=== PATIENT | male | born 1955 | race Two or more races ===

== ENCOUNTER 2024-04-01 20:12 | Emergency (ER) | payer BC, MEDICARE ==
[~2024-04-01] VITALS: Ht 175.3 cm; Wt 91.3 kg
[2024-04-01 20:44] VITALS: BP 97/70; PULSE 73; RESP 20; O2SAT 100
== END 2024-04-01 21:49 | disposition left against medical advice (07) ==
LOC: ER 20:12
DX: S81.832A Puncture wound without foreign body, left lower leg, initial encounter (principal); Z53.21 Procedure and treatment not carried out due to patient leaving prior to being seen by health care provider; W54.0XXA Bitten by dog, initial encounter; Y93.89 Activity, other specified; Y92.89 Other specified places as the place of occurrence of the external cause; Y99.8 Other external cause status

== ENCOUNTER 2024-07-11 11:24 | Inpatient (IN) | payer BC, MEDICARE ==
[2024-07-11] VITALS (21 sets, daily range): BP systolic 101–137; BP diastolic 60–81; PULSE 89–137; RESP 11–39; TEMP 98.4–98.6; O2SAT 91–100
[~2024-07-11] VITALS: Ht 172.7 cm; Wt 82.0 kg
--- NOTE | 2024-07-11 11:34 | ED.PDOC ---
HPI Comments HPI: Poor Historian. History obtained from the patient and EMS. 68-year-old male brought in by EMS from home presents with a chief complaint of generalized weakness and dizziness x 1 week. Patient mentions that he has not been taking his insulin medication for the past 1 week due to feeling sick. Patient does have sick contacts at home with respiratory symptoms. Per EMS, patient was hypotensive at 70/40 at the scene, but when they laid him down it amparo to 122/61. Initial blood sugar was 419. Patient was also tachycardic in the 120s. PMHx: DM, HTN, CHF, VT, A-Fib, On Eliquis (compliant with medication) PSHx: Pacemaker, Coronary Stents Allergies: No Known Allergies Initial Vital Signs: BP: 122/61 HR: 124 Temp: 98.1F SpO2: 95% RR: 24 REVIEW OF SYSTEMS: CONSTITUTIONAL: Denies acute: diaphoresis, HEAD: Denies acute: headache, photophobia Eyes: Denies acute: Double vision, vision loss, eye pain, eye discharge. EARS: Denies acute: tinnitus, hearing loss, ear discharge, ear pain, THROAT: Denies acute: sore throat, swelling, difficulty swallowing , pain with swallowing, change in voice. NECK: Denies acute: neck pain, neck swelling, stiff neck. HEART: Denies acute : chest pain, palpitations, LUNGS: Denies acute: SOB, wheezing, cough, hemoptysis ABDOMEN: Denies acute: abdominal pain, Nausea, Vomiting, diarrhea, melena , hematemesis, hematochezia SKIN: Denies acute: rash, redness, lesions, itchiness. EXTREMITIES: Denies acute: calf pain, numbness, tingling, weakness, denies pain in extremity. Denies acute: Low back pain. Neuro: Denies acute: focal neurological deficit, motor or sensory focal neurological deficit, tremors, seizure like activity, confusion, dizziness, change in mental status, loss of bowel or bladder function, cauda equina like symptoms. : Denies acute: dysuria, hematuria, flank pain, increase in urinary frequency. PSYCH: Denies acute: hallucination, suicidal ideation, homicidal ideation. PHYSICAL EXAM: General: Moderate acute distress, awake and alert. Head: normocephalic, atraumatic. Neck: supple, trachea is midline, no swelling. Throat: Normal phonation. Dry oral mucosa Eyes:, no erythema, no purulent discharge, no proptosis, no icterus. Heart: regular tachycardia, no significant murmur appreciated. Lungs: no apparent respiratory distress, Able to speak in full sentences. No wheezing, no rhonchi, no crackles. No stridors Clear to auscultation bilaterally. Abdomen: non tender to palpation, non distended, soft, no guarding, no rebound, + bowel sounds. Neuro: Awake, Alert, oriented to name, self, situation, follows commands GCS=15. Speech is normal. Skin: no petechia, no purpura, no cyanosis, slightly-pale, not jaundice. Lower extremities: --no - Pitting edema no deformity, no focal swelling, no calf TTP. Makes eye contact. moves all four extremities. Face: no apparent facial droop. Ears: Normal appearing TM b/l, Time Seen by MD: 11:26 Reviewed Notes: Allergies Allergies: Coded Allergies: NO KNOWN ALLERGIES (Unverified , 07/11/24) Home Meds Reported Medications Finasteride (Finasteride) 5 Mg Tab, 1 TAB PO DAILY 07/11/24 Metoprolol Succinate (Metoprolol Succinate Er) 25 Mg Tab, 1 TAB PO DAILY 07/11/24 Metformin Hydrochloride (Metformin Hcl) 1,000 Mg Tab, 1 TAB PO BID 07/11/24 Sacubitril-Valsartan (Entresto 97-103 mg) 1 Tab Tab, 1 TAB PO BID 07/11/24 Apixaban Base (ELIQUIS) 5 Mg Tab, .5 TAB PO BID 07/11/24 Gabapentin (Gabapentin) 300 Mg Cap, 1 CAP PO HS 07/11/24 Dapagliflozin Propanediol (Dapagliflozin Propanediol) 10 Mg Tab, 1 TAB PO DAILY 07/11/24 Ezetimibe (Ezetimibe) 10 Mg Tab, 1 TAB PO DAILY 07/11/24 Dapagliflozin Propanediol (Farxiga) 10 Mg Tab, 1 TAB PO DAILY 07/11/24 Spironolactone (Spironolactone) 25 Mg Tab, 1 TAB PO DAILY 07/11/24 Levothyroxine Sodium (Levothyroxine Sodium) 200 Mcg Tab, 1 TAB PO DAILY 07/11/24 Information Source: Patient Mode of Arrival: EMS Past Medical History PAST MEDICAL HISTORY: CHF, DM, HTN, VT Surgical History: Pacemaker, PTCA Family History Family History: Reviewed,noncontributory to illness Social History Smoker: Non-Smoker Alcohol: Denies ETOH Use Drugs: Denies Drug Use Lives In: Home Was a procedure done? 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 1.5cc of 1% lidocaine used. Blue patch applied. Three ports were flushing well non pulsating, venous color blood. This was done under ultrasound guidance. Ports are flushing well without resistance. Eleven blade was used to make a 5 mm incision at the insertion site. Dilator was used. Bleeding minimal. Patient tolerated the procedure well. The catheter was secured with two stitches at the insertion site. Tegaderm was applied CP Differential Dx Differential Diagnosis: N/A Differential Diagnosis: Other (As far as dyspnea, DDx include ACS, unstable angina, anxiety, PE, pneumothroax, neoplasm, cardiac ischemia, COPD, asthma, CHF, pleural effusion, tobacco abuse, pneumonia, hypoxia, hypercapnia, anemia., infection/sepsis., pulmonary edema. Asthma, Cardiac tamponade, infection.) Differential Diagnosis: Other (As far as weakness: Includes but not limited to thyroid disease, encephalopathy, electrolyte abnormality, sepsis, infection, intracranial pathology, drug adverse effects, arrhythmia, kidney insufficiency, ACS, CVA, malignancy, anemia) X-Ray, Labs, Meds, VS Vital Signs Date Time Temp Pulse Resp B/P (MAP) Pulse Ox O2 Delivery O2 Flow Rate FiO2 07/11/24 17:46 100 16 104/49 (67) 92 07/11/24 17:34 100 19 83/40 (54) 92 07/11/24 17:30 90/42 07/11/24 17:20 75/51 07/11/24 17:15 103 48 92/52 (65) 90 07/11/24 17:12 85/46 07/11/24 17:00 99 51 54/32 (39) 89 07/11/24 16:45 93 45 85/52 (63) 97 07/11/24 16:30 96 23 85/52 (63) 97 07/11/24 16:30 85/52 07/11/24 16:30 94 80/50 07/11/24 16:25 80/50 07/11/24 16:16 77/44 07/11/24 16:15 96 20 77/44 (55) 85 07/11/24 16:07 76/41 07/11/24 16:01 87 07/11/24 16:00 88 15 60/36 (44) 88 07/11/24 16:00 60/36 07/11/24 15:56 79/29 07/11/24 15:52 75/30 07/11/24 15:48 70/29 07/11/24 15:46 61/23 07/11/24 15:46 85 17 61/23 (36) 89 07/11/24 15:30 188 85/55 07/11/24 15:00 116 28 99/77 (84) 95 07/11/24 14:12 118 07/11/24 14:00 128 35 82/39 (53) 87 07/11/24 13:50 98.4 07/11/24 13:33 120 07/11/24 13:00 98.3 121 12 166/126 (139) 93 98.3 07/11/24 12:50 100.3 07/11/24 12:01 120 25 63/40 (48) 91 07/11/24 11:53 100.3 137 33 115/93 (100) 98 100.3 07/11/24 11:49 137 24 95 Nasal Cannula* 2 28 07/11/24 11:49 98.7 124 24 122/61 (81) 95 Lab Test 07/11/24 16:12 07/11/24 15:40 07/11/24 15:12 07/11/24 14:44 Range/Units Blood Gas Specimen Type Arterial Blood Gas Sample Site Right radial Blood Gas Patient Temperature 37.0 Arterial Blood Date Drawn [id number] Arterial Blood pH 7.385 7.350-7.450 Arterial Blood Partial Pressure CO2 30.3 L 35.0-48.0 mmHg Arterial Blood Partial Pressure O2 56.1 L 83.0-108.0 mmHg Arterial Blood HCO3 17.7 L 21.0-28.0 mmol/L Arterial Blood Oxygen Saturation 88.6 L 94.0-98.0 % Arterial Blood Base Excess -6.1 L -2.0-3.0 mmol/L Arterial Blood Oxyhemoglobin 87.6 L 94.0-98.0 % Arterial Blood Carboxyhemoglobin 0.5 0.5-1.5 % Arterial Blood Methemoglobin 0.6 0.0-1.5 % Frank Test Yes Blood Gas Total Hemoglobin 13.50 13.5-17.5 g/dL Blood Gas Modality Mask - simple FiO2 % 50.0 Sodium Level 134 L 136-145 mmol/L Potassium Level 3.4 L 3.5-5.1 mmol/L Chloride Level 102 98-107 mmol/L Carbon Dioxide Level 21 20-31 mmol/L Anion Gap 11 5-15 Blood Urea Nitrogen 17 9-23 mg/dL Creatinine 1.57 H 0.700-1.30 mg/dL Glomerular Filtration Rate Calc 48 >90 mL/min BUN/Creatinine Ratio 10.8 10.0-20.0 Serum Glucose 186 #H 74-106 mg/dL Calcium Level 7.4 L 8.7-10.4 mg/dL Total Bilirubin 0.6 0.2-1.0 mg/dL Aspartate Amino Transferase (AST) 21 13-40 U/L Alanine Aminotransferase (ALT) 12 7-40 U/L Alkaline Phosphatase 35 L 46-116 U/L Total Protein 5.0 L 5.7-8.2 g/dL Albumin 2.9 L 3.2-4.8 g/dL Triglycerides Level 52 < 150 mg/dL Cholesterol Level 84 < 200 mg/dL LDL Cholesterol 31 < 100 mg/dL HDL Cholesterol 42 40-59 mg/dL Thyroid Stimulating Hormone (TSH) 1.78 0.55-4.78 uIU/mL Urine Color Yellow Yellow Urine Clarity Clear Clear Urine pH 5.5 5.0-9.0 Urine Specific [place] 1.027 1.001-1.035 Urine Protein 1+ H Negative Urine Ketones 2+ H Negative Urine Blood Negative Negative /uL Urine Nitrite Negative Negative Urine Bilirubin Negative Negative Urine Urobilinogen Normal Negative mg/dL Urine Leukocyte Esterase Negative Negative /uL Urine RBC 1 0 - 3 /hpf Urine WBC 3 0 - 3 /hpf Urine Squamous Epithelial Cells Few <5 /hpf Urine Bacteria None seen None Seen /hpf Urine Glucose 4+ H Normal mg/dL Urine Opiates Screen Neg NEGATIVE Urine Fentanyl Screen Neg NEGATIVE Urine Barbiturates Screen Neg NEGATIVE Urine Phencyclidine Screen Neg NEGATIVE Urine Amphetamines Screen Neg NEGATIVE Urine Benzodiazepines Screen Neg NEGATIVE Urine Cocaine Screen Neg NEGATIVE Urine Cannabinoids Screen Neg NEGATIVE D-Dimer, Quantitative 4.34 H 0.0-0.49 mg/L FEU Lactic Acid Level 7.1 *H 0.4-2.0 mmol/L Troponin I High Sensitivity 16 </=54 ng/L Test 07/11/24 13:05 07/11/24 12:33 07/11/24 11:58 07/11/24 11:52 Range/Units Troponin I High Sensitivity 15 15 </=54 ng/L Influenza Type A Antigen Positive Negative Influenza Type B Antigen Negative Negative SARS-CoV-2 Antigen (Rapid) Negative NEGATIVE White Blood Count 1.1 *L 4.4-10.8 10^3/uL Red Blood Count 4.32 L 4.5-5.90 10^6/uL Hemoglobin 13.8 13.5-17.5 g/dL Hematocrit 40.8 L 41.0-53.0 % Mean Corpuscular Volume 94.5 80.0-100.0 fL Mean Corpuscular Hemoglobin 31.8 28.0-32.0 pg Mean Corpuscular Hemoglobin Concent 33.7 32.0-36.0 g/dL Red Cell Distribution Width 14.2 11.8-14.3 % Platelet Count 87 L 140-450 10^3/uL Mean Platelet Volume 10.1 6.9-10.8 fL Neutrophils (%) (Auto) 37.0-80.0 % Lymphocytes (%) (Auto) 10.0-50.0 % Monocytes (%) (Auto) 0.0-12.0 % Basophils (%) (Auto) 0.0-2.0 % Neutrophils # (Auto) 1.6-8.6 10 ^3/uL Lymphocytes # (Auto) 0.4-5.4 10 ^3/uL Monocytes # (Auto) 0-1.3 10 ^3/uL Differential Total Cells Counted 100.0 100 Neutrophils % (Manual) 42 37.0-80.0 Band Neutrophils % (Manual) 26 Lymphocytes % (Manual) 23 10.0-50.0 Monocytes % (Manual) 8 0-12 Eosinophils % (Manual) 1 0-7 Basophils % (Manual) 0 0.0-2.0 Metamyelocytes % (manual) 0 Myelocytes % (Manual) 0 Promyelocytes % (Manual) 0 Blast Cells % (Manual) 0 Reactive Lymphocytes 0 Platelet Estimate Decreased Giant Platelets Few Prothrombin Time 11.4 9.3-11.8 sec Prothrombin Time INR 1.08 0.9-1.15 Activated Partial Thromboplast Time 34.3 24.5-34.5 SEC Sodium Level 130 L 136-145 mmol/L Potassium Level 3.9 3.5-5.1 mmol/L Chloride Level 96 L 98-107 mmol/L Carbon Dioxide Level 19 L 20-31 mmol/L Anion Gap 15 5-15 Blood Urea Nitrogen 21 9-23 mg/dL Creatinine 1.78 H 0.700-1.30 mg/dL Glomerular Filtration Rate Calc 42 >90 mL/min BUN/Creatinine Ratio 11.8 10.0-20.0 Serum Glucose 372 H 74-106 mg/dL Hemoglobin A1c 7.5 H <5.7 % A1C Lactic Acid Level 8.4 *H 0.4-2.0 mmol/L Calcium Level 8.1 L 8.7-10.4 mg/dL Magnesium Level 1.6 1.6-2.6 mg/dL Total Bilirubin 1.0 0.2-1.0 mg/dL Aspartate Amino Transferase (AST) 23 13-40 U/L Alanine Aminotransferase (ALT) 19 7-40 U/L Alkaline Phosphatase 47 46-116 U/L Ammonia < 10 L 11-32 umol/L B-Type Natriuretic Peptide 359.95 0-100 pg/mL Total Protein 5.7 5.7-8.2 g/dL Albumin 3.5 3.2-4.8 g/dL Lipase 17 12-53 U/L Beta-Hydroxybutyric Acid 0.874 H < 0.4 mmol/L POC Glucose 343 H 70-106 mg/dl Current Medications Medications (Trade) Dose Ordered Sig/Maurice Route Start Time Stop Time Status Last Admin Sodium Chloride 1,000 ml @ 1,000 mls/hr Q1H ONCE IV 07/11/24 11:30 07/11/24 12:29 DC 07/11/24 12:00 Ceftriaxone Sodium 50 ml @ 100 mls/hr ONCE ONCE IV 07/11/24 12:15 07/11/24 12:44 DC 07/11/24 12:20 Piperacillin Sod/ Tazobactam Sod 100 ml @ 100 mls/hr ONCE ONCE IV 07/11/24 12:45 07/11/24 13:44 DC 07/11/24 13:18 Acetaminophen (Tylenol Tablet) 650 mg ONCE ONCE PO 07/11/24 12:45 07/11/24 12:47 DC 07/11/24 12:50 Sodium Chloride 1,000 ml @ 1,000 mls/hr Q1H ONCE IV 07/11/24 13:00 07/11/24 13:59 DC 07/11/24 13:18 Sodium Chloride 1,000 ml @ 1,000 mls/hr Q1H ONCE IV 07/11/24 13:00 07/11/24 13:59 DC 07/11/24 13:19 Insulin Human Regular (InsuLIN R) 5 units ONCE ONCE IV 07/11/24 13:00 07/11/24 13:05 DC 07/11/24 13:20 Sodium Bicarbonate 50 ml ONCE ONCE IV 07/11/24 13:15 07/11/24 13:16 DC 07/11/24 13:22 Furosemide (Lasix Injection) 20 mg ONCE ONCE IV 07/11/24 14:30 07/11/24 14:59 DC 07/11/24 18:23 Metoprolol Tartrate (Lopressor) 5 mg ONCE ONCE IV 07/11/24 15:30 07/11/24 15:31 DC 07/11/24 15:30 Norepinephrine Bitartrate 250 ml @ 3.75 mls/hr Q24H IV 07/11/24 16:15 07/11/24 15:46 Potassium Chloride 100 ml @ 50 mls/hr Q2H IV 07/11/24 16:45 07/11/24 20:44 07/11/24 18:28 Phenylephrine HCl 250 ml @ 30 mls/hr Q8H20M IV 07/11/24 17:15 07/11/24 17:12 [place] [id number] Ph: [phone] DIAGNOSTIC IMAGING Diagnostic Imaging Report : [id number] Signed PATIENT: SAAD SHANNON ACCT: [id number] UNIT: [id number] : 1955 LOC: ER ROOM / BED: / AGE / SEX: 68 / M ADM STATUS: REG ER SERVICE 1130 ORDERING PHYSICIAN: TIFFANIE OLMOS DO PROCEDURE(s): CXRP - CHEST PORTABLE REASON: weak ORDER NUMBER(s): [id number], ACCESSION NUMBER(s): [id number] EXAM: XY CHEST PORTABLE Indication:weak Technique: Single frontal view of the chest was obtained Comparison: None FINDINGS: Lines and Tubes: Cardiac pacemaker projects over left chest wall. Lungs: Diffuse multifocal consolidative opacities. Pleura: No effusion. No pneumothorax. Cardiomediastinal contours: Unremarkable. Atherosclerotic vascular calcifications of the thoracic aorta are noted. Bones: No acute osseous abnormality. IMPRESSION: Diffuse multifocal consolidative opacities suggestive multifocal pneumonia. ATED BY: BETSY DAVIS MD DICTATED DATE/TIME: 07/11/241210 SIGNED BY: BETSY DAVIS MD SIGNED DATE/TIME: 07/11/24 1211 Time of 1ST Reevaluation: 11:56 Reevaluation 1ST: Unchanged Time of 2ND Reevaluation: 15:55 Reevaluation 2ND: Unchanged Patient Education/Counseling: Diagnosis, Treatment Family Education/Counseling: No Family Present Comments Patient presented with the above HPI.---generalized weakness---workup was initiated. patient was found with the above mentioned diagnosis. Patient was given: Patient was found with a fever, Tylenol was given and fluids. Sepsis protocol was initiated. Patient was found multifocal pneumonia, Rocephin and then later Zosyn was given. Patient bicarb was low. Patient was ordered a amp of bicarb. Patient lactic acid is eight. Patient was given additional 2 L of normal saline bolus. Patient was hyperglycemic. Insulin was given. Patient ED course and VS have been stabilized. Patient has been reassessed in the ED and remained in a stable condition. Pertinent incidental findings were discussed with the patient and/or family. Patient/family voices understanding and is agreeable with plan. Patient has been observed in the ED adequate length of time to insure improvement/stability. patient was admitted to the medicine team for further evaluation and treatment of their presentation. All the reports of any imaging studies that were ordered by myself were reviewed by myself. Patient fever has been treated however he remained tachycardic in the 120s despite fluid resuscitation. EKG repeated shows atrial fibrillation. Patient states having history of atrial fibrillation on Eliquis and states compliance with the medications including metoprolol. Patient had episodes of tachycardia in the 200s with subsequently resolved spontaneously. Patient was given some Lasix given his history of CHF and the volume resuscitation that we had given him. Patient was given a dose of his home medication Lopressor 5 mg IV given his tachycardia in the 200s. Cardiology was consulted who came to see the patient at bedside. Patient blood pressure has been soft and is not improving and responding to fluid resuscitation. Levophed was initiated. Cardiology advised against adding any additional fluids at this time. I ordered a PICC line however the PICC line team refused to come and do the PICC line because they said it is not indicated. I will place a central line here shortly. Hospitalist team came and evaluated the patient and started additional pressors. Departure 1 Departure Time of Disposition: 12:36 Impression: Primary Impression: Multifocal pneumonia Additional Impressions: Sepsis Hyperglycemia due to diabetes mellitus Influenza A H1N1 infection Thrombocytopenia Hypotension Septic shock Dehydration Disposition: ADMITTED INPATIENT Admit to: ICU Condition: Critical Discharged With: Self Critical Care Note Critical Care Time?: Yes (1 hr-critical care time only) I personally scribed for TIFFANIE OLMOS DO ([email or web address]) on 07/11/24 at 11:34. Electronically submitted by Lorenzo Nieves ([email or web address]). I personally scribed for TIFFANIE OLMOS DO ([email or web address]) on 07/11/24 at 12:08. Electronically submitted by Lorenzo Nieves ([email or web address]). I personally scribed for TIFFANIE OLMOS DO ([email or web address]) on 07/11/24 at 12:36. Electronically submitted by Lorenzo Nieves ([email or web address]). I personally scribed for TIFFANIE OLMOS DO ([email or web address]) on 07/11/24 at 12:37. Electronically submitted by Lorenzo Nieves ([email or web address]). I personally scribed for TIFFANIE OLMOS DO ([email or web address]) on 07/11/24 at 15:23. Electronically submitted by Lorenzo Nieves ([email or web address]). I personally scribed for TIFFANIE OLMOS DO ([email or web address]) on 07/11/24 at 17:31. Electronically submitted by Edgardo Valdes ([email or web address]). TIFFANIE OLMOS DO Jul 11, 2024 11:34
[2024-07-11] MEDS: SODIUM CHLORIDE 0.9% 1,000 ML IV ONE ×3 (12:00→13:19)
--- NOTE | 2024-07-11 12:13 | DVH ---
EXAM: XY CHEST PORTABLE Indication:weak Technique: Single frontal view of the chest was obtained Comparison: None FINDINGS: Lines and Tubes: Cardiac pacemaker projects over left chest wall. Lungs: Diffuse multifocal consolidative opacities. Pleura: No effusion. No pneumothorax. Cardiomediastinal contours: Unremarkable. Atherosclerotic vascular calcifications of the thoracic ao rta are noted. Bones: No acute osseous abnormality. IMPRESSION: Diffuse multifocal consolidative opacities suggestive multifocal pneumonia.
[2024-07-11] MEDS: cefTRIAXone 1GM/50ML D5W 50 ML IV ONE (12:20)
[2024-07-11 12:32] LABS: Platelet Count (auto) 87 10^3/uL (140-450); Red Blood Cells 4.32 10^6/uL (4.5-5.90)
[2024-07-11 12:35] LABS: Hematocrit 40.8 % (41.0-53.0); Hemoglobin 13.8 g/dL (13.5-17.5); Mean Corpuscular Hemoglobin 31.8 pg (28.0-32.0); Mean Corpuscular Hgb Conc. 33.7 g/dL (32.0-36.0); Mean Corpuscular Volume 94.5 fL (80.0-100.0); Red Cell Distribution Width 14.2 % (11.8-14.3)
[2024-07-11 12:38] LABS: White Blood Cell 1.1 10^3/uL (4.4-10.8)
[2024-07-11 12:39] LABS: Basophils % (manual) 0 (0.0-2.0); Blast Cells 0; Metamyelocytes % 0; Myelocytes % 0; Promyelocytes % 0; Reactive Lymphocytes 0
[2024-07-11] MEDS: ACETAMINOPHEN 325 MG TAB PO ONE (12:50)
[2024-07-11 12:53] LABS: Alanine Aminotransferase 19 U/L (7-40); Albumin 3.5 g/dL (3.2-4.8); Alkaline Phosphatase 47 U/L (46-116); Anion Gap 15 (5-15); Aspartate Aminotransferase 23 U/L (13-40); BUN/Creatinine Ratio 11.8 (10.0-20.0); Blood Urea Nitrogen 21 mg/dL (9-23); Calcium 8.1 mg/dL (8.7-10.4); Carbon Dioxide 19 mmol/L (20-31); Chloride 96 mmol/L (98-107); Glucose 372 mg/dL (74-106); Magnesium 1.6 mg/dL (1.6-2.6); Potassium 3.9 mmol/L (3.5-5.1); Sodium 130 mmol/L (136-145)
[2024-07-11 12:54] LABS: Total Protein 5.7 g/dL (5.7-8.2)
[2024-07-11 12:59] LABS: Lactic Acid w/Reflex 8.4 mmol/L (0.4-2.0)
[2024-07-11 13:04] LABS: Lipase 17 U/L (12-53)
[2024-07-11] MEDS: PIPERACILLIN-TAZOB 3.375GM 100 ML IV ONE (13:18)
[2024-07-11] MEDS: InsuLIN REG 1unit/0.01ml Soln (100units/ml) IV ONE (13:20)
[2024-07-11] MEDS: SODIUM BICARB 8.4% 50Meq/50ml SYR Vial IV ONE (13:22)
[2024-07-11 14:03] LABS: Rapid Influenza B Negative (Negative)
[2024-07-11 14:06] LABS: COVID19 ANTIGEN SOFIA FIA NEGATIVE (NEGATIVE); Rapid Influenza A Positive (Negative)
--- NOTE | 2024-07-11 14:11 | DVH ---
EXAM: XY CHEST PORTABLE Indication:cp Technique: Single frontal view of the chest was obtained Comparison: XY CHEST PORTABLE on DOS: 07/11/24 FINDINGS: Lines and Tubes: Cardiac pacemaker projects over the left chest wall. Lungs: Multifocal right lung opacities, slightly worsened compared to prior exam. Pleura: No effusion. No pneumothorax. Cardiomediastinal contours: Unremarkable Bones: No acute osseous abnormality. IMPRESSION: Multifocal pneumonia, slightly worsened in the right lung compared to prior exam.
[2024-07-11 14:12] LABS: Band Neutrophils % (manual) 26; Eosinophils % (manual) 1 (0-7); Giant Platelets Few; Lymphocytes % (manual) 23 (10.0-50.0); Monocytes % (manual) 8 (0-12); Platelet Estimate Decreased
[2024-07-11 15:13] LABS: Urine Bacteria None Seen /hpf (None Seen)
[2024-07-11] MEDS: METOPROLOL TARTRATE 1MG/1ML-5ML VIAL IV ONE (15:30)
[2024-07-11 15:31] LABS: Urine Blood Negative /uL (Negative); Urine Clarity Clear (Clear); Urine Color Yellow (Yellow); Urine Protein, UAD 1+ (Negative); Urine Specific Gravity 1.027 (1.001-1.035); Urine Urobilinogen Normal (Negative); Urine WBC 3 /hpf (0 - 3); Urine pH 5.5 (5.0-9.0)
[2024-07-11] MEDS: NOREPINEPHRINE 8 MG/250ML KIT 250 ML IV SCH (15:46)
[2024-07-11 15:49] LABS: Amphetamine Screen, Urine Neg (NEGATIVE)
[2024-07-11 15:51] LABS: Barbiturate Scree,Urine Neg (NEGATIVE); Benzodiazephine Screen, Urine Neg (NEGATIVE); Cannabinoid Screen, Urine Neg (NEGATIVE); Cocaine Screen, Urine Neg (NEGATIVE); Opiate Scree,Urine Neg (NEGATIVE); Phencyclidine Screen, Urine Neg (NEGATIVE)
[2024-07-11 15:54] LABS: INR 1.08 (0.9-1.15); Partial Thromboplastin Time 34.3 SEC (24.5-34.5); Prothrombin Time 11.4 sec (9.3-11.8)
--- NOTE | 2024-07-11 16:11 | DVHINCON2 ---
Date Seen: Jul 11, 2024 Referring Physician MD Urmila Reason for Consultation A-fib with RVR History of Present Illness This is a 68-year-old male who presented to the emergency room via EMS with a chief complaint generalized weakness for one week. The patient complains of progressive generalized weakness associated with shortness of breath, pleuritic chest pain, and flu-like symptoms including a productive cough with green sputum, fever, and chest congestion. Upon EMS arrival he was found to be hypotensive with a systolic blood pressure in the 70s mmHg, tachycardic, and hyperglycemic. Per patient, he has been compliant with most of his medical therapy at home except his insulin shots. He underwent an initial 12 lead electrocardiogram revealing an atrial fibrillation rhythm with rapid ventricular rate for which the patient was medicated with metoprolol 5 mg IV. STAT consultation for tachyarrhythmia was placed by ED physician. At time of assessment the patient was found in an atrial fibrillation rhythm at a controlled rate, hypoxic on a simple mask at 8 LPM, and with a systolic blood pressure in the 60s mmHg. Significant medical history includes congestive heart failure with improved EF, permanent atrial fibrillation on Eliquis therapy, coronary artery disease status post PCI including one ESTHER in 2019, status post single lead [place] [employer] AICD in 2013 with generator exchange expected within 1 year, insulin-dependent diabetes mellitus, hypertension, dyslipidemia, thyroid disease, and peripheral neuropathy. Past Medical History Past medical history reviewed. No other significant than mentioned above. Past Surgical History Single-lead [place] [employer] AICD, 2014 PTCA including one ESTHER, 2019 Family History Family history reviewed. Social History Denies the use of illicit drugs, alcohol, or tobacco use. Allergies: Coded Allergies: NO KNOWN ALLERGIES (Unverified , 07/11/24) Home Meds Home medications reviewed. Review of Systems Constitutional: Generalized weakness, flu-like symptoms Ears, Nose, & Throat: No symptom reported Eyes: No symptom reported Neurological: No symptoms reported Pulmonary/Respiratory: SOB, productive cough, pleuritic chest pain Cardiovascular: No symptom reported Gastrointestinal: No symptom reported Genitourinary: No symptom reported Musculoskeletal: No symptom reported Skin: No symptom reported Psychiatric: No symptom reported Endocrine: No symptom reported Hemotologic/Lymphatic: No symptom reported Vital Signs Vital Signs Date Time Temp Pulse Resp B/P (MAP) Pulse Ox O2 Delivery O2 Flow Rate FiO2 07/11/24 15:30 188 85/55 11/6/24 13:50 98.4 07/11/24 11:49 24 95 Physical Exam General Appearance: Lethargic. Obese. Moderate acute distress Head Exam: Normal inspection Neck Exam: Normal inspection. Non-tender. Normal alignment Pulmonary/Respiratory: Chest non-tender. Coarse bilateral breath sounds Cardiovascular/Chest: Irregularly irregular rate and rhythm. Atrial fi brillation, controlled rate. No murmurs. No JVD. Peripheral Pulses: 2+ Radial (R). 2+ Radial (L). 2+ Pedal (R). 2+ Pedal (L) Abdominal Exam: Normal bowel sounds. Soft. Nontender. Ankle Exam: Negative ankle edema Lower extremities: Negative lower extremity edema Neuro/Mental Status: A&O x3. Coherent Thoughts/Psych: Normal thought pattern. Appropriate mood and affect. Appearance: In no acute distress Skin Exam: Normal inspection. Normal color. Hot. Dry Labs/Diagnostic Data Labs Test 07/11/24 15:40 07/11/24 15:12 07/11/24 14:44 07/11/24 12:33 Range/Units Urine Color Yellow Yellow Urine Clarity Clear Clear Urine pH 5.5 5.0-9.0 Urine Specific [place] 1.027 1.001-1.035 Urine Protein 1+ H Negative Urine Ketones 2+ H Negative Urine Blood Negative Negative /uL Urine Nitrite Negative Negative Urine Bilirubin Negative Negative Urine Urobilinogen Normal Negative mg/dL Urine Leukocyte Esterase Negative Negative /uL Urine RBC 1 0 - 3 /hpf Urine WBC 3 0 - 3 /hpf Urine Squamous Epithelial Cells Few <5 /hpf Urine Bacteria None seen None Seen /hpf Urine Glucose 4+ H Normal mg/dL Urine Opiates Screen Neg NEGATIVE Urine Fentanyl Screen Neg NEGATIVE Urine Barbiturates Screen Neg NEGATIVE Urine Phencyclidine Screen Neg NEGATIVE Urine Amphetamines Screen Neg NEGATIVE Urine Benzodiazepines Screen Neg NEGATIVE Urine Cocaine Screen Neg NEGATIVE Urine Cannabinoids Screen Neg NEGATIVE Lactic Acid Level 7.1 *H 0.4-2.0 mmol/L Troponin I High Sensitivity 16 </=54 ng/L Influenza Type A Antigen Positive Negative Influenza Type B Antigen Negative Negative SARS-CoV-2 Antigen (Rapid) Negative NEGATIVE Test 07/11/24 11:58 07/11/24 11:52 Range/Units White Blood Count 1.1 *L 4.4-10.8 10^3/uL Red Blood Count 4.32 L 4.5-5.90 10^6/uL Hemoglobin 13.8 13.5-17.5 g/dL Hematocrit 40.8 L 41.0-53.0 % Mean Corpuscular Volume 94.5 80.0-100.0 fL Mean Corpuscular Hemoglobin 31.8 28.0-32.0 pg Mean Corpuscular Hemoglobin Concent 33.7 32.0-36.0 g/dL Red Cell Distribution Width 14.2 11.8-14.3 % Platelet Count 87 L 140-450 10^3/uL Mean Platelet Volume 10.1 6.9-10.8 fL Neutrophils (%) (Auto) 37.0-80.0 % Lymphocytes (%) (Auto) 10.0-50.0 % Monocytes (%) (Auto) 0.0-12.0 % Basophils (%) (Auto) 0.0-2.0 % Neutrophils # (Auto) 1.6-8.6 10 ^3/uL Lymphocytes # (Auto) 0.4-5.4 10 ^3/uL Monocytes # (Auto) 0-1.3 10 ^3/uL Differential Total Cells Counted 100.0 100 Neutrophils % (Manual) 42 37.0-80.0 Band Neutrophils % (Manual) 26 Lymphocytes % (Manual) 23 10.0-50.0 Monocytes % (Manual) 8 0-12 Eosinophils % (Manual) 1 0-7 Basophils % (Manual) 0 0.0-2.0 Metamyelocytes % (manual) 0 Myelocytes % (Manual) 0 Promyelocytes % (Manual) 0 Blast Cells % (Manual) 0 Reactive Lymphocytes 0 Platelet Estimate Decreased Giant Platelets Few Prothrombin Time 11.4 9.3-11.8 sec Prothrombin Time INR 1.08 0.9-1.15 Activated Partial Thromboplast Time 34.3 24.5-34.5 SEC Magnesium Level 1.6 1.6-2.6 mg/dL Ammonia < 10 L 11-32 umol/L B-Type Natriuretic Peptide 359.95 0-100 pg/mL Lipase 17 12-53 U/L Beta-Hydroxybutyric Acid 0.874 H < 0.4 mmol/L POC Glucose 343 H 70-106 mg/dl Assessment Septic shock with multifocal PNA/Influenza Type A Permanent atrial fibrillation with rapid ventricular rate secondary to above, Stage 4, on Eliquis Noncardiac/pleuritic chest pain Chronic compensated HFimpEF Presence of AICD (2Duche 2013) Coronary artery disease status post PTCA x1 ESTHER Hypokalemia/hypomagnesemia Insulin-dependent diabetes mellitus Acute kidney injury Suboptimal medical therapy Obesity Plan/Recommendation (Dr. Dumont) Atrial fibrillation at a controlled rate at this time. We recommend hemodynamic support with vasopressors to attain a MAP > 65mmHg. Replete electrolytes as necessary, potassium over four and magnesium over 2. Gentle IV hydration if necessary, not recommended, as the patient has a history of HFrEF. We will co ntinue further cardiac evaluation with a transthoracic echocardiogram to rule out structural heart disease. Monitor ECG changes and notify. Continue blood pressure support and sepsis management as this is the culprit of tachyarrhythmia. Obtain ABG. Initiate therapeutic Lovenox, hold NOAC therapy at this time. Thank you for allowing us to participate in this patient's care. Please call if you have any questions or concerns. Critical care time: 40 min. This medical document was created using an electronic medical record system with voice recognition software and computerized dictation system. Although this document has been carefully reviewed, there might still be some phonetic and typographical errors. Occasional wrong-word or ``sound-alike substitutions may have occurred due to the inherent limitations of voice recognition software. These areas are purely typographical due to imperfections of the software programs and do not reflect any compromise in the patient's medical care. Please read the chart carefully and recognize, using context, where these substitutions have occurred. Plan discussed with: Patient, Other Date of Service: Jul 11, 2024 Billing Provider: NEAL DUMONT MD Cardiology Common Codes: 82455-[id number] CARE 30-74 MIN KIKE ARMENTA Jul 11, 2024 16:11
[2024-07-11 16:21] LABS: Alanine Aminotransferase 12 U/L (7-40); Albumin 2.9 g/dL (3.2-4.8); Alkaline Phosphatase 35 U/L (46-116); Anion Gap 11 (5-15); Aspartate Aminotransferase 21 U/L (13-40); BUN/Creatinine Ratio 10.8 (10.0-20.0); Bilirubin, Total 0.6 mg/dL (0.2-1.0); Blood Urea Nitrogen 17 mg/dL (9-23); Calcium 7.4 mg/dL (8.7-10.4); Carbon Dioxide 21 mmol/L (20-31); Chloride 102 mmol/L (98-107); Potassium 3.4 mmol/L (3.5-5.1); Sodium 134 mmol/L (136-145)
[2024-07-11 16:22] LABS: Base Excess -6.1 mmol/L (-2.0-3.0)
[2024-07-11 16:29] LABS: Glucose 186 mg/dL (74-106)
[2024-07-11] MEDS: NOREPINEPHRINE 8 MG/250ML KIT 250 ML IV ONE (16:31)
[2024-07-11] MEDS ORDERED: ENOXAPARIN SOD 100 MG/1 ML SYRINGE SC ONE (16:45)
[2024-07-11 17:06] LABS: Triglycerides 52 mg/dL (< 150)
[2024-07-11 17:07] LABS: LDL Cholesterol 31 mg/dL (< 100)
[2024-07-11 17:08] LABS: Cholesterol 84 mg/dL (< 200); HDL Cholesterol 42 mg/dL (40-59)
[2024-07-11] MEDS: PHENYLEPHRINE IV 250 ML IV SCH (17:12)
[2024-07-11] MEDS ORDERED: VASOPRESSIN 20 UNITS in SODIUM CHL 0.9% 99 ML IV SCH (17:15)
[2024-07-11] MEDS ORDERED: MORPHINE SULFATE INJ 2 MG/ml SYRG IV PRN (18:00)
[2024-07-11] MEDS ORDERED: NITROGLYCERIN 0.4 MG SL TAB SL PRN (18:00)
[2024-07-11] MEDS ORDERED: POTASSIUM CHL 20MEQ/100ML 100 ML IV ONE (18:00)
[2024-07-11] MEDS ORDERED: ONDANSETRON HCL 4 MG/2 ML VIAL IV PRN (18:00)
--- NOTE | 2024-07-11 18:01 | DVHINCON2 ---
Date of service: Jul 11, 2024 Referring Physician JOSH Hatfield. Reason for Consultation Acute hypoxic respiratory failure, multifocal pneumonia History of Present Illness 68-year-old man history of congestive heart failure, atrial fibrillation on anticoagulation with Eliquis, CAD status post PCI, status post [place] [employer] AICD, insulin-dependent diabetes mellitus, hypertension, dyslipidemia, thyroid disease, peripheral neuropathy who presented with a chief complaint of generalized weakness. He has generalized weakness associated with shortness of breath. Pleuritic chest pain. Flu-like symptoms. He notes a productive cough. It is productive of green phlegm. Notes fever and chest congestion. He was found to be hypotensive with a systolic blood pressure of 70 mmHg. He was tachycardic and hyperglycemic. Patient was placed on supplemental oxygen at 8 liters/minute via simple mask. Pulmonary consultation is called due to acute hypoxic respiratory failure and multifocal pneumonia Review of systems: 14 point review of systems is negative unless otherwise noted above. Past medical history: congestive heart failure, atrial fibrillation on anticoagulation with Eliquis, CAD status post PCI, status post [place] [employer] AICD, insulin-dependent diabetes mellitus, hypertension, dyslipidemia, thyroid disease, peripheral neuropathy Past medical history: Status post AICD placement, CAD status post PTCA Medications: Reviewed Allergies: No known drug allergies. Family history: No family history of premature CAD. No family history of lung disease Social history: Nonsmoker. No alcohol or illicit drug use. Allergies: Coded Allergies: NO KNOWN ALLERGIES (Unverified , 07/11/24) Current Medications Current Medications Medications (Trade) Dose Ordered Sig/Maurice Route PRN Reason Start Time Stop Time Status Last Admin Norepinephrine Bitartrate 250 ml @ 3.75 mls/hr Q24H IV 07/11/24 16:15 07/11/24 15:46 Vasopressin 20 units/Sodium Chloride 100 ml @ 9 mls/hr Q11H7M IV 07/11/24 16:45 UNV Potassium Chloride 100 ml @ 50 mls/hr Q2H IV 07/11/24 16:45 07/11/24 20:44 UNV Enoxaparin Sodium (Lovenox) 80 mg Q12HR SC 07/12/24 10:00 UNV Phenylephrine HCl 250 ml @ 30 mls/hr Q8H20M IV 07/11/24 17:15 UNV Vasopressin 20 units/Sodium Chloride 100 ml @ 9 mls/hr Q11H7M IV 07/11/24 17:15 UNV Vital Signs Vital Signs Date Time Temp Pulse Resp B/P (MAP) Pulse Ox O2 Delivery O2 Flow Rate FiO2 07/11/24 16:30 94 80/50 07/11/24 16:00 15 88 07/11/24 13:50 98.4 07/11/24 11:49 Nasal Cannula* 2 28 Physical Exam Gen.: Patient lying in bed in no apparent distress. On supplemental oxygen. Head: Normocephalic, atraumatic Eyes: EOMI/PERRLA. Ears: Normal hearing. Normal anatomy. Neck/trachea: Trachea midline, supple. Nose: Normal external anatomy. Mouth: Moist mucous membranes. Chest: Decreased air entry bilaterally. No wheezing. Scattered rhonchi. Cardio vascular: Positive S1, positive S2. Regular rate and rhythm. Abdomen: Positive bowel sounds in all 4 quadrants. Soft, non-tender, non- distended. : Deferred. Rectal: Deferred Skin: Warm, dry. Extremities: 2+ radial pulses bilaterally. No lower extremity edema. Neuro: Awake, alert, oriented x3. No gross motor or sensory deficits. Cranial nerves II through XII intact. Gait not assessed. Labs/Diagnostic Data Labs Test 07/11/24 16:12 07/11/24 15:40 07/11/24 15:12 07/11/24 14:44 Range/Units Blood Gas Specimen Type Arterial Blood Gas Sample Site Right radial Blood Gas Patient Temperature 37.0 Arterial Blood Date Drawn [id number] Arterial Blood pH 7.385 7.350-7.450 Arterial Blood Partial Pressure CO2 30.3 L 35.0-48.0 mmHg Arterial Blood Partial Pressure O2 56.1 L 83.0-108.0 mmHg Arterial Blood HCO3 17.7 L 21.0-28.0 mmol/L Arterial Blood Oxygen Saturation 88.6 L 94.0-98.0 % Arterial Blood Base Excess -6.1 L -2.0-3.0 mmol/L Arterial Blood Oxyhemoglobin 87.6 L 94.0-98.0 % Arterial Blood Carboxyhemoglobin 0.5 0.5-1.5 % Arterial Blood Methemoglobin 0.6 0.0-1.5 % Frank Test Yes Blood Gas Total Hemoglobin 13.50 13.5-17.5 g/dL Blood Gas Modality Mask - simple FiO2 % 50.0 Sodium Level 134 L 136-145 mmol/L Potassium Level 3.4 L 3.5-5.1 mmol/L Chloride Level 102 98-107 mmol/L Carbon Dioxide Level 21 20-31 mmol/L Anion Gap 11 5-15 Blood Urea Nitrogen 17 9-23 mg/dL Creatinine 1.57 H 0.700-1.30 mg/dL Glomerular Filtration Rate Calc 48 >90 mL/min BUN/Creatinine Ratio 10.8 10.0-20.0 Serum Glucose 186 #H 74-106 mg/dL Calcium Level 7.4 L 8.7-10.4 mg/dL Total Bilirubin 0.6 0.2-1.0 mg/dL Aspartate Amino Transferase (AST) 21 13-40 U/L Alanine Aminotransferase (ALT) 12 7-40 U/L Alkaline Phosphatase 35 L 46-116 U/L Total Protein 5.0 L 5.7-8.2 g/dL Albumin 2.9 L 3.2-4.8 g/dL Triglycerides Level 52 < 150 mg/dL Cholesterol Level 84 < 200 mg/dL LDL Cholesterol 31 < 100 mg/dL HDL Cholesterol 42 40-59 mg/dL Thyroid Stimulating Hormone (TSH) 1.78 0.55-4.78 uIU/mL Urine Color Yellow Yellow Urine Clarity Clear Clear Urine pH 5.5 5.0-9.0 Urine Specific [place] 1.027 1.001-1.035 Urine Protein 1+ H Negative Urine Ketones 2+ H Negative Urine Blood Negative Negative /uL Urine Nitrite Negative Negative Urine Bilirubin Negative Negative Urine Urobilinogen Normal Negative mg/dL Urine Leukocyte Esterase Negative Negative /uL Urine RBC 1 0 - 3 /hpf Urine WBC 3 0 - 3 /hpf Urine Squamous Epithelial Cells Few <5 /hpf Urine Bacteria None seen None Seen /hpf Urine Glucose 4+ H Normal mg/dL Urine Opiates Screen Neg NEGATIVE Urine Fentanyl Screen Neg NEGATIVE Urine Barbiturates Screen Neg NEGATIVE Urine Phencyclidine Screen Neg NEGATIVE Urine Amphetamines Screen Neg NEGATIVE Urine Benzodiazepines Screen Neg NEGATIVE Urine Cocaine Screen Neg NEGATIVE Urine Cannabinoids Screen Neg NEGATIVE D-Dimer, Quantitative 4.34 H 0.0-0.49 mg/L FEU Lactic Acid Level 7.1 *H 0.4-2.0 mmol/L Troponin I High Sensitivity 16 </=54 ng/L Test 07/11/24 12:33 07/11/24 11:58 07/11/24 11:52 Range/Units Influenza Type A Antigen Positive Negative Influenza Type B Antigen Negative Negative SARS-CoV-2 Antigen (Rapid) Negative NEGATIVE White Blood Count 1.1 *L 4.4-10.8 10^3/uL Red Blood Count 4.32 L 4.5-5.90 10^6/uL Hemoglobin 13.8 13.5-17.5 g/dL Hematocrit 40.8 L 41.0-53.0 % Mean Corpuscular Volume 94.5 80.0-100.0 fL Mean Corpuscular Hemoglobin 31.8 28.0-32.0 pg Mean Corpuscular Hemoglobin Concent 33.7 32.0-36.0 g/dL Red Cell Distribution Width 14.2 11.8-14.3 % Platelet Count 87 L 140-450 10^3/uL Mean Platelet Volume 10.1 6.9-10.8 fL Neutrophils (%) (Auto) 37.0-80.0 % Lymphocytes (%) (Auto) 10.0-50.0 % Monocytes (%) (Auto) 0.0-12.0 % Basophils (%) (Auto) 0.0-2.0 % Neutrophils # (Auto) 1.6-8.6 10 ^3/uL Lymphocytes # (Auto) 0.4-5.4 10 ^3/uL Monocytes # (Auto) 0-1.3 10 ^3/uL Differential Total Cells Counted 100.0 100 Neutrophils % (Manual) 42 37.0-80.0 Band Neutrophils % (Manual) 26 Lymphocytes % (Manual) 23 10.0-50.0 Monocytes % (Manual) 8 0-12 Eosinophils % (Manual) 1 0-7 Basophils % (Manual) 0 0.0-2.0 Metamyelocytes % (manual) 0 Myelocytes % (Manual) 0 Promyelocytes % (Manual) 0 Blast Cells % (Manual) 0 Reactive Lymphocytes 0 Platelet Estimate Decreased Giant Platelets Few Prothrombin Time 11.4 9.3-11.8 sec Prothrombin Time INR 1.08 0.9-1.15 Activated Partial Thromboplast Time 34.3 24.5-34.5 SEC Hemoglobin A1c 7.5 H <5.7 % A1C Magnesium Level 1.6 1.6-2.6 mg/dL Ammonia < 10 L 11-32 umol/L B-Type Natriuretic Peptide 359.95 0-100 pg/mL Lipase 17 12-53 U/L Beta-Hydroxybutyric Acid 0.874 H < 0.4 mmol/L POC Glucose 343 H 70-106 mg/dl Assessment Impression: Acute hypoxic respiratory failure secondary to multifocal pneumonia and pulmonary edema Acute respiratory distress syndrome Multifocal pneumonia likely Gram-negative Pulmonary edema Leukopenia Septic shock Influenza type a Atrial fibrillation with RVR Chronic congestive heart failure Status post AICD CAD status post PTCA Insulin-dependent diabetes mellitus Acute kidney injury Plan: Monitor respiratory status closely Initiate BiPAP if increasing O2 requirements Orders placed Monitor respiratory status closely. High risk for decompensation and requiring intubation with mechanical ventilation. CXR image and report reviewed. Multifocal opacities, pulmonary edema. ABG reviewed. Compensated. Hypoxemia with a PaO2 of 56.1 mmHg Supplemental oxygen On 10 liters/minute via simple mask Titrate to keep O2 saturation above 90%. On multiple pressors for hemodynamic support. Titrate to keep MAP above 65 mmHg/SBP above 90 mmHg. Start stress dose steroids We will give dose of albumin Continue antibiotics. F/u cultures. Send sputum, blood cultures and urine cultures Monitor renal function due to Acute kidney injury. Creatinine trending down Monitor electrolytes. Supplement as necessary. Supplemented potassium and magnesium stat. On IV fluids, lactic acid trending down. Accucheks, ISS. GI/DVT prophylaxis. Condition: Critical Prognosis: Poor given multiple comorbidities. Rest of plan per hospitalist and other consultants. A total of 36 minutes of critical care time was spent reviewing the patient record, examining the patient, making a diagnostic and therapeutic plan, discussing this plan with the medical personnel, following up on diagnostic studies and following the patient for clinical stability excluding any and all procedures. At least 50% of this time was spent in direct, [id number] contact. Thank you BUT[employer] SEWING MACHINE OPERATOR Tal Hatfield for allowing me to participate in this patient's care. Further recommendations will depend on patient's clinical course. Please do not hesitate to contact me if you have any questions or concerns. This medical document was created using an electronic medical record system with [employer] system. Although this document has been carefully reviewed, there may still be some phonetic and typographical errors. These areas are purely typographical due to imperfections of the software programs, and do not reflect any compromise in the patient's medical care. Plan discussed with: Other (BUTTON SEWING MACHINE OPERATOR) LINDSEY ROSALES MD Jul 11, 2024 18:01
[2024-07-11] MEDS ORDERED: SACU1TAB4 PO (18:08)
[2024-07-11] MEDS ORDERED: DAPA10TA3 PO (18:08)
[2024-07-11] MEDS ORDERED: SPIR25TA8 PO (18:08)
[2024-07-11] MEDS ORDERED: GABA-1250 PO (18:08)
[2024-07-11] MEDS ORDERED: DAPA1TAB4 PO (18:08)
[2024-07-11] MEDS ORDERED: LEVO200T7 PO (18:08)
[2024-07-11] MEDS ORDERED: METF-372 PO (18:08)
[2024-07-11] MEDS ORDERED: EZET-10 PO (18:08)
[2024-07-11] MEDS ORDERED: APIX5TAB PO (18:08)
[2024-07-11] MEDS ORDERED: METO25TA93 PO (18:09)
[2024-07-11] MEDS ORDERED: FIN5T PO (18:09)
[2024-07-11] MEDS: PHENYLEPHRINE IV 250 ML IV ONE (18:14)
[2024-07-11] MEDS: MAGNESIUM SULFATE 1GM/100ML 100 ML IV ONE (18:15)
[2024-07-11] MEDS: FUROSEMIDE 20 MG/2 ML VIAL IV ONE (18:23)
[2024-07-11] MEDS: MAGNESIUM SULFATE 1GM/100ML 100 ML IV SCH (18:24)
--- NOTE | 2024-07-11 18:27 | DVHHP2 ---
History of Present Illness Reason for Visit: Hyperglycemia History of Present Illness Marquis Jane is a 68-year-old male with past medical history of hypothyroidism, diabetes, CHF, hypertension, hyperlipidemia, and atrial fibrillation, who came in with complaints of generalized weakness. The patient has been not feeling well for the past week, has been around other people in his house that are sick. He has had cough, shortness of breath, malaise, fever, and chest congestion. He states he has not been taking his diabetic medications due to being sick. He was hypotensive when EMS arrived, but did improve when laid flat. In the ER patient went into atrial fibrillation with RVR, IV metoprolol was given and cardiology was consulted. Respiratory status has declined, is on 10L/mask, and became hypotensive, vasopressors have been initiated. Cardiovascular: AFIB, CHF, HTN, NC Endocrine: Diabetes Past Surgical History: Other (PTCA, pacemaker) Review of Systems Constitutional: Yes: Chills, Weakness, Malaise; No: Fever, Sweats, Other Eyes: No: Pain, Vision change, Conjunctivae inflammation, Eyelid inflammation, Other, Redness ENT: No: Ear pain, Ear discharge, Nose pain, Nose discharge, Nose congestion, Mouth pain, Mouth swelling, Throat pain, Throat swelling, Other Respiratory: No: Cough, Dry, Shortness of breath, SOB with excertion, Wheezing, Hemoptysis, Pleuritic Pain, Sputum, Wheezing, Other Cardiovascular: No: Chest Pain, Palpitations, Orthopnea, Paroxysmal Noc. D yspnea, Edema, Lt Headedness, Other Gastrointestinal: No: Nausea, Vomiting, Abdominal Pain, Diarrhea, Constipation, Melena, Hematochezia, Other Genitourinary: No Dysuria, No Frequency, No Incontinence, No Hematuria, No Retention, No Other Musculoskeletal: No: other, neck pain, shoulder pain, arm pain, back pain, hand pain, leg pain, foot pain Skin: No: Rash, Lesions, Jaundice, Bruising, Other Neurological: No: Weakness, Numbness, Incoordination, Change in speech, Confusion, Seizures, Other Allergies: Coded Allergies: NO KNOWN ALLERGIES (Unverified , 07/11/24) Medications Current Medications Medications Dose Ordered Sig/Maurice Route Start Time Stop Time Status Last Admin Dose Admin Norepinephrine Bitartrate 250 ml @ 3.75 mls/hr Q24H IV 07/11/24 16:15 07/11/24 15:46 3.75 MLS/HR Vasopressin 20 units/Sodium Chloride 100 ml @ 9 mls/hr Q11H7M IV 07/11/24 16:45 Potassium Chloride 100 ml @ 50 mls/hr Q2H IV 07/11/24 16:45 07/11/24 20:44 Enoxaparin Sodium 80 mg Q12HR SC 07/12/24 10:00 UNV Phenylephrine HCl 250 ml @ 30 mls/hr Q8H20M IV 07/11/24 17:15 Hydrocortisone Sodium Succinate 100 mg Q8HR IV 07/11/24 22:00 UNV Magnesium Sulfate/ Dextrose 100 ml @ 100 mls/hr Q1H IV 07/11/24 18:00 07/11/24 19:59 UNV Exam Vital Signs Vital Signs Date Time Temp Pulse Resp B/P (MAP) Pulse Ox O2 Delivery O2 Flow Rate FiO2 07/11/24 16:30 94 80/50 07/11/24 16:00 15 88 07/11/24 13:50 98.4 07/11/24 11:49 Nasal Cannula* 2 28 General Appearance: Alert, severe distress, Other (periods of confusion) HEENT: Atraumatic Respiratory: Other (Diminshed breath sounds) Cardiovascular: Other (Tachycardia) Abdominal: Normal bowel sounds, Soft, No tenderness Extremities: No clubbing, No cyanosis, No edema, Normal pulses Skin: No rashes, No breakdown, No significant lesion Labs/Xrays Labs Test 07/11/24 16:12 07/11/24 15:40 07/11/24 15:12 07/11/24 14:44 Range/Units Blood Gas Specimen Type Arterial Blood Gas Sample Site Right radial Blood Gas Patient Temperature 37.0 Arterial Blood Date Drawn [id number] Arterial Blood pH 7.385 7.350-7.450 Arterial Blood Partial Pressure CO2 30.3 L 35.0-48.0 mmHg Arterial Blood Partial Pressure O2 56.1 L 83.0-108.0 mmHg Arterial Blood HCO3 17.7 L 21.0-28.0 mmol/L Arterial Blood Oxygen Saturation 88.6 L 94.0-98.0 % Arterial Blood Base Excess -6.1 L -2.0-3.0 mmol/L Arterial Blood Oxyhemoglobin 87.6 L 94.0-98.0 % Arterial Blood Carboxyhemoglobin 0.5 0.5-1.5 % Arterial Blood Methemoglobin 0.6 0.0-1.5 % Frank Test Yes Blood Gas Total Hemoglobin 13.50 13.5-17.5 g/dL Blood Gas Modality Mask - simple FiO2 % 50.0 Sodium Level 134 L 136-145 mmol/L Potassium Level 3.4 L 3.5-5.1 mmol/L Chloride Level 102 98-107 mmol/L Carbon Dioxide Level 21 20-31 mmol/L Anion Gap 11 5-15 Blood Urea Nitrogen 17 9-23 mg/dL Creatinine 1.57 H 0.700-1.30 mg/dL Glomerular Filtration Rate Calc 48 >90 mL/min BUN/Creatinine Ratio 10.8 10.0-20.0 Serum Glucose 186 #H 74-106 mg/dL Calcium Level 7.4 L 8.7-10.4 mg/dL Total Bilirubin 0.6 0.2-1.0 mg/dL Aspartate Amino Transferase (AST) 21 13-40 U/L Alanine Aminotransferase (ALT) 12 7-40 U/L Alkaline Phosphatase 35 L 46-116 U/L Total Protein 5.0 L 5.7-8.2 g/dL Albumin 2.9 L 3.2-4.8 g/dL Triglycerides Level 52 < 150 mg/dL Cholesterol Level 84 < 200 mg/dL LDL Cholesterol 31 < 100 mg/dL HDL Cholesterol 42 40-59 mg/dL Thyroid Stimulating Hormone (TSH) 1.78 0.55-4.78 uIU/mL Urine Color Yellow Yellow Urine Clarity Clear Clear Urine pH 5.5 5.0-9.0 Urine Specific [place] 1.027 1.001-1.035 Urine Protein 1+ H Negative Urine Ketones 2+ H Negative Urine Blood Negative Negative /uL Urine Nitrite Negative Negative Urine Bilirubin Negative Negative Urine Urobilinogen Normal Negative mg/dL Urine Leukocyte Esterase Negative Negative /uL Urine RBC 1 0 - 3 /hpf Urine WBC 3 0 - 3 /hpf Urine Squamous Epithelial Cells Few <5 /hpf Urine Bacteria None seen None Seen /hpf Urine Glucose 4+ H Normal mg/dL Urine Opiates Screen Neg NEGATIVE Urine Fentanyl Screen Neg NEGATIVE Urine Barbiturates Screen Neg NEGATIVE Urine Phencyclidine Screen Neg NEGATIVE Urine Amphetamines Screen Neg NEGATIVE Urine Benzodiazepines Screen Neg NEGATIVE Urine Cocaine Screen Neg NEGATIVE Urine Cannabinoids Screen Neg NEGATIVE D-Dimer, Quantitative 4.34 H 0.0-0.49 mg/L FEU Lactic Acid Level 7.1 *H 0.4-2.0 mmol/L Troponin I High Sensitivity 16 </=54 ng/L Test 07/11/24 12:33 07/11/24 11:58 07/11/24 11:52 Range/Units Influenza Type A Antigen Positive Negative Influenza Type B Antigen Negative Negative SARS-CoV-2 Antigen (Rapid) Negative NEGATIVE White Blood Count 1.1 *L 4.4-10.8 10^3/uL Red Blood Count 4.32 L 4.5-5.90 10^6/uL Hemoglobin 13.8 13.5-17.5 g/dL Hematocrit 40.8 L 41.0-53.0 % Mean Corpuscular Volume 94.5 80.0-100.0 fL Mean Corpuscular Hemoglobin 31.8 28.0-32.0 pg Mean Corpuscular Hemoglobin Concent 33.7 32.0-36.0 g/dL Red Cell Distribution Width 14.2 11.8-14.3 % Platelet Count 87 L 140-450 10^3/uL Mean Platelet Volume 10.1 6.9-10.8 fL Neutrophils (%) (Auto) 37.0-80.0 % Lymphocytes (%) (Auto) 10.0-50.0 % Monocytes (%) (Auto) 0.0-12.0 % Basophils (%) (Auto) 0.0-2.0 % Neutrophils # (Auto) 1.6-8.6 10 ^3/uL Lymphocytes # (Auto) 0.4-5.4 10 ^3/uL Monocytes # (Auto) 0-1.3 10 ^3/uL Differential Total Cells Counted 100.0 100 Neutrophils % (Manual) 42 37.0-80.0 Band Neutrophils % (Manual) 26 Lymphocytes % (Manual) 23 10.0-50.0 Monocytes % (Manual) 8 0-12 Eosinophils % (Manual) 1 0-7 Basophils % (Manual) 0 0.0-2.0 Metamyelocytes % (manual) 0 Myelocytes % (Manual) 0 Promyelocytes % (Manual) 0 Blast Cells % (Manual) 0 Reactive Lymphocytes 0 Platelet Estimate Decreased Giant Platelets Few Prothrombin Time 11.4 9.3-11.8 sec Prothrombin Time INR 1.08 0.9-1.15 Activated Partial Thromboplast Time 34.3 24.5-34.5 SEC Hemoglobin A1c 7.5 H <5.7 % A1C Magnesium Level 1.6 1.6-2.6 mg/dL Ammonia < 10 L 11-32 umol/L B-Type Natriuretic Peptide 359.95 0-100 pg/mL Lipase 17 12-53 U/L Beta-Hydroxybutyric Acid 0.874 H < 0.4 mmol/L POC Glucose 343 H 70-106 mg/dl EXAM: XY CHEST PORTABLE FINDINGS: Lines and Tubes: Cardiac pacemaker projects over the left chest wall. Lungs: Multifocal right lung opacities, slightly worsened compared to prior exam. Pleura: No effusion. No pneumothorax. Cardiomediastinal contours: Unremarkable Bones: No acute osseous abnormality. IMPRESSION: Multifocal pneumonia, slightly worsened in the right lung compared to prior exam. Assessment/Plan Assessment/Plan Assessment: Septic shock, Multifocal pneumonia, Atrial fibrillation, Hyperglycemia, Influenza A, Thrombocytopenia, Leukopenia, Acute Kidney injury, Hypotension, Hypothyroidism, Hypokalemia, hypomagnesium, Plan: Admit to ICU, Pulmonology consult, Cardiology consult, Vasopressors as needed, IV antibiotics, IV hydration, IV steroids, ECHO, Manage/Monitor electrolytes closely, Home medications held, readdress once patient stabilizes, Plan discussed with: Patient My Orders Orders - BERT WAY [employer] Procedure Category Date Status Time Phenylephrine Iv PHA 07/11/24 In Process (Phenylephrine/Ns) 17:15 Admit ADMIT 07/11/24 Transmitted 17:58 Code Status CODE 07/11/24 Transmitted 17:58 Sodium Chloride Lock PHA 07/11/24 In Process (Saline Lock Ns) 22:00 Ondansetron Hcl PHA 07/11/24 In Process (Zofran) 18:00 Fall Risk Precautions ALTAGRACIA 07/11/[address] 17:58 Npo (Nothing By DIET 07/11/24 Transmitted Mouth) Diet Dinner Condition: Unstable ALTAGRACIA 07/11/24 In Process 17:58 Nitroglycerin PHA 07/11/24 In Process Sublingual (Ntrostat 18:00 Morphine Sulfate PHA 07/11/24 In Process Injection 18:00 Stat Ekg For Chest ALTAGRACIA 07/11/24 In Process Pain 17:58 Notify Of Changes ALTAGRACIA 11/6/24 In Process From Base 17:58 Carton Catcher For [facility] 07/11/24 In Process 24 Hours 17:58 Emergency Dysrhythmia [facility] 07/11/24 In Process Protocol 17:58 Rhythm Strips Once [facility] 07/11/24 In Process Every Shift 17:58 Oxygen By Nasal RT 07/11/24 Transmitted Cannula 17:58 (Nf) Levothyroxine PHA 07/12/24 Logged Sodium 10:00 Date of Service: Jul 11, 2024 Billing Provider: BERT WAY Common Visit Codes: [id number] INP/OBS CARE (HIGH) BERT WAY Jul 11, 2024 18:27
[2024-07-11] MEDS: ALBUMIN 25% 50 ML IV ONE (18:28)
[2024-07-11] MEDS: POTASSIUM CHL 20MEQ/100ML 100 ML IV SCH (18:28)
--- NOTE | 2024-07-11 18:35 | ECG ---
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
[2024-07-11] MEDS ORDERED: VANCOMYCIN PER PHARMACY 0 MG IV SCH (19:30)
[2024-07-11 20:36] LABS: Base Excess -7.8 mmol/L (-2.0-3.0)
[2024-07-11] MEDS ORDERED: DEXTROSE (50%) 50ML SYRG IV PRN (21:15)
[2024-07-11] MEDS: HYDROCORTISONE SOD SUCC 100 MG/2ML INJ VIAL IV SCH (22:23)
[2024-07-11] MEDS: VANCOMYCIN 1GM/250ML KIT 200 ML IV SCH (22:23)
[2024-07-11] MEDS: SODIUM CHLOR 0.9% PF (SALINE LOCK) 10ML VIAL/SYR IV SCH (22:43)
[2024-07-12] VITALS (105 sets, daily range): BP systolic 58–161; BP diastolic 35–93; PULSE 85–137; RESP 9–48; TEMP 98.1–101; O2SAT 89–100
[2024-07-12] MEDS: ACCU-CHEK COMFORT CURVE STRIP VI SCH
[2024-07-12] MEDS: InsuLIN REG 1unit/0.01ml Soln (100units/ml) SC SCH (00:13)
[2024-07-12] MEDS: PIPERACILLIN-TAZOB 3.375GM 100 ML IV SCH ×2 (01:09→08:04)
[2024-07-12] MEDS: LORazepam 2MG/ML-1ML VIAL IV ONE (03:43)
[2024-07-12] MEDS: ACETAMINOPHEN 650 MG RECT SUPP PR ONE (03:44)
[2024-07-12 03:53] LABS: Base Excess -9.5 mmol/L (-2.0-3.0)
[2024-07-12 04:01] LABS: Red Blood Cells 4.25 10^6/uL (4.5-5.90)
[2024-07-12 04:03] LABS: Hematocrit 39.5 % (41.0-53.0); Hemoglobin 13.5 g/dL (13.5-17.5); Mean Corpuscular Hemoglobin 31.9 pg (28.0-32.0); Mean Corpuscular Hgb Conc. 34.3 g/dL (32.0-36.0); Mean Corpuscular Volume 92.8 fL (80.0-100.0); Platelet Count (auto) 89 10^3/uL (140-450); Red Cell Distribution Width 14.2 % (11.8-14.3)
[2024-07-12 04:05] LABS: Alanine Aminotransferase 15 U/L (7-40); Albumin 3.2 g/dL (3.2-4.8); Alkaline Phosphatase 35 U/L (46-116); Anion Gap 10 (5-15); Aspartate Aminotransferase 34 U/L (13-40); BUN/Creatinine Ratio 15.4 (10.0-20.0); Bilirubin, Total 0.6 mg/dL (0.2-1.0); Blood Urea Nitrogen 21 mg/dL (9-23); Calcium 7.2 mg/dL (8.7-10.4); Carbon Dioxide 18 mmol/L (20-31); Chloride 104 mmol/L (98-107); Glucose 144 mg/dL (74-106); Potassium 4.3 mmol/L (3.5-5.1); Sodium 132 mmol/L (136-145); Total Protein 5.4 g/dL (5.7-8.2)
[2024-07-12 04:19] LABS: White Blood Cell 1.4 10^3/uL (4.4-10.8)
[2024-07-12 04:21] LABS: Basophils % (manual) 0 (0.0-2.0); Blast Cells 0; Eosinophils % (manual) 0 (0-7); Promyelocytes % 0
[2024-07-12 05:28] LABS: Monocytes % (manual) 8 (0-12)
[2024-07-12 05:34] LABS: Band Neutrophils % (manual) 22; Lymphocytes % (manual) 25 (10.0-50.0); Metamyelocytes % 9; Myelocytes % 7; Reactive Lymphocytes 1
[2024-07-12 05:35] LABS: Large Platelets FEW; Platelet Estimate Decreased
--- NOTE | 2024-07-12 05:38 | DVH ---
CHEST RADIOGRAPH Indication:sob Technique: Single frontal view of the chest was obtained Comparison: XY CHEST PORTABLE on DOS: 07/11/24 FINDINGS: Lines and Tubes: AICD/ pacemaker noted. Lungs: Increased right lung opacities. Pleura: No effusion. No pneumothorax. Cardiomediastinal contours: Unremarkable Bones: No acute osseous abnormality. IMPRESSION: 1. Worsening right lung opacities compatible with worsening pneumonia.
[2024-07-12] MEDS: LEVOTHYROXINE SODIUM 100 MCG TAB PO SCH (05:57)
[2024-07-12] MEDS: VASOPRESSIN 20 UNITS in SODIUM CHL 0.9% 99 ML IV SCH (07:41)
[2024-07-12] MEDS: ETOMIDATE (2MG/ML) 20ML VIAL IV ONE (08:15)
[2024-07-12] MEDS: ROCURONIUM 10MG/ML 10ML VIAL IV ONE (09:32)
[2024-07-12] MEDS: fentaNYL Drip 2500mCg/250mlNS 250 ML IV SCH (09:33)
[2024-07-12] MEDS: MIDAZOLAM DRIP 50 mg/50mL 50 ML IV SCH (09:34)
--- NOTE | 2024-07-12 09:51 | DVH ---
Bilateral Chest Sonogram Date: 07/12/2024 09:24 AM Clinical history: right pleural effusion Findings: Limited sonographic evaluation of the right and left chest was performed to localize and dillon fluid for thoracentesis. Trace right pleural effusion. No left pleural effusion. IMPRESSION: Trace right pleural effusion. No left pleural effusion. END IMPRESSION:
[2024-07-12] MEDS ORDERED: ENOXAPARIN SOD 100 MG/1 ML SYRINGE SC SCH (10:00)
--- NOTE | 2024-07-12 11:16 | DVH ---
EXAM: XY CHEST XRAY 1 VIEW CLINICAL HISTORY: New ETT NGT placements. TECHNIQUE: Single AP view of the chest WID: COMPARISON: XY CHEST XRAY 1 VIEW on DOS: 07/12/24 Lines and tubes: Endotracheal tube projects 4.3 cm above the david. A gastric tube is in place proj ecting over the body of the stomach. There is a left-sided single lead AICD with the lead tip project ing over the right ventricle. Chest: The heart size and pulmonary vasculature is within normal limits. Patchy and confluent airspace opacities throughout the right lung. No pneumothorax. The osseous structures are grossly intact. IMPRESSION: 1. Diffuse right lung pneumonia. 2. Endotracheal tube and gastric tubes in place as described.
[2024-07-12 11:28] LABS: Base Excess -12.5 mmol/L (-2.0-3.0)
--- NOTE | 2024-07-12 11:29 | ECG ---
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
[2024-07-12] MEDS ORDERED: VANCOMYCIN PER PHARMACY 0 MG IV SCH (12:45)
[2024-07-12] MEDS ORDERED: ENOXAPARIN SOD 40 MG/0.4 ML SYRINGE SC ONE (12:45)
[2024-07-12] MEDS: MEROPENEM 1GM IVPB 50 ML IV ONE (12:55)
[2024-07-12] MEDS ORDERED: VANCOMYCIN 1GM/250ML KIT 200 ML IV SCH (13:00)
--- NOTE | 2024-07-12 13:32 | DVHSR ---
APPROVED REPORT EXAM: Two-dimensional and M-mode echocardiogram with Doppler and color Doppler. Blood Pressure: 95/60 mmHg INDICATION Atrial Fibrillation RISK FACTORS Height: 5'8", Weight: 202 DIMENSIONS LVDd5.3 (3.8-5.7cm)LA (2D) (1.9-4.0cm)Aortic Root (2.0-3.7cm) LVDs4.6 (2.5-4.0cm)LA (MM) (1.9-4.0cm)Aortic Cusp Exc (1.5-2.0cm) EF (%) 27.0 (55-70%)Rt. Atrium (1.9-4.0cm)Asc. Aorta4.3 cm Mitral Valve MitralMitral Stenosis E/A ratio0.02D MVAcm2 Other Information Quality : Technically LimitedRhythm : Technically limited study due to body habitus and on vent Conclusion Very challenging study with limited view. The subcostal view shows severely reduced left ventricular systolic function with estimated ejection fraction 25%. There is global wall hypokinesia. The there is hyperdynamic left ventricular systolic function. No significant pericardial effusion was noted. No significant valve pathology was noted.
--- NOTE | 2024-07-12 13:49 | DVHPN2 ---
Consult Progress Note Date Seen: Jul 12, 2024 Subjective Other Systems: Notified of a-fib with RVR prior to intubation, now with paroxysmal a-fib Objective vital signs Vital Sign Date Time Temp Pulse Resp B/P (MAP) Pulse Ox O2 Delivery O2 Flow Rate FiO2 07/12/24 12:15 103 21 80/54 (63) 92 07/12/24 12:00 Mechanical Ventilator+ 100 100 07/12/24 12:00 98.2 98.2 07/11/24 11:49 2 Total Intake and Output 07/11/24 07/11/24 07/12/24 15:00 23:00 07:00 Intake Total 3150 ml 708.75 ml 576.03 ml Output Total 200 ml Balance 3150 ml 708.75 ml 376.03 ml medications Current Medications Medications Dose Ordered Sig/Maurice Route Start Time Stop Time Status Last Admin Dose Admin Norepinephrine Bitartrate 250 ml @ 3.75 mls/hr Q24H IV 07/11/24 16:15 07/12/24 09:24 56.25 MLS/HR Vasopressin 20 units/Sodium Chloride 100 ml @ 9 mls/hr Q11H7M IV 07/11/24 16:45 Phenylephrine HCl 250 ml @ 30 mls/hr Q8H20M IV 07/11/24 17:15 07/11/24 17:12 30 MLS/HR Sodium Chloride 10 ml Q8HR IV 07/11/24 22:00 07/12/24 05:52 10 ML Ondansetron HCl 4 mg Q4HP PRN IV 07/11/24 18:00 Levothyroxine Sodium 200 mcg QAM PO 07/12/24 07:00 Vancomycin HCl 0 ml @ 0 mls/hr UD IV 07/11/24 19:30 Diagnostic Test (Pha) 1 strip Q6HR 07/12/24 00:00 07/12/24 12:54 1 STRIP Insulin Human Regular Q6HR SC 07/12/24 00:00 07/12/24 13:00 2 UNITS Dextrose 50 ml UD PRN IV 07/11/24 21:15 Midazolam HCl 50 ml @ 1 mls/hr Q24H IV 07/12/24 08:30 07/12/24 09:34 1 MLS/HR Fentanyl Citrate 250 ml @ 2.5 mls/hr Q24H IV 07/12/24 08:30 07/12/24 09:33 2.5 MLS/HR Vancomycin HCl 250 ml @ 200 mls/hr Q24H IV 07/12/24 22:00 Vancomycin HCl 0 ml @ 0 mls/hr UD IV 07/12/24 12:45 Oseltamivir Phosphate 75 mg DAILY PO 07/13/24 10:00 07/18/24 09:59 Enoxaparin Sodium 40 mg DAILY SC 07/12/24 12:51 Hold Pantoprazole Sodium 40 mg DAILY IV 07/13/24 10:00 Furosemide 40 mg DAILY IV 07/13/24 10:00 Meropenem 50 ml @ 17 mls/hr Q8HR IV 07/12/24 22:00 Azithromycin 250 ml @ 125 mls/hr DAILY IV 07/13/24 10:00 Vancomycin HCl 200 ml @ 200 mls/hr Q1H IV 07/12/24 13:00 07/12/24 14:59 Cancel Examination: GENERAL:Abnormal, LUNGS:Abnormal (Endotracheally intubated with FiO2 at 95% PEEP 8. Coarse bilaterally), CVS:Abnormal (Paroxysmal a-fib on monitor, controlled rate), NEURO:Abnormal (Chemically sedated) laboratory and microbiology Laboratory Tests 07/12/24 03:10 Test 07/12/24 03:10 Range/Units Serum Glucose 144 H 74-106 mg/dL Problem List/Assessment/Plan Problem List/Assessment/Plan Septic shock with multifocal PNA/Influenza Type A Paroxysmal atrial fibrillation with rapid ventricular rate, Stage 3, on Eliquis/off antiarrhythmic at home Acute on chronic compensated HFimpEF Noncardiac/pleuritic chest pain Presence of AICD ([employer] 2013) Coronary artery disease status post PTCA x1 ESTHER Hypokalemia/hypomagnesemia Insulin-dependent diabetes mellitus Acute kidney injury Suboptimal medical therapy Thrombocytopenia Obesity Plan/Recommendation (Dr. Dumont) * Echocardiogram revealed EF 25% with global hypokinesis * Vasopressors for hemodynamic support * Initiate antiarrhythmic therapy, amiodarone * Preload reduction. Strict I&Os, fluid restriction * Resume AC therapy/NOACs when appropriate * Monitor platelet count closely * Replete electrolytes as necessary, K>4 and Mg>2 * Pulmonology recommendations, vent settings * Scheduled for ICD generator exchange at [facility] * Monitor ECG changes and notify * VTE/DVT prophylaxis: SCDs Thank you for allowing us to participate in this patient's care. Please call if you have any questions or concerns. Critical care time: 40 min. This medical document was created using an electronic medical record system with voice recognition software and computerized dictation system. Although this document has been carefully reviewed, there might still be some phonetic and typographical errors. Occasional wrong-word or ``sound-alike substitutions may have occurred due to the inherent limitations of voice recognition software. These areas are purely typographical due to imperfections of the software programs and do not reflect any compromise in the patient's medical care. Please read the chart carefully and recognize, using context, where these substitutions have occurred. Plan discussed with: Other Dietary Evaluation Review Comments: Advance to 2 gNa CCHO-60 diet when medically feasible. Pt's lipid pannel shows Cholesterol and LDL at lower mragin range, thus no restrictions on fat or cholesterol needed. Expected Outcomes/Goals: gradual weight loss, controlled DM, Date of Service: Jul 12, 2024 Billing Provider: NEAL DUMONT MD Cardiology Common Codes: [id number] CARE 30-74 MIN KIKE ARMENTA [facility] Jul 12, 2024 13:49
[2024-07-12] MEDS: AZITHROMYCIN 500MG/ 250ML 250 ML IV ONE (13:59)
[2024-07-12] MEDS: FUROSEMIDE 40 MG/4 ML VIAL IV ONE (13:59)
[2024-07-12] MEDS: PANTOPRAZOLE 40 MG/10 ML VIAL INJ IV ONE (14:00)
[2024-07-12] MEDS: OSELTAMIVIR 75 MG CAP PO ONE (14:00)
[2024-07-12] MEDS: ENOXAPARIN SOD 40 MG/0.4 ML SYRINGE SC SCH (14:31)
[2024-07-12] MEDS: MAGNESIUM SULFATE 1GM/100ML 100 ML IV ONE (15:50)
[2024-07-12] MEDS: AMIODARONE HCL 200 MG TAB GT ONE (15:51)
[2024-07-12] MEDS ORDERED: PIPERACILLIN-TAZOB 3.375GM 100 ML IV SCH (16:00)
[2024-07-12] MEDS: PHENYLEPHRINE INJ 80 MG in SODIUM CHL 0.9% 242 ML IV SCH (19:30)
--- NOTE | 2024-07-12 20:59 | DVHPNRES ---
Progress Note Date Seen: Jul 12, 2024 Resident Creating Document: MARLEE VILLALOBOS RESIDENT Medical Necessity Reason Pt with a Central, PICC or Fol: Yes The following are medically ne: Central Line Subjective Review of Systems Patient is 68-year-old male with past medical history of Hypertension, dyslipidemia, diabetes insulin dependent, HFrEF with improved EF (LVEF) status post single lead [employer] [employer] ICD placement with generator exchange, coronary artery disease status post stent placement, hypothyroidism, polyneuropathy who came to the hospital via EMS with a chief complaint of progressive generalized weakness and shortness of breath associated with flu- like symptoms. Patient also complaining of productive cough and fever that prompted visit to hospitalization. Past surgical history:2039 single lead [place] [employer] ICD placement with generator exchange in 2022. Coronary angiography with stent placement in 2019. Home medication: Apixaban 2.5 mg p.o. b.i.d., dapagliflozin 10 mg p.o. daily, acetaminophen 10 mg p.o. daily, finasteride 5 mg p.o. daily, gabapentin 300 mg p.o. daily, levothyroxine 200 mcg p.o. daily, metformin a 1000 mg p.o. b.i.d., metoprolol 25 mg p.o. daily, Entresto one tablet p.o. b.i.d., spironolactone 25 mg p.o. daily At the time of evaluation patient was admitted in ICU, patient was on BiPAP. Reviewed medical records from EMR and RN. Patient found to be in respiratory distress, x-ray revealed almost right lung white out, patient underwent emergent intubation and all information informed to daughter. Patient is started on sedation and put him on mechanical ventilation and continued on antibiotics, breathing treatment. Given severe right-sided pneumonia/white out lung patient underwent emergent bronchogram at bedside after intubation as well. 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 Objective vital signs Vital Sign Date Time Temp Pulse Resp B/P (MAP) Pulse Ox O2 Delivery O2 Flow Rate FiO2 07/12/24 20:28 95/65 07/12/24 20:10 99 34 97 90 07/12/24 18:00 Mechanical Ventilator+ 07/12/24 16:00 98.1 98.1 07/11/24 11:49 2 Total Intake and Output 07/11/24 07/11/24 07/12/24 15:00 23:00 07:00 Intake Total 3150 ml 708.75 ml 576.03 ml Output Total 200 ml Balance 3150 ml 708.75 ml 376.03 ml medications Current Medications Medications Dose Ordered Sig/Maurice Route Start Time Stop Time Status Last Admin Dose Admin Vasopressin 20 units/Sodium Chloride 100 ml @ 9 mls/hr Q11H7M IV 07/11/24 16:45 Sodium Chloride 10 ml Q8HR IV 07/11/24 22:00 07/12/24 13:59 10 ML Ondansetron HCl 4 mg Q4HP PRN IV 07/11/24 18:00 Levothyroxine Sodium 200 mcg QAM PO 07/12/24 07:00 Vancomycin HCl 0 ml @ 0 mls/hr UD IV 07/11/24 19:30 Diagnostic Test (Pha) 1 strip Q6HR 07/12/24 00:00 07/12/24 17:19 1 STRIP Insulin Human Regular Q6HR SC 07/12/24 00:00 07/12/24 17:21 3 UNITS Dextrose 50 ml UD PRN IV 07/11/24 21:15 Midazolam HCl 50 ml @ 1 mls/hr Q24H IV 07/12/24 08:30 07/12/24 20:28 4 MLS/HR Fentanyl Citrate 250 ml @ 2.5 mls/hr Q24H IV 07/12/24 08:30 07/12/24 09:33 2.5 MLS/HR Vancomycin HCl 250 ml @ 200 mls/hr Q24H IV 07/12/24 22:00 Vancomycin HCl 0 ml @ 0 mls/hr UD IV 07/12/24 12:45 Oseltamivir Phosphate 75 mg DAILY PO 07/13/24 10:00 07/18/24 09:59 Enoxaparin Sodium 40 mg DAILY SC 07/12/24 12:51 Hold Pantoprazole Sodium 40 mg DAILY IV 07/13/24 10:00 Furosemide 40 mg DAILY IV 07/13/24 10:00 Meropenem 50 ml @ 17 mls/hr Q8HR IV 07/12/24 22:00 Azithromycin 250 ml @ 125 mls/hr DAILY IV 07/13/24 10:00 Vancomycin HCl 200 ml @ 200 mls/hr Q1H IV 07/12/24 13:00 07/12/24 14:59 Cancel Amiodarone HCl 200 mg Q12HR GT 07/12/24 22:00 Phenylephrine HCl 80 mg/Sodium Chloride 250 ml @ 7.5 mls/hr Q24H IV 07/12/24 19:30 Norepinephrine Bitartrate 32 mg/ Sodium Chloride 250 ml @ 0.938 mls/ hr Q24H IV 07/12/24 19:30 Examination At the time of evaluation patient was in respiratory distress on BiPAP, muffled right-sided lung sounds, mild crackles over, the left lung base. Tachycardia, no murmur, no gallops. After intubation General Appearance: RA SS-3 , sedated on mechanical ventilation. Head Exam: Normal inspection Neck Exam: Normal inspection. Non-tender. Normal alignment Pulmonary/Respiratory: Chest non-tender. Muffled right-sided lung sounds, mild crackles over left lung base. Cardiovascular/Chest: Regular rate and rhythm. No murmurs. No JVD. Peripheral Pulses: 2+ Radial (R). 2+ Radial (L). 2+ Pedal (R). 2+ Pedal (L) Abdominal Exam: Normal bowel sounds. Soft. Nontender. No hepatospenomegaly. No masses Ankle Exam: Negative ankle edema Lower extremities: Negative lower extremity edema, right femoral central line. Neuro/Mental Status: Sedated. Cranial nerves intact. laboratory and microbiology Laboratory Tests 07/12/24 03:10 Test 07/12/24 03:10 Range/Units Serum Glucose 144 H 74-106 mg/dL Microbiology Date/Time Source Procedure Growth Status 07/12/24 11:17 Trachea Pending Resulted 07/12/24 11:17 Trachea Pending Resulted 07/12/24 11:17 Trachea Pending Resulted 07/12/24 11:17 Trachea Pending Resulted 07/12/24 11:17 Trachea - Final See Separate Report... Resulted Problem List/Assessment/Plan Problem List/Assessment/Plan Acute hypercapnic hypoxic respiratory failure likely secondary to influenza pneumonia. Septic shock due to pneumonia AFib with RVR with secondary hypercoagulable state: Paroxysmal Acute on chronic heart failure reduced ejection fraction Presence of AICD History of coronary artery disease status post PTCA * 1 ESTHER TYPE 2 DIABETES MELLITUS: Insulin dependent SUMMER due to VMN Thrombocytopenia Neutropenia Elevated D-dimer rule out PE Lactic acidosis Pleural effusion Hypothyroidism MRSA Plan: Given respiratory distress/hypoxia and hypercapnia: Underwent emergent intubation with GlideScope assistance. Vent setting respiratory rate 20, tidal volume 500, FiO2 100%, peep of 8 -ABG respiratory acidosis: PH 7.137, pCO2 50.8, HC03 16.8 -underwent emergent bronchoscopy: Bronchial lavage sample sent to laboratory for further evaluation. -Antibiotic with meropenem, vancomycin, azithromycin. -vasopressor Levophed, target map greater than 65. Can add vasopressin and L phenylephrine if needed. -amiodarone 200 mg via G-tube as per cardiology recommendation -oseltamivir 30 mg p.o. daily for influenza -mild insulin sliding scale NPO with Accu-Chek q.6 -levothyroxine 200 mcg p.o. via G-tube -PUD prophylaxis Protonix 40 mg IV daily -DVT prophylaxis: SCD given thrombocytopenia -sedation with fentanyl and Versed. Lines: Right femoral central line(07/11/2024) Agrawal G-tube Events: At the time of evaluation in ICU at early in the morning, patient found to be in respiratory distress on BiPAP, to protect airway and respiratory distress patient was intubated with consent. Daughter was also called. L patient underwent emergent bronchoscopy given right-sided white out lung. Patient started on IV antibiotic meropenem, vancomycin, azithromycin. Ventilator changes done based on ABG. Patient also requiring vasopressors including Levophed and vasopressin. Titrate to achieve goal map greater than 65. Patient also started on levothyroxine, oseltamivir, insulin sliding scale, Protonix. All clinical information informed to daughter. Critical care time excluding procedure > 85 minutes Goal of care full code, discussed greater than 22 minute. Plan discussed with Dr Wyatt Plan discussed with: Patient (RN), Daughter, Other My Orders My Orders Orders - MARLEE VILLALOBOS RESIDENT Procedure Category Date Status Time Midazolam Drip 50 PHA 07/12/24 In Process Mg/50ml (Versed Drip 5 08:30 Fentanyl Drip PHA 07/12/24 In Process 2500mcg/250mlns 08:30 Chest Ultrasound US 07/12/24 Resulted 08:49 Specimen Biopsy PATHOLOGY 07/12/24 Transmitted Histopathology 10:21 Fungus Culture With KATYA 07/12/24 In Process Stain 10:21 Body Fluids, Diff. LAB 07/12/24 Logged Cell Count 10:21 Respiratory Culture KATYA 11/7/24 Logged W/ Gs 10:21 Vancomycin Per PHA 07/12/24 In Process Pharmacy 12:45 Oseltamivir 75mg PHA 07/13/24 In Process Capsule (Tamiflu 75mg 10:00 Mrsa Screen KATYA 07/12/24 Logged 12:37 Pantoprazole PHA 07/13/24 In Process (Protonix) 10:00 Furosemide Injection PHA 07/13/24 In Process (Lasix Injection) 10:00 Meropenem 1gm Ivpb PHA 07/12/24 In Process (Merrem 1gm/ Ns) 22:00 Azithromycin 500mg/ PHA 07/13/24 In Process 250ml (Zithromax 50 10:00 Enoxaparin Sodium PHA 07/12/24 In Process (Lovenox) 12:51 Sodium Chl 0.9% PHA 07/12/24 In Process (Ns... 19:30 Sodium Chl 0.9% PHA 07/12/24 In Process (Ns... 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 Pt's lipid pannel shows Cholesterol and LDL at lower mragin range, thus no restrictions on fat or cholesterol needed. Expected Outcomes/Goals: gradual weight loss, controlled DM, Date of Service: Jul 12, 2024 Billing Provider: SIERRA WYATT MD Common Visit Codes: [id number] CARE 30-74 MIN MARLEE VILLALOBOS RESIDENT Jul 12, 2024 20:59 SIERRA WYATT MD Jul 16, 2024 14:19
--- NOTE | 2024-07-12 21:01 | DVHNC2 ---
Intubation Indication: Respiratory Insufficiency Prep: Preoxygenation Pretreated with: Analgesia Intubation Approach: Orotracheal Informed consent obtained: Yes Risks/benefits/alt described: Yes Notes A time out was performed. My hands were washed immediately prior to the procedure. I wore a surgical cap, mask with protective eyewear, gown and gloves throughout the procedure. The patient was placed on a mash tub cooker including continuous pulse oximetry. Rapid Sequence Intubation was conducted. The patient received rocuranium and etomodate adequate paralysis. Cricoid pressure was maintained from time induction agent was given to time of cuff balloon inflation. Using a glidoscope and a size 8 endotracheal tube with stylet, the patient was intubated on the 1 attempt. The stylet was removed and cuff balloon was inflated. Appropriate endotracheal tube position was confirmed by direct visualization of vocal cord passage, fogging of the tube, CO2 colormetric indicator and symmetric breath sounds. The tube was secured at _ cm at the lips. Post intubation chest x-ray reviewed. Date of Service: Jul 12, 2024 Billing Provider: MARLEE VILLALOBOS Common Visit Codes: PROCEDURE ONLY Procedure Codes: [id number] MARLEE VILLALOBOS Jul 12, 2024 21:01 SIERRA WYATT MD Jul 17, 2024 13:36
[2024-07-12] MEDS: VANCOMYCIN 1.25GM/250ML 250 ML IV SCH (22:51)
[2024-07-12] MEDS: AMIODARONE HCL 200 MG TAB GT SCH (22:52)
[2024-07-12] MEDS: NOREPINEPHRINE BITARTRATE 32 MG in SODIUM CHL 0.9% 218 ML IV SCH (22:58)
[2024-07-13] VITALS (109 sets, daily range): BP systolic 80–138; BP diastolic 42–82; PULSE 71–198; RESP 11–30; TEMP 96.4–102; O2SAT 92–100
[2024-07-13] MEDS: MEROPENEM 1GM IVPB 50 ML IV SCH ×2 (00:23→19:01)
[2024-07-13] MEDS: ACETAMINOPHEN 650 mg PER 20.3 mL UD GT PRN (03:29)
[2024-07-13 03:56] LABS: Alanine Aminotransferase 17 U/L (7-40); Alkaline Phosphatase 40 U/L (46-116); Anion Gap 9 (5-15); BUN/Creatinine Ratio 12.9 (10.0-20.0); Blood Urea Nitrogen 26 mg/dL (9-23); Calcium 7.3 mg/dL (8.7-10.4); Carbon Dioxide 19 mmol/L (20-31); Chloride 106 mmol/L (98-107); Glucose 135 mg/dL (74-106); Magnesium 2.3 mg/dL (1.6-2.6); Sodium 134 mmol/L (136-145)
[2024-07-13 03:57] LABS: Albumin 3.2 g/dL (3.2-4.8); Aspartate Aminotransferase 43 U/L (13-40)
[2024-07-13 03:58] LABS: Bilirubin, Total 0.9 mg/dL (0.2-1.0); Total Protein 5.4 g/dL (5.7-8.2)
[2024-07-13 04:13] LABS: Basophils # (auto) 0 10 ^3/uL (0-0.2); Eosinophils # (auto) 0 10 ^3/uL (0-0.8); Eosinophils % (auto) 0.1 % (0.0-7.0); Hematocrit 44.9 % (41.0-53.0); Hemoglobin 14.9 g/dL (13.5-17.5); Lymphocytes # (auto) 0.3 10 ^3/uL (0.4-5.4); Mean Corpuscular Hemoglobin 31.5 pg (28.0-32.0); Mean Corpuscular Hgb Conc. 33.2 g/dL (32.0-36.0); Mean Corpuscular Volume 94.8 fL (80.0-100.0); Monocytes # (auto) 0.1 10 ^3/uL (0-1.3); Monocytes % (auto) 3.4 % (0.0-12.0); Neutrophils # (auto) 3.9 10 ^3/uL (1.6-8.6); Neutrophils % (auto) 89.5 % (37.0-80.0); Nucleated Red Blood Cells % 0.5 %; Platelet Count (auto) 84 10^3/uL (140-450); Red Blood Cells 4.73 10^6/uL (4.5-5.90); Red Cell Distribution Width 15.1 % (11.8-14.3); White Blood Cell 4.4 10^3/uL (4.4-10.8)
[2024-07-13 04:16] LABS: Potassium 5.7 mmol/L (3.5-5.1)
--- NOTE | 2024-07-13 05:38 | DVH ---
CHEST RADIOGRAPH Indication:ACUTE RESP FAILURE Technique: Single frontal view of the chest was obtained COMPARISON: XY CHEST XRAY 1 VIEW on DOS: 07/12/24, XY CHEST XRAY 1 VIEW on DOS: 07/12/24, XY CHEST PORT ABLE on DOS: 07/11/24 FINDINGS: Lines and Tubes: Endotracheal tube, enteric catheter and left chest wall pacemaker in satisfactory po sition. Lungs: Multifocal right lung airspace disease. Pleura: No effusion. No pneumothorax. Cardiomediastinal contours: Unremarkable Bones: Unremarkable IMPRESSION: Lines and tubes in satisfactory position. No significant interval change.
[2024-07-13] MEDS: ALBUTEROL SULF 2.5 MG/0.5ML(0.5%) NEB SOLN NEB ONE (06:29)
[2024-07-13] MEDS: CALCIUM GLUC 1,000mg/50ml-NS 50 ML IV ONE ×2 (06:32→10:35)
[2024-07-13] MEDS: DEXTROSE (50%) 50ML SYRG IV ONE (06:38)
[2024-07-13] MEDS: SODIUM BICARB 8.4% 50Meq/50ml SYR INJ IV ONE (06:39)
[2024-07-13] MEDS: InsuLIN REG 1unit/0.01ml Soln (100units/ml) IV ONE (06:47)
[2024-07-13] MEDS: AMIODARONE BOLUS KIT 100 ML IV ONE ×3 (07:00→09:26)
[2024-07-13] MEDS: AMIODARONE 450mg/250ml AE 250 ML IV ONE (07:00)
[2024-07-13] MEDS: ADENOSINE 6 MG/2 ML INJ IV ONE ×2 (07:03→07:10)
[2024-07-13] MEDS: ADENOSINE 6 MG/2 ML INJ IV STA (07:07)
[2024-07-13] MEDS: AMIODARONE 450mg/250ml AE 250 ML IV SCH ×2 (07:25→14:48)
[2024-07-13] MEDS: DIGOXIN (250MCG/ML) 2 ML AMPULE ONE (07:28)
[2024-07-13 07:55] LABS: Basophils # (auto) 0 10 ^3/uL (0-0.2); Basophils % (auto) 0.1 % (0.0-2.0); Eosinophils # (auto) 0 10 ^3/uL (0-0.8); Eosinophils % (auto) 0.1 % (0.0-7.0); Hematocrit 42.7 % (41.0-53.0); Lymphocytes # (auto) 0.8 10 ^3/uL (0.4-5.4); Lymphocytes % (auto) 16.1 % (10.0-50.0); Mean Corpuscular Hgb Conc. 32.8 g/dL (32.0-36.0); Mean Corpuscular Volume 94.5 fL (80.0-100.0); Monocytes # (auto) 0.1 10 ^3/uL (0-1.3); Neutrophils # (auto) 4.2 10 ^3/uL (1.6-8.6); Neutrophils % (auto) 81.7 % (37.0-80.0); Nucleated Red Blood Cells % 0.1 %; Platelet Count (auto) 94 10^3/uL (140-450); Red Blood Cells 4.52 10^6/uL (4.5-5.90); Red Cell Distribution Width 14.9 % (11.8-14.3); White Blood Cell 5.2 10^3/uL (4.4-10.8)
[2024-07-13] MEDS: DIGOXIN (250MCG/ML) 2 ML AMPULE IV ONE (07:58)
[2024-07-13 08:14] LABS: Alanine Aminotransferase 18 U/L (7-40); Alkaline Phosphatase 43 U/L (46-116); Anion Gap 10 (5-15); Aspartate Aminotransferase 40 U/L (13-40); BUN/Creatinine Ratio 17.1 (10.0-20.0); Bilirubin, Total 0.9 mg/dL (0.2-1.0); Blood Urea Nitrogen 34 mg/dL (9-23); Calcium 7.2 mg/dL (8.7-10.4); Carbon Dioxide 21 mmol/L (20-31); Chloride 105 mmol/L (98-107); Glucose 193 mg/dL (74-106); Potassium 4.1 mmol/L (3.5-5.1); Sodium 136 mmol/L (136-145); Total Protein 5.4 g/dL (5.7-8.2)
[2024-07-13 08:33] LABS: Lactic Acid w/Reflex 4.8 mmol/L (0.4-2.0)
--- NOTE | 2024-07-13 09:11 | DVHPNRES ---
Progress Note Date Seen: Jul 13, 2024 Resident Creating Document: AIDA ARCE RESIDENT Medical Necessity Reason Pt with a Central, PICC or Fol: Yes Subjective Review of Systems Marquis Jane is a 68 year old male patient who presents to the ED via EMS with chief complaint of progressive generalized weakness and dyspnea in functional class IV, associated with flu-like symptoms, productive cough with green phlegm and fever. Upon arrival to ED patient was hypotensive, tachycardiac, toxic, hyperglycemic, EKG evidence atrial fibrillation with rapid ventricular response, indicating oxygen therapy, vasopressors and IV antibiotics. Denies palpitation, syncope, chest pain, nausea, vomiting, diarrhea, defibrillator shock, dysuria, bleeding and motor or sensory deficits. Past medical history: Hypertension, dyslipidemia, diabetes insulin dependent, HFrEF with improved EF (LVEF) status post single lead [employer] [employer] ICD placement with generator exchange, coronary artery disease status post stent placement, hypothyroidism, polyneuropathy Surgical history: 2039 single lead [employer] ICD placement with generator exchange in 2022. Coronary angiography with stent placement in 2019. Family history: Noncontributory Social history: Denies current tobacco, alcohol and other drug abuse Allergies: Denies Home medication: Apixaban 2.5 mg p.o. b.i.d., dapagliflozin 10 mg p.o. daily, acetaminophen 10 mg p.o. daily, finasteride 5 mg p.o. daily, gabapentin 300 mg p.o. daily, levothyroxine 200 mcg p.o. daily, metformin a 1000 mg p.o. b.i.d., metoprolol 25 mg p.o. daily, Entresto one tablet p.o. b.i.d., spironolactone 25 mg p.o. daily Patient seen and examined at bedside. Patient is under sedation due to mechanical ventilation, could not obtain review of systems. Cardiology was consulted due to SVT with hemodynamic decompensation, responding to three electrical cardioversions (total of 4 shocks maximum voltage 200 joules, one from ICD) and antiarrhythmic medication (amiodarone bolus and maintenance). Objective vital signs Vital Sign Date Time Temp Pulse Resp B/P (MAP) Pulse Ox O2 Delivery O2 Flow Rate FiO2 07/13/24 08:00 97.2 169 18 100 207.0 07/13/24 07:55 100 07/13/24 06:00 Mechanical Ventilator+ 07/11/24 11:49 2 Total Intake and Output 07/12/24 07/12/24 07/13/24 15:00 23:00 07:00 Intake Total 724 ml 626.563 ml 349.754 ml Output Total 50 ml 220 ml Balance 724 ml 576.563 ml 129.754 ml medications Current Medications Medications Dose Ordered Sig/Maurice Route Start Time Stop Time Status Last Admin Dose Admin Vasopressin 20 units/Sodium Chloride 100 ml @ 9 mls/hr Q11H7M IV 07/11/24 16:45 07/13/24 04:27 9 MLS/HR Sodium Chloride 10 ml Q8HR IV 07/11/24 22:00 07/13/24 06:37 10 ML Ondansetron HCl 4 mg Q4HP PRN IV 07/11/24 18:00 Levothyroxine Sodium 200 mcg QAM PO 07/12/24 07:00 07/13/24 06:39 200 MCG Vancomycin HCl 0 ml @ 0 mls/hr UD IV 07/11/24 19:30 Diagnostic Test (Pha) 1 strip Q6HR 07/12/24 00:00 07/13/24 06:37 1 STRIP Insulin Human Regular Q6HR SC 07/12/24 00:00 07/13/24 01:53 2 UNITS Dextrose 50 ml UD PRN IV 07/11/24 21:15 Midazolam HCl 50 ml @ 1 mls/hr Q24H IV 07/12/24 08:30 07/13/24 07:33 8 MLS/HR Fentanyl Citrate 250 ml @ 2.5 mls/hr Q24H IV 07/12/24 08:30 07/13/24 06:36 17.5 MLS/HR Vancomycin HCl 250 ml @ 200 mls/hr Q24H IV 07/12/24 22:00 07/12/24 22:51 200 MLS/HR Vancomycin HCl 0 ml @ 0 mls/hr UD IV 07/12/24 12:45 Oseltamivir Phosphate 75 mg DAILY PO 07/13/24 10:00 07/18/24 09:59 Enoxaparin Sodium 40 mg DAILY SC 07/12/24 12:51 Hold Pantoprazole Sodium 40 mg DAILY IV 07/13/24 10:00 Furosemide 40 mg DAILY IV 07/13/24 10:00 Meropenem 50 ml @ 17 mls/hr Q8HR IV 07/12/24 22:00 07/13/24 06:39 17 MLS/HR Azithromycin 250 ml @ 125 mls/hr DAILY IV 07/13/24 10:00 Vancomycin HCl 200 ml @ 200 mls/hr Q1H IV 07/12/24 13:00 07/12/24 14:59 Cancel Amiodarone HCl 200 mg Q12HR GT 07/12/24 22:00 07/12/24 22:52 200 MG Phenylephrine HCl 80 mg/Sodium Chloride 250 ml @ 7.5 mls/hr Q24H IV 07/12/24 19:30 07/13/24 03:31 7.5 MLS/HR Norepinephrine Bitartrate 32 mg/ Sodium Chloride 250 ml @ 0.938 mls/ hr Q24H IV 07/12/24 19:30 07/12/24 23:17 14.063 MLS/HR Acetaminophen 650 mg Q6HP PRN GT 07/13/24 03:15 07/13/24 03:29 650 MG Amiodarone HCl 250 ml @ 33.333 mls/ hr Q7H30M IV 07/13/24 07:15 07/13/24 13:14 07/13/24 07:25 33.333 MLS/HR Amiodarone HCl 250 ml @ 16.667 mls/ hr Q15H IV 07/13/24 13:15 Examination Patient lying in bed, under sedoanalgesia due to mechanical ventilation General: RASS -3, afebrile, mucosae are moist Cardiovascular: Tachycardic, Normal S1 and S2. No murmurs, gallops or rubs Respiratory: Mechanically assisted ventilation, equal bilateral airway entree. Coarse generalized rhonchus both hemithorax Abdomen: Soft, nontender, no organomegaly, normal bowel sounds MSK/skin: Mobilization of limbs cannot be evaluated. Skin is dry and cold. Capillary refill above 5 seconds Neurological: Orientation cannot be assessed. No apparent motor no sensitive deficits. Pupils are isocoric and reactive laboratory and microbiology Laboratory Tests 07/13/24 07:31 Test 07/13/24 07:31 Range/Units Serum Glucose 193 H 74-106 mg/dL Microbiology Date/Time Source Procedure Growth Status 07/12/24 11:17 Trachea Pending Resulted 07/12/24 11:17 Trachea Pending Resulted 07/12/24 11:17 Trachea Pending Resulted 07/12/24 11:17 Trachea Pending Resulted 07/12/24 11:17 Trachea - Final See Separate Report... Resulted 07/11/24 21:08 Blood Blood Culture - Preliminary NO GROWTH AFTER 24 HOURS OF INCUBATION. Resulted Problem List/Assessment/Plan Problem List/Assessment/Plan Problem List/Assessment/Plan Septic shock with multifocal PNA/Influenza Type A Paroxysmal atrial fibrillation with rapid ventricular rate (chads Vasc 5/ has bled 3) secondary hypercoagulability state SVT with hemodynamic decompensation - status post electrical cardioversion Acute on chronic compensated HFimpEF - status post ICD placement Coronary artery disease status post PTCA x1 ESTHER Hypokalemia/hypomagnesemia Insulin-dependent diabetes mellitus Acute kidney injury Thrombocytopenia Obesity Plan/Recommendation Echocardiogram revealed EF 25% with global hypokinesis Vasopressors for hemodynamic support Initiate antiarrhythmic therapy, amiodarone Preload reduction. Strict I&Os, fluid restriction Resume AC therapy/NOACs when appropriate. Monitor platelet count closely Replete electrolytes as necessary, K>4 and Mg>2 Continues with mechanical assisted ventilation (VCV VT RR 26, PEEP 8, FiO2 100%) Scheduled for ICD generator exchange at [facility] Monitor ECG changes and notify IV antibiotics per hospitalist Discussed plan with Dr. Zapata, and nurses: Patient required multiple electrical cardioversions due to SVT with hemodynamic decompensation and currently on antiarrhythmic medication (amiodarone bolus and maintenance). Patient has poor prognosis. Drmedhat Versed 8 Fentanyl 150 Norepinephrine 30 Phenylephrine 65 Vasopressin0.03 Plan discussed with: Patient, Other Dietary Evaluation Review Comments: Advance to 2 gNa CCHO-60 diet when medically feasible. Pt's lipid pannel shows Cholesterol and LDL at lower mragin range, thus no restrictions on fat or cholesterol needed. Expected Outcomes/Goals: gradual weight loss, controlled DM, Visit Coding Cardiology RES Date of Service: Jul 13, 2024 Billing Provider: NEAL ZAPATA MD Cardiology Common Codes: 46186-[id number] SAME DATE (High), [id number] CARE- EACH +30MIN AIDA ARCE RESIDENT Jul 13, 2024 09:11
[2024-07-13] MEDS ORDERED: FUROSEMIDE 40 MG/4 ML VIAL IV SCH (10:00)
[2024-07-13] MEDS ORDERED: OSELTAMIVIR 75 MG CAP PO SCH (10:00)
[2024-07-13] MEDS: PANTOPRAZOLE 40 MG/10 ML VIAL INJ IV SCH (10:35)
[2024-07-13] MEDS: OSELTAMIVIR 30 MG CAP PO SCH (10:36)
[2024-07-13] MEDS: AZITHROMYCIN 500MG/ 250ML 250 ML IV SCH (10:36)
[2024-07-13 11:24] LABS: Base Excess -14.3 mmol/L (-2.0-3.0)
[2024-07-13] MEDS: SODIUM BICARB 50mEq/50ml Vial 150 ML in D5W 5% 1,000 ML IV SCH (16:32)
--- NOTE | 2024-07-13 17:40 | DVHPNRES ---
Progress Note Date Seen: Jul 13, 2024 Resident Creating Document: MARLEE VILLALOBOS RESIDENT Medical Necessity Reason Pt with a Central, PICC or Fol: Yes The following are medically ne: Central Line Subjective Review of Systems Patient is 68-year-old male with past medical history of Hypertension, dyslipidemia, diabetes insulin dependent, HFrEF with improved EF (LVEF) status post single lead [employer] ICD placement with generator exchange, coronary artery disease status post stent placement, hypothyroidism, polyneuropathy who came to the hospital via EMS with a chief complaint of progressive generalized weakness and shortness of breath associated with flu- like symptoms. Patient also complaining of productive cough and fever that prompted visit to hospitalization. Past surgical history:2039 single lead [employer] ICD placement with generator exchange in 2022. Coronary angiography with stent placement in 2019. Home medication: Apixaban 2.5 mg p.o. b.i.d., dapagliflozin 10 mg p.o. daily, acetaminophen 10 mg p.o. daily, finasteride 5 mg p.o. daily, gabapentin 300 mg p.o. daily, levothyroxine 200 mcg p.o. daily, metformin a 1000 mg p.o. b.i.d., metoprolol 25 mg p.o. daily, Entresto one tablet p.o. b.i.d., spironolactone 25 mg p.o. daily patient seen and examined in ICU. The patient found to be in AFib with RVR, compromising blood pressure, underwent 6 time defibrillator. Patient reported pressure right hiatal mass greater than 65. Patient continued to be on ventilator. No other complaints. Objective vital signs Vital Sign Date Time Temp Pulse Resp B/P (MAP) Pulse Ox O2 Delivery O2 Flow Rate FiO2 07/13/24 16:15 99.0 95 26 80/52 (61) 97 210.2 07/13/24 16:04 70 07/13/24 08:00 Mechanical Ventilator+ 07/11/24 11:49 2 Total Intake and Output 07/12/24 07/12/24 07/13/24 15:00 23:00 07:00 Intake Total 724 ml 626.563 ml 403.317 ml Output Total 50 ml 220 ml Balance 724 ml 576.563 ml 183.317 ml medications Current Medications Medications Dose Ordered Sig/Maurice Route Start Time Stop Time Status Last Admin Dose Admin Vasopressin 20 units/Sodium Chloride 100 ml @ 9 mls/hr Q11H7M IV 07/11/24 16:45 07/13/24 15:53 9 MLS/HR Sodium Chloride 10 ml Q8HR IV 07/11/24 22:00 07/13/24 14:00 10 ML Levothyroxine Sodium 200 mcg QAM PO 07/12/24 07:00 07/13/24 06:39 200 MCG Diagnostic Test (Pha) 1 strip Q6HR 07/12/24 00:00 07/13/24 12:00 1 STRIP Insulin Human Regular Q6HR SC 07/12/24 00:00 07/13/24 12:02 6 UNITS Dextrose 50 ml UD PRN IV 07/11/24 21:15 Midazolam HCl 50 ml @ 1 mls/hr Q24H IV 07/12/24 08:30 07/13/24 14:46 8 MLS/HR Fentanyl Citrate 250 ml @ 2.5 mls/hr Q24H IV 07/12/24 08:30 07/13/24 06:36 17.5 MLS/HR Vancomycin HCl 250 ml @ 200 mls/hr Q24H IV 07/12/24 22:00 07/12/24 22:51 200 MLS/HR Vancomycin HCl 0 ml @ 0 mls/hr UD IV 07/12/24 12:45 Pantoprazole Sodium 40 mg DAILY IV 07/13/24 10:00 07/13/24 10:35 40 MG Azithromycin 250 ml @ 125 mls/hr DAILY IV 07/13/24 10:00 07/13/24 10:36 125 MLS/HR Vancomycin HCl 200 ml @ 200 mls/hr Q1H IV 07/12/24 13:00 07/12/24 14:59 Cancel Phenylephrine HCl 80 mg/Sodium Chloride 250 ml @ 7.5 mls/hr Q24H IV 07/12/24 19:30 07/13/24 03:31 7.5 MLS/HR Norepinephrine Bitartrate 32 mg/ Sodium Chloride 250 ml @ 0.938 mls/ hr Q24H IV 07/12/24 19:30 07/13/24 15:26 14.063 MLS/HR Amiodarone HCl 250 ml @ 16.667 mls/ hr Q15H IV 07/13/24 13:15 11/8/24 14:48 16.667 MLS/HR Oseltamivir Phosphate 30 mg DAILY PO 07/13/24 10:00 07/18/24 09:59 07/13/24 10:36 30 MG Meropenem 50 ml @ 17 mls/hr Q12H IV 07/13/24 18:00 Sodium Bicarbonate 150 ml/Dextrose 1,150 ml @ 100 mls/hr [id number] IV 07/13/24 14:45 07/13/24 16:32 100 MLS/HR Enoxaparin Sodium 45 mg BID SC 07/13/24 22:00 Examination General Appearance: RA SS-3 , sedated on mechanical ventilation. Head Exam: Normal inspection Neck Exam: Normal inspection. Non-tender. Normal alignment Pulmonary/Respiratory: Chest non-tender. Muffled right-sided lung sounds, mild crackles over left lung base. Cardiovascular/Chest: Regular rate and rhythm. No murmurs. No JVD. Peripheral Pulses: 2+ Radial (R). 2+ Radial (L). 2+ Pedal (R). 2+ Pedal (L) Abdominal Exam: Normal bowel sounds. Soft. Nontender. No hepatospenomegaly. No masses Ankle Exam: Negative ankle edema Lower extremities: Negative lower extremity edema, right femoral central line. Neuro/Mental Status: Sedated. Cranial nerves intact. laboratory and microbiology Laboratory Tests 07/13/24 07:31 Test 07/13/24 07:31 Range/Units Serum Glucose 193 H 74-106 mg/dL Microbiology Date/Time Source Procedure Growth Status 07/12/24 11:17 Trachea Pending Resulted 07/12/24 11:17 Trachea Pending Resulted 07/12/24 11:17 Trachea Pending Resulted 07/12/24 11:17 Trachea Pending Resulted 07/12/24 11:17 Trachea - Final See Separate Report... Resulted 07/12/24 10:47 Voided Urine Urine Culture - Preliminary Resulted 07/11/24 21:08 Blood Blood Culture - Preliminary NO GROWTH AFTER 24 HOURS OF INCUBATION. Resulted Problem List/Assessment/Plan Problem List/Assessment/Plan Acute hypercapnic hypoxic respiratory failure likely secondary to influenza pneumonia. Septic shock due to pneumonia AFib with RVR with secondary hypercoagulable state: Paroxysmal Acute on chronic heart failure reduced ejection fraction Presence of AICD History of coronary artery disease status post PTCA * 1 ESTHER TYPE 2 DIABETES MELLITUS: Insulin dependent SUMMER due to VMN Thrombocytopenia Neutropenia Elevated D-dimer rule out PE Lactic acidosis Pleural effusion Hypothyroidism MRSA Plan: Given respiratory distress/hypoxia and hypercapnia: Underwent emergent intubation with GlideScope assistance. Vent setting respiratory rate 20, tidal volume 500, FiO2 100%, peep of 8 -ABG respiratory acidosis: PH 7.137, pCO2 50.8, HC03 16.8 -underwent emergent bronchoscopy: Bronchial lavage sample sent to laboratory for further evaluation. -Antibiotic with meropenem, vancomycin, azithromycin. -vasopressor Levophed, target map greater than 65. Can add vasopressin and L phenylephrine if needed. -amiodarone drip -oseltamivir 30 mg p.o. daily for influenza -mild insulin sliding scale NPO with Accu-Chek q.6 -levothyroxine 200 mcg p.o. via G-tube -PUD prophylaxis Protonix 40 mg IV daily -DVT prophylaxis: SCD given thrombocytopenia -sedation with fentanyl and Versed. Lines: Right femoral central line(07/11/2024) Agrawal G-tube Events: Early in the morning patient found to be in yesterday with hemodynamic decompensation. Patient underwent 6 electrical cardioversion, blood pressure improved to map greater than 65. Patient is started on amiodarone bolus and maintenance. The patient continued to be in a mechanical ventilation with antibiotic, Levophed, acetaminophen, insulin, levothyroxine. Critical care time excluding procedure > 90 minutes Goal of care full code, discussed greater than 22 minute. Plan discussed with Dr Wyatt Plan discussed with: Daughter (RN), Other My Orders My Orders Orders - MARLEE VILLALOBOS RESIDENT Procedure Category Date Status Time Sodium Chl 0.9% PHA 07/12/24 In Process (Ns... 19:30 Sodium Chl 0.9% PHA 07/12/24 In Process (Ns... 19:30 Chest Portable XY 07/13/24 Resulted 04:00 * Sales Service Manager CONS 07/12/24 Transmitted Consult Communication Order ORDERS 07/12/24 Transmitted 20:32 Communication Order ORDERS 07/12/24 Transmitted 20:32 Amiodarone PHA 07/13/24 In Process 450mg/250ml Ae 13:15 Venous Blood Gas RT 07/13/24 Logged 07:30 Oseltamivir 30mg PHA 07/13/24 In Process Capsule (Tamiflu 30mg 10:00 Meropenem 1gm Ivpb PHA 07/13/24 In Process (Merrem 1gm/ Ns) 18:00 Abg W/ Co-Ox RT 07/13/24 Logged 11:15 D5w 5% (Dextrose 5%) PHA 07/13/24 In Process W/Sodium Bicarb 50m 14:[address] 07/14/24 Logged Contrast 08:00 Abg W/ Co-Ox RT 07/14/24 Logged 00:00 Abg W/ Co-Ox RT 07/14/24 Logged 06:00 Abg W/ Co-Ox RT 07/14/24 Logged 12:00 Abg W/ Co-Ox RT 07/14/24 Logged 18:00 Abg W/ Co-Ox RT 07/15/24 Logged 00:00 Abg W/ Co-Ox RT 07/15/24 Logged 06:00 Abg W/ Co-Ox RT 07/15/24 Logged 12:00 Abg W/ Co-Ox RT 07/15/24 Logged 18:00 Abg W/ Co-Ox RT 07/16/24 Logged 00:00 Abg W/ Co-Ox RT 07/16/24 Logged 06:00 Abg W/ Co-Ox RT 07/16/24 Logged 12:00 Abg W/ Co-Ox RT 07/16/24 Logged 18:00 Enoxaparin Sodium PHA 07/13/24 In Process (Lovenox) 22:00 Abg W/ Co-Ox RT 07/13/24 Logged 20:30 Dietary Evaluation Review Comments: Advance to 2 gNa CCHO-60 diet when medically feasible. Pt's lipid pannel shows Cholesterol and LDL at lower mragin range, thus no restrictions on fat or cholesterol needed. Expected Outcomes/Goals: gradual weight loss, controlled DM, Date of Service: Jul 13, 2024 Billing Provider: SIERRA WYATT MD Common Visit Codes: [id number] CARE 30-74 MIN MARLEE VILLALOBOS RESIDENT Jul 13, 2024 17:40 SIERRA WYATT MD Jul 16, 2024 17:07
[2024-07-13 21:15] LABS: Base Excess -7.4 mmol/L (-2.0-3.0)
[2024-07-13] MEDS: ENOXAPARIN SOD 60 MG/0.6 ML SYRINGE SC SCH (21:37)
[2024-07-13] MEDS: INSULIN LANTUS (GLARGINE) 1 /0.01ml (100units/ml) SC ONE (22:32)
[2024-07-14] VITALS (106 sets, daily range): BP systolic 75–153; BP diastolic 45–102; PULSE 82–142; RESP 17–28; TEMP 96.6–100.4; O2SAT 92–99
[2024-07-14 04:04] LABS: Anion Gap 10 (5-15); Carbon Dioxide 19 mmol/L (20-31); Chloride 105 mmol/L (98-107); Potassium 4.3 mmol/L (3.5-5.1); Sodium 134 mmol/L (136-145)
[2024-07-14 04:05] LABS: Calcium 7.7 mg/dL (8.7-10.4)
[2024-07-14 04:10] LABS: BUN/Creatinine Ratio 17.6 (10.0-20.0); Blood Urea Nitrogen 30 mg/dL (9-23); Glucose 266 mg/dL (74-106)
[2024-07-14 04:11] LABS: Magnesium 2.5 mg/dL (1.6-2.6)
[2024-07-14 04:28] LABS: Basophils # (auto) 0 10 ^3/uL (0-0.2); Eosinophils # (auto) 0 10 ^3/uL (0-0.8); Eosinophils % (auto) 0.2 % (0.0-7.0); Hematocrit 41.1 % (41.0-53.0); Hemoglobin 13.9 g/dL (13.5-17.5); Lymphocytes # (auto) 0.3 10 ^3/uL (0.4-5.4); Lymphocytes % (auto) 5.1 % (10.0-50.0); Mean Corpuscular Hemoglobin 31.4 pg (28.0-32.0); Mean Corpuscular Hgb Conc. 33.7 g/dL (32.0-36.0); Mean Corpuscular Volume 93.1 fL (80.0-100.0); Monocytes # (auto) 0.2 10 ^3/uL (0-1.3); Monocytes % (auto) 2.9 % (0.0-12.0); Neutrophils # (auto) 5.2 10 ^3/uL (1.6-8.6); Neutrophils % (auto) 91.8 % (37.0-80.0); Nucleated Red Blood Cells % 0.2 %; Platelet Count (auto) 76 10^3/uL (140-450); Red Blood Cells 4.42 10^6/uL (4.5-5.90); Red Cell Distribution Width 15.1 % (11.8-14.3); White Blood Cell 5.6 10^3/uL (4.4-10.8)
--- NOTE | 2024-07-14 05:29 | DVH ---
CHEST RADIOGRAPH Indication:On vent Technique: Single frontal view of the chest was obtained COMPARISON: XY CHEST PORTABLE on DOS: 07/13/24, XY CHEST XRAY 1 VIEW on DOS: 07/12/24, XY CHEST XRAY 1 VIEW on DOS: 07/12/24 FINDINGS: Lines and Tubes: Endotracheal tube, enteric catheter and left chest wall AICD in satisfactory positio n. Lungs: Multifocal right lung airspace disease. Pleura: No effusion. No pneumothorax. Cardiomediastinal contours: Unremarkable Bones: Unremarkable IMPRESSION: Lines and tubes in satisfactory position. No significant interval change.
--- NOTE | 2024-07-14 05:29 | DVH ---
Exam: US US GUIDED VASCULAR ACCESS Clinical History: art line Comparison: None Findings: Targeted sonographic evaluation utilizing grayscale and color Doppler imaging. IMPRESSION: Sonographic assistance for arterial line placement. Please refer to procedural report for detailed fi ndings.
[2024-07-14] MEDS: AMIODARONE 450mg/250ml AE 250 ML IV SCH (06:44)
[2024-07-14 07:39] LABS: Base Excess -7.1 mmol/L (-2.0-3.0)
[2024-07-14] MEDS: INSULIN LANTUS (GLARGINE) 1 /0.01ml (100units/ml) SC SCH (09:05)
--- NOTE | 2024-07-14 11:19 | DVHPN2 ---
Consult Progress Note Date Seen: Jul 14, 2024 Subjective Other Systems: Notified of A-fib with RVR Objective vital signs Vital Sign Date Time Temp Pulse Resp B/P (MAP) Pulse Ox O2 Delivery O2 Flow Rate FiO2 07/14/24 11:00 97.5 124 26 98/63 (75) 95 207.5 07/14/24 10:49 40 07/14/24 06:00 Mechanical Ventilator+ Total Intake and Output 07/13/24 07/13/24 07/14/24 15:00 23:00 07:00 Intake Total 1061.821 ml 1475.070 ml 1394.736 ml Output Total 350 ml 950 ml Balance 1061.821 ml 1125.070 ml 444.736 ml medications Current Medications Medications Dose Ordered Sig/Maurice Route Start Time Stop Time Status Last Admin Dose Admin Vasopressin 20 units/Sodium Chloride 100 ml @ 9 mls/hr Q11H7M IV 07/11/24 16:45 07/14/24 02:25 9 MLS/HR Sodium Chloride 10 ml Q8HR IV 07/11/24 22:00 07/14/24 06:13 10 ML Levothyroxine Sodium 200 mcg QAM PO 07/12/24 07:00 07/14/24 06:07 200 MCG Diagnostic Test (Pha) 1 strip Q6HR 07/12/24 00:00 07/14/24 06:05 1 STRIP Insulin Human Regular Q6HR SC 07/12/24 00:00 07/14/24 06:00 4 UNITS Dextrose 50 ml UD PRN IV 07/11/24 21:15 Midazolam HCl 50 ml @ 1 mls/hr Q24H IV 07/12/24 08:30 07/14/24 06:11 8 MLS/HR Fentanyl Citrate 250 ml @ 2.5 mls/hr Q24H IV 07/12/24 08:30 07/14/24 09:05 15 MLS/HR Vancomycin HCl 250 ml @ 200 mls/hr Q24H IV 07/12/24 22:00 07/13/24 22:42 200 MLS/HR Vancomycin HCl 0 ml @ 0 mls/hr UD IV 07/12/24 12:45 Pantoprazole Sodium 40 mg DAILY IV 07/13/24 10:00 07/14/24 08:56 40 MG Azithromycin 250 ml @ 125 mls/hr DAILY IV 07/13/24 10:00 07/14/24 08:56 125 MLS/HR Vancomycin HCl 200 ml @ 200 mls/hr Q1H IV 07/12/24 13:00 07/12/24 14:59 Cancel Phenylephrine HCl 80 mg/Sodium Chloride 250 ml @ 7.5 mls/hr Q24H IV 07/12/24 19:30 07/13/24 03:31 7.5 MLS/HR Norepinephrine Bitartrate 32 mg/ Sodium Chloride 250 ml @ 0.938 mls/ hr Q24H IV 07/12/24 19:30 07/14/24 06:08 14.063 MLS/HR Oseltamivir Phosphate 30 mg DAILY PO 07/13/24 10:00 07/18/24 09:59 07/14/24 08:57 30 MG Meropenem 50 ml @ 17 mls/hr Q12H IV 07/13/24 18:00 07/14/24 06:13 17 MLS/HR Sodium Bicarbonate 150 ml/Dextrose 1,150 ml @ 100 mls/hr [id number] IV 07/13/24 14:45 07/14/24 04:22 100 MLS/HR Enoxaparin Sodium 45 mg BID SC 07/13/24 22:00 07/14/24 08:59 45 MG Insulin Glargine 10 units DAILY@1000 SC 07/14/24 10:00 07/14/24 09:05 10 UNITS Amiodarone HCl 250 ml @ 33.333 mls/ hr Q7H30M IV 07/14/24 06:45 Examination: LUNGS:Abnormal (Mechanically ventilated with FiO2 at 40% PEEP 8.0), CVS:Abnormal (A-fib 110s-130s bpm), MSK:Abnormal (BUE edema, non-pitting), NEURO:Normal (Chemically sedated) laboratory and microbiology Laboratory Tests 07/14/24 03:15 Test 07/14/24 03:15 Range/Units Serum Glucose 266 H 74-106 mg/dL Problem List/Assessment/Plan Problem List/Assessment/Plan Septic shock with multifocal PNA/Influenza Type A Paroxysmal atrial fibrillation with rapid ventricular rate, Stage 3, on Eliquis/off antiarrhythmic at home Supraventricular tachycardia with hemodynamic decompensation-status post electrical cardioversion Acute on chronic decompensated HFrEF Noncardiac/pleuritic chest pain Presence of AICD ([employer] 2013) Coronary artery disease status post PTCA x1 ESTHER Hypokalemia/hypomagnesemia Insulin-dependent diabetes mellitus Acute kidney injury Suboptimal medical therapy Thrombocytopenia Obesity Plan/Recommendation (Dr. Dumont) * Echocardiogram revealed EF 25% with global hypokinesis * Vasopressors for hemodynamic support * Continue antiarrhythmic therapy, amiodarone drip * Rate control, initiate loading dose digoxin and maintenance on M-W-F * Preload reduction. Strict I&Os, fluid restriction * Resume therapeutic AC therapy/NOACs when appropriate * [id number] Score 5. HAS-BLED Score 3 * Monitor platelet count closely * Replete electrolytes as necessary, K>4 and Mg>2 * Pulmonology recommendations, vent settings * Scheduled for ICD generator exchange at [facility] * Monitor ECG changes and notify * VTE/DVT prophylaxis: SCDs * On low-dose Lovenox per primary care team * Repeat BNP level Poor prognosis. Thank you for allowing us to participate in this patient's care. Please call if you have any questions or concerns. Critical care time: 40 min. This medical document was created using an electronic medical record system with voice recognition software and computerized dictation system. Although this document has been carefully reviewed, there might still be some phonetic and typographical errors. Occasional wrong-word or ``sound-alike substitutions may have occurred due to the inherent limitations of voice recognition software. These areas are purely typographical due to imperfections of the software programs and do not reflect any compromise in the patient's medical care. Please read the chart carefully and recognize, using context, where these substitutions have occurred. Plan discussed with: Other Dietary Evaluation Review Comments: Advance to 2 gNa CCHO-60 diet when medically feasible. Pt's lipid pannel shows Cholesterol and LDL at lower mragin range, thus no restrictions on fat or cholesterol needed. Expected Outcomes/Goals: gradual weight loss, controlled DM, Date of Service: Jul 14, 2024 Billing Provider: NEAL DUMONT MD Cardiology Common Codes: [id number] CARE 30-74 MIN KIKE ARMENTA [facility] Jul 14, 2024 11:19
[2024-07-14] MEDS: DIGOXIN (250MCG/ML) 2 ML AMPULE ONE (12:25)
[2024-07-14] MEDS: DIGOXIN (250MCG/ML) 2 ML AMPULE IV ONE (12:25)
--- NOTE | 2024-07-14 16:50 | DVH ---
HISTORY: R/O DVT COMPARISON: None TECHNIQUE: Duplex Doppler evaluation of the deep venous system of the lower neck and proximal upper e xtremity(ies), including color Doppler and spectral/pulsed waveform analysis was performed. FINDINGS: Right: - Internal jugular vein: Compressible - Subclavian vein: Visible portion is patent - Axillary vein: Visible portion is patent - Brachial vein: Compressible - Cephalic vein: Compressible - Basilic vein: Compressible - Ulnar vein: Compressible - Radial vein: Compressible - Other: Nothing Left: - Internal jugular vein: Compressible - Subclavian vein: Visible portion is patent - Axillary vein: Visible portion is patent - Brachial vein: Compressible - Cephalic vein: Noncompressible distally - Basilic vein: Compressible - Ulnar vein: Compressible - Radial vein: Compressible - Other: Nothing IMPRESSION: 1. No right or left upper extremity deep venous thrombosis. 2. Superficial venous thrombosis of the distal left cephalic vein.
--- NOTE | 2024-07-14 17:33 | DVHPN2 ---
Subjective in the ICU intubated and sedated Reviewed: Care Plan Changes from previous H/P or p: No Changes Eyes: No Pain, No Vision change, No Conjunctivae inflammation, No Eyelid inflammation, No Other, No Redness ENT: No Ear pain, No Ear discharge, No Nose pain, No Nose discharge, No Nose congestion, No Mouth pain, No Mouth swelling, No Throat pain, No Throat swelling, No Other Cardiovascular: No Chest Pain, No Palpitations, No Orthopnea, No Paroxysmal Noc. Dyspnea, No Edema, No Lt Headedness, No Other Respiratory: No Cough, No Dry, No Shortness of breath, No SOB with excertion, No Wheezing, No Hemoptysis, No Pleuritic Pain, No Sputum, No Other Gastrointestinal: No Nausea, No Vomiting, No Abdominal Pain, No Diarrhea, No Constipation, No Melena, No Hematochezia, No Other Genitourinary: No Dysuria, No Frequency, No Incontinence, No Hematuria, No Retention, No Other Musculoskeletal: No other, No neck pain, No shoulder pain, No arm pain, No back pain, No hand pain, No leg pain, No foot pain Skin: No Rash, No Lesions, No Jaundice, No Bruising, No Other Objective Vitals Vital Signs Date Time Temp Pulse Resp B/P (MAP) Pulse Ox O2 Delivery O2 Flow Rate FiO2 07/14/24 15:32 115 26 125/74 (91) 92 40 07/14/24 15:31 100.0 212.0 07/14/24 06:00 Mechanical Ventilator+ Intake/Output Intake and Output 07/14/24 05:00 Intake Total 3872.023 ml Output Total 570 ml Balance 3302.023 ml IV Total 3872.023 ml Output Urine Total 570 ml Medications Current Medications Medications Dose Ordered Sig/Maurice Route Start Time Stop Time Status Last Admin Dose Admin Vasopressin 20 units/Sodium Chloride 100 ml @ 9 mls/hr Q11H7M IV 07/11/24 16:45 07/14/24 13:53 9 MLS/HR Sodium Chloride 10 ml Q8HR IV 07/11/24 22:00 07/14/24 14:00 10 ML Levothyroxine Sodium 200 mcg QAM PO 07/12/24 07:00 07/14/24 06:07 200 MCG Diagnostic Test (Pha) 1 strip Q6HR 07/12/24 00:00 07/14/24 12:00 1 STRIP Insulin Human Regular Q6HR SC 07/12/24 00:00 07/14/24 12:42 3 UNITS Dextrose 50 ml UD PRN IV 07/11/24 21:15 Midazolam HCl 50 ml @ 1 mls/hr Q24H IV 07/12/24 08:30 07/14/24 06:11 8 MLS/HR Fentanyl Citrate 250 ml @ 2.5 mls/hr Q24H IV 07/12/24 08:30 07/14/24 09:05 15 MLS/HR Vancomycin HCl 250 ml @ 200 mls/hr Q24H IV 07/12/24 22:00 07/13/24 22:42 200 MLS/HR Vancomycin HCl 0 ml @ 0 mls/hr UD IV 07/12/24 12:45 Pantoprazole Sodium 40 mg DAILY IV 07/13/24 10:00 07/14/24 08:56 40 MG Azithromycin 250 ml @ 125 mls/hr DAILY IV 07/13/24 10:00 07/14/24 08:56 125 MLS/HR Vancomycin HCl 200 ml @ 200 mls/hr Q1H IV 07/12/24 13:00 07/12/24 14:59 Cancel Phenylephrine HCl 80 mg/Sodium Chloride 250 ml @ 7.5 mls/hr Q24H IV 07/12/24 19:30 07/13/24 03:31 7.5 MLS/HR Norepinephrine Bitartrate 32 mg/ Sodium Chloride 250 ml @ 0.938 mls/ hr Q24H IV 07/12/24 19:30 07/14/24 06:08 14.063 MLS/HR Oseltamivir Phosphate 30 mg DAILY PO 07/13/24 10:00 07/18/24 09:59 07/14/24 08:57 30 MG Meropenem 50 ml @ 17 mls/hr Q12H IV 07/13/24 18:00 07/14/24 06:13 17 MLS/HR Sodium Bicarbonate 150 ml/Dextrose 1,150 ml @ 100 mls/hr [id number] IV 07/13/24 14:45 07/14/24 04:22 100 MLS/HR Enoxaparin Sodium 45 mg BID SC 07/13/24 22:00 07/14/24 08:59 45 MG Insulin Glargine 10 units DAILY@1000 SC 07/14/24 10:00 07/14/24 09:05 10 UNITS Amiodarone HCl 250 ml @ 33.333 mls/ hr Q7H30M IV 07/14/24 06:45 07/14/24 14:15 33.333 MLS/HR Digoxin 125 mcg MWF IV 07/16/24 10:00 Acetaminophen 650 mg Q6HP PRN MN 07/14/24 17:00 Laboratory Results Laboratory Tests 07/14/24 03:15 Chemistry Test 07/14/24 03:15 Calcium Level 7.7 mg/dL (8.7-10.4) L Magnesium Level 2.5 mg/dL (1.6-2.6) Cardiac Markers Test 07/14/24 03:15 B-Type Natriuretic Peptide 1152.22 pg/mL (0-100) Urinalysis Test 07/11/24 15:12 Urine Color Yellow (Yellow) Urine Clarity Clear (Clear) Urine pH 5.5 (5.0-9.0) Urine Specific [place] 1.027 (1.001-1.035) Urine Protein 1+ (Negative) H Urine Ketones 2+ (Negative) H Urine Blood Negative /uL (Negative) Urine Nitrite Negative (Negative) Urine Bilirubin Negative (Negative) Urine Urobilinogen Normal mg/dL (Negative) Urine Leukocyte Esterase Negative /uL (Negative) Urine RBC 1 /hpf (0 - 3) Urine WBC 3 /hpf (0 - 3) Urine Squamous Epithelial Cells Few /hpf (<5) Urine Bacteria None seen /hpf (None Seen) Urine Glucose 4+ mg/dL (Normal) H Blood Gas Results Test 07/13/24 20:50 07/14/24 06:52 Arterial Blood pH 7.301 (7.350-7.450) 7.328 (7.350-7.450) FiO2 % 70.0 40.0 Microbiology Microbiology Date/Time Source Procedure Growth Status 07/12/24 11:17 Trachea Pending Resulted 07/12/24 11:17 Trachea Pending Resulted 07/12/24 11:17 Trachea Pending Resulted 07/12/24 11:17 Trachea Pending Resulted 07/12/24 11:17 Trachea - Final See Separate Report... Resulted 07/12/24 10:47 Voided Urine Urine Culture - Final Complete 07/11/24 21:08 Blood Blood Culture - Preliminary NO GROWTH AFTER 48 HOURS OF INCUBATION. Resulted Assessment/Plan Assessment/Plan Acute hypercapnic hypoxic respiratory failure likely secondary to influenza pneumonia. Septic shock due to pneumonia AFib with RVR with secondary hypercoagulable state: Paroxysmal Acute on chronic heart failure reduced ejection fraction Presence of AICD History of coronary artery disease status post PTCA * 1 ESTHER TYPE 2 DIABETES MELLITUS: Insulin dependent SUMMER due to VMN Thrombocytopenia Neutropenia Elevated D-dimer rule out PE Lactic acidosis Pleural effusion Hypothyroidism MRSA Plan: - Continue ventilation -underwent emergent bronchoscopy: Bronchial lavage sample sent to laboratory for further evaluation. -Antibiotic with meropenem, vancomycin, azithromycin. -vasopressor Levophed, target map greater than 65. Can add vasopressin and L phenylephrine if needed. -amiodarone 200 mg via G-tube as per cardiology recommendation -oseltamivir 30 mg p.o. daily for influenza -mild insulin sliding scale NPO with Accu-Chek q.6 -levothyroxine 200 mcg p.o. via G-tube -PUD prophylaxis Protonix 40 mg IV daily -DVT prophylaxis: SCD given thrombocytopenia -sedation with fentanyl and Versed. Critical care time spent was 58 minutes Lines: Right femoral central line(07/11/2024) Agrawal G-tube Plan discussed with: Other (nurse) Date of Service: Jul 14, 2024 Billing Provider: SANTI PENG MD Common Visit Codes: [id number] CARE 30-74 MIN SANTI PENG MD Jul 14, 2024 17:33
--- NOTE | 2024-07-14 18:25 | DVHPN2 ---
Progress Note - Dictate Date Seen: Jul 14, 2024 Medical Necessity Reason Pt with a Central, PICC or Fol: Yes The following are medically ne: Central Line, Michel Catheter Reason for michel catheter: Strict I&O Subjective Patient seen and examined at bedside. Sedated, intubated on mechanical ventilator. Overnight events reviewed. vital signs Vital Sign Date Time Temp Pulse Resp B/P (MAP) Pulse Ox O2 Delivery O2 Flow Rate FiO2 07/14/24 15:32 115 26 125/74 (91) 92 40 07/14/24 15:31 100.0 212.0 07/14/24 06:00 Mechanical Ventilator+ Total Intake and Output 07/13/24 07/13/24 07/14/24 15:00 23:00 07:00 Intake Total 1061.821 ml 1475.070 ml 1394.736 ml Output Total 350 ml 950 ml Balance 1061.821 ml 1125.070 ml 444.736 ml medications Current Medications Medications Dose Ordered Sig/Maurice Route Start Time Stop Time Status Last Admin Dose Admin Vasopressin 20 units/Sodium Chloride 100 ml @ 9 mls/hr Q11H7M IV 07/11/24 16:45 07/14/24 13:53 9 MLS/HR Levothyroxine Sodium 200 mcg QAM PO 07/12/24 07:00 07/14/24 06:07 200 MCG Diagnostic Test (Pha) 1 strip Q6HR 07/12/24 00:00 07/14/24 12:00 1 STRIP Insulin Human Regular Q6HR SC 07/12/24 00:00 07/14/24 12:42 3 UNITS Dextrose 50 ml UD PRN IV 07/11/24 21:15 Midazolam HCl 50 ml @ 1 mls/hr Q24H IV 07/12/24 08:30 07/14/24 06:11 8 MLS/HR Fentanyl Citrate 250 ml @ 2.5 mls/hr Q24H IV 07/12/24 08:30 07/14/24 09:05 15 MLS/HR Vancomycin HCl 250 ml @ 200 mls/hr Q24H IV 07/12/24 22:00 07/13/24 22:42 200 MLS/HR Vancomycin HCl 0 ml @ 0 mls/hr UD IV 07/12/24 12:45 Pantoprazole Sodium 40 mg DAILY IV 07/13/24 10:00 07/14/24 08:56 40 MG Azithromycin 250 ml @ 125 mls/hr DAILY IV 07/13/24 10:00 07/14/24 08:56 125 MLS/HR Vancomycin HCl 200 ml @ 200 mls/hr Q1H IV 07/12/24 13:00 07/12/24 14:59 Cancel Phenylephrine HCl 80 mg/Sodium Chloride 250 ml @ 7.5 mls/hr Q24H IV 07/12/24 19:30 07/13/24 03:31 7.5 MLS/HR Norepinephrine Bitartrate 32 mg/ Sodium Chloride 250 ml @ 0.938 mls/ hr Q24H IV 07/12/24 19:30 07/14/24 06:08 14.063 MLS/HR Oseltamivir Phosphate 30 mg DAILY PO 07/13/24 10:00 07/18/24 09:59 07/14/24 08:57 30 MG Meropenem 50 ml @ 17 mls/hr Q12H IV 07/13/24 18:00 07/14/24 06:13 17 MLS/HR Sodium Bicarbonate 150 ml/Dextrose 1,150 ml @ 100 mls/hr [id number] IV 07/13/24 14:45 07/14/24 04:22 100 MLS/HR Enoxaparin Sodium 45 mg BID SC 07/13/24 22:00 07/14/24 08:59 45 MG Insulin Glargine 10 units DAILY@1000 SC 07/14/24 10:00 07/14/24 09:05 10 UNITS Amiodarone HCl 250 ml @ 33.333 mls/ hr Q7H30M IV 07/14/24 06:45 07/14/24 14:15 33.333 MLS/HR Digoxin 125 mcg MWF IV 07/16/24 10:00 Acetaminophen 650 mg Q6HP PRN SD 07/14/24 17:00 Sodium Chloride 10 ml QSHIFT@10,22 IV 07/14/24 22:00 objective Gen.: Patient lying in bed in medical ICU. Sedated, intubated on mechanical ventilator. Head: Normocephalic, atraumatic. Eyes: PERRLA. Ears: Normal external anatomy. Throat: Endotracheal tube and orogastric tube in place. Neck: Supple, trachea midline. Chest: Transmitted breath sounds bilaterally. Decreased air entry bilaterally. No wheezing. Bibasilar crackles. Cardiovascular: Positive S1, positive S2. Regular rate and rhythm. Abdomen: Positive bowel sounds in all 4 quadrants. Soft, nontender, nondistended. : Michel in place. Normal external genitalia. Rectal: Deferred. Skin: Warm, dry. Intact. Extremities: 2+ radial pulses bilaterally. No lower extremity edema. Neuro: Sedated. laboratory and microbiology Laboratory Tests 07/14/24 03:15 Test 07/14/24 03:15 Range/Units Serum Glucose 266 H 74-106 mg/dL Assessment/Plan Impression: Acute hypoxic respiratory failure secondary to multifocal pneumonia and pulmonary edema Acute respiratory distress syndrome Multifocal pneumonia likely Gram-negative Pulmonary edema Leukopenia Septic shock Influenza type a Atrial fibrillation with RVR Chronic congestive heart failure Status post AICD CAD status post PTCA Insulin-dependent diabetes mellitus Acute kidney injury Events: Currently on vent support AC mode with respiratory rate 26, tidal volume 500, PEEP of 8, FiO2 40% CXR image and report reviewed. Devices in place. Multifocal right lung airspace disease. No pleural effusion or pneumothorax. ABG reviewed, notable for acidemia Patient spiked fever F/u cultures Sedated on Fentanyl On multiple pressors for hemodynamic support. Levophed 28 mcg/min and vasopressin 0.03 units/min Titrate to keep MAP above 65 mmHg/SBP above 90 mmHg. Off Forrest-Synephrine. Amiodarone drip for AFib with tachycardia Increase rate to 1. Continue antibiotics Labs and imaging reviewed. Rest of plan as noted below. Plan: s/p intubation on mechanical ventilator. Vent settings; AC mode with respiratory rate 26, tidal volume 500, PEEP of 8, FiO2 40% Titrate FIO2 to keep O2 saturation above 90%. VAP bundle. Daily ABG and CXR while intubated Sedated for ventilatory synchrony CXR, ABG reviewed. On multiple pressors for hemodynamic support. Titrate to keep MAP above 65 mmHg/SBP above 90 mmHg. Start stress dose steroids We will give dose of albumin Continue antibiotics. F/u cultures. Send sputum, blood cultures and urine cultures Monitor renal function due to Acute kidney injury. Creatinine trending down Monitor electrolytes. Supplement as necessary. Supplemented potassium and magnesium stat. On IV fluids, lactic acid trending down. Accucheks, ISS. GI/DVT prophylaxis. Condition: Critical Prognosis: Poor given multiple comorbidities. Rest of plan per hospitalist and other consultants. A total of 35 minutes of critical care time was spent reviewing the patient record, examining the patient, making a diagnostic and therapeutic plan, discussing this plan with the medical personnel, following up on diagnostic studies and following the patient for clinical stability excluding any and all procedures. At least 50% of this time was spent in direct, [id number] contact. Thank you JOSH Hatfield for allowing me to participate in this patient's care. Further recommendations will depend on patient's clinical course. Please do not hesitate to contact me if you have any questions or concerns. This medical document was created using an electronic medical record system with [employer] dictation system. Although this document has been carefully reviewed, there may still be some phonetic and typographical errors. These areas are purely typographical due to imperfections of the software programs, and do not reflect any compromise in the patient's medical care. Dietary Evaluation Review Comments: Advance to 2 gNa CCHO-60 diet when medically feasible. Pt's lipid pannel shows Cholesterol and LDL at lower mragin range, thus no restrictions on fat or cholesterol needed. Expected Outcomes/Goals: gradual weight loss, controlled DM, Plan discussed with: Other (ANGELO Gomez) Critical Care Time(min): 35 LINDSEY ROSALES MD Jul 14, 2024 18:25
[2024-07-14] MEDS: LIDOCAINE 1% (LOCAL ANESTH.) PF 5ml SDV ID ONE (18:30)
[2024-07-14 19:19] LABS: Base Excess -1.5 mmol/L (-2.0-3.0)
--- NOTE | 2024-07-14 19:39 | DVH ---
CHEST RADIOGRAPH Indication:PICC LINE PLACEMENT. Technique: Single frontal view of the chest was obtained Comparison: XY CHEST XRAY 1 VIEW on DOS: 07/14/24, XY CHEST PORTABLE on DOS: 07/13/24, XY CHEST XRAY 1 VIEW on DOS: 07/12/24 FINDINGS: Lines and Tubes: Endotracheal tube in good position 4.5 cm above the david. Enteric tube in the stom ach. AICD pacemaker in place with pulse generator over the left chest. PICC line in from the right ar m in place in the superior vena cava above the right atrium. Lungs: Patchy infiltrate right upper right middle and right lower lobe. Pleura: No effusion. No pneumothorax. Cardiomediastinal contours: Unremarkable Bones: No acute osseous abnormality. IMPRESSION: 1. PICC line from right arm in place in superior vena cava above the right atrium. 2. Endotracheal tube and enteric tube in place. 3. No change in the infiltrate right lung llanos compared 07/12/2024. HS:Y
[2024-07-14] MEDS: ACETAMINOPHEN 650 MG RECT SUPP PR ONE (20:33)
[2024-07-14] MEDS: SODIUM CHLOR 0.9% PF (SALINE LOCK) 10ML VIAL/SYR IV SCH (22:02)
[2024-07-15] VITALS (102 sets, daily range): BP systolic 82–154; BP diastolic 31–106; PULSE 75–124; RESP 24–31; TEMP 96.1–99.7; O2SAT 92–100
[2024-07-15 03:43] LABS: Chloride 100 mmol/L (98-107); Potassium 3.4 mmol/L (3.5-5.1); Sodium 133 mmol/L (136-145)
[2024-07-15 03:44] LABS: Anion Gap 7 (5-15); Carbon Dioxide 26 mmol/L (20-31)
[2024-07-15 03:45] LABS: Calcium 7.6 mg/dL (8.7-10.4)
[2024-07-15 03:49] LABS: BUN/Creatinine Ratio 36.2 (10.0-20.0); Blood Urea Nitrogen 34 mg/dL (9-23); Glucose 194 mg/dL (74-106)
[2024-07-15 04:42] LABS: Mean Corpuscular Hemoglobin 31.9 pg (28.0-32.0)
[2024-07-15 04:44] LABS: Hematocrit 40.5 % (41.0-53.0); Hemoglobin 14.1 g/dL (13.5-17.5); Mean Corpuscular Hgb Conc. 34.7 g/dL (32.0-36.0); Mean Corpuscular Volume 91.8 fL (80.0-100.0); Platelet Count (auto) 65 10^3/uL (140-450); Red Blood Cells 4.42 10^6/uL (4.5-5.90); Red Cell Distribution Width 14.7 % (11.8-14.3); White Blood Cell 8.3 10^3/uL (4.4-10.8)
[2024-07-15 04:56] LABS: Basophils % (manual) 0 (0.0-2.0); Blast Cells 0; Eosinophils % (manual) 0 (0-7); Metamyelocytes % 0; Myelocytes % 0; Promyelocytes % 0; Reactive Lymphocytes 0
--- NOTE | 2024-07-15 05:28 | DVH ---
CHEST RADIOGRAPH Indication:INTUBATED Technique: Single frontal view of the chest was obtained Comparison: XY CHEST PORTABLE on DOS: 07/14/24, XY CHEST XRAY 1 VIEW on DOS: 07/14/24, XY CHEST PORTABL E on DOS: 07/13/24, XY CHEST XRAY 1 VIEW on DOS: 07/12/24, XY CHEST XRAY 1 VIEW on DOS: 07/12/24, XY IRASEMA ST PORTABLE on DOS: 07/14/24 FINDINGS: Lines and Tubes: Endotracheal tube in good position 4.5 cm above the david. Enteric tube in the stom ach. AICD pacemaker in place with pulse generator over the left chest. PICC line in from the right ar m in place in the superior vena cava above the right atrium. Lungs: Patchy infiltrate right upper right middle and right lower lobe. Pleura: No effusion. No pneumothorax. Cardiomediastinal contours: Unremarkable Bones: No acute osseous abnormality. IMPRESSION: 1. PICC line from right arm in place in superior vena cava above the right atrium. 2. Endotracheal tube and enteric tube in place. 3. No change in the infiltrate right lung llanos compared 07/12/2024.
[2024-07-15 06:06] LABS: Band Neutrophils % (manual) 7; Lymphocytes % (manual) 6 (10.0-50.0); Monocytes % (manual) 11 (0-12); Platelet Estimate Decreased
[2024-07-15 06:08] LABS: Large Platelets FEW
[2024-07-15 06:17] LABS: Base Excess -0.6 mmol/L (-2.0-3.0)
[2024-07-15] MEDS: ACETAMINOPHEN 650 MG RECT SUPP PR PRN (10:32)
--- NOTE | 2024-07-15 11:48 | MEDREC ---
[facility] Intervention Section I [facility] Intervention: Review courses of therapy (MRSA SCREEN POSITIVE CONSIDER ADDING MUPIROCIN 2% OINTMENT 1 APPLICATION IN EACH NOSTRIL BID FOR 5 DAYS ) VIOLET CHILDRESS PHARMACIST Jul 15, 2024 11:48
[2024-07-15] MEDS: ALBUMIN 25% 100 ML IV SCH (12:15)
--- NOTE | 2024-07-15 12:30 | DVHNC2 ---
Procedure - Bronchoscopy procedure note: Indications: RIGHT lung opacities, Possible mucous plugging. Medicines: See [employer] OPERATIONS MANAGER notes. Complications: None Procedure: Patient medications and allergies reviewed. The risks and benefits of the procedure and the sedation options and risk were discussed with the patient's healthcare proxy. All questions were answered and informed consent was obtained. Patient identification and proposed procedure were verified prior to the procedure by the physician, and a nurse, and the respiratory therapist in ICU room. The heart rate, respiratory rate, oxygen saturations, blood pressure, adequacy of pulmonary ventilation, and response to care were monitored t hroughout the procedure. The physical status of the patient was reassessed after the procedure. After obtaining informed consent, the bronchoscope was introduced through the endotracheal tube and advanced into the trachea bronchial tree of both lungs. T he procedure was accomplished without difficulty. The patient tolerated the procedure well. Findings: The trachea is in normal caliber. The david is sharp. The tracheobronchial tree of the right lung was examined to at least the first subsegmental level. The bronchial mucosa was inflamed and erythematous. The anatomy in the right lung are normal. There are no endobronchial lesions. There was copious whitish secretions from right main stem bronchus onward throughout R1-R10. They were film like and congealed. Difficult removing. Utilized 20 mL to attempt to clear secretions. I was able to open up airways leading to RUL, RML and RLL. Right middle lobe (RML) Bronchoalveolar lavage (BAL) obtained. RML BAL sent for gram stain and culture, viral culture, fungal culture, and AFB smear and culture. The left upper lobe, lingula, and left lower lobe were examined to at least the first subsegmental level. Bronchial mucosa was inflamed and erythematous. The anatomy in the left upper lobe and lingula are normal. There were no endobronchial lesions. There was copious whitish secretions from left main stem bronchus onward throughout L1-L10. Mucous plugging removed from L6-L10. They were film like and congealed. Difficult to remove despite 20 mL of saline applied to sites. There was no active bleeding at the completion of the procedure. Estimated blood loss: Less than 5 mL. Impression: Left lower lobe atelectasis due to mucous plugging Mucous plugging from L6-L10 Copious mucous plugging from R1-R10. RML BAL performed Recommendation: Follow-up RML BAL results. Procedure codes: 28787, bronchoscopy, rigid and flexible, including fluoroscopic guidance, one performed; with bronchial endobronchial broncho-alveolar lavage, single or multiple sites LINDSEY ROSALES MD Jul 15, 2024 12:30
--- NOTE | 2024-07-15 12:34 | DVHPN2 ---
Consult Progress Note Date Seen: Jul 15, 2024 Subjective Other Systems: No cardiac events reported. A-fib 80s-100s bpm Objective vital signs Vital Sign Date Time Temp Pulse Resp B/P (MAP) Pulse Ox O2 Delivery O2 Flow Rate FiO2 07/15/24 11:50 99.1 07/15/24 10:30 124 26 117/49 (71) 92 40 07/15/24 08:00 Mechanical Ventilator+ Total Intake and Output 07/14/24 07/14/24 07/15/24 15:00 23:00 07:00 Intake Total 1622.668 ml 1431.355 ml 1514.513 ml Output Total 650 ml 400 ml Balance 1622.668 ml 781.355 ml 1114.513 ml medications Current Medications Medications Dose Ordered Sig/Maurice Route Start Time Stop Time Status Last Admin Dose Admin Vasopressin 20 units/Sodium Chloride 100 ml @ 9 mls/hr Q11H7M IV 07/11/24 16:45 07/15/24 00:08 9 MLS/HR Levothyroxine Sodium 200 mcg QAM PO 07/12/24 07:00 07/15/24 07:00 200 MCG Diagnostic Test (Pha) 1 strip Q6HR 07/12/24 00:00 07/15/24 12:04 1 STRIP Insulin Human Regular Q6HR SC 07/12/24 00:00 07/15/24 05:34 3 UNITS Dextrose 50 ml UD PRN IV 07/11/24 21:15 Midazolam HCl 50 ml @ 1 mls/hr Q24H IV 07/12/24 08:30 07/15/24 05:53 8 MLS/HR Fentanyl Citrate 250 ml @ 2.5 mls/hr Q24H IV 07/12/24 08:30 07/15/24 01:01 15 MLS/HR Vancomycin HCl 250 ml @ 200 mls/hr Q24H IV 07/12/24 22:00 07/14/24 22:47 200 MLS/HR Vancomycin HCl 0 ml @ 0 mls/hr UD IV 07/12/24 12:45 Pantoprazole Sodium 40 mg DAILY IV 07/13/24 10:00 07/15/24 10:32 40 MG Azithromycin 250 ml @ 125 mls/hr DAILY IV 07/13/24 10:00 07/15/24 10:33 125 MLS/HR Vancomycin HCl 200 ml @ 200 mls/hr Q1H IV 07/12/24 13:00 07/12/24 14:59 Cancel Phenylephrine HCl 80 mg/Sodium Chloride 250 ml @ 7.5 mls/hr Q24H IV 07/12/24 19:30 07/13/24 03:31 7.5 MLS/HR Norepinephrine Bitartrate 32 mg/ Sodium Chloride 250 ml @ 0.938 mls/ hr Q24H IV 07/12/24 19:30 07/14/24 22:41 13.125 MLS/HR Oseltamivir Phosphate 30 mg DAILY PO 07/13/24 10:00 07/18/24 09:59 07/15/24 10:33 30 MG Enoxaparin Sodium 45 mg BID SC 07/13/24 22:00 07/14/24 22:02 45 MG Insulin Glargine 10 units DAILY@1000 SC 07/14/24 10:00 07/15/24 10:00 10 UNITS Amiodarone HCl 250 ml @ 33.333 mls/ hr Q7H30M IV 07/14/24 06:45 07/15/24 11:40 16.667 MLS/HR Digoxin 125 mcg MWF IV 07/16/24 10:00 Acetaminophen 650 mg Q6HP PRN GA 07/14/24 17:00 07/15/24 10:32 650 MG Sodium Chloride 10 ml QSHIFT@10,22 IV 07/14/24 22:00 07/15/24 10:33 10 ML Meropenem 50 ml @ 17 mls/hr Q8H IV 07/15/24 13:00 Albumin Human 100 ml @ 100 mls/hr Q8H IV 07/15/24 12:00 07/16/24 04:59 07/15/24 12:15 100 MLS/HR Examination: GENERAL:Abnormal, LUNGS:Abnormal (S/p bronchoscopy), CVS:Abnormal (A-fib controlled rate, on vasopressors), NEURO:Abnormal (Chemically sedated) laboratory and microbiology Laboratory Tests 07/15/24 03:10 Test 07/15/24 03:10 Range/Units Serum Glucose 194 H 74-106 mg/dL Problem List/Assessment/Plan Problem List/Assessment/Plan Septic shock with multifocal PNA/Influenza Type A Paroxysmal atrial fibrillation with rapid ventricular rate, Stage 3, on Eliquis/off antiarrhythmic at home Supraventricular tachycardia with hemodynamic decompensation-status post electrical cardioversion Acute on chronic decompensated HFrEF Presence of AICD ([employer] 2013) Coronary artery disease status post PTCA x1 ESTHER Hypokalemia/hypomagnesemia Insulin-dependent diabetes mellitus Acute kidney injury Suboptimal medical therapy Thrombocytopenia Obesity Plan/Recommendation (Dr. Dumont) * Echocardiogram revealed EF 25% with global hypokinesis * Vasopressors for hemodynamic support * Continue antiarrhythmic therapy, amiodarone drip * Rate control, digoxin maintenance dose on -- * Preload reduction. Strict I&Os, fluid restriction * Resume therapeutic AC therapy/NOACs when appropriate * [id number] Score 5. HAS-BLED Score 3 * Monitor platelet count closely * Replete electrolytes as necessary, K>4 and Mg>2 * Pulmonology recommendations, vent settings * Scheduled for ICD generator exchange at [facility] * Monitor ECG changes and notify * VTE/DVT prophylaxis: SCDs * On low-dose Lovenox per primary care team, Plt count 65 * Repeat BNP and Mg levels in a.m. Poor prognosis. Thank you for allowing us to participate in this patient's care. Please call if you have any questions or concerns. Critical care time: 40 min. This medical document was created using an electronic medical record system with voice recognition software and computerized dictation system. Although this document has been carefully reviewed, there might still be some phonetic and typographical errors. Occasional wrong-word or ``sound-alike substitutions may have occurred due to the inherent limitations of voice recognition software. These areas are purely typographical due to imperfections of the software programs and do not reflect any compromise in the patient's medical care. Please read the chart carefully and recognize, using context, where these substitutions have occurred. Plan discussed with: Other Dietary Evaluation Review Comments: Advance to 2 gNa CCHO-60 diet when medically feasible. Pt's lipid pannel shows Cholesterol and LDL at lower mragin range, thus no restrictions on fat or cholesterol needed. Expected Outcomes/Goals: gradual weight loss, controlled DM, Date of Service: Jul 15, 2024 Billing Provider: NEAL DUMONT MD Cardiology Common Codes: 45213-[id number] CARE 30-74 MIN KIKE ARMENTA FAITH HEALER Jul 15, 2024 12:34
--- NOTE | 2024-07-15 12:56 | DVH ---
Exam: US US GUIDED VASCULAR ACCESS Date: 07/14/2024 05:32 PM Clinical History: picc line placement Comparison: US US GUIDED VASCULAR ACCESS on DOS: 07/13/24 Findings: Targeted sonographic evaluation of the right arm was obtained utilizing grayscale and color Doppler i shania. IMPRESSION: Sonographic assistance for central line placement. Please refer to procedural report for detailed fin dings.
--- NOTE | 2024-07-15 12:56 | DVH ---
CHEST RADIOGRAPH Indication:s/p bronchoscopy with BAL, clearance of copious mucous plugs Technique: Single frontal view of the chest was obtained COMPARISON: XY CHEST PORTABLE on DOS: 07/15/24, XY CHEST PORTABLE on DOS: 07/14/24, XY CHEST XRAY 1 EW on DOS: 07/14/24 FINDINGS: Lines and Tubes: Endotracheal tube, enteric catheter, left chest wall pacemaker / AICD in satisfactor y position. Right PICC in satisfactory position. Lungs: Multifocal right lung airspace disease. Pleura: No effusion. No pneumothorax. Cardiomediastinal contours: Unremarkable Bones: Unremarkable IMPRESSION: Lines and tubes in satisfactory position. No significant interval change.
[2024-07-15 13:06] LABS: Base Excess -1.7 mmol/L (-2.0-3.0)
[2024-07-15] MEDS: POTASSIUM CHL 20MEQ/100ML 100 ML IV SCH (13:22)
[2024-07-15] MEDS: FUROSEMIDE 20 MG/2 ML VIAL IV ONE (13:22)
[2024-07-15] MEDS: MEROPENEM 1GM IVPB 50 ML IV SCH (13:23)
[2024-07-15] MEDS ORDERED: TPN PER PHARMACY 0 ML IV SCH (14:15)
[2024-07-15] MEDS ORDERED: DEXTROSE (50%) 50ML SYRG IV SCH (15:00)
--- NOTE | 2024-07-15 16:09 | DVHPN2 ---
Subjective in the ICU intubated and sedated Reviewed: Care Plan Changes from previous H/P or p: No Changes Eyes: No Pain, No Vision change, No Conjunctivae inflammation, No Eyelid inflammation, No Other, No Redness ENT: No Ear pain, No Ear discharge, No Nose pain, No Nose discharge, No Nose congestion, No Mouth pain, No Mouth swelling, No Throat pain, No Throat swelling, No Other Cardiovascular: No Chest Pain, No Palpitations, No Orthopnea, No Paroxysmal Noc. Dyspnea, No Edema, No Lt Headedness, No Other Respiratory: No Cough, No Dry, No Shortness of breath, No SOB with excertion, No Wheezing, No Hemoptysis, No Pleuritic Pain, No Sputum, No Other Gastrointestinal: No Nausea, No Vomiting, No Abdominal Pain, No Diarrhea, No Constipation, No Melena, No Hematochezia, No Other Genitourinary: No Dysuria, No Frequency, No Incontinence, No Hematuria, No Retention, No Other Musculoskeletal: No other, No neck pain, No shoulder pain, No arm pain, No back pain, No hand pain, No leg pain, No foot pain Skin: No Rash, No Lesions, No Jaundice, No Bruising, No Other Objective Vitals Vital Signs Date Time Temp Pulse Resp B/P (MAP) Pulse Ox O2 Delivery O2 Flow Rate FiO2 07/15/24 14:34 89 24 82/55 (64) 98 35 07/15/24 14:00 Mechanical Ventilator+ 07/15/24 13:15 98.8 209.8 Intake/Output Intake and Output 07/15/24 05:00 Intake Total 4735.016 ml Output Total 1600 ml Balance 3135.016 ml IV Total 4735.016 ml Output Urine Total 1600 ml Other Physical Findings General Appearance: RA SS-3 , sedated on mechanical ventilation. Head Exam: Normal inspection Neck Exam: Normal inspection. Non-tender. Normal alignment Pulmonary/Respiratory: Chest non-tender. Muffled right-sided lung sounds, mild crackles over left lung base. Cardiovascular/Chest: Regular rate and rhythm. No murmurs. No JVD. Peripheral Pulses: 2+ Radial (R). 2+ Radial (L). 2+ Pedal (R). 2+ Pedal (L) Abdominal Exam: Normal bowel sounds. Soft. Nontender. No hepatospenomegaly. No masses Ankle Exam: Negative ankle edema Lower extremities: Negative lower extremity edema, right femoral central line. Neuro/Mental Status: Sedated. Cranial nerves intact. Medications Current Medications Medications Dose Ordered Sig/Maurice Route Start Time Stop Time Status Last Admin Dose Admin Vasopressin 20 units/Sodium Chloride 100 ml @ 9 mls/hr Q11H7M IV 07/11/24 16:45 07/15/24 00:08 9 MLS/HR Levothyroxine Sodium 200 mcg QAM PO 07/12/24 07:00 07/15/24 07:00 200 MCG Midazolam HCl 50 ml @ 1 mls/hr Q24H IV 07/12/24 08:30 07/15/24 14:07 5 MLS/HR Fentanyl Citrate 250 ml @ 2.5 mls/hr Q24H IV 07/12/24 08:30 07/15/24 01:01 15 MLS/HR Vancomycin HCl 250 ml @ 200 mls/hr Q24H IV 07/12/24 22:00 07/14/24 22:47 200 MLS/HR Vancomycin HCl 0 ml @ 0 mls/hr UD IV 07/12/24 12:45 Pantoprazole Sodium 40 mg DAILY IV 07/13/24 10:00 07/15/24 10:32 40 MG Azithromycin 250 ml @ 125 mls/hr DAILY IV 07/13/24 10:00 07/15/24 10:33 125 MLS/HR Vancomycin HCl 200 ml @ 200 mls/hr Q1H IV 07/12/24 13:00 07/12/24 14:59 Cancel Phenylephrine HCl 80 mg/Sodium Chloride 250 ml @ 7.5 mls/hr Q24H IV 07/12/24 19:30 07/13/24 03:31 7.5 MLS/HR Norepinephrine Bitartrate 32 mg/ Sodium Chloride 250 ml @ 0.938 mls/ hr Q24H IV 07/12/24 19:30 07/14/24 22:41 13.125 MLS/HR Oseltamivir Phosphate 30 mg DAILY PO 07/13/24 10:00 07/18/24 09:59 07/15/24 10:33 30 MG Enoxaparin Sodium 45 mg BID SC 07/13/24 22:00 07/14/24 22:02 45 MG Insulin Glargine 10 units DAILY@1000 SC 07/14/24 10:00 07/15/24 10:00 10 UNITS Amiodarone HCl 250 ml @ 33.333 mls/ hr Q7H30M IV 07/14/24 06:45 07/15/24 11:40 16.667 MLS/HR Digoxin 125 mcg MWF IV 07/16/24 10:00 Acetaminophen 650 mg Q6HP PRN [place] 07/14/24 17:00 07/15/24 10:32 650 MG Sodium Chloride 10 ml QSHIFT@10,22 IV 07/14/24 22:00 07/15/24 10:33 10 ML Meropenem 50 ml @ 17 mls/hr Q8H IV 07/15/24 13:00 07/15/24 13:23 17 MLS/HR Albumin Human 100 ml @ 100 mls/hr Q8H IV 07/15/24 12:00 07/16/24 04:59 07/15/24 12:15 100 MLS/HR Potassium Chloride 100 ml @ 50 mls/hr Q2H IV 07/15/24 12:30 07/15/24 16:29 07/15/24 15:23 50 MLS/HR Furosemide 20 mg DAILY IV 07/16/24 10:00 Amino Acids 0 ml @ 0 mls/hr PER PHARMACY IV 07/15/24 14:15 Diagnostic Test (Pha) 1 strip Q6HR 07/15/24 18:00 Insulin Human Regular FOLLOW SLIDING SCALE Q6HR NE 07/15/24 18:00 Dextrose 50 ml UD IV 07/15/24 15:00 Amino Acids/ Electrolytes/ Dextrose 1,000 ml @ 41 mls/hr DAILY@2200 IV 07/15/24 22:00 Laboratory Results Laboratory Tests 07/15/24 03:10 Chemistry Test 07/15/24 03:10 Calcium Level 7.6 mg/dL (8.7-10.4) L Urinalysis Test 07/11/24 15:12 Urine Color Yellow (Yellow) Urine Clarity Clear (Clear) Urine pH 5.5 (5.0-9.0) Urine Specific [place] 1.027 (1.001-1.035) Urine Protein 1+ (Negative) H Urine Ketones 2+ (Negative) H Urine Blood Negative /uL (Negative) Urine Nitrite Negative (Negative) Urine Bilirubin Negative (Negative) Urine Urobilinogen Normal mg/dL (Negative) Urine Leukocyte Esterase Negative /uL (Negative) Urine RBC 1 /hpf (0 - 3) Urine WBC 3 /hpf (0 - 3) Urine Squamous Epithelial Cells Few /hpf (<5) Urine Bacteria None seen /hpf (None Seen) Urine Glucose 4+ mg/dL (Normal) H Blood Gas Results Test 07/14/24 19:00 07/15/24 06:12 07/15/24 13:00 Arterial Blood pH 7.373 (7.350-7.450) 7.439 (7.350-7.450) 7.381 (7.350-7.450) FiO2 % 40.0 40.0 40.0 Microbiology Microbiology Date/Time Source Procedure Growth Status 07/15/24 12:00 Lung Pending Resulted 07/15/24 12:00 Lung Pending Resulted 07/15/24 12:00 Lung Pending Resulted 07/15/24 12:00 Lung Pending Resulted 07/15/24 12:00 Lung - Final See Separate Report... Resulted 07/12/24 10:47 Voided Urine Urine Culture - Final Complete 07/11/24 21:08 Blood Blood Culture - Preliminary NO GROWTH AFTER 72 HOURS OF INCUBATION. Resulted Assessment/Plan Assessment/Plan Acute hypercapnic hypoxic respiratory failure likely secondary to influenza pneumonia. Septic shock due to pneumonia AFib with RVR with secondary hypercoagulable state: Paroxysmal Acute on chronic heart failure reduced ejection fraction Presence of AICD History of coronary artery disease status post PTCA * 1 ESTHER TYPE 2 DIABETES MELLITUS: Insulin dependent SUMMER due to VMN Thrombocytopenia Neutropenia Elevated D-dimer rule out PE Lactic acidosis Pleural effusion Hypothyroidism MRSA Plan: - Continue ventilation -underwent emergent bronchoscopy: Bronchial lavage sample sent to laboratory for further evaluation. -Antibiotic with meropenem, vancomycin, azithromycin. -vasopressor Levophed, target map greater than 65. Can add vasopressin and L phenylephrine if needed. -amiodarone 200 mg via G-tube as per cardiology recommendation -oseltamivir 30 mg p.o. daily for influenza -mild insulin sliding scale NPO with Accu-Chek q.6 -levothyroxine 200 mcg p.o. via G-tube -PUD prophylaxis Protonix 40 mg IV daily -DVT prophylaxis: SCD given thrombocytopenia -sedation with fentanyl and Versed. - Going for bronchoscopy today 07/15 Critical care time spent was 58 minutes Lines: Right femoral central line(07/11/2024) Agrawal G-tube Plan discussed with: Other (nurse) My Orders Orders - SANTI PENG MD Procedure Category Date Status Time Albumin 25% (Albutein) PHA 07/15/24 In Process 12:00 Date of Service: Jul 15, 2024 Billing Provider: SANTI PENG MD Common Visit Codes: [id number] CARE 30-74 MIN SANTI PENG MD Jul 15, 2024 16:09
[2024-07-15] MEDS: ACCU-CHEK COMFORT CURVE STRIP VI SCH (17:50)
[2024-07-15] MEDS: InsuLIN REG 1unit/0.01ml Soln (100units/ml) SC SCH (17:55)
--- NOTE | 2024-07-15 18:14 | DVHPN2 ---
Progress Note - Dictate Date Seen: Jul 15, 2024 Medical Necessity Reason Pt with a Central, PICC or Fol: Yes The following are medically ne: Central Line, Michel Catheter Reason for michel catheter: Strict I&O Subjective Patient seen and examined at bedside. Sedated, intubated on mechanical ventilator. Overnight events reviewed. vital signs Vital Sign Date Time Temp Pulse Resp B/P (MAP) Pulse Ox O2 Delivery O2 Flow Rate FiO2 07/15/24 16:45 99.0 89 24 90/53 (65) 99 210.2 07/15/24 16:42 35 07/15/24 16:00 Mechanical Ventilator+ Total Intake and Output 07/14/24 07/14/24 07/15/24 15:00 23:00 07:00 Intake Total 1622.668 ml 1431.355 ml 1681.221 ml Output Total 650 ml 400 ml Balance 1622.668 ml 781.355 ml 1281.221 ml medications Current Medications Medications Dose Ordered Sig/Maurice Route Start Time Stop Time Status Last Admin Dose Admin Vasopressin 20 units/Sodium Chloride 100 ml @ 9 mls/hr Q11H7M IV 07/11/24 16:45 07/15/24 00:08 9 MLS/HR Levothyroxine Sodium 200 mcg QAM PO 07/12/24 07:00 07/15/24 07:00 200 MCG Midazolam HCl 50 ml @ 1 mls/hr Q24H IV 07/12/24 08:30 07/15/24 14:07 5 MLS/HR Fentanyl Citrate 250 ml @ 2.5 mls/hr Q24H IV 07/12/24 08:30 07/15/24 01:01 15 MLS/HR Vancomycin HCl 250 ml @ 200 mls/hr Q24H IV 07/12/24 22:00 07/14/24 22:47 200 MLS/HR Vancomycin HCl 0 ml @ 0 mls/hr UD IV 07/12/24 12:45 Pantoprazole Sodium 40 mg DAILY IV 07/13/24 10:00 07/15/24 10:32 40 MG Azithromycin 250 ml @ 125 mls/hr DAILY IV 07/13/24 10:00 07/15/24 10:33 125 MLS/HR Vancomycin HCl 200 ml @ 200 mls/hr Q1H IV 07/12/24 13:00 07/12/24 14:59 Cancel Phenylephrine HCl 80 mg/Sodium Chloride 250 ml @ 7.5 mls/hr Q24H IV 07/12/24 19:30 07/13/24 03:31 7.5 MLS/HR Norepinephrine Bitartrate 32 mg/ Sodium Chloride 250 ml @ 0.938 mls/ hr Q24H IV 07/12/24 19:30 07/14/24 22:41 13.125 MLS/HR Oseltamivir Phosphate 30 mg DAILY PO 07/13/24 10:00 07/18/24 09:59 07/15/24 10:33 30 MG Enoxaparin Sodium 45 mg BID SC 07/13/24 22:00 07/14/24 22:02 45 MG Insulin Glargine 10 units DAILY@1000 SC 07/14/24 10:00 07/15/24 10:00 10 UNITS Amiodarone HCl 250 ml @ 33.333 mls/ hr Q7H30M IV 07/14/24 06:45 07/15/24 11:40 16.667 MLS/HR Digoxin 125 mcg MWF IV 07/16/24 10:00 Acetaminophen 650 mg Q6HP PRN [place] 07/14/24 17:00 07/15/24 10:32 650 MG Sodium Chloride 10 ml QSHIFT@10,22 IV 07/14/24 22:00 07/15/24 10:33 10 ML Meropenem 50 ml @ 17 mls/hr Q8H IV 07/15/24 13:00 07/15/24 13:23 17 MLS/HR Albumin Human 100 ml @ 100 mls/hr Q8H IV 07/15/24 12:00 07/16/24 04:59 07/15/24 12:15 100 MLS/HR Furosemide 20 mg DAILY IV 07/16/24 10:00 Amino Acids 0 ml @ 0 mls/hr PER PHARMACY IV 07/15/24 14:15 Diagnostic Test (Pha) 1 strip Q6HR 07/15/24 18:00 07/15/24 17:50 1 STRIP Insulin Human Regular FOLLOW SLIDING SCALE Q6HR SC 07/15/24 18:00 Dextrose 50 ml UD IV 07/15/24 15:00 Amino Acids/ Electrolytes/ Dextrose 1,000 ml @ 41 mls/hr DAILY@2200 IV 07/15/24 22:00 objective Gen.: Patient lying in bed in medical ICU. Sedated, intubated on mechanical ventilator. Head: Normocephalic, atraumatic. Eyes: PERRLA. Ears: Normal external anatomy. Throat: Endotracheal tube and orogastric tube in place. Neck: Supple, trachea midline. Chest: Transmitted breath sounds bilaterally. Decreased air entry bilaterally. No wheezing. Bibasilar crackles. Cardiovascular: Positive S1, positive S2. Regular rate and rhythm. Abdomen: Positive bowel sounds in all 4 quadrants. Soft, nontender, nondistended. : Michel in place. Normal external genitalia. Rectal: Deferred. Skin: Warm, dry. Intact. Extremities: 2+ radial pulses bilaterally. No lower extremity edema. Neuro: Sedated. laboratory and microbiology Laboratory Tests 07/15/24 03:10 Test 07/15/24 03:10 Range/Units Serum Glucose 194 H 74-106 mg/dL Assessment/Plan Impression: Acute hypoxic respiratory failure secondary to multifocal pneumonia and pulmonary edema Acute respiratory distress syndrome Multifocal pneumonia likely Gram-negative Pulmonary edema Leukopenia Septic shock Influenza type a Atrial fibrillation with RVR Chronic congestive heart failure Status post AICD CAD status post PTCA Insulin-dependent diabetes mellitus Acute kidney injury Events: Currently on vent support AC mode with respiratory rate 26, tidal volume 500, PEEP of 8, FiO2 40% CXR image and report reviewed. Devices in place. Patchy opacities in the RUL/RML/RLL, worsening. ABG reviewed, compensated. Decrease RR to 24 Plan for bronchoscopy to r/o active hemorrhage and remove mucous plugs Sedated on Fentanyl On pressors for hemodynamic support. Levophed 26 mcg/min Titrate to keep MAP above 65 mmHg/SBP above 90 mmHg. Off vasopressin Improved pressor requirements. IV fluid hydration at 125 ml/hr. Amiodarone drip for AFib Continue antibiotics Diurese w/ Lasix as tolerated Monitor renal function Monitor electrolytes, supplement as necessary Potassium supplementation Patient underwent bronchoscopy with RML BAL. See procedure note for details. Labs and imaging reviewed. Rest of plan as noted below. Plan: s/p intubation on mechanical ventilator. Vent settings; AC mode with respiratory rate 24, tidal volume 500, PEEP of 8, FiO2 40% Titrate FIO2 to keep O2 saturation above 90%. VAP bundle. Daily ABG and CXR while intubated Sedated for ventilatory synchrony CXR, ABG reviewed. On pressors for hemodynamic support. Titrate to keep MAP above 65 mmHg/SBP above 90 mmHg. Improved pressor requirements. Start stress dose steroids We will give dose of albumin Continue antibiotics. F/u cultures. Send sputum, blood cultures and urine cultures Monitor renal function due to Acute kidney injury. Creatinine trending down Monitor electrolytes. Supplement as necessary. Supplemented potassium and magnesium stat. On IV fluids, lactic acid trending down. Accucheks, ISS. GI/DVT prophylaxis. Condition: Critical Prognosis: Poor given multiple comorbidities. Rest of plan per hospitalist and other consultants. A total of 35 minutes of critical care time was spent reviewing the patient record, examining the patient, making a diagnostic and therapeutic plan, discussing this plan with the medical personnel, following up on diagnostic studies and following the patient for clinical stability excluding any and all procedures. At least 50% of this time was spent in direct, [id number] contact. Thank you JOSH Hatfield for allowing me to participate in this patient's care. Further recommendations will depend on patient's clinical course. Please do not hesitate to contact me if you have any questions or concerns. This medical document was created using an electronic medical record system with [employer] computerized dictation system. Although this document has been carefully reviewed, there may still be some phonetic and typographical errors. These areas are purely typographical due to imperfections of the software programs, and do not reflect any compromise in the patient's medical care. Dietary Evaluation Review Comments: Advance to 2 gNa CCHO-60 diet when medically feasible. Pt's lipid pannel shows Cholesterol and LDL at lower mragin range, thus no restrictions on fat or cholesterol needed. Expected Outcomes/Goals: gradual weight loss, controlled DM, Plan discussed with: Other (ANGELO Marte) Critical Care Time(min): 35 LINDSEY ROSALES MD Jul 15, 2024 18:14
[2024-07-15 19:16] LABS: Base Excess 0.9 mmol/L (-2.0-3.0)
[2024-07-15] MEDS: AMINO ACID INFUSION IN D10W 1,000 ML IV SCH (22:23)
[2024-07-16] VITALS (106 sets, daily range): BP systolic 75–152; BP diastolic 32–87; PULSE 71–105; RESP 20–24; TEMP 98.1–99; O2SAT 94–100
[2024-07-16 01:32] LABS: Basophils # (auto) 0 10 ^3/uL (0-0.2); Basophils % (auto) 0.1 % (0.0-2.0); Eosinophils # (auto) 0 10 ^3/uL (0-0.8); Eosinophils % (auto) 0.2 % (0.0-7.0); Hematocrit 40.4 % (41.0-53.0); Hemoglobin 13.8 g/dL (13.5-17.5); Lymphocytes # (auto) 0.6 10 ^3/uL (0.4-5.4); Lymphocytes % (auto) 4.2 % (10.0-50.0); Mean Corpuscular Hemoglobin 31.6 pg (28.0-32.0); Mean Corpuscular Hgb Conc. 34.1 g/dL (32.0-36.0); Mean Corpuscular Volume 92.6 fL (80.0-100.0); Monocytes # (auto) 0.4 10 ^3/uL (0-1.3); Monocytes % (auto) 2.6 % (0.0-12.0); Neutrophils % (auto) 92.9 % (37.0-80.0); Platelet Count (auto) 66 10^3/uL (140-450); Red Blood Cells 4.37 10^6/uL (4.5-5.90); Red Cell Distribution Width 15.2 % (11.8-14.3)
[2024-07-16 01:52] LABS: Alanine Aminotransferase 10 U/L (7-40); Alkaline Phosphatase 64 U/L (46-116); Anion Gap 7 (5-15); Aspartate Aminotransferase 15 U/L (13-40); BUN/Creatinine Ratio 38.8 (10.0-20.0); Calcium 7.8 mg/dL (8.7-10.4); Carbon Dioxide 26 mmol/L (20-31); Chloride 100 mmol/L (98-107); Glucose 188 mg/dL (74-106); Magnesium 2.1 mg/dL (1.6-2.6); Sodium 133 mmol/L (136-145)
[2024-07-16 01:53] LABS: Bilirubin, Total 2.4 mg/dL (0.2-1.0); Phosphorus 1.2 mg/dL (2.4-5.1); Total Protein 5.2 g/dL (5.7-8.2)
[2024-07-16 01:54] LABS: Blood Urea Nitrogen 47 mg/dL (9-23)
--- NOTE | 2024-07-16 05:02 | DVH ---
CHEST RADIOGRAPH Indication:routine Technique: Single frontal view of the chest was obtained COMPARISON: XY CHEST XRAY 1 VIEW on DOS: 07/15/24, XY CHEST PORTABLE on DOS: 07/15/24, XY CHEST MALICK BLE on DOS: 07/14/24, XY CHEST XRAY 1 VIEW on DOS: 07/15/24 FINDINGS: Lines and Tubes: Endotracheal tube, enteric catheter, left chest wall pacemaker / AICD in satisfactor y position. Right PICC in satisfactory position. Lungs: Multifocal right lung airspace disease. Pleura: No effusion. No pneumothorax. Cardiomediastinal contours: Unremarkable Bones: Unremarkable IMPRESSION: Lines and tubes in satisfactory position. No significant interval change.
[2024-07-16 07:56] LABS: Base Excess -1.7 mmol/L (-2.0-3.0)
[2024-07-16] MEDS: AMIODARONE 450mg/250ml AE 250 ML IV SCH (08:00)
[2024-07-16] MEDS: FUROSEMIDE 20 MG/2 ML VIAL IV SCH (09:58)
[2024-07-16] MEDS: DIGOXIN (250MCG/ML) 2 ML AMPULE IV SCH (09:59)
--- NOTE | 2024-07-16 10:02 | DVHPN2 ---
Consult Progress Note Date Seen: Jul 16, 2024 Subjective Other Systems: Notified of NSVT x 3 sec last night Objective vital signs Vital Sign Date Time Temp Pulse Resp B/P (MAP) Pulse Ox O2 Delivery O2 Flow Rate FiO2 07/16/24 08:30 98.4 95 24 89/41 (57) 99 209.1 07/16/24 08:19 35 07/16/24 08:00 Mechanical Ventilator+ Total Intake and Output 07/15/24 07/15/24 07/16/24 15:00 23:00 07:00 Intake Total 1124.834 ml 644.337 ml 1025.400 ml Output Total 300 ml 425 ml Balance 1124.834 ml 344.337 ml 600.400 ml medications Current Medications Medications Dose Ordered Sig/Maurice Route Start Time Stop Time Status Last Admin Dose Admin Vasopressin 20 units/Sodium Chloride 100 ml @ 9 mls/hr Q11H7M IV 07/11/24 16:45 07/15/24 00:08 9 MLS/HR Levothyroxine Sodium 200 mcg QAM PO 07/12/24 07:00 07/16/24 06:39 200 MCG Midazolam HCl 50 ml @ 1 mls/hr Q24H IV 07/12/24 08:30 07/15/24 23:48 5 MLS/HR Fentanyl Citrate 250 ml @ 2.5 mls/hr Q24H IV 07/12/24 08:30 07/15/24 20:07 10 MLS/HR Vancomycin HCl 250 ml @ 200 mls/hr Q24H IV 07/12/24 22:00 07/15/24 22:33 200 MLS/HR Vancomycin HCl 0 ml @ 0 mls/hr UD IV 07/12/24 12:45 Pantoprazole Sodium 40 mg DAILY IV 07/13/24 10:00 07/15/24 10:32 40 MG Azithromycin 250 ml @ 125 mls/hr DAILY IV 07/13/24 10:00 07/15/24 10:33 125 MLS/HR Vancomycin HCl 200 ml @ 200 mls/hr Q1H IV 07/12/24 13:00 07/12/24 14:59 Cancel Phenylephrine HCl 80 mg/Sodium Chloride 250 ml @ 7.5 mls/hr Q24H IV 07/12/24 19:30 07/13/24 03:31 7.5 MLS/HR Norepinephrine Bitartrate 32 mg/ Sodium Chloride 250 ml @ 0.938 mls/ hr Q24H IV 07/12/24 19:30 07/16/24 00:34 5.625 MLS/HR Oseltamivir Phosphate 30 mg DAILY PO 07/13/24 10:00 07/18/24 09:59 07/15/24 10:33 30 MG Enoxaparin Sodium 45 mg BID SC 07/13/24 22:00 07/14/24 22:02 45 MG Insulin Glargine 10 units DAILY@1000 SC 07/14/24 10:00 07/15/24 10:00 10 UNITS Digoxin 125 mcg MWF IV 07/16/24 10:00 Acetaminophen 650 mg Q6HP PRN [place] 07/14/24 17:00 07/15/24 10:32 650 MG Sodium Chloride 10 ml QSHIFT@10,22 IV 07/14/24 22:00 07/15/24 22:23 10 ML Meropenem 50 ml @ 17 mls/hr Q8H IV 07/15/24 13:00 07/16/24 05:13 17 MLS/HR Furosemide 20 mg DAILY IV 07/16/24 10:00 Amino Acids 0 ml @ 0 mls/hr PER PHARMACY IV 07/15/24 14:15 Diagnostic Test (Pha) 1 strip Q6HR 07/15/24 18:00 07/16/24 05:32 1 STRIP Insulin Human Regular FOLLOW SLIDING SCALE Q6HR SC 07/15/24 18:00 07/16/24 05:32 8 UNITS Dextrose 50 ml UD IV 07/15/24 15:00 Amino Acids/ Electrolytes/ Dextrose 1,000 ml @ 41 mls/hr DAILY@2200 IV 07/15/24 22:00 07/15/24 22:23 41 MLS/HR Amiodarone HCl 250 ml @ 16.667 mls/ hr Q15H IV 07/16/24 14:15 07/16/24 08:00 16.667 MLS/HR Examination: LUNGS:Abnormal (Mechanically ventilated FiO2 35% PEEP 8.0), CVS:Abnormal (NSVT x 3 sec last night, on single vasopressor), NEURO:Normal (Chemically sedated) laboratory and microbiology Laboratory Tests 07/16/24 01:21 Test 07/16/24 01:21 Range/Units Serum Glucose 188 H 74-106 mg/dL Problem List/Assessment/Plan Problem List/Assessment/Plan Septic shock with multifocal PNA/Influenza Type A Paroxysmal atrial fibrillation with rapid ventricular rate, Stage 3, on Eliquis/off antiarrhythmic at home Supraventricular tachycardia with hemodynamic decompensation-status post electrical cardioversion Acute on chronic decompensated HFrEF Presence of AICD ([employer] 2013) Coronary artery disease status post PTCA x1 ESTHER Hypokalemia/hypomagnesemia Insulin-dependent diabetes mellitus Acute kidney injury Suboptimal medical therapy Thrombocytopenia Obesity Plan/Recommendation (Dr. Dumont) * Echocardiogram revealed EF 25% with global hypokinesis * Vasopressor for hemodynamic support * Continue antiarrhythmic therapy, amiodarone drip * Rate control, digoxin maintenance dose on * Preload reduction. Strict I&Os, fluid restriction * Resume therapeutic AC therapy/NOACs when appropriate * [id number] Score 5. HAS-BLED Score 3 * Monitor platelet count closely * Replete electrolytes as necessary, K>4 and Mg>2 * Pulmonology recommendations, vent settings * Scheduled for ICD generator exchange at [facility] * Monitor ECG changes and notify * VTE/DVT prophylaxis: SCDs * On low-dose Lovenox per primary care team, Plt count 66 Poor prognosis. Thank you for allowing us to participate in this patient's care. Please call if you have any questions or concerns. Critical care time: 30 min. This medical document was created using an electronic medical record system with voice recognition software and computerized dictation system. Although this document has been carefully reviewed, there might still be some phonetic and typographical errors. Occasional wrong-word or ``sound-alike substitutions may have occurred due to the inherent limitations of voice recognition software. These areas are purely typographical due to imperfections of the software programs and do not reflect any compromise in the patient's medical care. Please read the chart carefully and recognize, using context, where these substitutions have occurred. Plan discussed with: Other Dietary Evaluation Review Comments: Advance to 2 gNa CCHO-60 diet when medically feasible. Pt's lipid pannel shows Cholesterol and LDL at lower mragin range, thus no restrictions on fat or cholesterol needed. Expected Outcomes/Goals: gradual weight loss, controlled DM, Date of Service: Jul 16, 2024 Billing Provider: NEAL DUMONT MD Cardiology Common Codes: [id number] CARE 30-74 MIN [facility] Jul 16, 2024 10:02
[2024-07-16] MEDS: SODIUM PHOSPHATES 40 MEQ in D5W 5% 250 ML IV ONE (11:20)
--- NOTE | 2024-07-16 14:55 | CONS ---
Pharmacy Clinical Information: From [facility] Heart Failure Fallout Report, Marquis Jane is a 68 year old male with PMH of HFmiEF (LVEF 25 %), permanent Afib, CAD s/p PCI, s/p AICD, IDDM, HTN, HLD, thyroid disorder, peripheral neuropathy. His home medications for heart failure include spironolactone, entresto, metoprolol succinate, and dapagliflozin. BB, MRA, SGLT2i, and ACEi/ARB/ARNi is currently not recommended due to hypotension. Consider initiating his home medications once patient is hemodynamically stable and no longer NPO. JEFFY GOMEZ PHARMACIST Jul 16, 2024 14:55
[2024-07-16] MEDS: ENOXAPARIN SOD 60 MG/0.6 ML SYRINGE SC ONE (15:31)
--- NOTE | 2024-07-16 17:25 | DVHPNRES ---
Progress Note Date Seen: Jul 16, 2024 Resident Creating Document: MARLEE VILLALOBOS RESIDENT Medical Necessity Reason Pt with a Central, PICC or Fol: Yes The following are medically ne: Central Line, Michel Catheter Reason for michel catheter: Strict I&O Subjective Review of Systems Patient is 68-year-old male with past medical history of Hypertension, dyslipidemia, diabetes insulin dependent, HFrEF with improved EF (LVEF) status post single lead [employer] ICD placement with generator exchange, coronary artery disease status post stent placement, hypothyroidism, polyneuropathy who came to the hospital via EMS with a chief complaint of progressive generalized weakness and shortness of breath associated with flu- like symptoms. Patient also complaining of productive cough and fever that prompted visit to hospitalization. Past surgical history:2039 single lead [employer] ICD placement with generator exchange in 2022. Coronary angiography with stent placement in 2019. Home medication: Apixaban 2.5 mg p.o. b.i.d., dapagliflozin 10 mg p.o. daily, acetaminophen 10 mg p.o. daily, finasteride 5 mg p.o. daily, gabapentin 300 mg p.o. daily, levothyroxine 200 mcg p.o. daily, metformin a 1000 mg p.o. b.i.d., metoprolol 25 mg p.o. daily, Entresto one tablet p.o. b.i.d., spironolactone 25 mg p.o. daily patient seen and examined in ICU. Patient continued to be on ventilator. No other new complaints. Review of system can not be obtained given patient is intubated. Objective vital signs Vital Sign Date Time Temp Pulse Resp B/P (MAP) Pulse Ox O2 Delivery O2 Flow Rate FiO2 07/16/24 16:21 89 20 113/62 (79) 100 35 07/16/24 16:00 Mechanical Ventilator+ 07/16/24 12:00 98.4 209.1 Total Intake and Output 07/15/24 07/15/24 07/16/24 15:00 23:00 07:00 Intake Total 1124.834 ml 644.337 ml 1025.400 ml Output Total 300 ml 425 ml Balance 1124.834 ml 344.337 ml 600.400 ml medications Current Medications Medications Dose Ordered Sig/Maurice Route Start Time Stop Time Status Last Admin Dose Admin Vasopressin 20 units/Sodium Chloride 100 ml @ 9 mls/hr Q11H7M IV 07/11/24 16:45 07/15/24 00:08 9 MLS/HR Levothyroxine Sodium 200 mcg QAM PO 07/12/24 07:00 07/16/24 06:39 200 MCG Midazolam HCl 50 ml @ 1 mls/hr Q24H IV 07/12/24 08:30 07/16/24 09:57 5 MLS/HR Fentanyl Citrate 250 ml @ 2.5 mls/hr Q24H IV 07/12/24 08:30 07/15/24 20:07 10 MLS/HR Vancomycin HCl 250 ml @ 200 mls/hr Q24H IV 07/12/24 22:00 07/15/24 22:33 200 MLS/HR Vancomycin HCl 0 ml @ 0 mls/hr UD IV 07/12/24 12:45 Pantoprazole Sodium 40 mg DAILY IV 07/13/24 10:00 07/16/24 09:59 40 MG Azithromycin 250 ml @ 125 mls/hr DAILY IV 07/13/24 10:00 07/16/24 09:57 125 MLS/HR Vancomycin HCl 200 ml @ 200 mls/hr Q1H IV 07/12/24 13:00 07/12/24 14:59 Cancel Phenylephrine HCl 80 mg/Sodium Chloride 250 ml @ 7.5 mls/hr Q24H IV 07/12/24 19:30 07/13/24 03:31 7.5 MLS/HR Norepinephrine Bitartrate 32 mg/ Sodium Chloride 250 ml @ 0.938 mls/ hr Q24H IV 07/12/24 19:30 07/16/24 00:34 5.625 MLS/HR Insulin Glargine 10 units DAILY@1000 SC 07/14/24 10:00 07/16/24 10:17 10 UNITS Digoxin 125 mcg MWF IV 07/16/24 10:00 07/16/24 09:59 125 MCG Acetaminophen 650 mg Q6HP PRN CA 07/14/24 17:00 07/15/24 10:32 650 MG Sodium Chloride 10 ml QSHIFT@10,22 IV 07/14/24 22:00 07/16/24 09:59 10 ML Meropenem 50 ml @ 17 mls/hr Q8H IV 07/15/24 13:00 07/16/24 13:05 17 MLS/HR Furosemide 20 mg DAILY IV 07/16/24 10:00 07/16/24 09:58 20 MG Amino Acids 0 ml @ 0 mls/hr PER PHARMACY IV 07/15/24 14:15 Diagnostic Test (Pha) 1 strip Q6HR 07/15/24 18:00 07/16/24 12:06 1 STRIP Insulin Human Regular FOLLOW SLIDING SCALE Q6HR SC 07/15/24 18:00 07/16/24 12:10 8 UNITS Dextrose 50 ml UD IV 07/15/24 15:00 Amino Acids/ Electrolytes/ Dextrose 1,000 ml @ 41 mls/hr DAILY@2200 IV 07/15/24 22:00 07/15/24 22:23 41 MLS/HR Amiodarone HCl 250 ml @ 16.667 mls/ hr Q15H IV 07/16/24 14:15 07/16/24 08:00 16.667 MLS/HR Fat Emulsion Intravenous 50 ml/ Sodium Phosphate 20 meq/Potassium Chloride 20 meq/ Calcium Gluconate 4.65 meq/ Magnesium Sulfate 8 meq/ Multivitamins 10 ml/Amino Acids/ Dextrose 787 ml @ 32 mls/hr [id number] IV 07/16/24 22:00 07/17/24 21:59 Oseltamivir Phosphate 75 mg DAILY PO 07/17/24 10:00 07/18/24 09:59 Examination General Appearance: RA SS-3 , sedated on mechanical ventilation. Head Exam: Normal inspection Neck Exam: Normal inspection. Non-tender. Normal alignment Pulmonary/Respiratory: Chest non-tender. Muffled right-sided lung sounds, mild crackles over left lung base. Cardiovascular/Chest: Regular rate and rhythm. No murmurs. No JVD. Peripheral Pulses: 2+ Radial (R). 2+ Radial (L). 2+ Pedal (R). 2+ Pedal (L) Abdominal Exam: Normal bowel sounds. Soft. Nontender. No hepatospenomegaly. No masses Ankle Exam: Negative ankle edema Lower extremities: Negative lower extremity edema, right femoral central line. Neuro/Mental Status: Sedated. Cranial nerves intact. laboratory and microbiology Laboratory Tests 07/16/24 01:21 Test 07/16/24 01:21 Range/Units Serum Glucose 188 H 74-106 mg/dL Microbiology Date/Time Source Procedure Growth Status 07/15/24 12:00 Lung Pending Resulted 07/15/24 12:00 Lung Pending Resulted 07/15/24 12:00 Lung Pending Resulted 07/15/24 12:00 Lung Pending Resulted 07/15/24 12:00 Lung - Final See Separate Report... Resulted 07/15/24 12:00 Bronchial Washings Gram Stain - Final Resulted 07/15/24 12:00 Bronchial Washings Respiratory Culture - Preliminary Resulted 07/12/24 10:47 Voided Urine Urine Culture - Final Complete 07/11/24 21:08 Blood Blood Culture - Preliminary NO GROWTH AFTER 72 HOURS OF INCUBATION. Resulted Problem List/Assessment/Plan Problem List/Assessment/Plan Acute hypercapnic hypoxic respiratory failure likely secondary to influenza pneumonia. Septic shock due to pneumonia AFib with RVR with secondary hypercoagulable state: Paroxysmal Acute on chronic heart failure reduced ejection fraction Presence of AICD History of coronary artery disease status post PTCA * 1 ESTHER TYPE 2 DIABETES MELLITUS: Insulin dependent SUMMER due to VMN Thrombocytopenia Neutropenia Elevated D-dimer rule out PE Lactic acidosis Pleural effusion Hypothyroidism MRSA Plan: -on ventilator: Respiratory rate 20, tidal volume 500, FiO2 35%, peep 5. -ABG respiratory acidosis: PH 7.42, CO2 35, HC03 23.3, -underwent emergent bronchoscopy: Bronchial lavage sample sent to laboratory for further evaluation. -Antibiotic with meropenem, vancomycin. -vasopressor Levophed, target map greater than 65. Can add vasopressin and L phenylephrine if needed. -amiodarone 200 mg q.12 via G-tube. -oseltamivir 30 mg p.o. daily for influenza till 07/18/2024. -mild insulin sliding scale NPO with Accu-Chek q.6 -feeding via G-tube -levothyroxine 200 mcg p.o. via G-tube -PUD prophylaxis Protonix 40 mg IV daily -DVT prophylaxis: SCD given thrombocytopenia -sedation with fentanyl and Versed. Lines: Right femoral central line(07/11/2024) Michel G-tube Critical care time excluding procedure > 90 minutes Goal of care full code, discussed greater than 22 minute. Plan discussed with Dr Stacy Plan discussed with: Other (RN) My Orders My Orders Orders - MARLEE VILLALOBOS Procedure Category Date Status Time Oseltamivir 75mg PHA 07/17/24 In Process Capsule (Tamiflu 75mg 10:00 Dietary Evaluation Review Comments: Advance to 2 gNa CCHO-60 diet when medically feasible. Pt's lipid pannel shows Cholesterol and LDL at lower mragin range, thus no restrictions on fat or cholesterol needed. Expected Outcomes/Goals: gradual weight loss, controlled DM, Date of Service: Jul 16, 2024 Billing Provider: SIERRA STACY MD Common Visit Codes: [id number] CARE 30-74 MIN MARLEE VILLALOBOS RESIDENT Jul 16, 2024 17:25 SIERRA STACY MD Jul 18, 2024 13:19
[2024-07-16] MEDS: TPN PER PHARMACY IV NR (22:27)
[2024-07-17] VITALS (108 sets, daily range): BP systolic 90–135; BP diastolic 38–91; PULSE 14–111; RESP 17–28; TEMP 98.6–99.5; O2SAT 90–100
--- NOTE | 2024-07-17 03:56 | DVH ---
CHEST RADIOGRAPH Indication:on vent Technique: Single frontal view of the chest was obtained Comparison: XY CHEST XRAY 1 VIEW on DOS: 07/16/24, XY CHEST XRAY 1 VIEW on DOS: 07/15/24, XY CHEST PO RTABLE on DOS: 07/15/24, XY CHEST PORTABLE on DOS: 07/14/24, XY CHEST XRAY 1 VIEW on DOS: 07/14/24, XY CHEST XRAY 1 VIEW on DOS: 07/16/24 FINDINGS: Lines and Tubes: Endotracheal tube, enteric catheter, left chest wall pacemaker / AICD in satisfactor y position. Right PICC in satisfactory position. Lungs: Multifocal right lung airspace disease. Pleura: No effusion. No pneumothorax. Cardiomediastinal contours: Unremarkable Bones: Unremarkable IMPRESSION: Lines and tubes in satisfactory position. No significant interval change.
[2024-07-17 03:57] LABS: Basophils # (auto) 0 10 ^3/uL (0-0.2); Basophils % (auto) 0.1 % (0.0-2.0); Eosinophils # (auto) 0 10 ^3/uL (0-0.8); Eosinophils % (auto) 0.1 % (0.0-7.0); Hemoglobin 13.5 g/dL (13.5-17.5); Lymphocytes # (auto) 0.7 10 ^3/uL (0.4-5.4); Lymphocytes % (auto) 5.4 % (10.0-50.0); Mean Corpuscular Hemoglobin 31.2 pg (28.0-32.0); Mean Corpuscular Hgb Conc. 33.9 g/dL (32.0-36.0); Mean Corpuscular Volume 92.1 fL (80.0-100.0); Monocytes # (auto) 0.6 10 ^3/uL (0-1.3); Monocytes % (auto) 4.3 % (0.0-12.0); Neutrophils # (auto) 12.1 10 ^3/uL (1.6-8.6); Neutrophils % (auto) 90.1 % (37.0-80.0); Nucleated Red Blood Cells % 0.1 %; Platelet Count (auto) 61 10^3/uL (140-450); Red Blood Cells 4.34 10^6/uL (4.5-5.90); Red Cell Distribution Width 15.2 % (11.8-14.3); White Blood Cell 13.4 10^3/uL (4.4-10.8)
[2024-07-17 04:23] LABS: Albumin 2.8 g/dL (3.2-4.8); Alkaline Phosphatase 65 U/L (46-116); Anion Gap 4 (5-15); Aspartate Aminotransferase 16 U/L (13-40); BUN/Creatinine Ratio 52.5 (10.0-20.0); Bilirubin, Total 1.5 mg/dL (0.2-1.0); Blood Urea Nitrogen 52 mg/dL (9-23); Calcium 7.8 mg/dL (8.7-10.4); Carbon Dioxide 27 mmol/L (20-31); Chloride 100 mmol/L (98-107); Glucose 236 mg/dL (74-106); Magnesium 2.1 mg/dL (1.6-2.6); Phosphorus 2.2 mg/dL (2.4-5.1); Potassium 3.9 mmol/L (3.5-5.1); Sodium 131 mmol/L (136-145)
[2024-07-17 04:29] LABS: Alanine Aminotransferase < 9 U/L (7-40)
[2024-07-17 06:49] LABS: Base Excess -0.2 mmol/L (-2.0-3.0)
[2024-07-17] MEDS ORDERED: POTASSIUM CHL 20MEQ/100ML 100 ML IV SCH (08:15)
[2024-07-17] MEDS: OSELTAMIVIR 75 MG CAP PO SCH (08:53)
--- NOTE | 2024-07-17 09:22 | DVHPN2 ---
Consult Progress Note Date Seen: Jul 17, 2024 Subjective Other Systems: No overnight cardiac events reported Objective vital signs Vital Sign Date Time Temp Pulse Resp B/P (MAP) Pulse Ox O2 Delivery O2 Flow Rate FiO2 07/17/24 08:52 121/62 07/17/24 08:09 74 24 94 45 07/17/24 08:00 Mechanical Ventilator+ 07/17/24 07:00 99.1 210.4 Total Intake and Output 07/16/24 07/16/24 07/17/24 15:00 23:00 07:00 Intake Total 945.901 ml 695.150 ml 786.525 ml Output Total 725 ml 425 ml Balance 945.901 ml -29.850 ml 361.525 ml medications Current Medications Medications Dose Ordered Sig/Maurice Route Start Time Stop Time Status Last Admin Dose Admin Vasopressin 20 units/Sodium Chloride 100 ml @ 9 mls/hr Q11H7M IV 07/11/24 16:45 07/15/24 00:08 9 MLS/HR Levothyroxine Sodium 200 mcg QAM PO 07/12/24 07:00 07/17/24 06:32 200 MCG Midazolam HCl 50 ml @ 1 mls/hr Q24H IV 07/12/24 08:30 07/17/24 05:20 5 MLS/HR Fentanyl Citrate 250 ml @ 2.5 mls/hr Q24H IV 07/12/24 08:30 07/16/24 21:11 10 MLS/HR Vancomycin HCl 250 ml @ 200 mls/hr Q24H IV 07/12/24 22:00 07/16/24 22:20 200 MLS/HR Vancomycin HCl 0 ml @ 0 mls/hr UD IV 07/12/24 12:45 Pantoprazole Sodium 40 mg DAILY IV 07/13/24 10:00 07/17/24 08:52 40 MG Vancomycin HCl 200 ml @ 200 mls/hr Q1H IV 07/12/24 13:00 07/12/24 14:59 Cancel Phenylephrine HCl 80 mg/Sodium Chloride 250 ml @ 7.5 mls/hr Q24H IV 07/12/24 19:30 07/13/24 03:31 7.5 MLS/HR Norepinephrine Bitartrate 32 mg/ Sodium Chloride 250 ml @ 0.938 mls/ hr Q24H IV 07/12/24 19:30 07/16/24 00:34 5.625 MLS/HR Insulin Glargine 10 units DAILY@1000 SC 07/14/24 10:00 07/17/24 08:57 10 UNITS Digoxin 125 mcg MWF IV 07/16/24 10:00 07/16/24 09:59 125 MCG Acetaminophen 650 mg Q6HP PRN FL 07/14/24 17:00 07/15/24 10:32 650 MG Sodium Chloride 10 ml QSHIFT@10,22 IV 07/14/24 22:00 07/17/24 08:53 10 ML Meropenem 50 ml @ 17 mls/hr Q8H IV 07/15/24 13:00 07/17/24 04:30 17 MLS/HR Furosemide 20 mg DAILY IV 07/16/24 10:00 07/17/24 08:52 20 MG Amino Acids 0 ml @ 0 mls/hr PER PHARMACY IV 07/15/24 14:15 Diagnostic Test (Pha) 1 strip Q6HR 07/15/24 18:00 07/17/24 05:31 1 STRIP Insulin Human Regular FOLLOW SLIDING SCALE Q6HR SC 07/15/24 18:00 07/17/24 05:33 8 UNITS Dextrose 50 ml UD IV 07/15/24 15:00 Amino Acids/ Electrolytes/ Dextrose 1,000 ml @ 41 mls/hr DAILY@2200 IV 07/15/24 22:00 07/15/24 22:23 41 MLS/HR Amiodarone HCl 250 ml @ 16.667 mls/ hr Q15H IV 07/16/24 14:15 07/16/24 19:25 16.667 MLS/HR Fat Emulsion Intravenous 50 ml/ Sodium Phosphate 20 meq/Potassium Chloride 20 meq/ Calcium Gluconate 4.65 meq/ Magnesium Sulfate 8 meq/ Multivitamins 10 ml/Amino Acids/ Dextrose 787 ml @ 32 mls/hr [id number] IV 07/16/24 22:00 07/17/24 21:59 07/16/24 22:27 32 MLS/HR Oseltamivir Phosphate 75 mg DAILY PO 07/17/24 10:00 07/18/24 09:59 07/17/24 08:53 75 MG Examination: LUNGS:Abnormal (Mechanically ventilated with FiO2 at 45% PEEP 5.0), CVS:Normal (Transitioned into a NSR. On low-dose single vasopressor), NEURO:Abnormal (Chemically sedated) laboratory and microbiology Laboratory Tests 07/17/24 03:44 Test 07/17/24 03:44 Range/Units Serum Glucose 236 H 74-106 mg/dL Problem List/Assessment/Plan Problem List/Assessment/Plan Septic shock with multifocal PNA/Influenza Type A Paroxysmal atrial fibrillation with rapid ventricular rate, Stage 3, on Eliquis/off antiarrhythmic at home Supraventricular tachycardia with hemodynamic decompensation-status post electrical cardioversion Acute on chronic decompensated HFrEF Presence of AICD ([employer] 2013) Coronary artery disease status post PTCA x1 ESTHER Hypokalemia/hypomagnesemia Insulin-dependent diabetes mellitus Acute kidney injury Suboptimal medical therapy Thrombocytopenia Obesity Plan/Recommendation (Dr. Dumont) * Echocardiogram revealed EF 25% with global hypokinesis * Vasopressor for hemodynamic support * Antiarrhythmic therapy, transition to amiodarone GT * Rate control, digoxin maintenance dose on -- * Preload reduction. Strict I&Os, fluid restriction * Resume therapeutic AC vs NOAC therapy when appropriate * [id number] Score 5. HAS-BLED Score 3 * Monitor platelet count closely * Replete electrolytes as necessary, K>4 and Mg>2 * Pulmonology recommendations, vent settings * Scheduled for ICD generator exchange at [facility] * Monitor ECG changes and notify * VTE/DVT prophylaxis: SCDs Poor prognosis. Thank you for allowing us to participate in this patient's care. Please call if you have any questions or concerns. Critical care time: 30 min. This medical document was created using an electronic medical record system with voice recognition software and computerized dictation system. Although this document has been carefully reviewed, there might still be some phonetic and typographical errors. Occasional wrong-word or ``sound-alike substitutions may have occurred due to the inherent limitations of voice recognition software. These areas are purely typographical due to imperfections of the software programs and do not reflect any compromise in the patient's medical care. Please read the chart carefully and recognize, using context, where these substitutions have occurred. Plan discussed with: Other Dietary Evaluation Review Comments: Advance to 2 gNa CCHO-60 diet when medically feasible. Pt's lipid pannel shows Cholesterol and LDL at lower mragin range, thus no restrictions on fat or cholesterol needed. Expected Outcomes/Goals: gradual weight loss, controlled DM, Date of Service: Jul 17, 2024 Billing Provider: NEAL DUMONT MD Cardiology Common Codes: [id number] CARE 30-74 MIN KIKE ARMENTA [facility] Jul 17, 2024 09:22
[2024-07-17] MEDS: NOREPINEPHRINE BITARTRATE 32 MG in SODIUM CHL 0.9% 218 ML IV SCH (09:30)
[2024-07-17] MEDS ORDERED: AMIODARONE HCL 200 MG TAB GT SCH (10:00)
[2024-07-17] MEDS: POTASSIUM PHOSPHATE 44 MEQ in D5W 5% 250 ML IV ONE (10:43)
[2024-07-17] MEDS ORDERED: DEXTROSE (50%) 50ML SYRG IV PRN (13:15)
[2024-07-17 14:25] LABS: COVID19 ANTIGEN SOFIA FIA NEGATIVE (NEGATIVE)
[2024-07-17] MEDS: FUROSEMIDE 40 MG/4 ML VIAL IV SCH (17:08)
[2024-07-17] MEDS: ACCU-CHEK COMFORT CURVE STRIP VI SCH (17:13)
[2024-07-17] MEDS: InsuLIN REG 1unit/0.01ml Soln (100units/ml) SC SCH (17:48)
[2024-07-17] MEDS ORDERED: ACCU-CHEK COMFORT CURVE STRIP VI SCH (18:00)
--- NOTE | 2024-07-17 18:53 | DVHPNRES ---
Progress Note Date Seen: Jul 17, 2024 Resident Creating Document: MARLEE VILLALOBOS RESIDENT Medical Necessity Reason Pt with a Central, PICC or Fol: Yes The following are medically ne: Central Line, Michel Catheter Reason for michel catheter: Strict I&O Subjective Review of Systems Patient is 68-year-old male with past medical history of Hypertension, dyslipidemia, diabetes insulin dependent, HFrEF with improved EF (LVEF) status post single lead [place] [employer] ICD placement with generator exchange, coronary artery disease status post stent placement, hypothyroidism, polyneuropathy who came to the hospital via EMS with a chief complaint of progressive generalized weakness and shortness of breath associated with flu- like symptoms. Patient also complaining of productive cough and fever that prompted visit to hospitalization. Past surgical history:2039 single lead [place] [employer] ICD placement with generator exchange in 2022. Coronary angiography with stent placement in 2019. Home medication: Apixaban 2.5 mg p.o. b.i.d., dapagliflozin 10 mg p.o. daily, acetaminophen 10 mg p.o. daily, finasteride 5 mg p.o. daily, gabapentin 300 mg p.o. daily, levothyroxine 200 mcg p.o. daily, metformin a 1000 mg p.o. b.i.d., metoprolol 25 mg p.o. daily, Entresto one tablet p.o. b.i.d., spironolactone 25 mg p.o. daily patient seen and examined in ICU. . Patient continued to be on ventilator. No other complaints. Objective vital signs Vital Sign Date Time Temp Pulse Resp B/P (MAP) Pulse Ox O2 Delivery O2 Flow Rate FiO2 07/17/24 18:34 83 24 128/54 (78) 96 45 07/17/24 18:00 Mechanical Ventilator+ 07/17/24 17:15 99.3 210.7 Total Intake and Output 07/16/24 07/16/24 07/17/24 15:00 23:00 07:00 Intake Total 945.901 ml 695.150 ml 786.525 ml Output Total 725 ml 425 ml Balance 945.901 ml -29.850 ml 361.525 ml medications Current Medications Medications Dose Ordered Sig/Maurice Route Start Time Stop Time Status Last Admin Dose Admin Levothyroxine Sodium 200 mcg QAM PO 07/12/24 07:00 07/17/24 06:32 200 MCG Midazolam HCl 50 ml @ 1 mls/hr Q24H IV 07/12/24 08:30 07/17/24 16:34 5 MLS/HR Fentanyl Citrate 250 ml @ 2.5 mls/hr Q24H IV 07/12/24 08:30 07/16/24 21:11 10 MLS/HR Vancomycin HCl 250 ml @ 200 mls/hr Q24H IV 07/12/24 22:00 07/16/24 22:20 200 MLS/HR Vancomycin HCl 0 ml @ 0 mls/hr UD IV 07/12/24 12:45 Pantoprazole Sodium 40 mg DAILY IV 07/13/24 10:00 07/17/24 08:52 40 MG Vancomycin HCl 200 ml @ 200 mls/hr Q1H IV 07/12/24 13:00 07/12/24 14:59 Cancel Phenylephrine HCl 80 mg/Sodium Chloride 250 ml @ 7.5 mls/hr Q24H IV 07/12/24 19:30 07/13/24 03:31 7.5 MLS/HR Insulin Glargine 10 units DAILY@1000 SC 07/14/24 10:00 07/17/24 08:57 10 UNITS Digoxin 125 mcg MWF IV 07/16/24 10:00 07/16/24 09:59 125 MCG Acetaminophen 650 mg Q6HP PRN FL 07/14/24 17:00 07/15/24 10:32 650 MG Sodium Chloride 10 ml QSHIFT@10,22 IV 07/14/24 22:00 07/17/24 08:53 10 ML Meropenem 50 ml @ 17 mls/hr Q8H IV 07/15/24 13:00 07/17/24 12:54 17 MLS/HR Dextrose 50 ml UD IV 07/15/24 15:00 Cancel Oseltamivir Phosphate 75 mg DAILY PO 07/17/24 10:00 07/18/24 09:59 07/17/24 08:53 75 MG Norepinephrine Bitartrate 32 mg/ Sodium Chloride 250 ml @ 0.938 mls/ hr Q24H IV 07/17/24 09:30 Amiodarone HCl 200 mg Q12HR GT 07/17/24 22:00 Furosemide 40 mg BIDD IV 07/17/24 18:00 07/17/24 17:08 40 MG Enteral Nutritional Formula 1,000 ml 40ML/HR GT 07/17/24 12:30 Diagnostic Test (Pha) 1 strip Q6HR 07/17/24 18:00 07/17/24 17:13 1 STRIP Insulin Human Regular Q6HR SC 07/17/24 18:00 07/17/24 17:48 2 UNITS Dextrose 50 ml UD PRN IV 07/17/24 13:15 Examination General Appearance: RA SS-3 , sedated on mechanical ventilation. Head Exam: Normal inspection Neck Exam: Normal inspection. Non-tender. Normal alignment Pulmonary/Respiratory: Chest non-tender. Muffled right-sided lung sounds, mild crackles over left lung base. Cardiovascular/Chest: Regular rate and rhythm. No murmurs. No JVD. Peripheral Pulses: 2+ Radial (R). 2+ Radial (L). 2+ Pedal (R). 2+ Pedal (L) Abdominal Exam: Normal bowel sounds. Soft. Nontender. No hepatospenomegaly. No masses Ankle Exam: Negative ankle edema Lower extremities: Negative lower extremity edema, right femoral central line. Neuro/Mental Status: Sedated. Cranial nerves intact. laboratory and microbiology Laboratory Tests 07/17/24 03:44 Test 07/17/24 03:44 Range/Units Serum Glucose 236 H 74-106 mg/dL Microbiology Date/Time Source Procedure Growth Status 07/15/24 12:00 Lung Pending Resulted 07/15/24 12:00 Lung Pending Resulted 07/15/24 12:00 Lung Pending Resulted 07/15/24 12:00 Lung Pending Resulted 07/15/24 12:00 Lung - Final See Separate Report... Resulted 07/15/24 12:00 Bronchial Washings Gram Stain - Final Complete 07/15/24 12:00 Respiratory Culture - Final Methicillin Resistant S.aureus Complete 07/12/24 10:47 Voided Urine Urine Culture - Final Complete 07/11/24 21:08 Blood Blood Culture - Final NO GROWTH AFTER 5 DAYS OF INCUBATION. Complete Problem List/Assessment/Plan Problem List/Assessment/Plan Acute hypercapnic hypoxic respiratory failure likely secondary to influenza pneumonia. Septic shock due to pneumonia AFib with RVR with secondary hypercoagulable state: Paroxysmal Acute on chronic heart failure reduced ejection fraction Presence of AICD History of coronary artery disease status post PTCA * 1 ESTHER TYPE 2 DIABETES MELLITUS: Insulin dependent SUMMER due to VMN Thrombocytopenia Neutropenia Elevated D-dimer rule out PE Lactic acidosis Pleural effusion Hypothyroidism MRSA Plan: -on ventilator: Respiratory rate 20, tidal volume 500, FiO2 35%, peep 5. -ABG respiratory acidosis: PH 7.42, CO2 35, HC03 23.3, -underwent emergent bronchoscopy: Bronchial lavage sample sent to laboratory for further evaluation. Plan for bronchoscopy again tomorrow a.m.. -Antibiotic with meropenem, vancomycin. -vasopressor Levophed, target map greater than 65. Can add vasopressin and L phenylephrine if needed. -amiodarone 200 mg q.12 via G-tube. -oseltamivir 30 mg p.o. daily for influenza till 07/18/2024. -mild insulin sliding scale NPO with Accu-Chek q.6 -feeding via G-tube -levothyroxine 200 mcg p.o. via G-tube -PUD prophylaxis Protonix 40 mg IV daily -DVT prophylaxis: SCD given thrombocytopenia -sedation with fentanyl and Versed. Lines: Right femoral central line(07/11/2024) Michel G-tube Critical care time excluding procedure > 90 minutes Goal of care full code, discussed greater than 22 minute. Plan discussed with Dr Stacy Plan discussed with: Other (RN) My Orders My Orders Orders - MARLEE VILLALOBOS Procedure Category Date Status Time Glucose Blood PHA 07/17/24 In Process (Accu-Chek Comfort 18:00 Insulin R (Human) PHA 07/17/24 In Process (Insulin R) 18:00 Dextrose 50% Syringe PHA 07/17/24 In Process 13:15 Dietary Evaluation Review Comments: Advance to 2 gNa CCHO-60 diet when medically feasible. Pt's lipid pannel shows Cholesterol and LDL at lower mragin range, thus no restrictions on fat or cholesterol needed. Expected Outcomes/Goals: gradual weight loss, controlled DM, Date of Service: Jul 17, 2024 Billing Provider: SIERRA STACY MD Common Visit Codes: [id number] CARE 30-74 MIN MARLEE VILLALOBOS Jul 17, 2024 18:53 SIERRA STACY MD Jul 18, 2024 13:20
[2024-07-17] MEDS ORDERED: TPN PER PHARMACY IV NR (22:00)
[2024-07-17] MEDS: AMIODARONE HCL 200 MG TAB GT SCH (22:24)
[2024-07-17] MEDS: Glucerna 1.2 Cal 1Liter BOTTLE GT SCH (22:28)
[2024-07-18] VITALS (109 sets, daily range): BP systolic 82–141; BP diastolic 36–65; PULSE 69–86; RESP 15–30; TEMP 97.9–99.7; O2SAT 88–98
[2024-07-18] MEDS: VANCOMYCIN 1GM/250ML KIT 200 ML IV SCH (03:31)
[2024-07-18 03:46] LABS: Basophils # (auto) 0 10 ^3/uL (0-0.2); Basophils % (auto) 0.1 % (0.0-2.0); Eosinophils # (auto) 0 10 ^3/uL (0-0.8); Eosinophils % (auto) 0.1 % (0.0-7.0); Hemoglobin 11.8 g/dL (13.5-17.5); Mean Corpuscular Hemoglobin 31.5 pg (28.0-32.0); Monocytes # (auto) 0.3 10 ^3/uL (0-1.3); Platelet Count (auto) 45 10^3/uL (140-450)
[2024-07-18 03:49] LABS: Hematocrit 34.6 % (41.0-53.0); Lymphocytes # (auto) 0.4 10 ^3/uL (0.4-5.4); Lymphocytes % (auto) 3.4 % (10.0-50.0); Mean Corpuscular Hgb Conc. 34.1 g/dL (32.0-36.0); Mean Corpuscular Volume 92.4 fL (80.0-100.0); Monocytes % (auto) 2.5 % (0.0-12.0); Neutrophils # (auto) 11.8 10 ^3/uL (1.6-8.6); Neutrophils % (auto) 93.9 % (37.0-80.0); Red Blood Cells 3.74 10^6/uL (4.5-5.90); Red Cell Distribution Width 15.5 % (11.8-14.3); White Blood Cell 12.6 10^3/uL (4.4-10.8)
[2024-07-18 04:03] LABS: Albumin 2.5 g/dL (3.2-4.8); Alkaline Phosphatase 62 U/L (46-116); Anion Gap 6 (5-15); Aspartate Aminotransferase 16 U/L (13-40); BUN/Creatinine Ratio 68.9 (10.0-20.0); Bilirubin, Total 1.5 mg/dL (0.2-1.0); Calcium 7.7 mg/dL (8.7-10.4); Carbon Dioxide 26 mmol/L (20-31); Chloride 101 mmol/L (98-107); Glucose 104 mg/dL (74-106); Magnesium 2.2 mg/dL (1.6-2.6); Phosphorus 2.9 mg/dL (2.4-5.1); Potassium 3.7 mmol/L (3.5-5.1); Sodium 133 mmol/L (136-145); Total Protein 4.6 g/dL (5.7-8.2)
[2024-07-18 04:04] LABS: Alanine Aminotransferase < 9 U/L (7-40); Blood Urea Nitrogen 62 mg/dL (9-23)
--- NOTE | 2024-07-18 04:44 | DVH ---
EXAM: XY CHEST XRAY 1 VIEW Indication:On vent Technique: Single frontal view of the chest was obtained Comparison: XY CHEST XRAY 1 VIEW on DOS: 07/17/24, XY CHEST XRAY 1 VIEW on DOS: 07/16/24, XY CHEST XR AY 1 VIEW on DOS: 07/15/24, XY CHEST PORTABLE on DOS: 07/15/24, XY CHEST PORTABLE on DOS: 07/14/24, XY CHEST XRAY 1 VIEW on DOS: 07/17/24 FINDINGS: Lines and Tubes: Endotracheal tube, enteric catheter, left chest wall pacemaker / AICD in satisfactor y position. Right PICC in satisfactory position. Lungs: Multifocal right lung airspace disease. Pleura: No effusion. No pneumothorax. Cardiomediastinal contours: Unremarkable Bones: Unremarkable IMPRESSION: Lines and tubes in satisfactory position. No significant interval change.
[2024-07-18 04:55] LABS: Triglycerides 91 mg/dL (< 150)
[2024-07-18 04:59] LABS: Platelet Estimate Decreased
[2024-07-18 06:16] LABS: Base Excess -1.3 mmol/L (-2.0-3.0)
[2024-07-18] MEDS: POTASSIUM CHL 20MEQ/100ML 100 ML IV SCH (08:57)
[2024-07-18] MEDS: SENNA 8.6 MG TAB PO ONE (13:03)
[2024-07-18] MEDS: DOCUSATE SOD 100 MG CAP PO ONE (13:03)
--- NOTE | 2024-07-18 13:42 | DVHNC2 ---
Other Procedure Procedure Bronchoscopy Operative Note Procedure Performed: 1. Flexible Bronchoscopy 2. Right lower lobe bronchial washings 3. Left lower lobe bronchial washing Anesthesia/Medication: Patient intubated and sedated Preoperative Diagnosis: Pneumonia Postoperative Diagnosis: Same Estimated Blood Loss: Less than 10 ml Consent: The risk, benefits, and alternatives of bronchoscopy were discussed with the patients who expressed understanding and agreed to proceed. Indications: Findings: No significant endobronchial lesions or abnormalities were seen. Description of the Procedure: Bronchoscope was introduced through the ET tube the bronchoscope was then inserted into the subglottic area, followed by the trachea, bilateral mainstem bronchi, and to the level of the subsegmental bronchi. There was no evidence of intrinsic or extrinsic compression. I could see a lot of mucus on the right side of the lung and especially in the right lower lobe. I suctioned out all the mucus and then did right lower lobe bronchial washings. There was friable mucosa all over the lungs. At this point, there was no evidence of any ongoing bleeding. The bronchoscope was then withdrawn and the patient was allowed to recover. Date of Service: Jul 12, 2024 Billing Provider: SIERRA WYATT MD Common Visit Codes: PROCEDURE ONLY Procedure Codes: [id number] SIERRA WYATT MD Jul 18, 2024 13:42
--- NOTE | 2024-07-18 14:02 | DVHPNRES ---
Progress Note Date Seen: Jul 18, 2024 Resident Creating Document: MARLEE VILLALOBOS RESIDENT Medical Necessity Reason Pt with a Central, PICC or Fol: Yes The following are medically ne: Central Line, Michel Catheter Reason for michel catheter: Strict I&O Subjective Review of Systems Patient is 68-year-old male with past medical history of Hypertension, dyslipidemia, diabetes insulin dependent, HFrEF with improved EF (LVEF) status post single lead [place] [employer] ICD placement with generator exchange, coronary artery disease status post stent placement, hypothyroidism, polyneuropathy who came to the hospital via EMS with a chief complaint of progressive generalized weakness and shortness of breath associated with flu- like symptoms. Patient also complaining of productive cough and fever that prompted visit to hospitalization. Past surgical history:2039 single lead [place] [employer] ICD placement with generator exchange in 2022. Coronary angiography with stent placement in 2019. Home medication: Apixaban 2.5 mg p.o. b.i.d., dapagliflozin 10 mg p.o. daily, acetaminophen 10 mg p.o. daily, finasteride 5 mg p.o. daily, gabapentin 300 mg p.o. daily, levothyroxine 200 mcg p.o. daily, metformin a 1000 mg p.o. b.i.d., metoprolol 25 mg p.o. daily, Entresto one tablet p.o. b.i.d., spironolactone 25 mg p.o. daily patient seen and examined in ICU. . Patient continued to be on ventilator. No other complaints. Objective vital signs Vital Sign Date Time Temp Pulse Resp B/P (MAP) Pulse Ox O2 Delivery O2 Flow Rate FiO2 07/18/24 13:47 82 24 93/46 (62) 95 45 07/18/24 12:00 Mechanical Ventilator+ 07/18/24 12:00 98.4 209.1 Total Intake and Output 07/17/24 07/17/24 07/18/24 15:00 23:00 07:00 Intake Total 397.815 ml 264.376 ml 488.273 ml Output Total 375 ml 525 ml Balance 397.815 ml -110.624 ml -36.727 ml medications Current Medications Medications Dose Ordered Sig/Maurice Route Start Time Stop Time Status Last Admin Dose Admin Levothyroxine Sodium 200 mcg QAM PO 07/12/24 07:00 07/18/24 06:49 200 MCG Midazolam HCl 50 ml @ 1 mls/hr Q24H IV 07/12/24 08:30 07/18/24 07:43 5 MLS/HR Fentanyl Citrate 250 ml @ 2.5 mls/hr Q24H IV 07/12/24 08:30 07/18/24 12:36 17.5 MLS/HR Vancomycin HCl 0 ml @ 0 mls/hr UD IV 07/12/24 12:45 Pantoprazole Sodium 40 mg DAILY IV 07/13/24 10:00 07/18/24 10:40 40 MG Vancomycin HCl 200 ml @ 200 mls/hr Q1H IV 07/12/24 13:00 07/12/24 14:59 Cancel Phenylephrine HCl 80 mg/Sodium Chloride 250 ml @ 7.5 mls/hr Q24H IV 07/12/24 19:30 07/13/24 03:31 7.5 MLS/HR Insulin Glargine 10 units DAILY@1000 SC 07/14/24 10:00 07/17/24 08:57 10 UNITS Digoxin 125 mcg MWF IV 07/16/24 10:00 07/18/24 10:40 125 MCG Acetaminophen 650 mg Q6HP PRN HI 07/14/24 17:00 07/15/24 10:32 650 MG Sodium Chloride 10 ml QSHIFT@10,22 IV 07/14/24 22:00 07/18/24 10:40 10 ML Dextrose 50 ml UD IV 07/15/24 15:00 Cancel Norepinephrine Bitartrate 32 mg/ Sodium Chloride 250 ml @ 0.938 mls/ hr Q24H IV 07/17/24 09:30 07/18/24 03:31 0.469 MLS/HR Amiodarone HCl 200 mg Q12HR GT 07/17/24 22:00 07/18/24 10:41 200 MG Furosemide 40 mg BIDD IV 07/17/24 18:00 07/18/24 05:30 40 MG Enteral Nutritional Formula 1,000 ml 40ML/HR GT 07/17/24 12:30 07/17/24 22:28 1,000 ML Diagnostic Test (Pha) 1 strip Q6HR 07/17/24 18:00 07/18/24 12:48 1 STRIP Insulin Human Regular Q6HR SC 07/17/24 18:00 07/17/24 17:48 2 UNITS Dextrose 50 ml UD PRN IV 07/17/24 13:15 Vancomycin HCl 200 ml @ 200 mls/hr DAILY@0400 IV 07/18/24 04:00 07/18/24 03:31 200 MLS/HR Sennosides 8.6 mg HS PO 07/18/24 22:00 Docusate Sodium 100 mg BID PO 07/18/24 22:00 Examination General Appearance: RA SS-3 , sedated on mechanical ventilation. Head Exam: Normal inspection Neck Exam: Normal inspection. Non-tender. Normal alignment Pulmonary/Respiratory: Chest non-tender. Muffled right-sided lung sounds, mild crackles over left lung base. Cardiovascular/Chest: Regular rate and rhythm. No murmurs. No JVD. Peripheral Pulses: 2+ Radial (R). 2+ Radial (L). 2+ Pedal (R). 2+ Pedal (L) Abdominal Exam: Normal bowel sounds. Soft. Nontender. No hepatospenomegaly. No masses Ankle Exam: Negative ankle edema Lower extremities: Negative lower extremity edema, right femoral central line. Neuro/Mental Status: Sedated. Cranial nerves intact. laboratory and microbiology Laboratory Tests 07/18/24 03:25 Test 07/18/24 03:25 Range/Units Serum Glucose 104 # 74-106 mg/dL Microbiology Date/Time Source Procedure Growth Status 07/15/24 12:00 Lung Pending Resulted 07/15/24 12:00 Lung Pending Resulted 07/15/24 12:00 Lung Pending Resulted 07/15/24 12:00 Lung Pending Resulted 07/15/24 12:00 Lung - Final See Separate Report... Resulted 07/15/24 12:00 Bronchial Washings Gram Stain - Final Complete 07/15/24 12:00 Respiratory Culture - Final Methicillin Resistant S.aureus Complete 07/12/24 10:47 Voided Urine Urine Culture - Final Complete 07/11/24 21:08 Blood Blood Culture - Final NO GROWTH AFTER 5 DAYS OF INCUBATION. Complete Problem List/Assessment/Plan Problem List/Assessment/Plan Acute hypercapnic hypoxic respiratory failure likely secondary to influenza pneumonia. Septic shock due to pneumonia AFib with RVR with secondary hypercoagulable state: Paroxysmal Acute on chronic heart failure reduced ejection fraction Presence of AICD History of coronary artery disease status post PTCA * 1 ESTHER TYPE 2 DIABETES MELLITUS: Insulin dependent SUMMER due to VMN Thrombocytopenia Neutropenia Elevated D-dimer rule out PE Lactic acidosis Pleural effusion Hypothyroidism MRSA Plan: -on ventilator: Respiratory rate 20, tidal volume 500, FiO2 35%, peep 5. -ABG respiratory acidosis: PH 7.452, CO2 32.1, HC03 21.9, -underwent emergent bronchoscopy: Bronchial lavage sample sent to laboratory for further evaluation. Plan for bronchoscopy again tomorrow a.m at 930 AM. -Antibiotic with vancomycin. dc Meropenam -vasopressor Levophed, target map greater than 65. Can add vasopressin and L phenylephrine if needed. -amiodarone 200 mg q.12 via G-tube. -oseltamivir 30 mg p.o. daily for influenza till 07/18/2024. -mild insulin sliding scale NPO with Accu-Chek q.6 -feeding via G-tube -levothyroxine 200 mcg p.o. via G-tube -PUD prophylaxis Protonix 40 mg IV daily -DVT prophylaxis: SCD given thrombocytopenia -sedation with fentanyl and Versed. Lines: Right femoral central line(07/11/2024) Michel G-tube Critical care time excluding procedure > 79 minutes Goal of care full code, discussed greater than 22 minute. Plan discussed with Dr Stacy Plan discussed with: Other (RN) My Orders My Orders Orders - MARLEE VILLALOBOS RESIDENT Procedure Category Date Status Time Chest Xray 1 View XY 07/18/24 Resulted 04:00 Vancomycin 1gm/200ml PHA 07/18/24 In Process Premix 04:00 Vancomycin Per ALTAGRACIA 07/17/24 In Process Pharmacy Protoc 21:47 Vancomycin,Trough LAB 07/20/24 Verified 03:00 Abg W/ Co-Ox RT 07/18/24 Logged 05:22 Ventilator Orders RT 07/18/24 Transmitted 06:56 Senna Pod Tablet PHA 07/18/24 In Process (Senokot Tablet) 22:00 Docusate Sodium PHA 07/18/24 In Process Capsule (Colace 22:00 Dietary Evaluation Review Comments: Advance to 2 gNa CCHO-60 diet when medically feasible. Pt's lipid pannel shows Cholesterol and LDL at lower mragin range, thus no restrictions on fat or cholesterol needed. Expected Outcomes/Goals: gradual weight loss, controlled DM, Date of Service: Jul 18, 2024 Billing Provider: SIERRA STACY MD Common Visit Codes: [id number] CARE 30-74 MIN MARLEE VILLALOBOS RESIDENT Jul 18, 2024 14:02 SIERRA STACY MD Jul 19, 2024 15:27
[2024-07-18] MEDS: SENNA 8.6 MG TAB PO SCH (21:58)
[2024-07-18] MEDS: DOCUSATE SOD 100 MG CAP PO SCH (21:59)
[2024-07-19] VITALS (107 sets, daily range): BP systolic 91–154; BP diastolic 42–76; PULSE 75–84; RESP 14–34; TEMP 97.3–99.3; O2SAT 91–100
[2024-07-19] MEDS ORDERED: GLYCOPYRROLATE 0.2 MG/ML 1ML VIAL ONE (08:33)
[2024-07-19] MEDS ORDERED: fentaNYL CITRATE 100 MCG/2 ML VL ONE (08:34)
[2024-07-19] MEDS ORDERED: MIDAZOLAM HCL 5 MG/ML-1ML VIAL ONE (08:34)
[2024-07-19 08:38] LABS: Base Excess -0.3 mmol/L (-2.0-3.0)
--- NOTE | 2024-07-19 08:43 | DVH ---
CHEST RADIOGRAPH Indication:intubated Technique: Single frontal view of the chest was obtained COMPARISON: XY CHEST XRAY 1 VIEW on DOS: 07/18/24, XY CHEST XRAY 1 VIEW on DOS: 07/17/24, XY CHEST XR AY 1 VIEW on DOS: 07/16/24 FINDINGS: Lines and Tubes: Endotracheal tube and enteric catheter in satisfactory position. Right PICC and lef t chest AICD in satisfactory position. Lungs: Multifocal airspace disease. Pleura: No effusion. No pneumothorax. Cardiomediastinal contours: Cardiomegaly. Bones: Unremarkable IMPRESSION: Lines and tubes in satisfactory position. No significant interval change.
--- NOTE | 2024-07-19 09:26 | DVHPNRES ---
Progress Note Date Seen: Jul 19, 2024 Resident Creating Document: MARLEE VILLALOBOS RESIDENT Medical Necessity Reason Pt with a Central, PICC or Fol: Yes The following are medically ne: Central Line, Michel Catheter Reason for michel catheter: Strict I&O Subjective Review of Systems Patient is 68-year-old male with past medical history of Hypertension, dyslipidemia, diabetes insulin dependent, HFrEF with improved EF (LVEF) status post single lead [place] [employer] ICD placement with generator exchange, coronary artery disease status post stent placement, hypothyroidism, polyneuropathy who came to the hospital via EMS with a chief complaint of progressive generalized weakness and shortness of breath associated with flu- like symptoms. Patient also complaining of productive cough and fever that prompted visit to hospitalization. Past surgical history:2039 single lead [place] [employer] ICD placement with generator exchange in 2022. Coronary angiography with stent placement in 2019. Home medication: Apixaban 2.5 mg p.o. b.i.d., dapagliflozin 10 mg p.o. daily, acetaminophen 10 mg p.o. daily, finasteride 5 mg p.o. daily, gabapentin 300 mg p.o. daily, levothyroxine 200 mcg p.o. daily, metformin a 1000 mg p.o. b.i.d., metoprolol 25 mg p.o. daily, Entresto one tablet p.o. b.i.d., spironolactone 25 mg p.o. daily Patient seen and examined in ICU. . Patient continued to be on ventilator. No other complaints. Objective vital signs Vital Sign Date Time Temp Pulse Resp B/P (MAP) Pulse Ox O2 Delivery O2 Flow Rate FiO2 07/19/24 09:00 142/66 07/19/24 08:12 80 24 92 40 07/19/24 06:45 98.2 208.8 07/19/24 06:00 Mechanical Ventilator+ Total Intake and Output 07/18/24 07/18/24 07/19/24 15:00 23:00 07:00 Intake Total 390.0 ml 541.204 ml 756.316 ml Output Total 550 ml 700 ml Balance 390.0 ml -8.796 ml 56.316 ml medications Current Medications Medications Dose Ordered Sig/Maurice Route Start Time Stop Time Status Last Admin Dose Admin Levothyroxine Sodium 200 mcg QAM PO 07/12/24 07:00 07/19/24 06:15 200 MCG Midazolam HCl 50 ml @ 1 mls/hr Q24H IV 07/12/24 08:30 07/19/24 00:28 5 MLS/HR Fentanyl Citrate 250 ml @ 2.5 mls/hr Q24H IV 07/12/24 08:30 07/19/24 01:49 22.5 MLS/HR Vancomycin HCl 0 ml @ 0 mls/hr UD IV 07/12/24 12:45 Pantoprazole Sodium 40 mg DAILY IV 07/13/24 10:00 07/18/24 10:40 40 MG Vancomycin HCl 200 ml @ 200 mls/hr Q1H IV 07/12/24 13:00 07/12/24 14:59 Cancel Phenylephrine HCl 80 mg/Sodium Chloride 250 ml @ 7.5 mls/hr Q24H IV 07/12/24 19:30 07/13/24 03:31 7.5 MLS/HR Insulin Glargine 10 units DAILY@1000 SC 07/14/24 10:00 07/17/24 08:57 10 UNITS Digoxin 125 mcg MWF IV 07/16/24 10:00 07/18/24 10:40 125 MCG Acetaminophen 650 mg Q6HP PRN MT 07/14/24 17:00 07/15/24 10:32 650 MG Sodium Chloride 10 ml QSHIFT@10,22 IV 07/14/24 22:00 07/18/24 21:58 10 ML Dextrose 50 ml UD IV 07/15/24 15:00 Cancel Norepinephrine Bitartrate 32 mg/ Sodium Chloride 250 ml @ 0.938 mls/ hr Q24H IV 07/17/24 09:30 07/18/24 03:31 0.469 MLS/HR Amiodarone HCl 200 mg Q12HR GT 07/17/24 22:00 07/18/24 21:58 200 MG Furosemide 40 mg BIDD IV 07/17/24 18:00 07/19/24 06:16 40 MG Enteral Nutritional Formula 1,000 ml 40ML/HR GT 07/17/24 12:30 07/17/24 22:28 1,000 ML Diagnostic Test (Pha) 1 strip Q6HR 07/17/24 18:00 07/19/24 06:31 1 STRIP Insulin Human Regular Q6HR SC 07/17/24 18:00 07/19/24 06:26 3 UNITS Dextrose 50 ml UD PRN IV 07/17/24 13:15 Vancomycin HCl 200 ml @ 200 mls/hr DAILY@0400 IV 07/18/24 04:00 07/19/24 03:39 200 MLS/HR Sennosides 8.6 mg HS PO 07/18/24 22:00 07/18/24 21:58 8.6 MG Docusate Sodium 100 mg BID PO 07/18/24 22:00 Examination General Appearance: RA SS-3 , sedated on mechanical ventilation. Head Exam: Normal inspection Neck Exam: Normal inspection. Non-tender. Normal alignment Pulmonary/Respiratory: Chest non-tender. Muffled right-sided lung sounds, mild crackles over left lung base. Cardiovascular/Chest: Regular rate and rhythm. No murmurs. No JVD. Peripheral Pulses: 2+ Radial (R). 2+ Radial (L). 2+ Pedal (R). 2+ Pedal (L) Abdominal Exam: Normal bowel sounds. Soft. Nontender. No hepatospenomegaly. No masses Ankle Exam: Negative ankle edema Lower extremities: Negative lower extremity edema, right femoral central line. Neuro/Mental Status: Sedated. Cranial nerves intact. laboratory and microbiology Laboratory Tests 07/18/24 03:25 Test 07/18/24 03:25 Range/Units Serum Glucose 104 # 74-106 mg/dL Microbiology Date/Time Source Procedure Growth Status 07/15/24 12:00 Lung Pending Resulted 07/15/24 12:00 Lung Pending Resulted 07/15/24 12:00 Lung Pending Resulted 07/15/24 12:00 Lung Pending Resulted 07/15/24 12:00 Lung - Final See Separate Report... Resulted 07/15/24 12:00 Bronchial Washings Gram Stain - Final Complete 07/15/24 12:00 Respiratory Culture - Final Methicillin Resistant S.aureus Complete 07/15/24 12:00 Drainage Viral Culture - Preliminary Resulted 07/12/24 10:47 Voided Urine Urine Culture - Final Complete 07/11/24 21:08 Blood Blood Culture - Final NO GROWTH AFTER 5 DAYS OF INCUBATION. Complete Problem List/Assessment/Plan Problem List/Assessment/Plan Acute hypercapnic hypoxic respiratory failure likely secondary to influenza pneumonia. Septic shock due to pneumonia AFib with RVR with secondary hypercoagulable state: Paroxysmal Acute on chronic heart failure reduced ejection fraction Presence of AICD History of coronary artery disease status post PTCA * 1 ESTHER TYPE 2 DIABETES MELLITUS: Insulin dependent SUMMER due to VMN Thrombocytopenia Neutropenia Elevated D-dimer rule out PE Lactic acidosis Pleural effusion Hypothyroidism MRSA Plan: -On ventilator: Respiratory rate 20, tidal volume 450, FiO2 40%, peep 5. -ABG respiratory acidosis: PH 7.432, CO2 36.3, HC03 23.7, -underwent emergent bronchoscopy: Bronchial lavage sample sent to laboratory for further evaluation. Plan for bronchoscopy today.Sent specimen to lab for respiratory culture/gram stain/ cytology. -Antibiotic with vancomycin. dc Meropenam -vasopressor Levophed, target map greater than 65. Can add vasopressin and L phenylephrine if needed. -amiodarone 200 mg q.12 via G-tube. -oseltamivir 30 mg p.o. daily Stopped. -mild insulin sliding scale NPO with Accu-Chek q.6 -feeding via G-tube -levothyroxine 200 mcg p.o. via G-tube -PUD prophylaxis Protonix 40 mg IV daily -DVT prophylaxis: SCD given thrombocytopenia -sedation with fentanyl and Versed. Lines: Right femoral central line(07/11/2024) Michel G-tube Critical care time excluding procedure > 76 minutes Goal of care full code, discussed greater than 22 minute. Plan discussed with Dr Stacy Plan discussed with: Other (RN) My Orders My Orders Orders - MARLEE VILLALOBOS Procedure Category Date Status Time Senna Pod Tablet PHA 07/18/24 In Process (Senokot Tablet) 22:00 Docusate Sodium PHA 07/18/24 In Process Capsule (Colace 22:00 Abg W/ Co-Ox RT 07/19/24 Logged 06:00 Dietary Evaluation Review Comments: Advance to 2 gNa CCHO-60 diet when medically feasible. Pt's lipid pannel shows Cholesterol and LDL at lower mragin range, thus no restrictions on fat or cholesterol needed. Expected Outcomes/Goals: gradual weight loss, controlled DM, Date of Service: Jul 19, 2024 Billing Provider: SIERRA STACY MD Common Visit Codes: [id number] CARE 30-74 MIN MARLEE VILLALOBOS RESIDENT Jul 19, 2024 09:26 SIERRA STACY MD Jul 19, 2024 23:00
[2024-07-19] MEDS ORDERED: LIDOCAINE 2% JELLY 11ml (GLYDO) ONE (11:08)
--- NOTE | 2024-07-19 15:23 | DVHNC2 ---
Other Procedure Procedure Bronchoscopy Operative Note Procedure Performed: 1. Flexible Bronchoscopy 2. Right lower lobe bronchial washings 3. Left lower lobe bronchial washing Anesthesia/Medication: Patient intubated and sedated Preoperative Diagnosis: Pneumonia Postoperative Diagnosis: Same Estimated Blood Loss: Less than 10 ml Consent: The risk, benefits, and alternatives of bronchoscopy were discussed with the patients daughter who expressed understanding and agreed to proceed. Indications: Findings: No significant endobronchial lesions or abnormalities were seen. Description of the Procedure: Bronchoscope was introduced through the ET tube the bronchoscope was then inserted into the subglottic area, followed by the trachea, bilateral mainstem bronchi, and to the level of the subsegmental bronchi. There was no evidence of intrinsic or extrinsic compression. I suctioned out all the mucus and then did right lower lobe bronchial washings. There was friable mucosa all over the lungs. I first did right lower lobe bronchial washings. I then did left lower lobe bronchial washings. At this point, there was no evidence of any ongoing bleeding. The bronchoscope was then withdrawn and the patient was allowed to recover. Date of Service: Jul 19, 2024 Billing Provider: SIERRA WYATT MD Common Visit Codes: PROCEDURE ONLY Procedure Codes: [id number] SIERRA WYATT MD Jul 19, 2024 15:23
[2024-07-19] MEDS: NOREPINEPHRINE BITARTRATE 32 MG in SODIUM CHL 0.9% 218 ML IV SCH (18:15)
[2024-07-19] MEDS: PROPOFOL 100 ML IV SCH (19:45)
[2024-07-19] MEDS: DOCUSATE ORAL LIQUID 100 MG/10 ML UD GT SCH (22:20)
[2024-07-20] VITALS (110 sets, daily range): BP systolic 111–162; BP diastolic 50–79; PULSE 75–90; RESP 18–36; TEMP 97.9–99.1; O2SAT 92–100
[2024-07-20 03:43] LABS: Anion Gap 4 (5-15); Carbon Dioxide 29 mmol/L (20-31); Chloride 104 mmol/L (98-107); Potassium 4.4 mmol/L (3.5-5.1); Sodium 137 mmol/L (136-145)
[2024-07-20 03:44] LABS: Calcium 8.2 mg/dL (8.7-10.4)
[2024-07-20 03:46] LABS: Basophils # (auto) 0 10 ^3/uL (0-0.2); Basophils % (auto) 0.1 % (0.0-2.0); Eosinophils # (auto) 0 10 ^3/uL (0-0.8); Eosinophils % (auto) 0.2 % (0.0-7.0); Lymphocytes # (auto) 0.6 10 ^3/uL (0.4-5.4); Monocytes # (auto) 0.5 10 ^3/uL (0-1.3); Monocytes % (auto) 4.6 % (0.0-12.0); White Blood Cell 10.1 10^3/uL (4.4-10.8)
[2024-07-20 03:48] LABS: Hemoglobin 10.7 g/dL (13.5-17.5); Lymphocytes % (auto) 6.1 % (10.0-50.0); Mean Corpuscular Hemoglobin 32.1 pg (28.0-32.0); Mean Corpuscular Hgb Conc. 34.6 g/dL (32.0-36.0); Mean Corpuscular Volume 92.9 fL (80.0-100.0); Platelet Count (auto) 60 10^3/uL (140-450); Red Blood Cells 3.34 10^6/uL (4.5-5.90); Red Cell Distribution Width 15.4 % (11.8-14.3)
[2024-07-20 03:49] LABS: BUN/Creatinine Ratio 70.4 (10.0-20.0); Glucose 161 mg/dL (74-106)
[2024-07-20 03:58] LABS: Blood Urea Nitrogen 50 mg/dL (9-23)
--- NOTE | 2024-07-20 05:47 | DVH ---
EXAM: XY CHEST XRAY 1 VIEW Indication:ON VENT Technique: Single frontal view of the chest was obtained Comparison: XY CHEST XRAY 1 VIEW on DOS: 07/19/24, XY CHEST XRAY 1 VIEW on DOS: 07/18/24, XY CHEST XR AY 1 VIEW on DOS: 07/17/24, XY CHEST XRAY 1 VIEW on DOS: 07/16/24, XY CHEST XRAY 1 VIEW on DOS: 07/15, XY CHEST XRAY 1 VIEW on DOS: 07/19/24 FINDINGS: Lines and Tubes: Endotracheal tube and enteric catheter in satisfactory position. Right PICC and lef t chest AICD in satisfactory position. Lungs: Multifocal airspace disease. Pleura: No effusion. No pneumothorax. Cardiomediastinal contours: Cardiomegaly. Bones: Unremarkable IMPRESSION: Lines and tubes in satisfactory position. No significant interval change.
[2024-07-20 06:59] LABS: Base Excess 3.4 mmol/L (-2.0-3.0)
[2024-07-20] MEDS: FUROSEMIDE 40 MG/4 ML VIAL IV SCH (10:39)
--- NOTE | 2024-07-20 13:47 | DVHPNRES ---
Progress Note Date Seen: Jul 20, 2024 Resident Creating Document: MARLEE VILLALOBOS RESIDENT Medical Necessity Reason Pt with a Central, PICC or Fol: Yes The following are medically ne: Central Line, Michel Catheter Reason for michel catheter: Strict I&O Subjective Review of Systems Patient is 68-year-old male with past medical history of Hypertension, dyslipidemia, diabetes insulin dependent, HFrEF with improved EF (LVEF) status post single lead [place] [employer] ICD placement with generator exchange, coronary artery disease status post stent placement, hypothyroidism, polyneuropathy who came to the hospital via EMS with a chief complaint of progressive generalized weakness and shortness of breath associated with flu- like symptoms. Patient also complaining of productive cough and fever that prompted visit to hospitalization. Past surgical history:2039 single lead [place] scientific ICD placement with generator exchange in 2022. Coronary angiography with stent placement in 2019. Home medication: Apixaban 2.5 mg p.o. b.i.d., dapagliflozin 10 mg p.o. daily, acetaminophen 10 mg p.o. daily, finasteride 5 mg p.o. daily, gabapentin 300 mg p.o. daily, levothyroxine 200 mcg p.o. daily, metformin a 1000 mg p.o. b.i.d., metoprolol 25 mg p.o. daily, Entresto one tablet p.o. b.i.d., spironolactone 25 mg p.o. daily Patient seen and examined in ICU. . Patient continued to be on ventilator. No other complaints. Underwent CPAP trial, become tachypneic and abdominal belly breathing, patient put back on ACVC ventilator mode. Objective vital signs Vital Sign Date Time Temp Pulse Resp B/P (MAP) Pulse Ox O2 Delivery O2 Flow Rate FiO2 07/20/24 12:45 98.1 82 23 140/68 (92) 96 208.6 07/20/24 12:15 40 07/20/24 12:15 Mechanical Ventilator+ Total Intake and Output 07/19/24 07/19/24 07/20/24 15:00 23:00 07:00 Intake Total 256.471 ml 125.938 ml 618.5 ml Output Total 1075 ml 450 ml 750 ml Balance -818.529 ml -324.062 ml -131.5 ml medications Current Medications Medications Dose Ordered Sig/Maurice Route Start Time Stop Time Status Last Admin Dose Admin Levothyroxine Sodium 200 mcg QAM PO 07/12/24 07:00 07/20/24 06:16 200 MCG Midazolam HCl 50 ml @ 1 mls/hr Q24H IV 07/12/24 08:30 07/19/24 10:13 6 MLS/HR Fentanyl Citrate 250 ml @ 2.5 mls/hr Q24H IV 07/12/24 08:30 07/19/24 17:00 2.5 MLS/HR Vancomycin HCl 0 ml @ 0 mls/hr UD IV 07/12/24 12:45 Pantoprazole Sodium 40 mg DAILY IV 07/13/24 10:00 07/20/24 10:39 40 MG Vancomycin HCl 200 ml @ 200 mls/hr Q1H IV 07/12/24 13:00 07/12/24 14:59 Cancel Phenylephrine HCl 80 mg/Sodium Chloride 250 ml @ 7.5 mls/hr Q24H IV 07/12/24 19:30 07/13/24 03:31 7.5 MLS/HR Insulin Glargine 10 units DAILY@1000 SC 07/14/24 10:00 07/20/24 12:29 10 UNITS Digoxin 125 mcg MWF IV 07/16/24 10:00 07/20/24 10:39 125 MCG Acetaminophen 650 mg Q6HP PRN PA 07/14/24 17:00 07/15/24 10:32 650 MG Sodium Chloride 10 ml QSHIFT@10,22 IV 07/14/24 22:00 07/20/24 10:39 10 ML Dextrose 50 ml UD IV 07/15/24 15:00 Cancel Amiodarone HCl 200 mg Q12HR GT 07/17/24 22:00 07/20/24 10:38 200 MG Enteral Nutritional Formula 1,000 ml 40ML/HR GT 07/17/24 12:30 07/17/24 22:28 1,000 ML Diagnostic Test (Pha) 1 strip Q6HR 07/17/24 18:00 07/20/24 12:27 1 STRIP Insulin Human Regular Q6HR SC 07/17/24 18:00 07/20/24 12:30 2 UNITS Dextrose 50 ml UD PRN IV 07/17/24 13:15 Vancomycin HCl 200 ml @ 200 mls/hr DAILY@0400 IV 07/18/24 04:00 07/20/24 04:14 200 MLS/HR Sennosides 8.6 mg HS PO 07/18/24 22:00 07/19/24 22:20 8.6 MG Furosemide 40 mg DAILY IV 07/20/24 10:00 07/20/24 10:39 40 MG Docusate Sodium 100 mg BID GT 07/19/24 22:00 07/20/24 10:38 100 MG Norepinephrine Bitartrate 32 mg/ Sodium Chloride 250 ml @ 0.938 mls/ hr Q24H IV 07/19/24 18:15 Propofol 100 ml @ 3.111 mls/ hr Q24H IV 07/19/24 19:45 Examination General Appearance: RA SS-3 , sedated on mechanical ventilation. Head Exam: Normal inspection Neck Exam: Normal inspection. Non-tender. Normal alignment Pulmonary/Respiratory: Chest non-tender. Muffled right-sided lung sounds, mild crackles over left lung base. Cardiovascular/Chest: Regular rate and rhythm. No murmurs. No JVD. Peripheral Pulses: 2+ Radial (R). 2+ Radial (L). 2+ Pedal (R). 2+ Pedal (L) Abdominal Exam: Normal bowel sounds. Soft. Nontender. No hepatospenomegaly. No masses Ankle Exam: Negative ankle edema Lower extremities: Negative lower extremity edema, right femoral central line. Neuro/Mental Status: Sedated. Cranial nerves intact. laboratory and microbiology Laboratory Tests 07/20/24 03:11 Test 07/20/24 03:11 Range/Units Serum Glucose 161 H 74-106 mg/dL Microbiology Date/Time Source Procedure Growth Status 07/19/24 10:10 Bronchial Brushings Gram Stain - Final Resulted 07/19/24 10:10 Bronchial Brushings Respiratory Culture - Preliminary Resulted 07/15/24 12:00 Lung Pending Resulted 07/15/24 12:00 Lung Pending Resulted 07/15/24 12:00 Lung Pending Resulted 07/15/24 12:00 Lung Pending Resulted 07/15/24 12:00 Lung - Final See Separate Report... Resulted 07/15/24 12:00 Drainage Viral Culture - Preliminary Resulted 07/12/24 10:47 Voided Urine Urine Culture - Final Complete 07/11/24 21:08 Blood Blood Culture - Final NO GROWTH AFTER 5 DAYS OF INCUBATION. Complete Problem List/Assessment/Plan Problem List/Assessment/Plan Acute hypercapnic hypoxic respiratory failure likely secondary to influenza pneumonia. Septic shock due to pneumonia AFib with RVR with secondary hypercoagulable state: Paroxysmal Acute on chronic heart failure reduced ejection fraction Presence of AICD History of coronary artery disease status post PTCA * 1 ESTHER TYPE 2 DIABETES MELLITUS: Insulin dependent SUMMER due to VMN Thrombocytopenia Neutropenia Elevated D-dimer rule out PE Lactic acidosis Pleural effusion Hypothyroidism MRSA Plan: -On ventilator: Respiratory rate 20, tidal volume 450, FiO2 40%, peep 5. -ABG respiratory acidosis: PH 7.481, CO2 36.8, HC03 26.9, -underwent emergent bronchoscopy: Bronchial lavage sample sent to laboratory for further evaluation. -Antibiotic with vancomycin. dc Meropenam -vasopressor Levophed, target map greater than 65. Can add vasopressin and L phenylephrine if needed. -amiodarone 200 mg q.12 via G-tube. -oseltamivir 30 mg p.o. daily Stopped. -mild insulin sliding scale NPO with Accu-Chek q.6 -feeding via G-tube -levothyroxine 200 mcg p.o. via G-tube -PUD prophylaxis Protonix 40 mg IV daily -DVT prophylaxis: SCD given thrombocytopenia -sedation with fentanyl and Versed. Lines: Right femoral central line(07/11/2024) Will need to change femoral line and order for PICC line. Michel G-tube Critical care time excluding procedure > 76 minutes Goal of care full code, discussed greater than 22 minute. Plan discussed with Dr Stacy Transfer Summary: Patient is 68-year-old male with past medical history of hypertension, dyslipidemia, heart failure reduced ejection fraction, diabetes mellitus insulin dependent, AICD, coronary artery disease with stent placement, hypothyroidism who came to the hospital with a chief complaint of progressively worsening shortness of breath and generalized weakness. Initially patient was put on BiPAP however respiratory distress got worsen. Patient is found to have right-sided severe pneumonia with hold lung white out, emergent intubation and bronchoscopy was done. Patient continued on oseltamivir, IV antibiotic, patient underwent 3 times bronchoscopy. Initially patient will get him meropenem, vancomycin azithromycin, based on the culture patient narrow down antibiotic vancomycin. During hospitalization patient was found to have SVT with unstable blood pressure, underwent 6 electric cardioversion converted rhythm to sinus rhythm. Patient was initially given IV amiodarone drip, converted to amiodarone via G-tube. Diabetes controlled with insulin sliding scale, home dose levothyroxine started via G-tube.Patient underwent CPAP trial on 07/20/2024, patient became tachypneic, started having belly breathing. Continue current management and planned to do another CPAP trial tomorrow. Plan discussed with: Other (RN) My Orders My Orders Orders - MARLEE VILLALOBOS RESIDENT Procedure Category Date Status Time Respiratory Culture AKTYA 07/19/24 In Process W/ Gs 10:10 Chest Xray 1 View XY 07/20/24 Resulted 04:00 Abg W/ Co-Ox RT 07/20/24 Logged 04:00 Sodium Chl 0.9% PHA 07/19/24 In Process (Ns... 18:15 Cpap Trial For Am ORDERS 07/20/24 Transmitted 08:29 Creatinine LAB 07/21/24 Verified 04:00 Complete Blood Count LAB 07/21/24 Verified 04:00 Vancomycin,Trough LAB 07/23/24 Verified 03:00 Vancomycin Per ALTAGRACIA 07/20/24 In Process Pharmacy Protoc 10:15 Dietary Evaluation Review Comments: Advance to 2 gNa CCHO-60 diet when medically feasible. Pt's lipid pannel shows Cholesterol and LDL at lower mragin range, thus no restrictions on fat or cholesterol needed. Expected Outcomes/Goals: gradual weight loss, controlled DM, Date of Service: Jul 20, 2024 Billing Provider: SIERRA STACY MD Common Visit Codes: [id number] CARE 30-74 MIN MARLEE VILLALOBOS Jul 20, 2024 13:47 SIERRA STACY MD Jul 20, 2024 13:53
[2024-07-21] VITALS (108 sets, daily range): BP systolic 104–159; BP diastolic 44–74; PULSE 60–89; RESP 10–29; TEMP 97.9–99.3; O2SAT 93–99
[2024-07-21 04:33] LABS: Basophils # (auto) 0 10 ^3/uL (0-0.2); Basophils % (auto) 0.1 % (0.0-2.0); Eosinophils # (auto) 0 10 ^3/uL (0-0.8); Eosinophils % (auto) 0.3 % (0.0-7.0); Hematocrit 31.8 % (41.0-53.0); Hemoglobin 10.8 g/dL (13.5-17.5); Lymphocytes # (auto) 0.7 10 ^3/uL (0.4-5.4); Lymphocytes % (auto) 8.1 % (10.0-50.0); Mean Corpuscular Hemoglobin 31.6 pg (28.0-32.0); Monocytes # (auto) 0.4 10 ^3/uL (0-1.3); Monocytes % (auto) 4.1 % (0.0-12.0); Neutrophils # (auto) 7.7 10 ^3/uL (1.6-8.6); Neutrophils % (auto) 87.4 % (37.0-80.0); Nucleated Red Blood Cells % 0.3 %; Platelet Count (auto) 83 10^3/uL (140-450); Red Blood Cells 3.42 10^6/uL (4.5-5.90); White Blood Cell 8.8 10^3/uL (4.4-10.8)
[2024-07-21 04:53] LABS: Chloride 104 mmol/L (98-107); Potassium 4.3 mmol/L (3.5-5.1); Sodium 139 mmol/L (136-145)
[2024-07-21 04:54] LABS: Anion Gap 5 (5-15); Calcium 8.5 mg/dL (8.7-10.4); Carbon Dioxide 30 mmol/L (20-31)
[2024-07-21 04:59] LABS: BUN/Creatinine Ratio 67.2 (10.0-20.0); Blood Urea Nitrogen 41 mg/dL (9-23); Glucose 130 mg/dL (74-106)
--- NOTE | 2024-07-21 05:31 | DVH ---
EXAM: XY CHEST XRAY 1 VIEW Indication:ON VENT Technique: Single frontal view of the chest was obtained Comparison: XY CHEST XRAY 1 VIEW on DOS: 07/20/24, XY CHEST XRAY 1 VIEW on DOS: 07/19/24, XY CHEST XR AY 1 VIEW on DOS: 07/18/24, XY CHEST XRAY 1 VIEW on DOS: 07/17/24, XY CHEST XRAY 1 VIEW on DOS: 07/16, XY CHEST XRAY 1 VIEW on DOS: 07/20/24 FINDINGS: Lines and Tubes: Endotracheal tube and enteric catheter in satisfactory position. Right PICC and lef t chest AICD in satisfactory position. Lungs: Multifocal airspace disease. Pleura: No effusion. No pneumothorax. Cardiomediastinal contours: Cardiomegaly. Bones: Unremarkable IMPRESSION: Lines and tubes in satisfactory position. No significant interval change.
[2024-07-21 07:43] LABS: Base Excess 1.2 mmol/L (-2.0-3.0)
--- NOTE | 2024-07-21 13:46 | DVHPN2 ---
Subjective chart reviwed/pt intubated Reviewed: Care Plan Changes from previous H/P or p: No Changes Eyes: No Pain, No Vision change, No Conjunctivae inflammation, No Eyelid inflammation, No Other, No Redness ENT: No Ear pain, No Ear discharge, No Nose pain, No Nose discharge, No Nose congestion, No Mouth pain, No Mouth swelling, No Throat pain, No Throat swelling, No Other Cardiovascular: No Chest Pain, No Palpitations, No Orthopnea, No Paroxysmal Noc. Dyspnea, No Edema, No Lt Headedness, No Other Respiratory: No Cough, No Dry, No Shortness of breath, No SOB with excertion, No Wheezing, No Hemoptysis, No Pleuritic Pain, No Sputum, No Other Gastrointestinal: No Nausea, No Vomiting, No Abdominal Pain, No Diarrhea, No Constipation, No Melena, No Hematochezia, No Other Genitourinary: No Dysuria, No Frequency, No Incontinence, No Hematuria, No Retention, No Other Musculoskeletal: No other, No neck pain, No shoulder pain, No arm pain, No back pain, No hand pain, No leg pain, No foot pain Skin: No Rash, No Lesions, No Jaundice, No Bruising, No Other Objective Vitals Vital Signs Date Time Temp Pulse Resp B/P (MAP) Pulse Ox O2 Delivery O2 Flow Rate FiO2 07/21/24 13:30 98.1 77 21 117/64 (81) 96 208.6 07/21/24 12:02 30 07/21/24 12:00 Mechanical Ventilator+ Intake/Output Intake and Output 07/21/24 07:00 Intake Total 980.043 ml Output Total 1200 ml Balance -219.957 ml Intake Oral 70 ml IV Total 326.043 ml Tube Feeding 584 ml Output Urine Total 1200 ml Stool Total 0 ml General Appearance: Other (sedated and intubated) HEENT: PERRLA Lungs: Other (scattered rhonchii) Cardiovascular: Regular rate, Normal S1, Normal S2 Abdomen: Normal bowel sounds Extremities: Other (edema) Neuro: Other (sedated on vent) Medications Current Medications Medications Dose Ordered Sig/Maurice Route Start Time Stop Time Status Last Admin Dose Admin Levothyroxine Sodium 200 mcg QAM PO 07/12/24 07:00 07/21/24 06:18 200 MCG Midazolam HCl 50 ml @ 1 mls/hr Q24H IV 07/12/24 08:30 07/19/24 10:13 6 MLS/HR Fentanyl Citrate 250 ml @ 2.5 mls/hr Q24H IV 07/12/24 08:30 07/20/24 18:42 10 MLS/HR Vancomycin HCl 0 ml @ 0 mls/hr UD IV 07/12/24 12:45 Pantoprazole Sodium 40 mg DAILY IV 07/13/24 10:00 07/21/24 10:21 40 MG Vancomycin HCl 200 ml @ 200 mls/hr Q1H IV 07/12/24 13:00 07/12/24 14:59 Cancel Phenylephrine HCl 80 mg/Sodium Chloride 250 ml @ 7.5 mls/hr Q24H IV 07/12/24 19:30 07/13/24 03:31 7.5 MLS/HR Insulin Glargine 10 units DAILY@1000 SC 07/14/24 10:00 07/20/24 12:29 10 UNITS Digoxin 125 mcg MWF IV 07/16/24 10:00 07/20/24 10:39 125 MCG Acetaminophen 650 mg Q6HP PRN OR 07/14/24 17:00 07/15/24 10:32 650 MG Sodium Chloride 10 ml QSHIFT@10,22 IV 07/14/24 22:00 07/21/24 10:22 10 ML Dextrose 50 ml UD IV 07/15/24 15:00 Cancel Amiodarone HCl 200 mg Q12HR GT 07/17/24 22:00 07/21/24 10:21 200 MG Enteral Nutritional Formula 1,000 ml 40ML/HR GT 07/17/24 12:30 07/17/24 22:28 1,000 ML Diagnostic Test (Pha) 1 strip Q6HR 07/17/24 18:00 07/21/24 12:04 1 STRIP Insulin Human Regular Q6HR SC 07/17/24 18:00 07/21/24 00:30 2 UNITS Dextrose 50 ml UD PRN IV 07/17/24 13:15 Vancomycin HCl 200 ml @ 200 mls/hr DAILY@0400 IV 07/18/24 04:00 07/21/24 04:15 200 MLS/HR Sennosides 8.6 mg HS PO 07/18/24 22:00 07/20/24 22:04 8.6 MG Furosemide 40 mg DAILY IV 07/20/24 10:00 07/21/24 10:22 40 MG Docusate Sodium 100 mg BID GT 07/19/24 22:00 07/21/24 10:21 100 MG Norepinephrine Bitartrate 32 mg/ Sodium Chloride 250 ml @ 0.938 mls/ hr Q24H IV 07/19/24 18:15 Propofol 100 ml @ 3.111 mls/ hr Q24H IV 07/19/24 19:45 07/21/24 08:13 12.444 MLS/HR Laboratory Results Laboratory Tests 07/21/24 03:31 Chemistry Test 07/21/24 03:31 Calcium Level 8.5 mg/dL (8.7-10.4) L Urinalysis Test 07/11/24 15:12 Urine Color Yellow (Yellow) Urine Clarity Clear (Clear) Urine pH 5.5 (5.0-9.0) Urine Specific [place] 1.027 (1.001-1.035) Urine Protein 1+ (Negative) H Urine Ketones 2+ (Negative) H Urine Blood Negative /uL (Negative) Urine Nitrite Negative (Negative) Urine Bilirubin Negative (Negative) Urine Urobilinogen Normal mg/dL (Negative) Urine Leukocyte Esterase Negative /uL (Negative) Urine RBC 1 /hpf (0 - 3) Urine WBC 3 /hpf (0 - 3) Urine Squamous Epithelial Cells Few /hpf (<5) Urine Bacteria None seen /hpf (None Seen) Urine Glucose 4+ mg/dL (Normal) H Blood Gas Results Test 07/21/24 07:22 Arterial Blood pH 7.449 (7.350-7.450) FiO2 % 40.0 Microbiology Microbiology Date/Time Source Procedure Growth Status 07/19/24 10:10 Bronchial Brushings Gram Stain - Final Resulted 07/19/24 10:10 Bronchial Brushings Respiratory Culture - Preliminary Resulted 07/15/24 12:00 Lung Pending Resulted 07/15/24 12:00 Lung Pending Resulted 07/15/24 12:00 Lung Pending Resulted 07/15/24 12:00 Lung Pending Resulted 07/15/24 12:00 Lung - Final See Separate Report... Resulted 07/15/24 12:00 Drainage Viral Culture - Preliminary Resulted 07/12/24 10:47 Voided Urine Urine Culture - Final Complete 07/11/24 21:08 Blood Blood Culture - Final NO GROWTH AFTER 5 DAYS OF INCUBATION. Complete Labs and/or images reviewed: Labs reviewed by me, Image(s) reviewed by me Assessment/Plan Assessment/Plan acute respiratory failure secondary to influenza-vent dependent/failed cpap trial today- enormous secretions per nursing secondary mrsa lung infection sepsis secondary to above atrial fibrillation stable cad stable acute on chronic chronic chf stable dvt prophylaxis- lovenox on hold due to low platelets and dropin hb- no active bleeding now/scd gi prophylaxis tube feeds constipation treat anemia stable- no active bleeding Plan discussed with: Patient Date of Service: Jul 21, 2024 Billing Provider: ADITI MENA MD Common Visit Codes: [id number] CARE-EACH +30MIN ADITI MENA MD Jul 21, 2024 13:46
--- NOTE | 2024-07-21 14:47 | DVH ---
Date: 07/21/2024 01:59 PM Examination: XY KUB ABDOMEN SINGLE VIEW History: CONSTIPATION Comparison: None TECHNIQUE: Frontal views of the abdomen was obtained. FINDINGS: Bowel gas pattern is unremarkable. The lung bases are unremarkable. No acute osseous abnormality identified. IMPRESSION: 1. Nonobstructive bowel gas pattern.
[2024-07-21] MEDS: LACTULOSE 20Gm/30ML SOLN PO ONE (17:38)
--- NOTE | 2024-07-21 21:36 | DVHPN2 ---
Progress Note - Dictate Date Seen: Jul 21, 2024 Medical Necessity Reason Pt with a Central, PICC or Fol: Yes The following are medically ne: Central Line, Michel Catheter Reason for michel catheter: Strict I&O Subjective Patient seen and examined at bedside. Sedated, intubated on mechanical ventilator. Overnight events reviewed. vital signs Vital Sign Date Time Temp Pulse Resp B/P (MAP) Pulse Ox O2 Delivery O2 Flow Rate FiO2 07/21/24 20:05 79 20 128/69 (88) 98 35 07/21/24 19:00 98.6 209.5 07/21/24 18:00 Mechanical Ventilator+ Total Intake and Output 07/20/24 07/20/24 07/21/24 15:00 23:00 07:00 Intake Total 63.125 ml 375.7 ml 541.218 ml Output Total 0 ml 475 ml 725 ml Balance 63.125 ml -99.3 ml -183.782 ml medications Current Medications Medications Dose Ordered Sig/Maurice Route Start Time Stop Time Status Last Admin Dose Admin Levothyroxine Sodium 200 mcg QAM PO 07/12/24 07:00 07/21/24 06:18 200 MCG Midazolam HCl 50 ml @ 1 mls/hr Q24H IV 07/12/24 08:30 07/19/24 10:13 6 MLS/HR Fentanyl Citrate 250 ml @ 2.5 mls/hr Q24H IV 07/12/24 08:30 07/21/24 13:51 12.5 MLS/HR Vancomycin HCl 0 ml @ 0 mls/hr UD IV 07/12/24 12:45 Pantoprazole Sodium 40 mg DAILY IV 07/13/24 10:00 07/21/24 10:21 40 MG Vancomycin HCl 200 ml @ 200 mls/hr Q1H IV 07/12/24 13:00 07/12/24 14:59 Cancel Phenylephrine HCl 80 mg/Sodium Chloride 250 ml @ 7.5 mls/hr Q24H IV 07/12/24 19:30 07/13/24 03:31 7.5 MLS/HR Insulin Glargine 10 units DAILY@1000 SC 07/14/24 10:00 07/20/24 12:29 10 UNITS Digoxin 125 mcg MWF IV 07/16/24 10:00 07/20/24 10:39 125 MCG Acetaminophen 650 mg Q6HP PRN [place] 07/14/24 17:00 07/15/24 10:32 650 MG Sodium Chloride 10 ml QSHIFT@10,22 IV 07/14/24 22:00 07/21/24 10:22 10 ML Dextrose 50 ml UD IV 07/15/24 15:00 Cancel Amiodarone HCl 200 mg Q12HR GT 07/17/24 22:00 07/21/24 10:21 200 MG Enteral Nutritional Formula 1,000 ml 40ML/HR GT 07/17/24 12:30 07/17/24 22:28 1,000 ML Diagnostic Test (Pha) 1 strip Q6HR 07/17/24 18:00 07/21/24 17:36 1 STRIP Insulin Human Regular Q6HR SC 07/17/24 18:00 07/21/24 00:30 2 UNITS Dextrose 50 ml UD PRN IV 07/17/24 13:15 Vancomycin HCl 200 ml @ 200 mls/hr DAILY@0400 IV 07/18/24 04:00 07/21/24 04:15 200 MLS/HR Sennosides 8.6 mg HS PO 07/18/24 22:00 07/20/24 22:04 8.6 MG Furosemide 40 mg DAILY IV 07/20/24 10:00 07/21/24 10:22 40 MG Docusate Sodium 100 mg BID GT 07/19/24 22:00 07/21/24 10:21 100 MG Norepinephrine Bitartrate 32 mg/ Sodium Chloride 250 ml @ 0.938 mls/ hr Q24H IV 07/19/24 18:15 Propofol 100 ml @ 3.111 mls/ hr Q24H IV 07/19/24 19:45 07/21/24 08:13 12.444 MLS/HR objective Gen.: Patient lying in bed in medical ICU. Sedated, intubated on mechanical ventilator. Head: Normocephalic, atraumatic. Eyes: PERRLA. Ears: Normal external anatomy. Throat: Endotracheal tube and orogastric tube in place. Neck: Supple, trachea midline. Chest: Transmitted breath sounds bilaterally. Decreased air entry bilaterally. No wheezing. Bibasilar crackles. Cardiovascular: Positive S1, positive S2. Regular rate and rhythm. Abdomen: Positive bowel sounds in all 4 quadrants. Soft, nontender, nondistended. : Michel in place. Normal external genitalia. Rectal: Deferred. Skin: Warm, dry. Intact. Extremities: 2+ radial pulses bilaterally. No lower extremity edema. Neuro: Sedated. laboratory and microbiology Laboratory Tests 07/21/24 03:31 Test 07/21/24 03:31 Range/Units Serum Glucose 130 H 74-106 mg/dL Assessment/Plan Impression: Acute hypoxic respiratory failure secondary to multifocal pneumonia and pulmonary edema Acute respiratory distress syndrome Multifocal pneumonia likely Gram-negative Pulmonary edema Leukopenia Septic shock Influenza type a Atrial fibrillation with RVR Chronic congestive heart failure Status post AICD CAD status post PTCA Insulin-dependent diabetes mellitus Acute kidney injury Events: Remains on vent support AC mode with respiratory rate 20, tidal volume 450, PEEP of 5, FiO2 35% CXR image and report reviewed. Devices in place. Multifocal airspace disease. ABG reviewed, compensated. Sedated on Fentanyl, Propofol. Precedex drip. Will discuss bronchoscopy with family in AM - pt with thick secretions. Amiodarone drip for AFib Continue antibiotics IV fluid hydration at 125 ml/hr. Diurese w/ Lasix as tolerated Monitor renal function Monitor electrolytes, supplement as necessary S/p bronchoscopy on 07/15 with RML BAL. See procedure note for details. Labs and imaging reviewed. Rest of plan as noted below. Plan: s/p intubation on mechanical ventilator. Vent settings; AC mode with respiratory rate 20, tidal volume 450, PEEP of 5, FiO2 35% Titrate FIO2 to keep O2 saturation above 90%. VAP bundle. Daily ABG and CXR while intubated Sedated for ventilatory synchrony CXR, ABG reviewed. Pressors as necessary for hemodynamic support. Titrate to keep MAP above 65 mmHg/SBP above 90 mmHg. Stress dose steroids Received dose of albumin. Continue antibiotics. F/u cultures. Send sputum, blood cultures and urine cultures Monitor renal function due to Acute kidney injury. Creatinine trending down Monitor electrolytes. Supplement as necessary. Supplemented potassium and magnesium stat. On IV fluids, lactic acid trending down. Accucheks, ISS. GI/DVT prophylaxis. Condition: Critical Prognosis: Poor given multiple comorbidities. Rest of plan per hospitalist and other consultants. A total of 35 minutes of critical care time was spent reviewing the patient record, examining the patient, making a diagnostic and therapeutic plan, discussing this plan with the medical personnel, following up on diagnostic studies and following the patient for clinical stability excluding any and all procedures. At least 50% of this time was spent in direct, [id number] contact. Thank you JOSH Hatfield for allowing me to participate in this patient's care. Further recommendations will depend on patient's clinical course. Please do not hesitate to contact me if you have any questions or concerns. This medical document was created using an electronic medical record system with [employer] dictation system. Although this document has been carefully reviewed, there may still be some phonetic and typographical errors. These areas are purely typographical due to imperfections of the software programs, and do not reflect any compromise in the patient's medical care. Dietary Evaluation Review Comments: Advance to 2 gNa CCHO-60 diet when medically feasible. Pt's lipid pannel shows Cholesterol and LDL at lower mragin range, thus no restrictions on fat or cholesterol needed. Expected Outcomes/Goals: gradual weight loss, controlled DM, Plan discussed with: Other (ANGELO Dow) Critical Care Time(min): 35 LINDSEY ROSALES MD Jul 21, 2024 21:36
[2024-07-22] VITALS (105 sets, daily range): BP systolic 91–138; BP diastolic 44–69; PULSE 68–81; RESP 11–28; TEMP 97.9–99.5; O2SAT 90–100
[2024-07-22 03:35] LABS: Basophils # (auto) 0 10 ^3/uL (0-0.2); Basophils % (auto) 0.1 % (0.0-2.0); Eosinophils # (auto) 0 10 ^3/uL (0-0.8); Eosinophils % (auto) 0.2 % (0.0-7.0); Hematocrit 29.9 % (41.0-53.0); Hemoglobin 10.2 g/dL (13.5-17.5); Lymphocytes # (auto) 0.4 10 ^3/uL (0.4-5.4); Lymphocytes % (auto) 4.5 % (10.0-50.0); Mean Corpuscular Hemoglobin 31.6 pg (28.0-32.0); Mean Corpuscular Hgb Conc. 34.1 g/dL (32.0-36.0); Mean Corpuscular Volume 92.9 fL (80.0-100.0); Monocytes # (auto) 0.3 10 ^3/uL (0-1.3); Monocytes % (auto) 2.9 % (0.0-12.0); Neutrophils # (auto) 9.1 10 ^3/uL (1.6-8.6); Neutrophils % (auto) 92.3 % (37.0-80.0); Nucleated Red Blood Cells % 0.1 %; Platelet Count (auto) 99 10^3/uL (140-450); Red Blood Cells 3.22 10^6/uL (4.5-5.90); Red Cell Distribution Width 15.1 % (11.8-14.3); White Blood Cell 9.8 10^3/uL (4.4-10.8)
[2024-07-22 04:57] LABS: Alanine Aminotransferase 13 U/L (7-40); Albumin 2.6 g/dL (3.2-4.8); Alkaline Phosphatase 92 U/L (46-116); Anion Gap 5 (5-15); Aspartate Aminotransferase 20 U/L (13-40); BUN/Creatinine Ratio 48.6 (10.0-20.0); Bilirubin, Total 0.7 mg/dL (0.2-1.0); Blood Urea Nitrogen 34 mg/dL (9-23); Calcium 8.5 mg/dL (8.7-10.4); Carbon Dioxide 30 mmol/L (20-31); Chloride 106 mmol/L (98-107); Glucose 166 mg/dL (74-106); Potassium 4.2 mmol/L (3.5-5.1); Sodium 141 mmol/L (136-145); Total Protein 5.6 g/dL (5.7-8.2)
--- NOTE | 2024-07-22 10:47 | DVHPN2 ---
Subjective chart reviwed/pt intubated still with enormous bronchila secretions and pulmonary is planning to repeat bronchoscopy Reviewed: Care Plan Changes from previous H/P or p: No Changes Eyes: No Pain, No Vision change, No Conjunctivae inflammation, No Eyelid inflammation, No Other, No Redness ENT: No Ear pain, No Ear discharge, No Nose pain, No Nose discharge, No Nose congestion, No Mouth pain, No Mouth swelling, No Throat pain, No Throat swelling, No Other Cardiovascular: No Chest Pain, No Palpitations, No Orthopnea, No Paroxysmal Noc. Dyspnea, No Edema, No Lt Headedness, No Other Respiratory: No Cough, No Dry, No Shortness of breath, No SOB with excertion, No Wheezing, No Hemoptysis, No Pleuritic Pain, No Sputum, No Other Gastrointestinal: No Nausea, No Vomiting, No Abdominal Pain, No Diarrhea, No Constipation, No Melena, No Hematochezia, No Other Genitourinary: No Dysuria, No Frequency, No Incontinence, No Hematuria, No Retention, No Other Musculoskeletal: No other, No neck pain, No shoulder pain, No arm pain, No back pain, No hand pain, No leg pain, No foot pain Skin: No Rash, No Lesions, No Jaundice, No Bruising, No Other Objective Vitals Vital Signs Date Time Temp Pulse Resp B/P (MAP) Pulse Ox O2 Delivery O2 Flow Rate FiO2 07/22/24 10:23 73 20 115/53 (73) 97 30 07/22/24 08:45 98.6 209.5 07/22/24 08:00 Mechanical Ventilator+ Intake/Output Intake and Output 07/22/24 07:00 Intake Total 1532.868 ml Output Total 2475 ml Balance -942.132 ml Intake Oral 110 ml IV Total 646.868 ml Tube Feeding 776 ml Output Urine Total 2475 ml General Appearance: Other (sedated and intubated) HEENT: PERRLA Lungs: Clear to auscultation, Normal air movement Cardiovascular: Regular rate, Normal S1, Normal S2 Abdomen: Normal bowel sounds Extremities: Other (edema) Neuro: Other (sedated on vent) Medications Current Medications Medications Dose Ordered Sig/Maurice Route Start Time Stop Time Status Last Admin Dose Admin Levothyroxine Sodium 200 mcg QAM PO 07/12/24 07:00 07/22/24 06:47 200 MCG Midazolam HCl 50 ml @ 1 mls/hr Q24H IV 07/12/24 08:30 07/19/24 10:13 6 MLS/HR Fentanyl Citrate 250 ml @ 2.5 mls/hr Q24H IV 07/12/24 08:30 07/22/24 05:46 15 MLS/HR Vancomycin HCl 0 ml @ 0 mls/hr UD IV 07/12/24 12:45 Pantoprazole Sodium 40 mg DAILY IV 07/13/24 10:00 07/21/24 10:21 40 MG Vancomycin HCl 200 ml @ 200 mls/hr Q1H IV 07/12/24 13:00 07/12/24 14:59 Cancel Phenylephrine HCl 80 mg/Sodium Chloride 250 ml @ 7.5 mls/hr Q24H IV 07/12/24 19:30 07/13/24 03:31 7.5 MLS/HR Insulin Glargine 10 units DAILY@1000 SC 07/14/24 10:00 07/20/24 12:29 10 UNITS Digoxin 125 mcg MWF IV 07/16/24 10:00 07/20/24 10:39 125 MCG Acetaminophen 650 mg Q6HP PRN [place] 07/14/24 17:00 07/15/24 10:32 650 MG Sodium Chloride 10 ml QSHIFT@10,22 IV 07/14/24 22:00 07/21/24 22:21 10 ML Dextrose 50 ml UD IV 07/15/24 15:00 Cancel Amiodarone HCl 200 mg Q12HR GT 07/17/24 22:00 07/21/24 22:21 200 MG Enteral Nutritional Formula 1,000 ml 40ML/HR GT 07/17/24 12:30 07/17/24 22:28 1,000 ML Diagnostic Test (Pha) 1 strip Q6HR 07/17/24 18:00 07/22/24 05:49 1 STRIP Insulin Human Regular Q6HR SC 07/17/24 18:00 07/22/24 05:49 2 UNITS Dextrose 50 ml UD PRN IV 07/17/24 13:15 Vancomycin HCl 200 ml @ 200 mls/hr DAILY@0400 IV 07/18/24 04:00 07/21/24 04:15 200 MLS/HR Sennosides 8.6 mg HS PO 07/18/24 22:00 11/16/24 22:21 8.6 MG Furosemide 40 mg DAILY IV 07/20/24 10:00 07/21/24 10:22 40 MG Docusate Sodium 100 mg BID GT 07/19/24 22:00 07/21/24 22:20 100 MG Norepinephrine Bitartrate 32 mg/ Sodium Chloride 250 ml @ 0.938 mls/ hr Q24H IV 07/19/24 18:15 Propofol 100 ml @ 3.111 mls/ hr Q24H IV 07/19/24 19:45 07/22/24 07:00 18.666 MLS/HR Laboratory Results Laboratory Tests 07/22/24 03:00 Chemistry Test 07/22/24 03:00 Albumin 2.6 g/dL (3.2-4.8) L Calcium Level 8.5 mg/dL (8.7-10.4) L Total Protein 5.6 g/dL (5.7-8.2) L LFT Test 07/22/24 03:00 Alanine Aminotransferase (ALT) 13 U/L (7-40) Alkaline Phosphatase 92 U/L (46-116) Aspartate Amino Transferase (AST) 20 U/L (13-40) Total Bilirubin 0.7 mg/dL (0.2-1.0) Urinalysis Test 07/11/24 15:12 Urine Color Yellow (Yellow) Urine Clarity Clear (Clear) Urine pH 5.5 (5.0-9.0) Urine Specific [place] 1.027 (1.001-1.035) Urine Protein 1+ (Negative) H Urine Ketones 2+ (Negative) H Urine Blood Negative /uL (Negative) Urine Nitrite Negative (Negative) Urine Bilirubin Negative (Negative) Urine Urobilinogen Normal mg/dL (Negative) Urine Leukocyte Esterase Negative /uL (Negative) Urine RBC 1 /hpf (0 - 3) Urine WBC 3 /hpf (0 - 3) Urine Squamous Epithelial Cells Few /hpf (<5) Urine Bacteria None seen /hpf (None Seen) Urine Glucose 4+ mg/dL (Normal) H Microbiology Microbiology Date/Time Source Procedure Growth Status 07/19/24 10:10 Bronchial Brushings Gram Stain - Final Resulted 07/19/24 10:10 Respiratory Culture - Preliminary Methicillin Resistant S.aureus Presumptive Ct albicans Resulted 07/15/24 12:00 Lung - Final Resulted 07/15/24 12:00 Lung - Final Resulted 07/15/24 12:00 Lung Pending Resulted 07/15/24 12:00 Lung Pending Resulted 07/15/24 12:00 Lung - Final See Separate Report... Resulted 07/15/24 12:00 Drainage Viral Culture - Preliminary Resulted 07/12/24 10:47 Voided Urine Urine Culture - Final Complete 07/11/24 21:08 Blood Blood Culture - Final NO GROWTH AFTER 5 DAYS OF INCUBATION. Complete Assessment/Plan Assessment/Plan acute respiratory failure secondary to influenza-vent dependent/failed cpap trial today- enormous secretions per nursing secondary mrsa lung infection-witn enormous scretions- pln is to rebronch per pulmonary sepsis secondary to above atrial fibrillation stable cad stable acute on chronic chronic chf stable dvt prophylaxis- lovenox on hold due to low platelets and dropin hb- no active bleeding now/scd gi prophylaxis tube feeds constipation treat anemia stable- no active bleeding Plan discussed with: Other My Orders Orders - ADITI MENA MD Procedure Category Date Status Time Kub Abdomen Single XY 07/21/24 Resulted View 13:54 *Consult CONS 07/21/24 Transmitted / 14:48 Date of Service: Jul 22, 2024 Billing Provider: ADITI MENA MD Common Visit Codes: [id number] CARE 30-74 MIN ADITI MENA MD Jul 22, 2024 10:47
[2024-07-22] MEDS: VANCOMYCIN 1GM/250ML KIT 200 ML IV ONE (16:35)
--- NOTE | 2024-07-22 19:35 | DVHNC2 ---
Procedure - Bronchoscopy procedure note: Indications: Possible mucous plugging. Medicines: See DIRECT MAIL MANAGER notes. Complications: None Procedure: Patient medications and allergies reviewed. The risks and benefits of the procedure and the sedation options and risk were discussed with the patient's healthcare proxy. All questions were answered and informed consent was obtained. Patient identification and proposed procedure were verified prior to the procedure by the physician, and a nurse, and the respiratory therapist in ICU room. The heart rate, respiratory rate, oxygen saturations, blood pressure, adequacy of pulmonary ventilation, and response to care were monitored throughout the procedure. The physical status of the patient was reassessed after the procedure. After obtaining informed consent, the bronchoscope was introduced through the endotracheal tube and advanced into the trachea bronchial tree of both lungs. The procedure was accomplished without difficulty. The patient tolerated the procedure well. Findings: The trachea is in normal caliber. The david is sharp. The tracheobronchial tree of the right lung was examined to at least the first subsegmental level. The bronchial mucosa remains erythematous. The anatomy in the right lung are normal. There are no endobronchial lesions. There was copious whitish secretions from right main stem bronchus onward throughout R1-R10. Mucous plugging found in R1-R10. The white thick secretions coating the inside of right lung have improved. Right lower lobe (RLL) Bronchoalveolar lavage (BAL) obtained. RML BAL sent for gram stain and culture, viral culture, and fungal culture. The left upper lobe, lingula, and left lower lobe were examined to at least the first subsegmental level. Bronchial mucosa remains erythematous. The anatomy in the left upper lobe, lingula and left lower lobe are normal. There were no endobronchial lesions. There was copious whitish secretions from left main stem bronchus onward throughout L1-L10. Mucous plugging removed from L1-L4. There was no active bleeding at the completion of the procedure. Estimated blood loss: Less than 5 mL. Impression: Atelectasis due to mucous plugging in R1-R10 and L1-L4 RLL BAL performed Recommendation: Follow-up RLL BAL results. Procedure codes: 26524, bronchoscopy, rigid and flexible, including fluoroscopic guidance, one performed; with bronchial endobronchial broncho-alveolar lavage, single or multiple sites LINDSEY ROSALES MD Jul 22, 2024 19:35
--- NOTE | 2024-07-22 21:27 | DVHPN2 ---
Progress Note - Dictate Date Seen: Jul 22, 2024 Medical Necessity Reason Pt with a Central, PICC or Fol: Yes The following are medically ne: Central Line, Michel Catheter Reason for michel catheter: Strict I&O Subjective Patient seen and examined at bedside. Sedated, intubated on mechanical ventilator. Overnight events reviewed. vital signs Vital Sign Date Time Temp Pulse Resp B/P (MAP) Pulse Ox O2 Delivery O2 Flow Rate FiO2 07/22/24 20:30 98.8 73 20 103/55 (71) 94 209.8 07/22/24 20:05 35 07/22/24 20:00 Mechanical Ventilator+ Total Intake and Output 07/21/24 07/21/24 07/22/24 15:00 23:00 07:00 Intake Total 161.832 ml 609.416 ml 761.62 ml Output Total 1875 ml 600 ml Balance 161.832 ml -1265.584 ml 161.62 ml medications Current Medications Medications Dose Ordered Sig/Maurice Route Start Time Stop Time Status Last Admin Dose Admin Levothyroxine Sodium 200 mcg QAM PO 07/12/24 07:00 07/22/24 06:47 200 MCG Midazolam HCl 50 ml @ 1 mls/hr Q24H IV 07/12/24 08:30 07/19/24 10:13 6 MLS/HR Fentanyl Citrate 250 ml @ 2.5 mls/hr Q24H IV 07/12/24 08:30 07/22/24 05:46 15 MLS/HR Vancomycin HCl 0 ml @ 0 mls/hr UD IV 07/12/24 12:45 Pantoprazole Sodium 40 mg DAILY IV 07/13/24 10:00 07/22/24 10:36 40 MG Vancomycin HCl 200 ml @ 200 mls/hr Q1H IV 07/12/24 13:00 07/12/24 14:59 Cancel Phenylephrine HCl 80 mg/Sodium Chloride 250 ml @ 7.5 mls/hr Q24H IV 07/12/24 19:30 07/13/24 03:31 7.5 MLS/HR Insulin Glargine 10 units DAILY@1000 SC 07/14/24 10:00 07/22/24 10:45 10 UNITS Digoxin 125 mcg MWF IV 07/16/24 10:00 07/20/24 10:39 125 MCG Acetaminophen 650 mg Q6HP PRN [place] 07/14/24 17:00 07/15/24 10:32 650 MG Sodium Chloride 10 ml QSHIFT@10,22 IV 07/14/24 22:00 07/22/24 10:36 10 ML Dextrose 50 ml UD IV 07/15/24 15:00 Cancel Amiodarone HCl 200 mg Q12HR GT 07/17/24 22:00 07/22/24 10:34 200 MG Enteral Nutritional Formula 1,000 ml 40ML/HR GT 07/17/24 12:30 07/17/24 22:28 1,000 ML Diagnostic Test (Pha) 1 strip Q6HR 07/17/24 18:00 07/22/24 18:06 1 STRIP Insulin Human Regular Q6HR SC 07/17/24 18:00 07/22/24 05:49 2 UNITS Dextrose 50 ml UD PRN IV 07/17/24 13:15 Vancomycin HCl 200 ml @ 200 mls/hr DAILY@0400 IV 07/18/24 04:00 07/21/24 04:15 200 MLS/HR Sennosides 8.6 mg HS PO 07/18/24 22:00 07/21/24 22:21 8.6 MG Furosemide 40 mg DAILY IV 07/20/24 10:00 07/22/24 10:36 40 MG Docusate Sodium 100 mg BID GT 07/19/24 22:00 07/22/24 10:34 100 MG Norepinephrine Bitartrate 32 mg/ Sodium Chloride 250 ml @ 0.938 mls/ hr Q24H IV 07/19/24 18:15 Propofol 100 ml @ 3.111 mls/ hr Q24H IV 07/19/24 19:45 07/22/24 18:06 18.666 MLS/HR objective Gen.: Patient lying in bed in medical ICU. Sedated, intubated on mechanical ventilator. Head: Normocephalic, atraumatic. Eyes: PERRLA. Ears: Normal external anatomy. Throat: Endotracheal tube and orogastric tube in place. Neck: Supple, trachea midline. Chest: Transmitted breath sounds bilaterally. Decreased air entry bilaterally. No wheezing. Bibasilar crackles. Cardiovascular: Positive S1, positive S2. Regular rate and rhythm. Abdomen: Positive bowel sounds in all 4 quadrants. Soft, nontender, nondistended. : Michel in place. Normal external genitalia. Rectal: Deferred. Skin: Warm, dry. Intact. Extremities: 2+ radial pulses bilaterally. No lower extremity edema. Neuro: Sedated. laboratory and microbiology Laboratory Tests 07/22/24 03:00 Test 07/22/24 03:00 Range/Units Serum Glucose 166 H 74-106 mg/dL Assessment/Plan Impression: Acute hypoxic respiratory failure secondary to multifocal pneumonia and pulmonary edema Acute respiratory distress syndrome Multifocal pneumonia likely Gram-negative Pulmonary edema Leukopenia Septic shock Influenza type a Atrial fibrillation with RVR Chronic congestive heart failure Status post AICD CAD status post PTCA Insulin-dependent diabetes mellitus Acute kidney injury Events: Remains on vent support AC mode with respiratory rate 20, tidal volume 450, PEEP of 5, FiO2 35% CXR image and report reviewed. Devices in place. Multifocal airspace disease. Sedated on Fentanyl, Propofol. Plan for bronchoscopy to clear mucous plugs. Amiodarone drip for AFib Continue antibiotics - vancomycin IV fluid hydration at 125 ml/hr. Tube feeds for nutritional support Diurese w/ Lasix as tolerated Monitor renal function Monitor electrolytes, supplement as necessary S/p bronchoscopy on 07/15 with RML BAL. See procedure note for details. Labs and imaging reviewed. Rest of plan as noted below. Plan: s/p intubation on mechanical ventilator. Vent settings; AC mode with respiratory rate 20, tidal volume 450, PEEP of 5, FiO2 35% Titrate FIO2 to keep O2 saturation above 90%. VAP bundle. Daily ABG and CXR while intubated Sedated for ventilatory synchrony CXR, ABG reviewed. Pressors as necessary for hemodynamic support. Titrate to keep MAP above 65 mmHg/SBP above 90 mmHg. Stress dose steroids Received dose of albumin. Continue antibiotics. F/u cultures. Send sputum, blood cultures and urine cultures Monitor renal function due to Acute kidney injury. Creatinine trending down Monitor electrolytes. Supplement as necessary. Supplemented potassium and magnesium stat. On IV fluids, lactic acid trending down. Accucheks, ISS. GI/DVT prophylaxis. Condition: Critical Prognosis: Poor given multiple comorbidities. Rest of plan per hospitalist and other consultants. A total of 35 minutes of critical care time was spent reviewing the patient record, examining the patient, making a diagnostic and therapeutic plan, discussing this plan with the medical personnel, following up on diagnostic studies and following the patient for clinical stability excluding any and all procedures. At least 50% of this time was spent in direct, [id number] contact. Thank you JOSH Hatfield for allowing me to participate in this patient's care. Further recommendations will depend on patient's clinical course. Please do not hesitate to contact me if you have any questions or concerns. This medical document was created using an electronic medical record system with [employer] dictation system. Although this document has been carefully reviewed, there may still be some phonetic and typographical errors. These areas are purely typographical due to imperfections of the software programs, and do not reflect any compromise in the patient's medical care. Dietary Evaluation Review Comments: Advance to 2 gNa CCHO-60 diet when medically feasible. Pt's lipid pannel shows Cholesterol and LDL at lower mragin range, thus no restrictions on fat or cholesterol needed. Expected Outcomes/Goals: gradual weight loss, controlled DM, Plan discussed with: Other (ANGELO Marte) Critical Care Time(min): 35 LINDSEY ROSALES MD Jul 22, 2024 21:27
[2024-07-23] VITALS (108 sets, daily range): BP systolic 85–168; BP diastolic 35–80; PULSE 69–98; RESP 10–26; TEMP 98.8–99.7; O2SAT 89–100
--- NOTE | 2024-07-23 03:57 | DVH ---
CHEST RADIOGRAPH Indication:post bronchoscopy Technique: Single frontal view of the chest was obtained Comparison: XY CHEST XRAY 1 VIEW on DOS: 07/21/24, XY CHEST XRAY 1 VIEW on DOS: 07/20/24, XY CHEST XR AY 1 VIEW on DOS: 07/19/24, XY CHEST XRAY 1 VIEW on DOS: 07/18/24, XY CHEST XRAY 1 VIEW on DOS: 07/17, XY CHEST XRAY 1 VIEW on DOS: 07/21/24 FINDINGS: Lines and Tubes: Endotracheal tube and enteric catheter in satisfactory position. Right PICC and lef t chest AICD in satisfactory position. Lungs: Multifocal airspace disease. Pleura: No effusion. No pneumothorax. Cardiomediastinal contours: Cardiomegaly. Bones: Unremarkable IMPRESSION: 1. Lines and tubes in satisfactory position. No significant interval change. No pneumothorax status p ost bronchoscopy.
[2024-07-23 04:22] LABS: Basophils # (auto) 0 10 ^3/uL (0-0.2); Basophils % (auto) 0.1 % (0.0-2.0); Eosinophils # (auto) 0 10 ^3/uL (0-0.8); Eosinophils % (auto) 0.5 % (0.0-7.0); Hemoglobin 9.7 g/dL (13.5-17.5); Lymphocytes # (auto) 0.6 10 ^3/uL (0.4-5.4); Lymphocytes % (auto) 7.4 % (10.0-50.0); Mean Corpuscular Hgb Conc. 34.7 g/dL (32.0-36.0); Mean Corpuscular Volume 92.4 fL (80.0-100.0); Monocytes # (auto) 0.3 10 ^3/uL (0-1.3); Monocytes % (auto) 3.5 % (0.0-12.0); Neutrophils # (auto) 7.7 10 ^3/uL (1.6-8.6); Neutrophils % (auto) 88.5 % (37.0-80.0); Platelet Count (auto) 128 10^3/uL (140-450); Red Blood Cells 3.04 10^6/uL (4.5-5.90); Red Cell Distribution Width 15.3 % (11.8-14.3); White Blood Cell 8.7 10^3/uL (4.4-10.8)
[2024-07-23 07:56] LABS: Base Excess 6.5 mmol/L (-2.0-3.0)
--- NOTE | 2024-07-23 10:50 | DVHPN2 ---
Subjective Intubated and sedated FiO2 40% PEEP 5 Reviewed: Care Plan Changes from previous H/P or p: Changes Eyes: No Pain, No Vision change, No Conjunctivae inflammation, No Eyelid inflammation, No Other, No Redness ENT: No Ear pain, No Ear discharge, No Nose pain, No Nose discharge, No Nose congestion, No Mouth pain, No Mouth swelling, No Throat pain, No Throat swelling, No Other Cardiovascular: No Chest Pain, No Palpitations, No Orthopnea, No Paroxysmal Noc. Dyspnea, No Edema, No Lt Headedness, No Other Respiratory: No Cough, No Dry, No Shortness of breath, No SOB with excertion, No Wheezing, No Hemoptysis, No Pleuritic Pain, No Sputum, No Other Gastrointestinal: No Nausea, No Vomiting, No Abdominal Pain, No Diarrhea, No Constipation, No Melena, No Hematochezia, No Other Genitourinary: No Dysuria, No Frequency, No Incontinence, No Hematuria, No Retention, No Other Musculoskeletal: No other, No neck pain, No shoulder pain, No arm pain, No back pain, No hand pain, No leg pain, No foot pain Skin: No Rash, No Lesions, No Jaundice, No Bruising, No Other Objective Vitals Vital Signs Date Time Temp Pulse Resp B/P (MAP) Pulse Ox O2 Delivery O2 Flow Rate FiO2 07/23/24 09:51 111/49 07/23/24 09:50 73 07/23/24 09:50 20 94 40 07/23/24 08:00 Mechanical Ventilator+ 07/23/24 06:45 99.0 210.2 Intake/Output Intake and Output 07/23/24 07:00 Intake Total 1206.52 ml Output Total 2050 ml Balance -843.48 ml Intake Oral 60 ml IV Total 970.52 ml Tube Feeding 176 ml Output Urine Total 2050 ml General Appearance: Other (Intubated and sedated) Lungs: Other (B rhonchi) Cardiovascular: Regular rate, Normal S1, Normal S2, No murmurs Abdomen: Normal bowel sounds, Soft, No tenderness Extremities: Other (1+ edema B all extremities more in upper exts) Neuro: Other (sedated on vent) Medications Current Medications Medications Dose Ordered Sig/Maurice Route Start Time Stop Time Status Last Admin Dose Admin Levothyroxine Sodium 200 mcg QAM PO 07/12/24 07:00 07/23/24 05:49 200 MCG Midazolam HCl 50 ml @ 1 mls/hr Q24H IV 07/12/24 08:30 07/19/24 10:13 6 MLS/HR Fentanyl Citrate 250 ml @ 2.5 mls/hr Q24H IV 07/12/24 08:30 07/22/24 05:46 15 MLS/HR Vancomycin HCl 0 ml @ 0 mls/hr UD IV 07/12/24 12:45 Pantoprazole Sodium 40 mg DAILY IV 07/13/24 10:00 07/23/24 09:51 40 MG Vancomycin HCl 200 ml @ 200 mls/hr Q1H IV 07/12/24 13:00 07/12/24 14:59 Cancel Phenylephrine HCl 80 mg/Sodium Chloride 250 ml @ 7.5 mls/hr Q24H IV 07/12/24 19:30 07/13/24 03:31 7.5 MLS/HR Insulin Glargine 10 units DAILY@1000 SC 07/14/24 10:00 07/23/24 10:06 10 UNITS Digoxin 125 mcg MWF IV 07/16/24 10:00 07/23/24 09:50 125 MCG Acetaminophen 650 mg Q6HP PRN [place] 07/14/24 17:00 07/15/24 10:32 650 MG Sodium Chloride 10 ml QSHIFT@10,22 IV 07/14/24 22:00 07/23/24 09:51 10 ML Dextrose 50 ml UD IV 07/15/24 15:00 Cancel Amiodarone HCl 200 mg Q12HR GT 07/17/24 22:00 07/23/24 09:50 200 MG Enteral Nutritional Formula 1,000 ml 40ML/HR GT 07/17/24 12:30 07/17/24 22:28 1,000 ML Diagnostic Test (Pha) 1 strip Q6HR 07/17/24 18:00 07/23/24 05:49 1 STRIP Insulin Human Regular Q6HR SC 07/17/24 18:00 07/22/24 23:20 2 UNITS Dextrose 50 ml UD PRN IV 07/17/24 13:15 Vancomycin HCl 200 ml @ 200 mls/hr DAILY@0400 IV 07/18/24 04:00 07/23/24 03:30 200 MLS/HR Sennosides 8.6 mg HS PO 07/18/24 22:00 07/22/24 21:59 8.6 MG Furosemide 40 mg DAILY IV 07/20/24 10:00 07/23/24 09:51 40 MG Docusate Sodium 100 mg BID GT 07/19/24 22:00 07/23/24 09:50 100 MG Norepinephrine Bitartrate 32 mg/ Sodium Chloride 250 ml @ 0.938 mls/ hr Q24H IV 07/19/24 18:15 Propofol 100 ml @ 3.111 mls/ hr Q24H IV 07/19/24 19:45 07/22/24 22:12 18.666 MLS/HR Laboratory Results Laboratory Tests 07/22/24 03:00 07/23/24 03:00 Urinalysis Test 07/11/24 15:12 Urine Color Yellow (Yellow) Urine Clarity Clear (Clear) Urine pH 5.5 (5.0-9.0) Urine Specific [place] 1.027 (1.001-1.035) Urine Protein 1+ (Negative) H Urine Ketones 2+ (Negative) H Urine Blood Negative /uL (Negative) Urine Nitrite Negative (Negative) Urine Bilirubin Negative (Negative) Urine Urobilinogen Normal mg/dL (Negative) Urine Leukocyte Esterase Negative /uL (Negative) Urine RBC 1 /hpf (0 - 3) Urine WBC 3 /hpf (0 - 3) Urine Squamous Epithelial Cells Few /hpf (<5) Urine Bacteria None seen /hpf (None Seen) Urine Glucose 4+ mg/dL (Normal) H Blood Gas Results Test 07/23/24 07:50 Arterial Blood pH 7.453 (7.350-7.450) FiO2 % 40.0 Microbiology Microbiology Date/Time Source Procedure Growth Status 07/22/24 00:00 Sputum Gram Stain Pending Resulted 07/22/24 00:00 Sputum Respiratory Culture - Preliminary Resulted 07/15/24 12:00 Lung - Final Resulted 07/15/24 12:00 Lung - Final Resulted 07/15/24 12:00 Lung Pending Resulted 07/15/24 12:00 Lung Pending Resulted 07/15/24 12:00 Lung - Final See Separate Report... Resulted 07/15/24 12:00 Drainage Viral Culture - Preliminary Resulted 07/12/24 10:47 Voided Urine Urine Culture - Final Complete 07/11/24 21:08 Blood Blood Culture - Final NO GROWTH AFTER 5 DAYS OF INCUBATION. Complete Assessment/Plan Assessment/Plan Acute hypoxic respiratory failure Multi-focal pneumonia, due to MRSA Influenza A Sepsis, improved Atrial fibrillation Acute on chronic CHF, EF 25% CAD Hypothyroidism DM2 Thrombocytopenia due to sepsis, improved PLAN: Sedation: Versed, Propofol, Fent GI prophylaxis: Protonix DVT prophylaxis: Add Lovenox PNA: Vancomycin AFIB: Amio, Dig, Sepsis: Improved CHF: Lasix 40 mg IV daily, increase to bid DM2: Lantus Plan discussed with: Other Date of Service: Jul 23, 2024 Billing Provider: MERLYN NARAYAN MD Common Visit Codes: [id number] CARE 30-74 MIN MERLYN NARAYAN MD Jul 23, 2024 10:50
[2024-07-23 12:29] LABS: Base Excess 5.4 mmol/L (-2.0-3.0)
[2024-07-23] MEDS: ALBUTEROL SULF 2.5 MG/0.5ML(0.5%) NEB SOLN NEB SCH (14:13)
[2024-07-23] MEDS: ACETYLCYSTEINE 20%(200MG/ML) SOL 4ML NEB SCH (14:13)
[2024-07-23] MEDS: FUROSEMIDE 40 MG/4 ML VIAL IV SCH (18:05)
[2024-07-23] MEDS: MUPIROCIN 2% OINT 15gm or 22gm FOR MRSA NARES EACHNOSTRI SCH (22:17)
--- NOTE | 2024-07-23 22:17 | DVHPN2 ---
Progress Note - Dictate Date Seen: Jul 23, 2024 Medical Necessity Reason Pt with a Central, PICC or Fol: Yes The following are medically ne: Central Line, Michel Catheter Reason for michel catheter: Strict I&O Subjective Patient seen and examined at bedside. Sedated, intubated on mechanical ventilator. Overnight events reviewed. vital signs Vital Sign Date Time Temp Pulse Resp B/P (MAP) Pulse Ox O2 Delivery O2 Flow Rate FiO2 07/23/24 21:00 99.3 76 20 114/46 (68) 96 210.7 07/23/24 20:04 40 07/23/24 20:00 Mechanical Ventilator+ Total Intake and Output 07/22/24 07/22/24 07/23/24 15:00 23:00 07:00 Intake Total 269.28 ml 329.28 ml 607.96 ml Output Total 1500 ml 550 ml Balance 269.28 ml -1170.72 ml 57.96 ml medications Current Medications Medications Dose Ordered Sig/Maurice Route Start Time Stop Time Status Last Admin Dose Admin Levothyroxine Sodium 200 mcg QAM PO 07/12/24 07:00 07/23/24 05:49 200 MCG Midazolam HCl 50 ml @ 1 mls/hr Q24H IV 07/12/24 08:30 07/19/24 10:13 6 MLS/HR Fentanyl Citrate 250 ml @ 2.5 mls/hr Q24H IV 07/12/24 08:30 07/23/24 15:24 15 MLS/HR Pantoprazole Sodium 40 mg DAILY IV 07/13/24 10:00 07/23/24 09:51 40 MG Vancomycin HCl 200 ml @ 200 mls/hr Q1H IV 07/12/24 13:00 07/12/24 14:59 Cancel Phenylephrine HCl 80 mg/Sodium Chloride 250 ml @ 7.5 mls/hr Q24H IV 07/12/24 19:30 07/13/24 03:31 7.5 MLS/HR Insulin Glargine 10 units DAILY@1000 SC 07/14/24 10:00 07/23/24 10:06 10 UNITS Digoxin 125 mcg MWF IV 07/16/24 10:00 07/23/24 09:50 125 MCG Acetaminophen 650 mg Q6HP PRN HI 07/14/24 17:00 07/15/24 10:32 650 MG Sodium Chloride 10 ml QSHIFT@10,22 IV 07/14/24 22:00 07/23/24 21:43 10 ML Dextrose 50 ml UD IV 07/15/24 15:00 Cancel Amiodarone HCl 200 mg Q12HR GT 07/17/24 22:00 07/23/24 21:43 200 MG Enteral Nutritional Formula 1,000 ml 40ML/HR GT 07/17/24 12:30 07/17/24 22:28 1,000 ML Diagnostic Test (Pha) 1 strip Q6HR 07/17/24 18:00 07/23/24 18:05 1 STRIP Insulin Human Regular Q6HR SC 07/17/24 18:00 07/23/24 18:13 3 UNITS Dextrose 50 ml UD PRN IV 07/17/24 13:15 Vancomycin HCl 200 ml @ 200 mls/hr DAILY@0400 IV 07/18/24 04:00 07/23/24 03:30 200 MLS/HR Sennosides 8.6 mg HS PO 07/18/24 22:00 07/23/24 21:43 8.6 MG Docusate Sodium 100 mg BID GT 07/19/24 22:00 07/23/24 21:43 100 MG Norepinephrine Bitartrate 32 mg/ Sodium Chloride 250 ml @ 0.938 mls/ hr Q24H IV 07/19/24 18:15 Propofol 100 ml @ 3.111 mls/ hr Q24H IV 07/19/24 19:45 07/23/24 15:21 9.333 MLS/HR Furosemide 40 mg BIDD IV 07/23/24 18:00 07/23/24 18:05 40 MG Enoxaparin Sodium 40 mg DAILY SC 07/24/24 10:00 Mupirocin 1 applic BID EACHNOSTRI 07/23/24 22:00 07/28/24 21:59 Lactulose 30 ml DAILYPRN PRN PO 07/23/24 10:45 Dexmedetomidine HCl 400 mcg/ Dextrose 100 ml @ 4.995 mls/ hr Q20H2M IV 07/23/24 11:30 Acetylcysteine 200 mg Q8HR NEB 07/23/24 14:00 07/26/24 14:00 07/23/24 22:15 200 MG Albuterol 2.5 mg Q8HR NEB 07/23/24 14:00 07/26/24 14:00 07/23/24 22:15 2.5 MG objective Gen.: Patient lying in bed in medical ICU. Sedated, intubated on mechanical ventilator. Head: Normocephalic, atraumatic. Eyes: PERRLA. Ears: Normal external anatomy. Throat: Endotracheal tube and orogastric tube in place. Neck: Supple, trachea midline. Chest: Transmitted breath sounds bilaterally. Decreased air entry bilaterally. No wheezing. Bibasilar crackles. Cardiovascular: Positive S1, positive S2. Regular rate and rhythm. Abdomen: Positive bowel sounds in all 4 quadrants. Soft, nontender, nondistended. : Michel in place. Normal external genitalia. Rectal: Deferred. Skin: Warm, dry. Intact. Extremities: 2+ radial pulses bilaterally. No lower extremity edema. Neuro: Sedated. laboratory and microbiology Laboratory Tests 07/23/24 03:00 07/22/24 03:00 Test 07/22/24 03:00 Range/Units Serum Glucose 166 H 74-106 mg/dL Assessment/Plan Impression: Acute hypoxic respiratory failure secondary to multifocal pneumonia and pulmonary edema Acute respiratory distress syndrome Multifocal pneumonia likely Gram-negative Pulmonary edema Leukopenia Septic shock Influenza type a Atrial fibrillation with RVR Chronic congestive heart failure Status post AICD CAD status post PTCA Insulin-dependent diabetes mellitus Acute kidney injury Events: Remains on vent support AC mode with respiratory rate 20, tidal volume 450, PEEP of 5, FiO2 30% Placed on CPAP trial with PS 8, PEEP of 5 - tolerating CXR image and report reviewed. Devices in place. Multifocal airspace disease. Sedated on Fentanyl Taper sedation - OK to use Precedex. S/p therapeutic bronchoscopy on 07/22 - please see procedure note for details. Amiodarone drip for AFib Continue antibiotics Start Mucomyst/bronchodilators + CPT for increased ET tube secretions. IV fluid hydration at 125 ml/hr. Tube feeds for nutritional support Diurese w/ Lasix as tolerated Monitor renal function Monitor electrolytes, supplement as necessary Updated daughter via phone, answered all questions to her satisfaction. Labs and imaging reviewed. Rest of plan as noted below. Plan: s/p intubation on mechanical ventilator. Vent settings; AC mode with respiratory rate 20, tidal volume 450, PEEP of 5, FiO2 30% Titrate FIO2 to keep O2 saturation above 90%. VAP bundle. Daily ABG and CXR while intubated Sedated for ventilatory synchrony CXR, ABG reviewed. Pressors as necessary for hemodynamic support. Titrate to keep MAP above 65 mmHg/SBP above 90 mmHg. Stress dose steroids Received dose of albumin. Continue antibiotics. F/u cultures. Send sputum, blood cultures and urine cultures Monitor renal function due to Acute kidney injury. Creatinine trending down Monitor electrolytes. Supplement as necessary. Supplemented potassium and magnesium stat. On IV fluids, lactic acid trending down. Accucheks, ISS. GI/DVT prophylaxis. Condition: Critical Prognosis: Poor given multiple comorbidities. Rest of plan per hospitalist and other consultants. A total of 35 minutes of critical care time was spent reviewing the patient record, examining the patient, making a diagnostic and therapeutic plan, discussing this plan with the medical personnel, following up on diagnostic studies and following the patient for clinical stability excluding any and all procedures. At least 50% of this time was spent in direct, [id number] contact. Thank you JOSH Hatfield for allowing me to participate in this patient's care. Further recommendations will depend on patient's clinical course. Please do not hesitate to contact me if you have any questions or concerns. This medical document was created using an electronic medical record system with [employer] dictation system. Although this document has been carefully reviewed, there may still be some phonetic and typographical errors. These areas are purely typographical due to imperfections of the software programs, and do not reflect any compromise in the patient's medical care. Dietary Evaluation Review Comments: Advance to 2 gNa CCHO-60 diet when medically feasible. Pt's lipid pannel shows Cholesterol and LDL at lower mragin range, thus no restrictions on fat or cholesterol needed. Expected Outcomes/Goals: gradual weight loss, controlled DM, Plan discussed with: Daughter, Other (ANGELO Marte) Critical Care Time(min): 35 LINDSEY ROSALES MD Jul 23, 2024 22:17
[2024-07-24] VITALS (107 sets, daily range): BP systolic 99–184; BP diastolic 29–88; PULSE 69–91; RESP 9–28; TEMP 98.6–99.3; O2SAT 93–100
[2024-07-24 04:29] LABS: Basophils # (auto) 0 10 ^3/uL (0-0.2); Basophils % (auto) 0.4 % (0.0-2.0); Eosinophils # (auto) 0 10 ^3/uL (0-0.8); Eosinophils % (auto) 0.3 % (0.0-7.0); Hematocrit 28.2 % (41.0-53.0); Hemoglobin 9.7 g/dL (13.5-17.5); Lymphocytes # (auto) 0.9 10 ^3/uL (0.4-5.4); Lymphocytes % (auto) 11.7 % (10.0-50.0); Mean Corpuscular Hemoglobin 32.1 pg (28.0-32.0); Mean Corpuscular Hgb Conc. 34.5 g/dL (32.0-36.0); Mean Corpuscular Volume 92.9 fL (80.0-100.0); Monocytes # (auto) 0.3 10 ^3/uL (0-1.3); Monocytes % (auto) 4.5 % (0.0-12.0); Neutrophils # (auto) 6.5 10 ^3/uL (1.6-8.6); Neutrophils % (auto) 83.1 % (37.0-80.0); Platelet Count (auto) 169 10^3/uL (140-450); Red Blood Cells 3.04 10^6/uL (4.5-5.90); White Blood Cell 7.8 10^3/uL (4.4-10.8)
[2024-07-24 04:38] LABS: Alanine Aminotransferase 12 U/L (7-40); Albumin 2.6 g/dL (3.2-4.8); Alkaline Phosphatase 86 U/L (46-116); Anion Gap 5 (5-15); Aspartate Aminotransferase 22 U/L (13-40); BUN/Creatinine Ratio 32.9 (10.0-20.0); Bilirubin, Total 0.9 mg/dL (0.2-1.0); Blood Urea Nitrogen 26 mg/dL (9-23); Calcium 8.7 mg/dL (8.7-10.4); Carbon Dioxide 32 mmol/L (20-31); Chloride 104 mmol/L (98-107); Glucose 132 mg/dL (74-106); Magnesium 1.9 mg/dL (1.6-2.6); Potassium 4.1 mmol/L (3.5-5.1); Sodium 141 mmol/L (136-145)
--- NOTE | 2024-07-24 05:02 | DVH ---
CHEST RADIOGRAPH Indication: vent Technique: Single frontal view of the chest was obtained Comparison: XY CHEST PORTABLE on DOS: 07/23/24 FINDINGS: Lines and Tubes: The endotracheal tube terminates 4.1 cm above the david. AICD is unchanged. Right PICC terminates in the superior vena cava. The enteric tube courses below the left hemidiaphragm and the tip extends outside the field of view. Lungs: Patchy right lung opacities are similar to prior study. Pleura: No effusion. No pneumothorax. Cardiomediastinal contours: Stable. Bones: No acute osseous abnormality. IMPRESSION: 1. Stable position of the support lines and tubes. 2. Patchy right lung opacities similar to prior study which may reflect pneumonia in the appropriate clinical setting.
[2024-07-24] MEDS: ENOXAPARIN SOD 40 MG/0.4 ML SYRINGE SC SCH (10:15)
[2024-07-24] MEDS: hydrALAZINE HCL 20 MG/ML VL IV PRN (14:05)
--- NOTE | 2024-07-24 14:33 | DVHPN2 ---
Subjective Intubated Off sedation He is on Precedex Follows commands Reviewed: Care Plan Changes from previous H/P or p: Changes Eyes: No Pain, No Vision change, No Conjunctivae inflammation, No Eyelid inflammation, No Other, No Redness ENT: No Ear pain, No Ear discharge, No Nose pain, No Nose discharge, No Nose congestion, No Mouth pain, No Mouth swelling, No Throat pain, No Throat swelling, No Other Cardiovascular: No Chest Pain, No Palpitations, No Orthopnea, No Paroxysmal Noc. Dyspnea, No Edema, No Lt Headedness, No Other Respiratory: No Cough, No Dry, No Shortness of breath, No SOB with excertion, No Wheezing, No Hemoptysis, No Pleuritic Pain, No Sputum, No Other Gastrointestinal: No Nausea, No Vomiting, No Abdominal Pain, No Diarrhea, No Constipation, No Melena, No Hematochezia, No Other Genitourinary: No Dysuria, No Frequency, No Incontinence, No Hematuria, No Retention, No Other Musculoskeletal: No other, No neck pain, No shoulder pain, No arm pain, No back pain, No hand pain, No leg pain, No foot pain Skin: No Rash, No Lesions, No Jaundice, No Bruising, No Other Objective Vitals Vital Signs Date Time Temp Pulse Resp B/P (MAP) Pulse Ox O2 Delivery O2 Flow Rate FiO2 07/24/24 14:13 86 24 150/57 (88) 95 40 07/24/24 12:30 99.0 210.2 07/24/24 12:00 Mechanical Ventilator+ Intake/Output Intake and Output 07/24/24 07:00 Intake Total 1207.620 ml Output Total 2150 ml Balance -942.380 ml Intake Oral 30 ml IV Total 759.620 ml Tube Feeding 418 ml Output Urine Total 2150 ml General Appearance: Other (Intubated and sedated) Lungs: Other (B rhonchi) Cardiovascular: Regular rate, Normal S1, Normal S2, No murmurs Abdomen: Normal bowel sounds, Soft, No tenderness Extremities: Other (1+ edema B all extremities more in upper exts) Neuro: Other (sedated on vent) Medications Current Medications Medications Dose Ordered Sig/Maurice Route Start Time Stop Time Status Last Admin Dose Admin Levothyroxine Sodium 200 mcg QAM PO 07/12/24 07:00 07/24/24 05:57 200 MCG Midazolam HCl 50 ml @ 1 mls/hr Q24H IV 07/12/24 08:30 07/19/24 10:13 6 MLS/HR Fentanyl Citrate 250 ml @ 2.5 mls/hr Q24H IV 07/12/24 08:30 07/23/24 15:24 15 MLS/HR Pantoprazole Sodium 40 mg DAILY IV 07/13/24 10:00 07/24/24 10:15 40 MG Vancomycin HCl 200 ml @ 200 mls/hr Q1H IV 07/12/24 13:00 07/12/24 14:59 Cancel Phenylephrine HCl 80 mg/Sodium Chloride 250 ml @ 7.5 mls/hr Q24H IV 07/12/24 19:30 07/13/24 03:31 7.5 MLS/HR Insulin Glargine 10 units DAILY@1000 SC 07/14/24 10:00 07/24/24 10:23 10 UNITS Digoxin 125 mcg MWF IV 07/16/24 10:00 07/23/24 09:50 125 MCG Acetaminophen 650 mg Q6HP PRN [place] 07/14/24 17:00 07/15/24 10:32 650 MG Sodium Chloride 10 ml QSHIFT@10,22 IV 07/14/24 22:00 07/24/24 10:15 10 ML Dextrose 50 ml UD IV 07/15/24 15:00 Cancel Amiodarone HCl 200 mg Q12HR GT 07/17/24 22:00 07/24/24 10:14 200 MG Enteral Nutritional Formula 1,000 ml 40ML/HR GT 07/17/24 12:30 07/17/24 22:28 1,000 ML Diagnostic Test (Pha) 1 strip Q6HR 07/17/24 18:00 07/24/24 11:54 1 STRIP Insulin Human Regular Q6HR SC 07/17/24 18:00 07/23/24 18:13 3 UNITS Dextrose 50 ml UD PRN IV 07/17/24 13:15 Sennosides 8.6 mg HS PO 07/18/24 22:00 07/23/24 21:43 8.6 MG Docusate Sodium 100 mg BID GT 07/19/24 22:00 07/24/24 10:14 100 MG Norepinephrine Bitartrate 32 mg/ Sodium Chloride 250 ml @ 0.938 mls/ hr Q24H IV 07/19/24 18:15 Propofol 100 ml @ 3.111 mls/ hr Q24H IV 07/19/24 19:45 07/24/24 02:35 9.333 MLS/HR Furosemide 40 mg BIDD IV 07/23/24 18:00 07/24/24 05:56 40 MG Enoxaparin Sodium 40 mg DAILY SC 07/24/24 10:00 07/24/24 10:15 40 MG Mupirocin 1 applic BID EACHNOSTRI 07/23/24 22:00 07/28/24 21:59 07/24/24 10:13 1 APPLIC Lactulose 30 ml DAILYPRN PRN PO 07/23/24 10:45 Dexmedetomidine HCl 400 mcg/ Dextrose 100 ml @ 4.995 mls/ hr Q20H2M IV 07/23/24 11:30 07/24/24 10:14 4.995 MLS/HR Acetylcysteine 200 mg Q8HR NEB 07/23/24 14:00 07/26/24 14:00 07/24/24 14:13 200 MG Albuterol 2.5 mg Q8HR NEB 07/23/24 14:00 07/26/24 14:00 07/24/24 14:13 2.5 MG Vancomycin HCl 200 ml @ 200 mls/hr Q20H IV 07/25/24 00:00 Hydralazine HCl 10 mg Q6HP PRN IV 07/24/24 11:00 07/24/24 14:05 10 MG Laboratory Results Laboratory Tests 07/24/24 03:00 Chemistry Test 07/24/24 03:00 Albumin 2.6 g/dL (3.2-4.8) L Calcium Level 8.7 mg/dL (8.7-10.4) Magnesium Level 1.9 mg/dL (1.6-2.6) Total Protein 6.0 g/dL (5.7-8.2) LFT Test 07/24/24 03:00 Alanine Aminotransferase (ALT) 12 U/L (7-40) Alkaline Phosphatase 86 U/L (46-116) Aspartate Amino Transferase (AST) 22 U/L (13-40) Total Bilirubin 0.9 mg/dL (0.2-1.0) Urinalysis Test 07/11/24 15:12 Urine Color Yellow (Yellow) Urine Clarity Clear (Clear) Urine pH 5.5 (5.0-9.0) Urine Specific [place] 1.027 (1.001-1.035) Urine Protein 1+ (Negative) H Urine Ketones 2+ (Negative) H Urine Blood Negative /uL (Negative) Urine Nitrite Negative (Negative) Urine Bilirubin Negative (Negative) Urine Urobilinogen Normal mg/dL (Negative) Urine Leukocyte Esterase Negative /uL (Negative) Urine RBC 1 /hpf (0 - 3) Urine WBC 3 /hpf (0 - 3) Urine Squamous Epithelial Cells Few /hpf (<5) Urine Bacteria None seen /hpf (None Seen) Urine Glucose 4+ mg/dL (Normal) H Microbiology Microbiology Date/Time Source Procedure Growth Status 07/22/24 00:00 Sputum Gram Stain - Final Resulted 07/22/24 00:00 Sputum Respiratory Culture - Preliminary Resulted 07/15/24 12:00 Lung - Final Resulted 07/15/24 12:00 Lung - Final Resulted 07/15/24 12:00 Lung Pending Resulted 07/15/24 12:00 Lung Pending Resulted 07/15/24 12:00 Lung - Final See Separate Report... Resulted 07/15/24 12:00 Drainage Viral Culture - Preliminary Resulted 07/12/24 10:47 Voided Urine Urine Culture - Final Complete 07/11/24 21:08 Blood Blood Culture - Final NO GROWTH AFTER 5 DAYS OF INCUBATION. Complete Assessment/Plan Assessment/Plan Acute hypoxic respiratory failure Multi-focal pneumonia, due to MRSA Influenza A Sepsis, improved Atrial fibrillation Acute on chronic CHF, EF 25% CAD Hypothyroidism DM2 Thrombocytopenia due to sepsis, improved PLAN: 07/23/2024: Sedation: Versed, Propofol, Fent GI prophylaxis: Protonix DVT prophylaxis: Add Lovenox PNA: Vancomycin AFIB: Amio, Dig, Sepsis: Improved CHF: Lasix 40 mg IV daily, increase to bid DM2: Lantus 07/24/2024: CPAP trial in progress Dr. Rivera is trying to extubate the patient hopefully next 1-2 days Continue the current management Off vasopressors Discussed with the daughter at the bedside yesterday afternoon Questions answered Full code Plan discussed with: Patient, Daughter, Other Date of Service: Jul 24, 2024 Billing Provider: MERLYN NARAYAN MD Common Visit Codes: [id number] INP/OBS CARE(HIGH) MERLYN NARAYAN MD Jul 24, 2024 14:33
[2024-07-24 15:14] LABS: Base Excess 4.5 mmol/L (-2.0-3.0)
[2024-07-24] MEDS ORDERED: VANCOMYCIN PER PHARMACY 0 MG IV SCH (15:15)
--- NOTE | 2024-07-24 21:04 | DVHPN2 ---
Progress Note - Dictate Date Seen: Jul 24, 2024 Medical Necessity Reason Pt with a Central, PICC or Fol: Yes The following are medically ne: Central Line, Michel Catheter Reason for michel catheter: Strict I&O Subjective Patient seen and examined at bedside. Sedated, intubated on mechanical ventilator. Overnight events reviewed. vital signs Vital Sign Date Time Temp Pulse Resp B/P (MAP) Pulse Ox O2 Delivery O2 Flow Rate FiO2 07/24/24 20:40 129/61 07/24/24 20:35 81 24 97 40 07/24/24 20:00 Mechanical Ventilator+ 07/24/24 18:45 99.0 210.2 Total Intake and Output 07/23/24 07/23/24 07/24/24 15:00 23:00 07:00 Intake Total 194.646 ml 430.325 ml 582.649 ml Output Total 1050 ml 1100 ml Balance 194.646 ml -619.675 ml -517.351 ml medications Current Medications Medications Dose Ordered Sig/Maurice Route Start Time Stop Time Status Last Admin Dose Admin Levothyroxine Sodium 200 mcg QAM PO 07/12/24 07:00 07/24/24 05:57 200 MCG Midazolam HCl 50 ml @ 1 mls/hr Q24H IV 07/12/24 08:30 07/19/24 10:13 6 MLS/HR Fentanyl Citrate 250 ml @ 2.5 mls/hr Q24H IV 07/12/24 08:30 07/23/24 15:24 15 MLS/HR Pantoprazole Sodium 40 mg DAILY IV 07/13/24 10:00 07/24/24 10:15 40 MG Vancomycin HCl 200 ml @ 200 mls/hr Q1H IV 07/12/24 13:00 07/12/24 14:59 Cancel Phenylephrine HCl 80 mg/Sodium Chloride 250 ml @ 7.5 mls/hr Q24H IV 07/12/24 19:30 07/13/24 03:31 7.5 MLS/HR Insulin Glargine 10 units DAILY@1000 SC 07/14/24 10:00 07/24/24 10:23 10 UNITS Digoxin 125 mcg MWF IV 07/16/24 10:00 07/23/24 09:50 125 MCG Acetaminophen 650 mg Q6HP PRN [place] 07/14/24 17:00 07/15/24 10:32 650 MG Sodium Chloride 10 ml QSHIFT@10,22 IV 07/14/24 22:00 07/24/24 10:15 10 ML Dextrose 50 ml UD IV 07/15/24 15:00 Cancel Amiodarone HCl 200 mg Q12HR GT 07/17/24 22:00 07/24/24 10:14 200 MG Enteral Nutritional Formula 1,000 ml 40ML/HR GT 07/17/24 12:30 07/24/24 15:31 1,000 ML Diagnostic Test (Pha) 1 strip Q6HR 07/17/24 18:00 07/24/24 18:08 1 STRIP Insulin Human Regular Q6HR SC 07/17/24 18:00 07/24/24 18:14 2 UNITS Dextrose 50 ml UD PRN IV 07/17/24 13:15 Sennosides 8.6 mg HS PO 07/18/24 22:00 07/23/24 21:43 8.6 MG Docusate Sodium 100 mg BID GT 07/19/24 22:00 07/24/24 10:14 100 MG Norepinephrine Bitartrate 32 mg/ Sodium Chloride 250 ml @ 0.938 mls/ hr Q24H IV 07/19/24 18:15 Propofol 100 ml @ 3.111 mls/ hr Q24H IV 07/19/24 19:45 07/24/24 16:12 9.333 MLS/HR Furosemide 40 mg BIDD IV 07/23/24 18:00 07/24/24 18:08 40 MG Enoxaparin Sodium 40 mg DAILY SC 07/24/24 10:00 07/24/24 10:15 40 MG Mupirocin 1 applic BID EACHNOSTRI 07/23/24 22:00 07/28/24 21:59 07/24/24 10:13 1 APPLIC Lactulose 30 ml DAILYPRN PRN PO 07/23/24 10:45 Dexmedetomidine HCl 400 mcg/ Dextrose 100 ml @ 4.995 mls/ hr Q20H2M IV 07/23/24 11:30 07/24/24 10:14 4.995 MLS/HR Acetylcysteine 200 mg Q8HR NEB 07/23/24 14:00 07/26/24 14:00 07/24/24 14:13 200 MG Albuterol 2.5 mg Q8HR NEB 07/23/24 14:00 07/26/24 14:00 07/24/24 14:13 2.5 MG Vancomycin HCl 200 ml @ 200 mls/hr Q20H IV 07/25/24 00:00 Hydralazine HCl 10 mg Q6HP PRN IV 07/24/24 11:00 07/24/24 14:05 10 MG Vancomycin HCl 0 ml @ 0 mls/hr UD IV 07/24/24 15:15 objective Gen.: Patient lying in bed in medical ICU. Sedated, intubated on mechanical ventilator. Head: Normocephalic, atraumatic. Eyes: PERRLA. Ears: Normal external anatomy. Throat: Endotracheal tube and orogastric tube in place. Neck: Supple, trachea midline. Chest: Transmitted breath sounds bilaterally. Decreased air entry bilaterally. No wheezing. Bibasilar crackles. Cardiovascular: Positive S1, positive S2. Regular rate and rhythm. Abdomen: Positive bowel sounds in all 4 quadrants. Soft, nontender, nondistended. : Michel in place. Normal external genitalia. Rectal: Deferred. Skin: Warm, dry. Intact. Extremities: 2+ radial pulses bilaterally. No lower extremity edema. Neuro: Sedated. laboratory and microbiology Laboratory Tests 07/24/24 03:00 Test 07/24/24 03:00 Range/Units Serum Glucose 132 H 74-106 mg/dL Assessment/Plan Impression: Acute hypoxic respiratory failure secondary to multifocal pneumonia and pulmonary edema Acute respiratory distress syndrome Multifocal pneumonia likely Gram-negative Pulmonary edema Leukopenia Septic shock Influenza type a Atrial fibrillation with RVR Chronic congestive heart failure Status post AICD CAD status post PTCA Insulin-dependent diabetes mellitus Acute kidney injury Events: Remains on vent support AC mode with respiratory rate 24, tidal volume 450, PEEP of 5, FiO2 40% Decrease RR to 16. CPAP trial this AM with PS 8, PEEP of 5 CXR image and report reviewed. Devices in place. Patchy right lung opacities similar to prior. ABG reviewed, c/w alkalemia. Sedated on Fentanyl Precedex. Taper sedation as tolerated Amiodarone PO for AFib Continue antibiotics, vancomycin Mucomyst/bronchodilators + CPT for increased ET tube secretions. IV fluid hydration at 125 ml/hr. Tube feeds for nutritional support Diurese w/ Lasix as tolerated Monitor renal function Monitor electrolytes, supplement as necessary S/p therapeutic bronchoscopy on 07/22 - please see procedure note for details. Labs and imaging reviewed. Rest of plan as noted below. Plan: s/p intubation on mechanical ventilator. AC mode with respiratory rate 16, tidal volume 450, PEEP of 5, FiO2 40% Titrate FIO2 to keep O2 saturation above 90%. VAP bundle. Daily ABG and CXR while intubated Sedated for ventilatory synchrony CXR, ABG reviewed. Pressors as necessary for hemodynamic support. Titrate to keep MAP above 65 mmHg/SBP above 90 mmHg. Stress dose steroids Received dose of albumin. Continue antibiotics. F/u cultures. Send sputum, blood cultures and urine cultures Monitor renal function due to Acute kidney injury. Creatinine trending down Monitor electrolytes. Supplement as necessary. Supplemented potassium and magnesium stat. On IV fluids, lactic acid trending down. Accucheks, ISS. GI/DVT prophylaxis. Condition: Critical Prognosis: Poor given multiple comorbidities. Rest of plan per hospitalist and other consultants. A total of 35 minutes of critical care time was spent reviewing the patient record, examining the patient, making a diagnostic and therapeutic plan, discussing this plan with the medical personnel, following up on diagnostic studies and following the patient for clinical stability excluding any and all procedures. At least 50% of this time was spent in direct, [id number] contact. Thank you JOSH Hatfield for allowing me to participate in this patient's care. Further recommendations will depend on patient's clinical course. Please do not hesitate to contact me if you have any questions or concerns. This medical document was created using an electronic medical record system with [employer] dictation system. Although this document has been carefully reviewed, there may still be some phonetic and typographical errors. These areas are purely typographical due to imperfections of the software programs, and do not reflect any compromise in the patient's medical care. Dietary Evaluation Review Comments: Advance to 2 gNa CCHO-60 diet when medically feasible. Pt's lipid pannel shows Cholesterol and LDL at lower mragin range, thus no restrictions on fat or cholesterol needed. Expected Outcomes/Goals: gradual weight loss, controlled DM, Plan discussed with: Other (ANGELO Marte) Critical Care Time(min): 35 LINDSEY ROSALES MD Jul 24, 2024 21:04
[2024-07-25] VITALS (108 sets, daily range): BP systolic 84–147; BP diastolic 40–78; PULSE 64–89; RESP 8–22; TEMP 98.1–99; O2SAT 87–100
[2024-07-25] MEDS: VANCOMYCIN 1GM/250ML KIT 200 ML IV SCH (00:06)
[2024-07-25 03:32] LABS: Basophils # (auto) 0 10 ^3/uL (0-0.2); Basophils % (auto) 0.3 % (0.0-2.0); Eosinophils # (auto) 0 10 ^3/uL (0-0.8); Eosinophils % (auto) 0.6 % (0.0-7.0); Hematocrit 27.2 % (41.0-53.0); Hemoglobin 9.1 g/dL (13.5-17.5); Lymphocytes # (auto) 0.8 10 ^3/uL (0.4-5.4); Lymphocytes % (auto) 12.5 % (10.0-50.0); Mean Corpuscular Hemoglobin 31.2 pg (28.0-32.0); Mean Corpuscular Hgb Conc. 33.4 g/dL (32.0-36.0); Mean Corpuscular Volume 93.2 fL (80.0-100.0); Monocytes # (auto) 0.4 10 ^3/uL (0-1.3); Monocytes % (auto) 5.8 % (0.0-12.0); Neutrophils # (auto) 4.9 10 ^3/uL (1.6-8.6); Neutrophils % (auto) 80.8 % (37.0-80.0); Platelet Count (auto) 203 10^3/uL (140-450); Red Blood Cells 2.92 10^6/uL (4.5-5.90); Red Cell Distribution Width 14.9 % (11.8-14.3); White Blood Cell 6.1 10^3/uL (4.4-10.8)
[2024-07-25 03:52] LABS: Alanine Aminotransferase 15 U/L (7-40); Albumin 2.6 g/dL (3.2-4.8); Alkaline Phosphatase 75 U/L (46-116); Anion Gap 6 (5-15); Aspartate Aminotransferase 26 U/L (13-40); BUN/Creatinine Ratio 30.7 (10.0-20.0); Blood Urea Nitrogen 23 mg/dL (9-23); Calcium 8.6 mg/dL (8.7-10.4); Carbon Dioxide 33 mmol/L (20-31); Chloride 103 mmol/L (98-107); Glucose 120 mg/dL (74-106); Magnesium 1.8 mg/dL (1.6-2.6); Potassium 3.6 mmol/L (3.5-5.1); Sodium 142 mmol/L (136-145)
[2024-07-25 03:53] LABS: Total Protein 5.9 g/dL (5.7-8.2)
--- NOTE | 2024-07-25 04:51 | DVH ---
CHEST RADIOGRAPH Indication: vent Technique: Single frontal view of the chest was obtained Comparison: XY CHEST PORTABLE on DOS: 07/24/24 FINDINGS: Lines and Tubes: The endotracheal tube terminates 3.3 cm above the david. ICD is unchanged. Right upper extremity PICC terminates in the superior vena cava. The enteric tube courses below the left he midiaphragm and the tip extends outside the field of view. Lungs: Patchy right lung opacities are unchanged. Pleura: No effusion. No pneumothorax. Cardiomediastinal contours: Stable in appearance. Bones: No acute osseous abnormality. IMPRESSION: 1. Stable position of the support lines and tubes. 2. Patchy right lung opacities similar to prior study.
[2024-07-25 07:18] LABS: Base Excess 4.6 mmol/L (-2.0-3.0)
--- NOTE | 2024-07-25 15:43 | DVHPN2 ---
Subjective Intubated Off sedation He is on Precedex Follows commands completely Vital signs are stable CPAP in progress Reviewed: Care Plan Changes from previous H/P or p: Changes Eyes: No Pain, No Vision change, No Conjunctivae inflammation, No Eyelid inflammation, No Other, No Redness ENT: No Ear pain, No Ear discharge, No Nose pain, No Nose discharge, No Nose congestion, No Mouth pain, No Mouth swelling, No Throat pain, No Throat swelling, No Other Cardiovascular: No Chest Pain, No Palpitations, No Orthopnea, No Paroxysmal Noc. Dyspnea, No Edema, No Lt Headedness, No Other Respiratory: No Cough, No Dry, No Shortness of breath, No SOB with excertion, No Wheezing, No Hemoptysis, No Pleuritic Pain, No Sputum, No Other Gastrointestinal: No Nausea, No Vomiting, No Abdominal Pain, No Diarrhea, No Constipation, No Melena, No Hematochezia, No Other Genitourinary: No Dysuria, No Frequency, No Incontinence, No Hematuria, No Retention, No Other Musculoskeletal: No other, No neck pain, No shoulder pain, No arm pain, No back pain, No hand pain, No leg pain, No foot pain Skin: No Rash, No Lesions, No Jaundice, No Bruising, No Other Objective Vitals Vital Signs Date Time Temp Pulse Resp B/P (MAP) Pulse Ox O2 Delivery O2 Flow Rate FiO2 07/25/24 14:58 97 10.0 07/25/24 14:55 14 07/25/24 13:15 98.6 76 118/60 (79) 209.5 07/25/24 12:15 40 07/25/24 12:00 Mechanical Ventilator+ Intake/Output Intake and Output 07/25/24 07:00 Intake Total 1008.019 ml Output Total 2200 ml Balance -1191.981 ml Intake Oral 60 ml IV Total 617.019 ml Tube Feeding 331 ml Output Urine Total 2200 ml General Appearance: Other (Intubated and sedated) Lungs: Other (B rhonchi) Cardiovascular: Regular rate, Normal S1, Normal S2, No murmurs Abdomen: Normal bowel sounds, Soft, No tenderness Extremities: Other (1+ edema B all extremities more in upper exts) Neuro: Other (sedated on vent) Medications Current Medications Medications Dose Ordered Sig/Maurice Route Start Time Stop Time Status Last Admin Dose Admin Levothyroxine Sodium 200 mcg QAM PO 07/12/24 07:00 07/25/24 06:16 200 MCG Midazolam HCl 50 ml @ 1 mls/hr Q24H IV 07/12/24 08:30 07/19/24 10:13 6 MLS/HR Fentanyl Citrate 250 ml @ 2.5 mls/hr Q24H IV 07/12/24 08:30 07/25/24 01:00 17.5 MLS/HR Pantoprazole Sodium 40 mg DAILY IV 07/13/24 10:00 07/25/24 09:49 40 MG Vancomycin HCl 200 ml @ 200 mls/hr Q1H IV 07/12/24 13:00 07/12/24 14:59 Cancel Phenylephrine HCl 80 mg/Sodium Chloride 250 ml @ 7.5 mls/hr Q24H IV 07/12/24 19:30 07/13/24 03:31 7.5 MLS/HR Insulin Glargine 10 units DAILY@1000 SC 07/14/24 10:00 07/25/24 10:01 10 UNITS Digoxin 125 mcg MWF IV 07/16/24 10:00 07/25/24 09:49 125 MCG Acetaminophen 650 mg Q6HP PRN [place] 07/14/24 17:00 07/15/24 10:32 650 MG Sodium Chloride 10 ml QSHIFT@10,22 IV 07/14/24 22:00 07/25/24 09:49 10 ML Dextrose 50 ml UD IV 07/15/24 15:00 Cancel Amiodarone HCl 200 mg Q12HR GT 07/17/24 22:00 07/25/24 09:48 200 MG Enteral Nutritional Formula 1,000 ml 40ML/HR GT 07/17/24 12:30 07/24/24 15:31 1,000 ML Diagnostic Test (Pha) 1 strip Q6HR 07/17/24 18:00 07/25/24 06:17 1 STRIP Insulin Human Regular Q6HR SC 07/17/24 18:00 07/24/24 18:14 2 UNITS Dextrose 50 ml UD PRN IV 07/17/24 13:15 Sennosides 8.6 mg HS PO 07/18/24 22:00 07/24/24 21:35 8.6 MG Docusate Sodium 100 mg BID GT 07/19/24 22:00 07/25/24 09:47 100 MG Norepinephrine Bitartrate 32 mg/ Sodium Chloride 250 ml @ 0.938 mls/ hr Q24H IV 07/19/24 18:15 Propofol 100 ml @ 3.111 mls/ hr Q24H IV 07/19/24 19:45 07/25/24 02:11 9.333 MLS/HR Furosemide 40 mg BIDD IV 07/23/24 18:00 07/25/24 06:16 40 MG Enoxaparin Sodium 40 mg DAILY SC 07/24/24 10:00 07/25/24 09:51 40 MG Mupirocin 1 applic BID EACHNOSTRI 07/23/24 22:00 07/28/24 21:59 07/25/24 09:47 1 APPLIC Lactulose 30 ml DAILYPRN PRN PO 07/23/24 10:45 Dexmedetomidine HCl 400 mcg/ Dextrose 100 ml @ 4.995 mls/ hr Q20H2M IV 07/23/24 11:30 07/25/24 09:56 4.995 MLS/HR Acetylcysteine 200 mg Q8HR NEB 07/23/24 14:00 07/26/24 14:00 07/25/24 05:44 200 MG Albuterol 2.5 mg Q8HR NEB 07/23/24 14:00 07/26/24 14:00 07/25/24 05:44 2.5 MG Vancomycin HCl 200 ml @ 200 mls/hr Q20H IV 07/25/24 00:00 07/25/24 00:06 200 MLS/HR Hydralazine HCl 10 mg Q6HP PRN IV 07/24/24 11:00 07/24/24 14:05 10 MG Vancomycin HCl 0 ml @ 0 mls/hr UD IV 07/24/24 15:15 Laboratory Results Laboratory Tests 07/25/24 03:18 Chemistry Test 07/25/24 03:18 Albumin 2.6 g/dL (3.2-4.8) L Calcium Level 8.6 mg/dL (8.7-10.4) L Magnesium Level 1.8 mg/dL (1.6-2.6) Total Protein 5.9 g/dL (5.7-8.2) LFT Test 07/25/24 03:18 Alanine Aminotransferase (ALT) 15 U/L (7-40) Alkaline Phosphatase 75 U/L (46-116) Aspartate Amino Transferase (AST) 26 U/L (13-40) Total Bilirubin 1.0 mg/dL (0.2-1.0) Urinalysis Test 07/11/24 15:12 Urine Color Yellow (Yellow) Urine Clarity Clear (Clear) Urine pH 5.5 (5.0-9.0) Urine Specific [place] 1.027 (1.001-1.035) Urine Protein 1+ (Negative) H Urine Ketones 2+ (Negative) H Urine Blood Negative /uL (Negative) Urine Nitrite Negative (Negative) Urine Bilirubin Negative (Negative) Urine Urobilinogen Normal mg/dL (Negative) Urine Leukocyte Esterase Negative /uL (Negative) Urine RBC 1 /hpf (0 - 3) Urine WBC 3 /hpf (0 - 3) Urine Squamous Epithelial Cells Few /hpf (<5) Urine Bacteria None seen /hpf (None Seen) Urine Glucose 4+ mg/dL (Normal) H Blood Gas Results Test 07/25/24 06:48 Arterial Blood pH 7.465 (7.350-7.450) FiO2 % 40.0 Microbiology Microbiology Date/Time Source Procedure Growth Status 07/22/24 00:00 Sputum Gram Stain - Final Resulted 07/22/24 00:00 Respiratory Culture - Preliminary Staphylococcus aureus Resulted 07/15/24 12:00 Lung - Final Resulted 07/15/24 12:00 Lung - Final Resulted 07/15/24 12:00 Lung Pending Resulted 07/15/24 12:00 Lung Pending Resulted 07/15/24 12:00 Lung - Final See Separate Report... Resulted 07/15/24 12:00 Drainage Viral Culture - Final Complete 07/12/24 10:47 Voided Urine Urine Culture - Final Complete 07/11/24 21:08 Blood Blood Culture - Final NO GROWTH AFTER 5 DAYS OF INCUBATION. Complete Assessment/Plan Assessment/Plan Acute hypoxic respiratory failure Multi-focal pneumonia, due to MRSA Influenza A Sepsis, improved Atrial fibrillation Acute on chronic CHF, EF 25% CAD Hypothyroidism DM2 Thrombocytopenia due to sepsis, improved PLAN: 07/23/2024: Sedation: Versed, Propofol, Fent GI prophylaxis: Protonix DVT prophylaxis: Add Lovenox PNA: Vancomycin AFIB: Amio, Dig, Sepsis: Improved CHF: Lasix 40 mg IV daily, increase to bid DM2: Lantus 07/24/2024: CPAP trial in progress Dr. Rivera is trying to extubate the patient hopefully next 1-2 days Continue the current management Off vasopressors Discussed with the daughter at the bedside yesterday afternoon Questions answered Full code 07/25/2024: CPAP in progress today for possible extubation today Off vasopressors Off sedation Continue vancomycin IV Lasix 40 mg IV twice a day Digoxin IV 3 times a week Amiodarone Plan discussed with: Patient, Other Date of Service: Jul 25, 2024 Billing Provider: MERLYN NARAYAN MD Common Visit Codes: [id number] INP/OBS CARE(HIGH) MERLYN NARAYAN MD Jul 25, 2024 15:43
[2024-07-25 16:17] LABS: Base Excess 5.4 mmol/L (-2.0-3.0)
--- NOTE | 2024-07-25 21:20 | DVHPN2 ---
Progress Note - Dictate Date Seen: Jul 25, 2024 Medical Necessity Reason Pt with a Central, PICC or Fol: Yes The following are medically ne: Central Line, Michel Catheter Reason for michel catheter: Strict I&O Subjective Patient seen and examined at bedside. intubated on mechanical ventilator. Overnight events reviewed. vital signs Vital Sign Date Time Temp Pulse Resp B/P (MAP) Pulse Ox O2 Delivery O2 Flow Rate FiO2 07/25/24 21:00 80 15 128/62 (84) 95 07/25/24 20:00 Nasal Cannula* 4 36 07/25/24 20:00 99.0 99.0 Total Intake and Output 07/24/24 07/24/24 07/25/24 15:00 23:00 07:00 Intake Total 66.813 ml 341.331 ml 599.875 ml Output Total 1375 ml 825 ml Balance 66.813 ml -1033.669 ml -225.125 ml medications Current Medications Medications Dose Ordered Sig/Maurice Route Start Time Stop Time Status Last Admin Dose Admin Levothyroxine Sodium 200 mcg QAM PO 07/12/24 07:00 07/25/24 06:16 200 MCG Midazolam HCl 50 ml @ 1 mls/hr Q24H IV 07/12/24 08:30 07/19/24 10:13 6 MLS/HR Fentanyl Citrate 250 ml @ 2.5 mls/hr Q24H IV 07/12/24 08:30 07/25/24 01:00 17.5 MLS/HR Pantoprazole Sodium 40 mg DAILY IV 07/13/24 10:00 07/25/24 09:49 40 MG Vancomycin HCl 200 ml @ 200 mls/hr Q1H IV 07/12/24 13:00 07/12/24 14:59 Cancel Phenylephrine HCl 80 mg/Sodium Chloride 250 ml @ 7.5 mls/hr Q24H IV 07/12/24 19:30 07/13/24 03:31 7.5 MLS/HR Insulin Glargine 10 units DAILY@1000 SC 07/14/24 10:00 07/25/24 10:01 10 UNITS Digoxin 125 mcg MWF IV 07/16/24 10:00 07/25/24 09:49 125 MCG Acetaminophen 650 mg Q6HP PRN ID 07/14/24 17:00 07/15/24 10:32 650 MG Sodium Chloride 10 ml QSHIFT@10,22 IV 07/14/24 22:00 07/25/24 09:49 10 ML Dextrose 50 ml UD IV 07/15/24 15:00 Cancel Amiodarone HCl 200 mg Q12HR GT 07/17/24 22:00 07/25/24 09:48 200 MG Enteral Nutritional Formula 1,000 ml 40ML/HR GT 07/17/24 12:30 07/24/24 15:31 1,000 ML Diagnostic Test (Pha) 1 strip Q6HR 07/17/24 18:00 07/25/24 18:10 1 STRIP Insulin Human Regular Q6HR SC 07/17/24 18:00 07/24/24 18:14 2 UNITS Dextrose 50 ml UD PRN IV 07/17/24 13:15 Sennosides 8.6 mg HS PO 07/18/24 22:00 07/24/24 21:35 8.6 MG Docusate Sodium 100 mg BID GT 07/19/24 22:00 07/25/24 09:47 100 MG Norepinephrine Bitartrate 32 mg/ Sodium Chloride 250 ml @ 0.938 mls/ hr Q24H IV 07/19/24 18:15 Propofol 100 ml @ 3.111 mls/ hr Q24H IV 07/19/24 19:45 07/25/24 02:11 9.333 MLS/HR Furosemide 40 mg BIDD IV 07/23/24 18:00 07/25/24 18:10 40 MG Enoxaparin Sodium 40 mg DAILY SC 07/24/24 10:00 07/25/24 09:51 40 MG Mupirocin 1 applic BID EACHNOSTRI 07/23/24 22:00 07/28/24 21:59 07/25/24 09:47 1 APPLIC Lactulose 30 ml DAILYPRN PRN PO 07/23/24 10:45 Dexmedetomidine HCl 400 mcg/ Dextrose 100 ml @ 4.995 mls/ hr Q20H2M IV 07/23/24 11:30 07/25/24 09:56 4.995 MLS/HR Acetylcysteine 200 mg Q8HR NEB 07/23/24 14:00 07/26/24 14:00 07/25/24 05:44 200 MG Albuterol 2.5 mg Q8HR NEB 07/23/24 14:00 07/26/24 14:00 07/25/24 05:44 2.5 MG Vancomycin HCl 200 ml @ 200 mls/hr Q20H IV 07/25/24 00:00 07/25/24 20:22 200 MLS/HR Hydralazine HCl 10 mg Q6HP PRN IV 07/24/24 11:00 07/24/24 14:05 10 MG Vancomycin HCl 0 ml @ 0 mls/hr UD IV 07/24/24 15:15 objective Gen.: Patient lying in bed in medical ICU. Intubated on mechanical ventilator. Head: Normocephalic, atraumatic. Eyes: PERRLA. Ears: Normal external anatomy. Throat: Endotracheal tube and orogastric tube in place. Neck: Supple, trachea midline. Chest: Transmitted breath sounds bilaterally. Decreased air entry bilaterally. No wheezing. Bibasilar crackles. Cardiovascular: Positive S1, positive S2. Regular rate and rhythm. Abdomen: Positive bowel sounds in all 4 quadrants. Soft, nontender, nondistended. : Michel in place. Normal external genitalia. Rectal: Deferred. Skin: Warm, dry. Intact. Extremities: 2+ radial pulses bilaterally. No lower extremity edema. Neuro: Off sedation. laboratory and microbiology Laboratory Tests 07/25/24 03:18 Test 07/25/24 03:18 Range/Units Serum Glucose 120 H 74-106 mg/dL Assessment/Plan Impression: Acute hypoxic respiratory failure secondary to multifocal pneumonia and pulmonary edema Acute respiratory distress syndrome Multifocal pneumonia likely Gram-negative Pulmonary edema Leukopenia Septic shock Influenza type a Atrial fibrillation with RVR Chronic congestive heart failure Status post AICD CAD status post PTCA Insulin-dependent diabetes mellitus Acute kidney injury Events: CPAP with PS 8, PEEP of 5, FiO2 40% Off Fentanyl and Propofol Precedex drip for agitation Amiodarone PO for AFib Continue antibiotics, vancomycin Mucomyst/bronchodilators + CPT for increased ET tube secretions. IV fluid hydration at 125 ml/hr. Off Tube feeds. Diurese w/ Lasix as tolerated Monitor renal function Monitor electrolytes, supplement as necessary Awaiting weaning parameters and ABG. S/p therapeutic bronchoscopy on 07/22 - please see procedure note for details. Labs and imaging reviewed. Rest of plan as noted below. Plan: s/p intubation on mechanical ventilator. Vent settings; AC mode with respiratory rate 16, tidal volume 450, PEEP of 5, FiO2 40% Titrate FIO2 to keep O2 saturation above 90%. VAP bundle. Daily ABG and CXR while intubated Off sedation CXR, ABG reviewed. Pressors as necessary for hemodynamic support. Titrate to keep MAP above 65 mmHg/SBP above 90 mmHg. Stress dose steroids Received dose of albumin. Continue antibiotics. F/u cultures. Send sputum, blood cultures and urine cultures Monitor renal function due to Acute kidney injury. Creatinine trending down Monitor electrolytes. Supplement as necessary. Supplemented potassium and magnesium stat. On IV fluids, lactic acid trending down. Accucheks, ISS. GI/DVT prophylaxis. Condition: Critical Prognosis: Poor given multiple comorbidities. Rest of plan per hospitalist and other consultants. A total of 35 minutes of critical care time was spent reviewing the patient record, examining the patient, making a diagnostic and therapeutic plan, discussing this plan with the medical personnel, following up on diagnostic studies and following the patient for clinical stability excluding any and all procedures. At least 50% of this time was spent in direct, [id number] contact. Thank you JOSH Hatfield for allowing me to participate in this patient's care. Further recommendations will depend on patient's clinical course. Please do not hesitate to contact me if you have any questions or concerns. This medical document was created using an electronic medical record system with [employer] dictation system. Although this document has been carefully reviewed, there may still be some phonetic and typographical errors. These areas are purely typographical due to imperfections of the software programs, and do not reflect any compromise in the patient's medical care. Dietary Evaluation Review Comments: Advance to 2 gNa CCHO-60 diet when medically feasible. Pt's lipid pannel shows Cholesterol and LDL at lower mragin range, thus no restrictions on fat or cholesterol needed. Expected Outcomes/Goals: gradual weight loss, controlled DM, Plan discussed with: Other (ANGELO Caicedo) Critical Care Time(min): 35 LINDSEY ROSALES MD Jul 25, 2024 21:20
[2024-07-26] VITALS (94 sets, daily range): BP systolic 98–165; BP diastolic 53–79; PULSE 68–93; RESP 8–25; TEMP 97.7–99; O2SAT 92–97
[2024-07-26 03:49] LABS: Anion Gap 8 (5-15); Carbon Dioxide 31 mmol/L (20-31); Chloride 103 mmol/L (98-107); Potassium 3.2 mmol/L (3.5-5.1); Sodium 142 mmol/L (136-145)
[2024-07-26 03:50] LABS: Calcium 8.8 mg/dL (8.7-10.4)
[2024-07-26 03:52] LABS: Basophils # (auto) 0.1 10 ^3/uL (0-0.2); Basophils % (auto) 0.8 % (0.0-2.0); Eosinophils # (auto) 0 10 ^3/uL (0-0.8); Eosinophils % (auto) 0.5 % (0.0-7.0); Hematocrit 26.7 % (41.0-53.0); Lymphocytes # (auto) 0.8 10 ^3/uL (0.4-5.4); Lymphocytes % (auto) 11.5 % (10.0-50.0); Mean Corpuscular Hemoglobin 31.3 pg (28.0-32.0); Mean Corpuscular Hgb Conc. 33.8 g/dL (32.0-36.0); Mean Corpuscular Volume 92.6 fL (80.0-100.0); Monocytes # (auto) 0.5 10 ^3/uL (0-1.3); Neutrophils # (auto) 5.8 10 ^3/uL (1.6-8.6); Neutrophils % (auto) 80.2 % (37.0-80.0); Nucleated Red Blood Cells % 0.1 %; Platelet Count (auto) 251 10^3/uL (140-450); Red Blood Cells 2.88 10^6/uL (4.5-5.90); Red Cell Distribution Width 14.6 % (11.8-14.3); White Blood Cell 7.3 10^3/uL (4.4-10.8)
[2024-07-26 03:55] LABS: BUN/Creatinine Ratio 30.4 (10.0-20.0); Blood Urea Nitrogen 21 mg/dL (9-23); Glucose 77 mg/dL (74-106); Magnesium 1.7 mg/dL (1.6-2.6)
--- NOTE | 2024-07-26 13:17 | DVHPN2 ---
Subjective He was extubated successfully yesterday He is on 4 L nasal cannula now He is still has copious secretions requiring suction Vital signs are stable, no pressors Alert and oriented and follows commands He is still has 2+ edema bilaterally in upper and lower extremities Potassium magnesium are low Reviewed: Care Plan Changes from previous H/P or p: Changes Eyes: No Pain, No Vision change, No Conjunctivae inflammation, No Eyelid inflammation, No Other, No Redness ENT: No Ear pain, No Ear discharge, No Nose pain, No Nose discharge, No Nose congestion, No Mouth pain, No Mouth swelling, No Throat pain, No Throat swelling, No Other Cardiovascular: No Chest Pain, No Palpitations, No Orthopnea, No Paroxysmal Noc. Dyspnea, No Edema, No Lt Headedness, No Other Respiratory: No Cough, No Dry, No Shortness of breath, No SOB with excertion, No Wheezing, No Hemoptysis, No Pleuritic Pain, No Sputum, No Other Gastrointestinal: No Nausea, No Vomiting, No Abdominal Pain, No Diarrhea, No Constipation, No Melena, No Hematochezia, No Other Genitourinary: No Dysuria, No Frequency, No Incontinence, No Hematuria, No Retention, No Other Musculoskeletal: No other, No neck pain, No shoulder pain, No arm pain, No back pain, No hand pain, No leg pain, No foot pain Skin: No Rash, No Lesions, No Jaundice, No Bruising, No Other Objective Vitals Vital Signs Date Time Temp Pulse Resp B/P (MAP) Pulse Ox O2 Delivery O2 Flow Rate FiO2 07/26/24 06:22 19 94 Nasal Cannula* 4 36 07/26/24 06:22 86 07/26/24 06:15 109/54 (72) 07/26/24 04:00 98.5 98.5 Intake/Output Intake and Output 07/26/24 07:00 Intake Total 260.579 ml Output Total 2050 ml Balance -1789.421 ml IV Total 260.579 ml Output Urine Total 2050 ml General Appearance: Alert, Oriented X3, Cooperative, No acute distress Lungs: Other (B rhonchi) Cardiovascular: Regular rate, Normal S1, Normal S2, No murmurs Abdomen: Normal bowel sounds, Soft, No tenderness Extremities: Other (2+ edema bilaterally in upper and lower extremities) Neuro: Other (sedated on vent) Medications Current Medications Medications Dose Ordered Sig/Maurice Route Start Time Stop Time Status Last Admin Dose Admin Levothyroxine Sodium 200 mcg QAM PO 07/12/24 07:00 07/26/24 06:15 200 MCG Midazolam HCl 50 ml @ 1 mls/hr Q24H IV 07/12/24 08:30 07/19/24 10:13 6 MLS/HR Fentanyl Citrate 250 ml @ 2.5 mls/hr Q24H IV 07/12/24 08:30 07/25/24 01:00 17.5 MLS/HR Pantoprazole Sodium 40 mg DAILY IV 07/13/24 10:00 07/26/24 11:05 40 MG Vancomycin HCl 200 ml @ 200 mls/hr Q1H IV 07/12/24 13:00 07/12/24 14:59 Cancel Phenylephrine HCl 80 mg/Sodium Chloride 250 ml @ 7.5 mls/hr Q24H IV 07/12/24 19:30 07/13/24 03:31 7.5 MLS/HR Insulin Glargine 10 units DAILY@1000 SC 07/14/24 10:00 07/25/24 10:01 10 UNITS Digoxin 125 mcg MWF IV 07/16/24 10:00 07/25/24 09:49 125 MCG Acetaminophen 650 mg Q6HP PRN [place] 07/14/24 17:00 07/15/24 10:32 650 MG Sodium Chloride 10 ml QSHIFT@,22 IV 07/14/24 22:00 07/26/24 11:06 10 ML Dextrose 50 ml UD IV 07/15/24 15:00 Cancel Amiodarone HCl 200 mg Q12HR GT 07/17/24 22:00 07/26/24 12:37 200 MG Enteral Nutritional Formula 1,000 ml 40ML/HR GT 07/17/24 12:30 07/24/24 15:31 1,000 ML Diagnostic Test (Pha) 1 strip Q6HR 07/17/24 18:00 07/26/24 12:37 1 STRIP Insulin Human Regular Q6HR SC 07/17/24 18:00 07/24/24 18:14 2 UNITS Dextrose 50 ml UD PRN IV 07/17/24 13:15 Sennosides 8.6 mg HS PO 07/18/24 22:00 07/25/24 21:47 8.6 MG Docusate Sodium 100 mg BID GT 07/19/24 22:00 07/25/24 21:46 100 MG Norepinephrine Bitartrate 32 mg/ Sodium Chloride 250 ml @ 0.938 mls/ hr Q24H IV 07/19/24 18:15 Propofol 100 ml @ 3.111 mls/ hr Q24H IV 07/19/24 19:45 07/25/24 02:11 9.333 MLS/HR Furosemide 40 mg BIDD IV 07/23/24 18:00 07/26/24 06:14 40 MG Enoxaparin Sodium 40 mg DAILY SC 07/24/24 10:00 07/26/24 11:08 40 MG Mupirocin 1 applic BID EACHNOSTRI 07/23/24 22:00 07/28/24 21:59 07/26/24 11:07 1 APPLIC Lactulose 30 ml DAILYPRN PRN PO 07/23/24 10:45 Dexmedetomidine HCl 400 mcg/ Dextrose 100 ml @ 4.995 mls/ hr Q20H2M IV 07/23/24 11:30 07/25/24 09:56 4.995 MLS/HR Acetylcysteine 200 mg Q8HR NEB 07/23/24 14:00 07/26/24 14:00 07/26/24 05:57 200 MG Albuterol 2.5 mg Q8HR NEB 07/23/24 14:00 07/26/24 14:00 07/26/24 05:57 2.5 MG Vancomycin HCl 200 ml @ 200 mls/hr Q20H IV 07/25/24 00:00 07/25/24 20:22 200 MLS/HR Hydralazine HCl 10 mg Q6HP PRN IV 07/24/24 11:00 07/24/24 14:05 10 MG Vancomycin HCl 0 ml @ 0 mls/hr UD IV 07/24/24 15:15 Acetylcysteine 200 mg Q8HR NEB 07/26/24 14:00 07/29/24 13:59 Laboratory Results Laboratory Tests 07/26/24 03:17 Chemistry Test 07/26/24 03:17 Calcium Level 8.8 mg/dL (8.7-10.4) Magnesium Level 1.7 mg/dL (1.6-2.6) Phosphorus Level 3.6 mg/dL (2.4-5.1) Urinalysis Test 07/11/24 15:12 Urine Color Yellow (Yellow) Urine Clarity Clear (Clear) Urine pH 5.5 (5.0-9.0) Urine Specific [place] 1.027 (1.001-1.035) Urine Protein 1+ (Negative) H Urine Ketones 2+ (Negative) H Urine Blood Negative /uL (Negative) Urine Nitrite Negative (Negative) Urine Bilirubin Negative (Negative) Urine Urobilinogen Normal mg/dL (Negative) Urine Leukocyte Esterase Negative /uL (Negative) Urine RBC 1 /hpf (0 - 3) Urine WBC 3 /hpf (0 - 3) Urine Squamous Epithelial Cells Few /hpf (<5) Urine Bacteria None seen /hpf (None Seen) Urine Glucose 4+ mg/dL (Normal) H Blood Gas Results Test 07/25/24 13:29 Arterial Blood pH 7.469 (7.350-7.450) FiO2 % 40.0 Microbiology Microbiology Date/Time Source Procedure Growth Status 07/22/24 00:00 Sputum Gram Stain - Final Complete 07/22/24 00:00 Respiratory Culture - Final Staphylococcus aureus Presumptive Ct albicans Complete 07/15/24 12:00 Lung - Final Resulted 07/15/24 12:00 Lung - Final Resulted 07/15/24 12:00 Lung Pending Resulted 07/15/24 12:00 Lung Pending Resulted 07/15/24 12:00 Lung - Final See Separate Report... Resulted 07/15/24 12:00 Drainage Viral Culture - Final Complete 07/12/24 10:47 Voided Urine Urine Culture - Final Complete 07/11/24 21:08 Blood Blood Culture - Final NO GROWTH AFTER 5 DAYS OF INCUBATION. Complete Assessment/Plan Assessment/Plan Acute hypoxic respiratory failure Multi-focal pneumonia, due to MRSA Influenza A Sepsis, improved Atrial fibrillation Acute on chronic CHF, EF 25% CAD Hypothyroidism DM2 Thrombocytopenia due to sepsis, improved PLAN: 07/23/2024: Sedation: Versed, Propofol, Fent GI prophylaxis: Protonix DVT prophylaxis: Add Lovenox PNA: Vancomycin AFIB: Amio, Dig, Sepsis: Improved CHF: Lasix 40 mg IV daily, increase to bid DM2: Lantus 07/24/2024: CPAP trial in progress Dr. Rivera is trying to extubate the patient hopefully next 1-2 days Continue the current management Off vasopressors Discussed with the daughter at the bedside yesterday afternoon Questions answered Full code 07/25/2024: CPAP in progress today for possible extubation today Off vasopressors Off sedation Continue vancomycin IV Lasix 40 mg IV twice a day Digoxin IV 3 times a week Amiodarone 07/26/2024: Continue IV Lasix Continue NPO Replace potassium magnesium IV Continue IV vancomycin Physical therapy Continue feeding through the NG tube Plan discussed with: Patient, Other Date of Service: Jul 26, 2024 Billing Provider: MERLYN NARAYAN MD Common Visit Codes: [id number] CARE 30-74 MIN MERLYN NARAYAN MD Jul 26, 2024 13:17
[2024-07-26] MEDS: MAGNESIUM SULFATE 1GM/100ML 100 ML IV SCH (13:39)
[2024-07-26] MEDS: POTASSIUM CHL 20MEQ/100ML 100 ML IV SCH (13:39)
[2024-07-26] MEDS: ACETYLCYSTEINE 20%(200MG/ML) SOL 4ML NEB SCH (15:00)
[2024-07-26] MEDS: Glucerna Carbsteady SHAKE Vanilla 8oz PO SCH (18:00)
--- NOTE | 2024-07-26 21:32 | DVHPN2 ---
Progress Note - Dictate Date Seen: Jul 26, 2024 Medical Necessity Reason Pt with a Central, PICC or Fol: Yes The following are medically ne: Central Line, Michel Catheter Reason for michel catheter: Strict I&O Subjective Patient seen and examined at bedside. S/p extubation, on supplemental oxygen Overnight events reviewed. vital signs Vital Sign Date Time Temp Pulse Resp B/P (MAP) Pulse Ox O2 Delivery O2 Flow Rate FiO2 07/26/24 21:15 85 16 127/70 (89) 96 07/26/24 20:00 97.8 97.8 07/26/24 18:00 Nasal Cannula* 4 36 Total Intake and Output 07/25/24 07/25/24 07/26/24 15:00 23:00 07:00 Intake Total 60.579 ml 200 ml Output Total 925 ml 1125 ml Balance 60.579 ml -725 ml -1125 ml medications Current Medications Medications Dose Ordered Sig/Maurice Route Start Time Stop Time Status Last Admin Dose Admin Levothyroxine Sodium 200 mcg QAM PO 07/12/24 07:00 07/26/24 06:15 200 MCG Midazolam HCl 50 ml @ 1 mls/hr Q24H IV 07/12/24 08:30 07/19/24 10:13 6 MLS/HR Fentanyl Citrate 250 ml @ 2.5 mls/hr Q24H IV 07/12/24 08:30 07/25/24 01:00 17.5 MLS/HR Pantoprazole Sodium 40 mg DAILY IV 07/13/24 10:00 07/26/24 11:05 40 MG Vancomycin HCl 200 ml @ 200 mls/hr Q1H IV 07/12/24 13:00 07/12/24 14:59 Cancel Phenylephrine HCl 80 mg/Sodium Chloride 250 ml @ 7.5 mls/hr Q24H IV 07/12/24 19:30 07/13/24 03:31 7.5 MLS/HR Insulin Glargine 10 units DAILY@1000 SC 07/14/24 10:00 07/25/24 10:01 10 UNITS Digoxin 125 mcg MWF IV 07/16/24 10:00 07/25/24 09:49 125 MCG Acetaminophen 650 mg Q6HP PRN ID 07/14/24 17:00 07/15/24 10:32 650 MG Sodium Chloride 10 ml QSHIFT@10,22 IV 07/14/24 22:00 07/26/24 11:06 10 ML Dextrose 50 ml UD IV 07/15/24 15:00 Cancel Amiodarone HCl 200 mg Q12HR GT 07/17/24 22:00 07/26/24 12:37 200 MG Enteral Nutritional Formula 1,000 ml 40ML/HR GT 07/17/24 12:30 07/26/24 16:37 1,000 ML Diagnostic Test (Pha) 1 strip Q6HR 07/17/24 18:00 07/26/24 17:57 1 STRIP Insulin Human Regular Q6HR SC 07/17/24 18:00 07/24/24 18:14 2 UNITS Dextrose 50 ml UD PRN IV 07/17/24 13:15 Sennosides 8.6 mg HS PO 07/18/24 22:00 07/25/24 21:47 8.6 MG Docusate Sodium 100 mg BID GT 07/19/24 22:00 07/25/24 21:46 100 MG Norepinephrine Bitartrate 32 mg/ Sodium Chloride 250 ml @ 0.938 mls/ hr Q24H IV 07/19/24 18:15 Propofol 100 ml @ 3.111 mls/ hr Q24H IV 07/19/24 19:45 07/25/24 02:11 9.333 MLS/HR Furosemide 40 mg BIDD IV 07/23/24 18:00 07/26/24 18:15 40 MG Enoxaparin Sodium 40 mg DAILY SC 07/24/24 10:00 07/26/24 11:08 40 MG Mupirocin 1 applic BID EACHNOSTRI 07/23/24 22:00 07/28/24 21:59 07/26/24 11:07 1 APPLIC Lactulose 30 ml DAILYPRN PRN PO 07/23/24 10:45 Dexmedetomidine HCl 400 mcg/ Dextrose 100 ml @ 4.995 mls/ hr Q20H2M IV 07/23/24 11:30 07/25/24 09:56 4.995 MLS/HR Hydralazine HCl 10 mg Q6HP PRN IV 07/24/24 11:00 07/24/24 14:05 10 MG Vancomycin HCl 0 ml @ 0 mls/hr UD IV 07/24/24 15:15 Acetylcysteine 200 mg Q8HR NEB 07/26/24 14:00 07/29/24 13:59 Enteral Nutritional Formula 240 ml QID PO 07/26/24 18:00 Enteral Nutritional Formula 1,000 ml 50ML/HR GT 07/26/24 15:30 Vancomycin HCl 200 ml @ 200 mls/hr Q18H IV 07/27/24 10:00 Albuterol 2.5 mg Q8HR NEB 07/26/24 22:00 objective Gen.: Patient lying in bed in no apparent distress. On supplemental oxygen. Head: Normocephalic, atraumatic. Eyes: EOMI/PERRLA. Ears: Normal hearing. Normal anatomy. Neck/trachea: Trachea midline, supple. Nose: Normal external anatomy. Mouth: Moist mucous membranes. Chest: Decreased air entry bilaterally. No wheezing or rhonchi. Cardiovascular: Positive S1, positive S2. Regular rate and rhythm. Abdomen: Positive bowel sounds in all 4 quadrants. Soft, non-tender, non- distended. : Deferred. Rectal: Deferred. Skin: Warm, dry. Intact. Extremities: 2+ radial pulses bilaterally. No lower extremity edema. Neuro: Awake, alert, oriented x3. No gross motor or sensory deficits. Cranial nerves II through XII intact. Gait not assessed. laboratory and microbiology Laboratory Tests 07/26/24 03:17 Test 07/26/24 03:17 Range/Units Serum Glucose 77 74-106 mg/dL Assessment/Plan Impression: Acute hypoxic respiratory failure secondary to multifocal pneumonia and pulmonary edema Acute respiratory distress syndrome Multifocal pneumonia likely Gram-negative Pulmonary edema Leukopenia Septic shock Influenza type a Atrial fibrillation with RVR Chronic congestive heart failure Status post AICD CAD status post PTCA Insulin-dependent diabetes mellitus Acute kidney injury Events: Patient tolerated CPAP, underwent successful extubation yesterday Currently on supplemental O2 at 4 LPM NC. Taper O2 as tolerated NGT Off sedation, off Precedex Head of bed elevation Aspiration precautions Swallow evaluation Pulmonary toileting NTS PRN. Amiodarone PO for AFib Continue antibiotics, vancomycin Mucomyst 20%/bronchodilators + CPT for increased ET tube secretions. EZPAP IV fluid hydration at 125 ml/hr. Diurese w/ Lasix as tolerated Monitor renal function Monitor electrolytes, supplement as necessary S/p therapeutic bronchoscopy on 07/22 - please see procedure note for details. Labs and imaging reviewed. Rest of plan as noted below. Plan: s/p extubation on 07/25/24 On supplemental O2 at 4 LPM NC. Titrate to keep O2 sats above 92%. Off sedation Pressors as necessary for hemodynamic support - Currently off pressors Titrate to keep MAP above 65 mmHg/SBP above 90 mmHg. Stress dose steroids Received dose of albumin. Continue antibiotics. F/u cultures. Send sputum, blood cultures and urine cultures Monitor renal function due to Acute kidney injury. Creatinine trending down Monitor electrolytes. Supplement as necessary. Supplemented potassium and magnesium stat. On IV fluids, lactic acid trending down. Accu-Cheks, ISS. GI/DVT prophylaxis. Condition: Critical Prognosis: Poor given multiple comorbidities. Rest of plan per hospitalist and other consultants. A total of 35 minutes of critical care time was spent reviewing the patient record, examining the patient, making a diagnostic and therapeutic plan, discussing this plan with the medical personnel, following up on diagnostic studies and following the patient for clinical stability excluding any and all procedures. At least 50% of this time was spent in direct, [id number] contact. Thank you JOSH Hatfield for allowing me to participate in this patient's care. Further recommendations will depend on patient's clinical course. Please do not hesitate to contact me if you have any questions or concerns. This medical document was created using an electronic medical record system with [employer] dictation system. Although this document has been carefully reviewed, there may still be some phonetic and typographical errors. These areas are purely typographical due to imperfections of the software programs, and do not reflect any compromise in the patient's medical care. Dietary Evaluation Review Comments: Advance to 2 gNa CCHO-60 diet when medically feasible. Pt's lipid pannel shows Cholesterol and LDL at lower mragin range, thus no restrictions on fat or cholesterol needed. Expected Outcomes/Goals: gradual weight loss, controlled DM, Plan discussed with: Other (ANGELO Zambrano) Critical Care Time(min): 35 LINDSEY ROSALES MD Jul 26, 2024 21:32
[2024-07-26] MEDS: ALBUTEROL SULF 2.5 MG/0.5ML(0.5%) NEB SOLN NEB SCH (22:23)
[2024-07-27] VITALS (71 sets, daily range): BP systolic 124–166; BP diastolic 49–89; PULSE 78–96; RESP 7–27; TEMP 97.9–98.8; O2SAT 87–97
[2024-07-27 03:51] LABS: Basophils # (auto) 0.1 10 ^3/uL (0-0.2); Basophils % (auto) 0.9 % (0.0-2.0); Eosinophils # (auto) 0 10 ^3/uL (0-0.8); Eosinophils % (auto) 0.7 % (0.0-7.0); Hematocrit 26.4 % (41.0-53.0); Lymphocytes # (auto) 0.7 10 ^3/uL (0.4-5.4); Lymphocytes % (auto) 11.2 % (10.0-50.0); Mean Corpuscular Hemoglobin 31.5 pg (28.0-32.0); Mean Corpuscular Hgb Conc. 34.1 g/dL (32.0-36.0); Mean Corpuscular Volume 92.3 fL (80.0-100.0); Monocytes # (auto) 0.5 10 ^3/uL (0-1.3); Monocytes % (auto) 7.4 % (0.0-12.0); Neutrophils # (auto) 5.3 10 ^3/uL (1.6-8.6); Neutrophils % (auto) 79.8 % (37.0-80.0); Platelet Count (auto) 284 10^3/uL (140-450); Red Blood Cells 2.86 10^6/uL (4.5-5.90); Red Cell Distribution Width 14.8 % (11.8-14.3); White Blood Cell 6.6 10^3/uL (4.4-10.8)
[2024-07-27 04:08] LABS: Alanine Aminotransferase 14 U/L (7-40); Alkaline Phosphatase 73 U/L (46-116); Anion Gap 10 (5-15); BUN/Creatinine Ratio 27.1 (10.0-20.0); Blood Urea Nitrogen 19 mg/dL (9-23); Calcium 8.6 mg/dL (8.7-10.4); Carbon Dioxide 30 mmol/L (20-31); Chloride 102 mmol/L (98-107); Glucose 128 mg/dL (74-106); Magnesium 1.7 mg/dL (1.6-2.6); Potassium 3.1 mmol/L (3.5-5.1); Sodium 142 mmol/L (136-145)
[2024-07-27 04:09] LABS: Albumin 2.8 g/dL (3.2-4.8); Aspartate Aminotransferase 29 U/L (13-40); Bilirubin, Total 1.2 mg/dL (0.2-1.0); Total Protein 6.2 g/dL (5.7-8.2)
[2024-07-27] MEDS: POTASSIUM EFFERVESENT TAB 25 MEQ GT ONE (08:24)
[2024-07-27] MEDS: VANCOMYCIN 1GM/250ML KIT 200 ML IV SCH (09:47)
--- NOTE | 2024-07-27 20:03 | DVHPN2 ---
Progress Note - Dictate Date Seen: Jul 27, 2024 Medical Necessity Reason Pt with a Central, PICC or Fol: Yes The following are medically ne: Central Line, Michel Catheter Reason for michel catheter: Strict I&O Subjective Patient seen and examined at bedside. Remains on supplemental oxygen Overnight events reviewed. vital signs Vital Sign Date Time Temp Pulse Resp B/P (MAP) Pulse Ox O2 Delivery O2 Flow Rate FiO2 07/27/24 18:13 146/70 07/27/24 18:00 13 92 Nasal Cannula* 3 32 07/27/24 18:00 84 07/27/24 12:00 98.0 98.0 Total Intake and Output 07/26/24 07/26/24 07/27/24 15:00 23:00 07:00 Intake Total 200 ml 540 ml 239 ml Output Total 1050 ml 1300 ml Balance 200 ml -510 ml -1061 ml medications Current Medications Medications Dose Ordered Sig/Maurice Route Start Time Stop Time Status Last Admin Dose Admin Levothyroxine Sodium 200 mcg QAM PO 07/12/24 07:00 07/27/24 06:17 200 MCG Midazolam HCl 50 ml @ 1 mls/hr Q24H IV 07/12/24 08:30 07/19/24 10:13 6 MLS/HR Fentanyl Citrate 250 ml @ 2.5 mls/hr Q24H IV 07/12/24 08:30 07/25/24 01:00 17.5 MLS/HR Pantoprazole Sodium 40 mg DAILY IV 07/13/24 10:00 07/27/24 09:48 40 MG Vancomycin HCl 200 ml @ 200 mls/hr Q1H IV 07/12/24 13:00 07/12/24 14:59 Cancel Phenylephrine HCl 80 mg/Sodium Chloride 250 ml @ 7.5 mls/hr Q24H IV 07/12/24 19:30 07/13/24 03:31 7.5 MLS/HR Insulin Glargine 10 units DAILY@1000 SC 07/14/24 10:00 07/27/24 09:51 10 UNITS Digoxin 125 mcg MWF IV 07/16/24 10:00 07/27/24 09:48 125 MCG Acetaminophen 650 mg Q6HP PRN MA 07/14/24 17:00 07/15/24 10:32 650 MG Sodium Chloride 10 ml QSHIFT@ IV 07/14/24 22:00 07/27/24 09:49 10 ML Dextrose 50 ml UD IV 07/15/24 15:00 Cancel Amiodarone HCl 200 mg Q12HR GT 07/17/24 22:00 07/27/24 09:47 200 MG Enteral Nutritional Formula 1,000 ml 40ML/HR GT 07/17/24 12:30 07/26/24 16:37 1,000 ML Diagnostic Test (Pha) 1 strip Q6HR 07/17/24 18:00 07/27/24 18:28 1 STRIP Insulin Human Regular Q6HR SC 07/17/24 18:00 07/27/24 18:29 2 UNITS Dextrose 50 ml UD PRN IV 07/17/24 13:15 Sennosides 8.6 mg HS PO 07/18/24 22:00 07/26/24 21:40 8.6 MG Docusate Sodium 100 mg BID GT 07/19/24 22:00 07/27/24 09:47 100 MG Norepinephrine Bitartrate 32 mg/ Sodium Chloride 250 ml @ 0.938 mls/ hr Q24H IV 07/19/24 18:15 Propofol 100 ml @ 3.111 mls/ hr Q24H IV 07/19/24 19:45 07/25/24 02:11 9.333 MLS/HR Furosemide 40 mg BIDD IV 07/23/24 18:00 07/27/24 18:13 40 MG Enoxaparin Sodium 40 mg DAILY SC 07/24/24 10:00 07/27/24 09:49 40 MG Mupirocin 1 applic BID EACHNOSTRI 07/23/24 22:00 07/28/24 21:59 07/27/24 09:47 1 APPLIC Lactulose 30 ml DAILYPRN PRN PO 07/23/24 10:45 Dexmedetomidine HCl 400 mcg/ Dextrose 100 ml @ 4.995 mls/ hr Q20H2M IV 07/23/24 11:30 07/25/24 09:56 4.995 MLS/HR Hydralazine HCl 10 mg Q6HP PRN IV 07/24/24 11:00 07/24/24 14:05 10 MG Vancomycin HCl 0 ml @ 0 mls/hr UD IV 07/24/24 15:15 Acetylcysteine 200 mg Q8HR NEB 07/26/24 14:00 07/29/24 13:59 07/27/24 14:27 200 MG Enteral Nutritional Formula 240 ml QID PO 07/26/24 18:00 Enteral Nutritional Formula 1,000 ml 50ML/HR GT 07/26/24 15:30 Vancomycin HCl 200 ml @ 200 mls/hr Q18H IV 07/27/24 10:00 07/27/24 09:47 200 MLS/HR Albuterol 2.5 mg Q8HR NEB 07/26/24 22:00 07/27/24 14:26 2.5 MG objective Gen.: Patient lying in bed in no apparent distress. On supplemental oxygen. Head: Normocephalic, atraumatic. Eyes: EOMI/PERRLA. Ears: Normal hearing. Normal anatomy. Neck/trachea: Trachea midline, supple. Nose: Normal external anatomy. Mouth: Moist mucous membranes. Chest: Decreased air entry bilaterally. No wheezing or rhonchi. Cardiovascular: Positive S1, positive S2. Regular rate and rhythm. Abdomen: Positive bowel sounds in all 4 quadrants. Soft, non-tender, non- distended. : Deferred. Rectal: Deferred. Skin: Warm, dry. Intact. Extremities: 2+ radial pulses bilaterally. No lower extremity edema. Neuro: Awake, alert, oriented x3. No gross motor or sensory deficits. Cranial nerves II through XII intact. Gait not assessed. laboratory and microbiology Laboratory Tests 07/27/24 03:15 Test 07/27/24 03:15 Range/Units Serum Glucose 128 H 74-106 mg/dL Assessment/Plan Impression: Acute hypoxic respiratory failure secondary to multifocal pneumonia and pulmonary edema Acute respiratory distress syndrome Multifocal pneumonia likely Gram-negative Pulmonary edema Leukopenia Septic shock Influenza type a Atrial fibrillation with RVR Chronic congestive heart failure Status post AICD CAD status post PTCA Insulin-dependent diabetes mellitus Acute kidney injury Events: Remains on supplemental O2 at 3 LPM NC. Taper O2 as tolerated Head of bed elevation Aspiration precautions Patient noted to have productive cough. Continue antibiotics, vancomycin Mucomyst 20%/bronchodilators + CPT for increased ET tube secretions. EZPAP Amiodarone PO for AFib Swallow evaluation Pulmonary toileting NTS PRN. Diet is puree with thickened liquids. IV fluid hydration at 125 ml/hr. PT. Diurese w/ Lasix as tolerated Monitor renal function Monitor electrolytes, supplement as necessary Patient is stable for downgrade to MIGUEL from the pulmonary standpoint. S/p therapeutic bronchoscopy on 07/22 - please see procedure note for details. Labs and imaging reviewed. Rest of plan as noted below. Plan: s/p extubation on 07/25/24 On supplemental O2 at 3 LPM NC. Titrate to keep O2 sats above 92%. Off sedation Pressors as necessary for hemodynamic support - Currently off pressors Titrate to keep MAP above 65 mmHg/SBP above 90 mmHg. Stress dose steroids Received dose of albumin. Continue antibiotics. F/u cultures. Send sputum, blood cultures and urine cultures Monitor renal function due to Acute kidney injury. Creatinine trending down Monitor electrolytes. Supplement as necessary. Supplemented potassium and magnesium stat. On IV fluids, lactic acid trending down. Accu-Cheks, ISS. GI/DVT prophylaxis. Condition: Critical Prognosis: Poor given multiple comorbidities. Rest of plan per hospitalist and other consultants. A total of 35 minutes of critical care time was spent reviewing the patient record, examining the patient, making a diagnostic and therapeutic plan, discussing this plan with the medical personnel, following up on diagnostic studies and following the patient for clinical stability excluding any and all procedures. At least 50% of this time was spent in direct, [id number] contact. Thank you JOSH Hatfield for allowing me to participate in this patient's care. Further recommendations will depend on patient's clinical course. Please do not hesitate to contact me if you have any questions or concerns. This medical document was created using an electronic medical record system with [employer] computerized dictation system. Although this document has been carefully reviewed, there may still be some phonetic and typographical errors. These areas are purely typographical due to imperfections of the software programs, and do not reflect any compromise in the patient's medical care. Dietary Evaluation Review Comments: Advance to 2 gNa CCHO-60 diet when medically feasible. Pt's lipid pannel shows Cholesterol and LDL at lower mragin range, thus no restrictions on fat or cholesterol needed. Expected Outcomes/Goals: gradual weight loss, controlled DM, Plan discussed with: Other (ANGELO Theodore) Critical Care Time(min): 35 LINDSEY ROSALES MD Jul 27, 2024 20:03
[2024-07-28] VITALS (29 sets, daily range): BP systolic 99–146; BP diastolic 46–70; PULSE 71–88; RESP 12–28; TEMP 97.9–98.4; O2SAT 78–98
[2024-07-28 04:18] LABS: Basophils # (auto) 0.1 10 ^3/uL (0-0.2); Basophils % (auto) 1.3 % (0.0-2.0); Eosinophils # (auto) 0 10 ^3/uL (0-0.8); Eosinophils % (auto) 0.8 % (0.0-7.0); Hematocrit 26.2 % (41.0-53.0); Lymphocytes % (auto) 17.1 % (10.0-50.0); Mean Corpuscular Hemoglobin 31.6 pg (28.0-32.0); Mean Corpuscular Hgb Conc. 34.4 g/dL (32.0-36.0); Mean Corpuscular Volume 91.8 fL (80.0-100.0); Monocytes # (auto) 0.5 10 ^3/uL (0-1.3); Monocytes % (auto) 8.4 % (0.0-12.0); Neutrophils # (auto) 4.1 10 ^3/uL (1.6-8.6); Neutrophils % (auto) 72.4 % (37.0-80.0); Nucleated Red Blood Cells % 0.1 %; Platelet Count (auto) 295 10^3/uL (140-450); Red Blood Cells 2.85 10^6/uL (4.5-5.90); Red Cell Distribution Width 14.5 % (11.8-14.3); White Blood Cell 5.7 10^3/uL (4.4-10.8)
[2024-07-28 04:36] LABS: Alanine Aminotransferase 15 U/L (7-40); Albumin 2.7 g/dL (3.2-4.8); Alkaline Phosphatase 68 U/L (46-116); Anion Gap 6 (5-15); Aspartate Aminotransferase 30 U/L (13-40); BUN/Creatinine Ratio 22.2 (10.0-20.0); Bilirubin, Total 0.9 mg/dL (0.2-1.0); Blood Urea Nitrogen 16 mg/dL (9-23); Calcium 8.9 mg/dL (8.7-10.4); Carbon Dioxide 34 mmol/L (20-31); Chloride 103 mmol/L (98-107); Glucose 83 mg/dL (74-106); Potassium 2.9 mmol/L (3.5-5.1); Sodium 143 mmol/L (136-145); Total Protein 6.2 g/dL (5.7-8.2)
--- NOTE | 2024-07-28 06:01 | DVH ---
CHEST RADIOGRAPH Indication: post extubation 07/25 Technique: Single frontal view of the chest was obtained Comparison: XY CHEST PORTABLE on DOS: 07/25/24, XY CHEST PORTABLE on DOS: 07/24/24, XY CHEST PORTABLE on DOS: 07/23/24 IMPRESSION: The heart is prominent in size. Support lines and tubes appear unchanged in position. There has been interval extubation. Patchy alveolar airspace opacities in the right lung appear increased. Likely sm all right pleural effusion. The left lung appears clear. No pneumothorax.
[2024-07-28] MEDS: POTASSIUM CHL 20MEQ/100ML 100 ML IV SCH (06:27)
--- NOTE | 2024-07-28 14:29 | DVHPN2 ---
Subjective Alert and oriented Follows commands Still very congested with copious secretions and needing suction Vital signs stable 3-4 L nasal cannula Reviewed: Care Plan Changes from previous H/P or p: Changes Eyes: No Pain, No Vision change, No Conjunctivae inflammation, No Eyelid inflammation, No Other, No Redness ENT: No Ear pain, No Ear discharge, No Nose pain, No Nose discharge, No Nose congestion, No Mouth pain, No Mouth swelling, No Throat pain, No Throat swelling, No Other Cardiovascular: No Chest Pain, No Palpitations, No Orthopnea, No Paroxysmal Noc. Dyspnea, No Edema, No Lt Headedness, No Other Respiratory: No Cough, No Dry, No Shortness of breath, No SOB with excertion, No Wheezing, No Hemoptysis, No Pleuritic Pain, No Sputum, No Other Gastrointestinal: No Nausea, No Vomiting, No Abdominal Pain, No Diarrhea, No Constipation, No Melena, No Hematochezia, No Other Genitourinary: No Dysuria, No Frequency, No Incontinence, No Hematuria, No Retention, No Other Musculoskeletal: No other, No neck pain, No shoulder pain, No arm pain, No back pain, No hand pain, No leg pain, No foot pain Skin: No Rash, No Lesions, No Jaundice, No Bruising, No Other Objective Vitals Vital Signs Date Time Temp Pulse Resp B/P (MAP) Pulse Ox O2 Delivery O2 Flow Rate FiO2 07/28/24 12:00 18 93 Nasal Cannula* 4 36 07/28/24 12:00 77 130/58 (82) 07/28/24 04:00 97.9 97.9 Intake/Output Intake and Output 07/28/24 07:00 Intake Total 1040 ml Output Total 2225 ml Balance -1185 ml Intake Oral 0 ml IV Total 450 ml Tube Feeding 590 ml Output Urine Total 2225 ml General Appearance: Alert, Oriented X3, Cooperative, No acute distress Lungs: Other (B rhonchi) Cardiovascular: Regular rate, Normal S1, Normal S2, No murmurs Abdomen: Normal bowel sounds, Soft, No tenderness Extremities: Other (2+ edema bilaterally in upper and lower extremities) Neuro: Other (sedated on vent) Medications Current Medications Medications Dose Ordered Sig/Maurice Route Start Time Stop Time Status Last Admin Dose Admin Levothyroxine Sodium 200 mcg QAM PO 07/12/24 07:00 07/28/24 06:46 200 MCG Pantoprazole Sodium 40 mg DAILY IV 07/13/24 10:00 07/28/24 09:00 40 MG Vancomycin HCl 200 ml @ 200 mls/hr Q1H IV 07/12/24 13:00 07/12/24 14:59 Cancel Insulin Glargine 10 units DAILY@1000 SC 07/14/24 10:00 07/28/24 09:03 10 UNITS Digoxin 125 mcg MWF IV 07/16/24 10:00 07/27/24 09:48 125 MCG Acetaminophen 650 mg Q6HP PRN MN 07/14/24 17:00 07/15/24 10:32 650 MG Sodium Chloride 10 ml QSHIFT@, IV 07/14/24 22:00 07/28/24 09:00 10 ML Dextrose 50 ml UD IV 07/15/24 15:00 Cancel Amiodarone HCl 200 mg Q12HR GT 07/17/24 22:00 07/28/24 09:00 200 MG Enteral Nutritional Formula 1,000 ml 40ML/HR GT 07/17/24 12:30 07/27/24 22:14 1,000 ML Diagnostic Test (Pha) 1 strip Q6HR 07/17/24 18:00 07/28/24 12:19 1 STRIP Insulin Human Regular Q6HR SC 07/17/24 18:00 07/28/24 00:00 2 UNITS Dextrose 50 ml UD PRN IV 07/17/24 13:15 Sennosides 8.6 mg HS PO 07/18/24 22:00 07/27/24 21:43 8.6 MG Docusate Sodium 100 mg BID GT 07/19/24 22:00 07/28/24 09:00 100 MG Furosemide 40 mg BIDD IV 07/23/24 18:00 07/28/24 06:25 40 MG Enoxaparin Sodium 40 mg DAILY SC 07/24/24 10:00 07/28/24 09:00 40 MG Mupirocin 1 applic BID EACHNOSTRI 07/23/24 22:00 07/28/24 21:59 07/28/24 09:03 1 APPLIC Lactulose 30 ml DAILYPRN PRN PO 07/23/24 10:45 Hydralazine HCl 10 mg Q6HP PRN IV 07/24/24 11:00 07/24/24 14:05 10 MG Vancomycin HCl 0 ml @ 0 mls/hr UD IV 07/24/24 15:15 Acetylcysteine 200 mg Q8HR NEB 07/26/24 14:00 07/29/24 13:59 07/28/24 07:39 200 MG Enteral Nutritional Formula 240 ml QID PO 07/26/24 18:00 Enteral Nutritional Formula 1,000 ml 50ML/HR GT 07/26/24 15:30 Vancomycin HCl 200 ml @ 200 mls/hr Q18H IV 07/27/24 10:00 07/28/24 04:19 200 MLS/HR Albuterol 2.5 mg Q8HR NEB 07/26/24 22:00 07/28/24 07:39 2.5 MG Laboratory Results Laboratory Tests 07/28/24 03:15 Chemistry Test 07/28/24 03:15 Albumin 2.7 g/dL (3.2-4.8) L Calcium Level 8.9 mg/dL (8.7-10.4) Total Protein 6.2 g/dL (5.7-8.2) LFT Test 07/28/24 03:15 Alanine Aminotransferase (ALT) 15 U/L (7-40) Alkaline Phosphatase 68 U/L (46-116) Aspartate Amino Transferase (AST) 30 U/L (13-40) Total Bilirubin 0.9 mg/dL (0.2-1.0) Urinalysis Test 07/11/24 15:12 Urine Color Yellow (Yellow) Urine Clarity Clear (Clear) Urine pH 5.5 (5.0-9.0) Urine Specific [place] 1.027 (1.001-1.035) Urine Protein 1+ (Negative) H Urine Ketones 2+ (Negative) H Urine Blood Negative /uL (Negative) Urine Nitrite Negative (Negative) Urine Bilirubin Negative (Negative) Urine Urobilinogen Normal mg/dL (Negative) Urine Leukocyte Esterase Negative /uL (Negative) Urine RBC 1 /hpf (0 - 3) Urine WBC 3 /hpf (0 - 3) Urine Squamous Epithelial Cells Few /hpf (<5) Urine Bacteria None seen /hpf (None Seen) Urine Glucose 4+ mg/dL (Normal) H Microbiology Microbiology Date/Time Source Procedure Growth Status 07/22/24 00:00 Sputum Gram Stain - Final Complete 07/22/24 00:00 Respiratory Culture - Final Staphylococcus aureus Presumptive Ct albicans Complete 07/15/24 12:00 Lung - Final Resulted 07/15/24 12:00 Lung - Final Resulted 07/15/24 12:00 Lung - Preliminary Resulted 07/15/24 12:00 Lung - Preliminary Resulted 07/15/24 12:00 Lung - Final See Separate Report... Resulted 07/15/24 12:00 Drainage Viral Culture - Final Complete 07/12/24 10:47 Voided Urine Urine Culture - Final Complete 07/11/24 21:08 Blood Blood Culture - Final NO GROWTH AFTER 5 DAYS OF INCUBATION. Complete Assessment/Plan Assessment/Plan Acute hypoxic respiratory failure Multi-focal pneumonia, due to MRSA Influenza A Sepsis, improved Atrial fibrillation Acute on chronic CHF, EF 25% CAD Hypothyroidism DM2 Thrombocytopenia due to sepsis, improved PLAN: 07/23/2024: Sedation: Versed, Propofol, Fent GI prophylaxis: Protonix DVT prophylaxis: Add Lovenox PNA: Vancomycin AFIB: Amio, Dig, Sepsis: Improved CHF: Lasix 40 mg IV daily, increase to bid DM2: Lantus 07/24/2024: CPAP trial in progress Dr. Rivera is trying to extubate the patient hopefully next 1-2 days Continue the current management Off vasopressors Discussed with the daughter at the bedside yesterday afternoon Questions answered Full code 07/25/2024: CPAP in progress today for possible extubation today Off vasopressors Off sedation Continue vancomycin IV Lasix 40 mg IV twice a day Digoxin IV 3 times a week Amiodarone 07/26/2024: Continue IV Lasix Continue NPO Replace potassium magnesium IV Continue IV vancomycin Physical therapy Continue feeding through the NG tube 07/27/2024: Downgrade to the MIGUEL Swallow eval Replace potassium and magnesium as needed Continue IV vancomycin Continue physical therapy Continue feeding through the NG tube 07/28/2024: Downgrade to tele Did not pass a swallow eval Continue feeding through the NG tube Continue physical therapy Continue IV vancomycin Replace potassium Plan discussed with: Patient, Other My Orders Orders - MERLYN NARAYAN MD Procedure Category Date Status Time Pt Request For Service PT 07/27/24 Logged 15:13 Chest Portable XY 07/28/24 Resulted 05:00 Sitter At Bedside ORDERS 07/28/24 Transmitted 11:55 St Eval Swallow Funct ST 07/30/24 Logged 45min 08:00 Date of Service: Jul 28, 2024 Billing Provider: MERLYN NARAYAN MD Common Visit Codes: [id number] INP/OBS CARE(HIGH) MERLYN NARAYAN MD Jul 28, 2024 14:29
--- NOTE | 2024-07-28 20:57 | DVHPN2 ---
Progress Note - Dictate Date Seen: Jul 28, 2024 Medical Necessity Reason Pt with a Central, PICC or Fol: Yes The following are medically ne: Central Line, Michel Catheter Reason for michel catheter: Strict I&O Subjective Patient seen and examined at bedside. Remains on supplemental oxygen Overnight events reviewed. vital signs Vital Sign Date Time Temp Pulse Resp B/P (MAP) Pulse Ox O2 Delivery O2 Flow Rate FiO2 07/28/24 18:00 17 95 Nasal Cannula* 4 36 07/28/24 18:00 79 103/46 (65) 07/28/24 12:00 98.4 98.4 Total Intake and Output 07/27/24 07/27/24 07/28/24 15:00 23:00 07:00 Intake Total 200 ml 260 ml 580 ml Output Total 1225 ml 1000 ml Balance 200 ml -965 ml -420 ml medications Current Medications Medications Dose Ordered Sig/Maurice Route Start Time Stop Time Status Last Admin Dose Admin Levothyroxine Sodium 200 mcg QAM PO 07/12/24 07:00 07/28/24 06:46 200 MCG Pantoprazole Sodium 40 mg DAILY IV 07/13/24 10:00 07/28/24 09:00 40 MG Vancomycin HCl 200 ml @ 200 mls/hr Q1H IV 07/12/24 13:00 07/12/24 14:59 Cancel Insulin Glargine 10 units DAILY@1000 SC 07/14/24 10:00 07/28/24 09:03 10 UNITS Digoxin 125 mcg MWF IV 07/16/24 10:00 07/27/24 09:48 125 MCG Acetaminophen 650 mg Q6HP PRN GA 07/14/24 17:00 07/15/24 10:32 650 MG Sodium Chloride 10 ml QSHIFT@ IV 07/14/24 22:00 07/28/24 09:00 10 ML Dextrose 50 ml UD IV 07/15/24 15:00 Cancel Amiodarone HCl 200 mg Q12HR GT 07/17/24 22:00 07/28/24 09:00 200 MG Enteral Nutritional Formula 1,000 ml 40ML/HR GT 07/17/24 12:30 07/27/24 22:14 1,000 ML Diagnostic Test (Pha) 1 strip Q6HR 07/17/24 18:00 07/28/24 17:42 1 STRIP Insulin Human Regular Q6HR SC 07/17/24 18:00 07/28/24 17:41 2 UNITS Dextrose 50 ml UD PRN IV 07/17/24 13:15 Sennosides 8.6 mg HS PO 07/18/24 22:00 07/27/24 21:43 8.6 MG Docusate Sodium 100 mg BID GT 07/19/24 22:00 07/28/24 09:00 100 MG Furosemide 40 mg BIDD IV 07/23/24 18:00 07/28/24 17:41 40 MG Enoxaparin Sodium 40 mg DAILY SC 07/24/24 10:00 07/28/24 09:00 40 MG Mupirocin 1 applic BID EACHNOSTRI 07/23/24 22:00 07/28/24 21:59 07/28/24 09:03 1 APPLIC Lactulose 30 ml DAILYPRN PRN PO 07/23/24 10:45 Hydralazine HCl 10 mg Q6HP PRN IV 07/24/24 11:00 07/24/24 14:05 10 MG Vancomycin HCl 0 ml @ 0 mls/hr UD IV 07/24/24 15:15 Acetylcysteine 200 mg Q8HR NEB 07/26/24 14:00 07/29/24 13:59 07/28/24 14:46 200 MG Enteral Nutritional Formula 240 ml QID PO 07/26/24 18:00 Enteral Nutritional Formula 1,000 ml 50ML/HR GT 07/26/24 15:30 Vancomycin HCl 200 ml @ 200 mls/hr Q18H IV 07/27/24 10:00 07/28/24 04:19 200 MLS/HR Albuterol 2.5 mg Q8HR NEB 07/26/24 22:00 07/28/24 14:46 2.5 MG objective Gen.: Patient lying in bed in no apparent distress. On supplemental oxygen. Head: Normocephalic, atraumatic. Eyes: EOMI/PERRLA. Ears: Normal hearing. Normal anatomy. Neck/trachea: Trachea midline, supple. Nose: Normal external anatomy. Mouth: Moist mucous membranes. Chest: Decreased air entry bilaterally. Coarse. Wheezing present. No rhonchi. Cardiovascular: Positive S1, positive S2. Regular rate and rhythm. Abdomen: Positive bowel sounds in all 4 quadrants. Soft, non-tender, non- distended. : Deferred. Rectal: Deferred. Skin: Warm, dry. Intact. Extremities: 2+ radial pulses bilaterally. No lower extremity edema. Neuro: Awake, alert, oriented x3. No gross motor or sensory deficits. Cranial nerves II through XII intact. Gait not assessed. laboratory and microbiology Laboratory Tests 07/28/24 03:15 Test 07/28/24 03:15 Range/Units Serum Glucose 83 74-106 mg/dL Assessment/Plan Impression: Acute hypoxic respiratory failure secondary to multifocal pneumonia and pulmonary edema Acute respiratory distress syndrome Multifocal pneumonia likely Gram-negative Pulmonary edema Leukopenia Septic shock Influenza type a Atrial fibrillation with RVR Chronic congestive heart failure Status post AICD CAD status post PTCA Insulin-dependent diabetes mellitus Acute kidney injury Events: Remains on supplemental O2 at 4 LPM NC. Taper O2 as tolerated Head of bed elevation Aspiration precautions Continue antibiotics, vancomycin Mucomyst 20%/bronchodilators + CPT for increased ET tube secretions. EZPAP CXR demonstrates patchy opacities in RUL. No pneumothorax. Amiodarone PO for AFib Pulmonary toileting NTS PRN. Diet is puree with thickened liquids. IV fluid hydration at 125 ml/hr. PT. Diurese w/ Lasix as tolerated Monitor renal function Monitor electrolytes, supplement as necessary Patient is stable for downgrade to MIGUEL from the pulmonary standpoint. S/p therapeutic bronchoscopy on 07/22 - please see procedure note for details. Labs and imaging reviewed. Rest of plan as noted below. Plan: s/p extubation on 07/25/24 On supplemental O2 at 4 LPM NC. Titrate to keep O2 sats above 92%. Off sedation Pressors as necessary for hemodynamic support - Currently off pressors Titrate to keep MAP above 65 mmHg/SBP above 90 mmHg. Stress dose steroids Received dose of albumin. Continue antibiotics. F/u cultures. Send sputum, blood cultures and urine cultures Monitor renal function due to acute kidney injury. Creatinine trending down Monitor electrolytes. Supplement as necessary. Supplemented potassium and magnesium stat. On IV fluids, lactic acid trending down. Accu-Cheks, ISS. GI/DVT prophylaxis. Condition: Critical Prognosis: Poor given multiple comorbidities. Rest of plan per hospitalist and other consultants. A total of 35 minutes of critical care time was spent reviewing the patient record, examining the patient, making a diagnostic and therapeutic plan, discussing this plan with the medical personnel, following up on diagnostic studies and following the patient for clinical stability excluding any and all procedures. At least 50% of this time was spent in direct, [id number] contact. Thank you JOSH Hatfield for allowing me to participate in this patient's care. Further recommendations will depend on patient's clinical course. Please do not hesitate to contact me if you have any questions or concerns. This medical document was created using an electronic medical record system with [employer] dictation system. Although this document has been carefully reviewed, there may still be some phonetic and typographical errors. These areas are purely typographical due to imperfections of the software programs, and do not reflect any compromise in the patient's medical care. Dietary Evaluation Review Comments: Advance to 2 gNa CCHO-60 diet when medically feasible. Pt's lipid pannel shows Cholesterol and LDL at lower mragin range, thus no restrictions on fat or cholesterol needed. Expected Outcomes/Goals: gradual weight loss, controlled DM, Plan discussed with: Other (ANGELO Theodore) Critical Care Time(min): 35 LINDSEY ROSALES MD Jul 28, 2024 20:57
[2024-07-29] VITALS (27 sets, daily range): BP systolic 96–129; BP diastolic 52–67; PULSE 70–85; RESP 12–26; TEMP 97.6–98.8; O2SAT 89–100
[2024-07-29 03:41] LABS: Basophils # (auto) 0 10 ^3/uL (0-0.2); Basophils % (auto) 0.8 % (0.0-2.0); Eosinophils # (auto) 0.1 10 ^3/uL (0-0.8); Eosinophils % (auto) 1.3 % (0.0-7.0); Hematocrit 26.1 % (41.0-53.0); Hemoglobin 8.9 g/dL (13.5-17.5); Lymphocytes % (auto) 18.9 % (10.0-50.0); Mean Corpuscular Hemoglobin 31.2 pg (28.0-32.0); Mean Corpuscular Hgb Conc. 34.1 g/dL (32.0-36.0); Mean Corpuscular Volume 91.6 fL (80.0-100.0); Monocytes # (auto) 0.4 10 ^3/uL (0-1.3); Monocytes % (auto) 7.6 % (0.0-12.0); Neutrophils # (auto) 3.8 10 ^3/uL (1.6-8.6); Neutrophils % (auto) 71.4 % (37.0-80.0); Nucleated Red Blood Cells % 0.1 %; Platelet Count (auto) 297 10^3/uL (140-450); Red Blood Cells 2.85 10^6/uL (4.5-5.90); Red Cell Distribution Width 14.6 % (11.8-14.3); White Blood Cell 5.4 10^3/uL (4.4-10.8)
[2024-07-29 03:53] LABS: Anion Gap 6 (5-15); Carbon Dioxide 33 mmol/L (20-31); Chloride 103 mmol/L (98-107); Potassium 3.3 mmol/L (3.5-5.1); Sodium 142 mmol/L (136-145)
[2024-07-29 03:55] LABS: Calcium 8.7 mg/dL (8.7-10.4)
[2024-07-29 03:59] LABS: BUN/Creatinine Ratio 22.4 (10.0-20.0); Blood Urea Nitrogen 17 mg/dL (9-23); Glucose 126 mg/dL (74-106)
[2024-07-29 04:00] LABS: Magnesium 1.7 mg/dL (1.6-2.6)
--- NOTE | 2024-07-29 05:36 | DVH ---
CHEST RADIOGRAPH Indication: RE-EVALUATION Technique: Single frontal view of the chest was obtained COMPARISON: XY CHEST PORTABLE on DOS: 07/28/24, XY CHEST PORTABLE on DOS: 07/25/24, XY CHEST PORTABLE on DOS: 07/24/24 FINDINGS: Lines and Tubes: Enteric catheter and left chest wall AICD and right PICC in satisfactory position. Lungs: Multifocal right lung airspace disease. Pleura: No effusion. No pneumothorax. Cardiomediastinal contours: Unremarkable Bones: Unremarkable IMPRESSION: No significant interval change.
[2024-07-29] MEDS: POTASSIUM EFFERVESENT TAB 25 MEQ GT ONE (10:35)
--- NOTE | 2024-07-29 11:03 | DVHPN2 ---
Subjective More alert and oriented Potassium is 3.3 Reviewed: Care Plan Changes from previous H/P or p: Changes Eyes: No Pain, No Vision change, No Conjunctivae inflammation, No Eyelid inflammation, No Other, No Redness ENT: No Ear pain, No Ear discharge, No Nose pain, No Nose discharge, No Nose congestion, No Mouth pain, No Mouth swelling, No Throat pain, No Throat swelling, No Other Cardiovascular: No Chest Pain, No Palpitations, No Orthopnea, No Paroxysmal Noc. Dyspnea, No Edema, No Lt Headedness, No Other Respiratory: No Cough, No Dry, No Shortness of breath, No SOB with excertion, No Wheezing, No Hemoptysis, No Pleuritic Pain, No Sputum, No Other Gastrointestinal: No Nausea, No Vomiting, No Abdominal Pain, No Diarrhea, No Constipation, No Melena, No Hematochezia, No Other Genitourinary: No Dysuria, No Frequency, No Incontinence, No Hematuria, No Retention, No Other Musculoskeletal: No other, No neck pain, No shoulder pain, No arm pain, No back pain, No hand pain, No leg pain, No foot pain Skin: No Rash, No Lesions, No Jaundice, No Bruising, No Other Objective Vitals Vital Signs Date Time Temp Pulse Resp B/P (MAP) Pulse Ox O2 Delivery O2 Flow Rate FiO2 07/29/24 10:00 21 97 Nasal Cannula* 4 36 07/29/24 10:00 74 07/29/24 10:00 113/59 (77) 07/29/24 08:00 98.8 98.8 Intake/Output Intake and Output 07/29/24 07:00 Intake Total 1133 ml Output Total 2500 ml Balance -1367 ml Intake Oral 100 ml IV Total 450 ml Tube Feeding 583 ml Output Urine Total 2500 ml General Appearance: Alert, Oriented X3, Cooperative, No acute distress Lungs: Other (B rhonchi) Cardiovascular: Regular rate, Normal S1, Normal S2, No murmurs Abdomen: Normal bowel sounds, Soft, No tenderness Extremities: Other (2+ edema bilaterally in upper and lower extremities) Neuro: Other (sedated on vent) Medications Current Medications Medications Dose Ordered Sig/Maurice Route Start Time Stop Time Status Last Admin Dose Admin Levothyroxine Sodium 200 mcg QAM PO 07/12/24 07:00 07/29/24 06:02 200 MCG Pantoprazole Sodium 40 mg DAILY IV 07/13/24 10:00 07/29/24 09:24 40 MG Vancomycin HCl 200 ml @ 200 mls/hr Q1H IV 07/12/24 13:00 07/12/24 14:59 Cancel Insulin Glargine 10 units DAILY@1000 SC 07/14/24 10:00 07/29/24 09:25 10 UNITS Digoxin 125 mcg MWF IV 07/16/24 10:00 07/27/24 09:48 125 MCG Acetaminophen [address] 07/14/24 17:00 07/15/24 10:32 650 MG Sodium Chloride 10 ml QSHIFT@10,22 IV 07/14/24 22:00 07/29/24 09:25 10 ML Dextrose 50 ml UD IV 07/15/24 15:00 Cancel Amiodarone HCl 200 mg Q12HR GT 07/17/24 22:00 07/29/24 09:25 200 MG Enteral Nutritional Formula 1,000 ml 40ML/HR GT 07/17/24 12:30 07/27/24 22:14 1,000 ML Diagnostic Test (Pha) 1 strip Q6HR 07/17/24 18:00 07/29/24 06:02 1 STRIP Insulin Human Regular Q6HR SC 07/17/24 18:00 07/28/24 17:41 2 UNITS Dextrose 50 ml UD PRN IV 07/17/24 13:15 Sennosides 8.6 mg HS PO 07/18/24 22:00 07/28/24 22:04 8.6 MG Docusate Sodium 100 mg BID GT 07/19/24 22:00 07/29/24 09:25 100 MG Furosemide 40 mg BIDD IV 07/23/24 18:00 07/29/24 06:02 40 MG Enoxaparin Sodium 40 mg DAILY SC 07/24/24 10:00 07/29/24 09:24 40 MG Lactulose 30 ml DAILYPRN PRN PO 07/23/24 10:45 Hydralazine HCl 10 mg Q6HP PRN IV 07/24/24 11:00 07/24/24 14:05 10 MG Vancomycin HCl 0 ml @ 0 mls/hr UD IV 07/24/24 15:15 Acetylcysteine 200 mg Q8HR NEB 07/26/24 14:00 07/29/24 13:59 07/29/24 07:00 200 MG Enteral Nutritional Formula 240 ml QID PO 07/26/24 18:00 Enteral Nutritional Formula 1,000 ml 50ML/HR GT 07/26/24 15:30 Albuterol 2.5 mg Q8HR NEB 07/26/24 22:00 07/29/24 07:00 2.5 MG Vancomycin HCl 200 ml @ 200 mls/hr Q15H IV 07/29/24 13:00 Laboratory Results Laboratory Tests 07/29/24 03:10 Chemistry Test 07/29/24 03:10 Calcium Level 8.7 mg/dL (8.7-10.4) Magnesium Level 1.7 mg/dL (1.6-2.6) Urinalysis Test 07/11/24 15:12 Urine Color Yellow (Yellow) Urine Clarity Clear (Clear) Urine pH 5.5 (5.0-9.0) Urine Specific [place] 1.027 (1.001-1.035) Urine Protein 1+ (Negative) H Urine Ketones 2+ (Negative) H Urine Blood Negative /uL (Negative) Urine Nitrite Negative (Negative) Urine Bilirubin Negative (Negative) Urine Urobilinogen Normal mg/dL (Negative) Urine Leukocyte Esterase Negative /uL (Negative) Urine RBC 1 /hpf (0 - 3) Urine WBC 3 /hpf (0 - 3) Urine Squamous Epithelial Cells Few /hpf (<5) Urine Bacteria None seen /hpf (None Seen) Urine Glucose 4+ mg/dL (Normal) H Microbiology Microbiology Date/Time Source Procedure Growth Status 07/22/24 00:00 Sputum Gram Stain - Final Complete 07/22/24 00:00 Respiratory Culture - Final Staphylococcus aureus Presumptive Ct albicans Complete 07/15/24 12:00 Lung - Final Resulted 07/15/24 12:00 Lung - Final Resulted 07/15/24 12:00 Lung - Preliminary Resulted 07/15/24 12:00 Lung - Preliminary Resulted 07/15/24 12:00 Lung - Final See Separate Report... Resulted 07/15/24 12:00 Drainage Viral Culture - Final Complete 07/12/24 10:47 Voided Urine Urine Culture - Final Complete 07/11/24 21:08 Blood Blood Culture - Final NO GROWTH AFTER 5 DAYS OF INCUBATION. Complete Assessment/Plan Assessment/Plan Acute hypoxic respiratory failure Multi-focal pneumonia, due to MRSA Influenza A Sepsis, improved Atrial fibrillation Acute on chronic CHF, EF 25% CAD Hypothyroidism DM2 Thrombocytopenia due to sepsis, improved PLAN: 07/23/2024: Sedation: Versed, Propofol, Fent GI prophylaxis: Protonix DVT prophylaxis: Add Lovenox PNA: Vancomycin AFIB: Amio, Dig, Sepsis: Improved CHF: Lasix 40 mg IV daily, increase to bid DM2: Lantus 07/24/2024: CPAP trial in progress Dr. Rivera is trying to extubate the patient hopefully next 1-2 days Continue the current management Off vasopressors Discussed with the daughter at the bedside yesterday afternoon Questions answered Full code 07/25/2024: CPAP in progress today for possible extubation today Off vasopressors Off sedation Continue vancomycin IV Lasix 40 mg IV twice a day Digoxin IV 3 times a week Amiodarone 07/26/2024: Continue IV Lasix Continue NPO Replace potassium magnesium IV Continue IV vancomycin Physical therapy Continue feeding through the NG tube 07/27/2024: Downgrade to the MIGUEL Swallow eval Replace potassium and magnesium as needed Continue IV vancomycin Continue physical therapy Continue feeding through the NG tube 07/28/2024: Downgrade to tele Did not pass a swallow eval Continue feeding through the NG tube Continue physical therapy Continue IV vancomycin Replace potassium 07/29/2024: Downgrade to tele DC the Agrawal DC the sitter Generalized weakness: Continue physical therapy Out of bed as tolerated Hypokalemia: Replace potassium p.o. Continue IV vancomycin P.o. amiodarone Levothyroxine Plan discussed with: Patient My Orders Orders - MERLYN NARAYAN MD Procedure Category Date Status Time St Eval Swallow Funct ST 07/30/24 Logged 45min 08:00 Chest Portable XY 07/29/24 Resulted 04:00 D/C Agrawal ALTAGRACIA 07/29/24 In Process 10:58 D/C Sitter ORDERS 07/29/24 Transmitted 10:59 Date of Service: Jul 29, 2024 Billing Provider: MERLYN NARAYAN MD Common Visit Codes: [id number] INP/OBS CARE(HIGH) MERLYN NARAYAN MD Jul 29, 2024 11:03
[2024-07-29] MEDS: MAGNESIUM SULFATE 1GM/100ML 100 ML IV SCH (11:32)
[2024-07-29] MEDS: VANCOMYCIN 1GM/250ML KIT 200 ML IV SCH (12:40)
[2024-07-29] MEDS: ACETAMINOPHEN 325 MG TAB PO PRN (14:21)
--- NOTE | 2024-07-29 20:56 | DVHPN2 ---
Progress Note - Dictate Date Seen: Jul 29, 2024 Medical Necessity Reason Pt with a Central, PICC or Fol: Yes The following are medically ne: Central Line, Michel Catheter Reason for michel catheter: Strict I&O Subjective Patient seen and examined at bedside. Remains on supplemental oxygen Overnight events reviewed. vital signs Vital Sign Date Time Temp Pulse Resp B/P (MAP) Pulse Ox O2 Delivery O2 Flow Rate FiO2 07/29/24 18:13 106/67 07/29/24 18:00 Nasal Cannula* 4 36 07/29/24 18:00 77 07/29/24 16:00 98.1 22 94 98.1 Total Intake and Output 07/28/24 07/28/24 07/29/24 15:00 23:00 07:00 Intake Total 250 ml 261 ml 622 ml Output Total 1300 ml 1200 ml Balance 250 ml -1039 ml -578 ml medications Current Medications Medications Dose Ordered Sig/Maurice Route Start Time Stop Time Status Last Admin Dose Admin Levothyroxine Sodium 200 mcg QAM PO 07/12/24 07:00 07/29/24 06:02 200 MCG Pantoprazole Sodium 40 mg DAILY IV 07/13/24 10:00 07/29/24 09:24 40 MG Vancomycin HCl 200 ml @ 200 mls/hr Q1H IV 07/12/24 13:00 07/12/24 14:59 Cancel Insulin Glargine 10 units DAILY@1000 SC 07/14/24 10:00 07/29/24 09:25 10 UNITS Digoxin 125 mcg MWF IV 07/16/24 10:00 07/27/24 09:48 125 MCG Sodium Chloride 10 ml QSHIFT@,22 IV 07/14/24 22:00 07/29/24 09:25 10 ML Dextrose 50 ml UD IV 07/15/24 15:00 Cancel Amiodarone HCl 200 mg Q12HR GT 07/17/24 22:00 07/29/24 09:25 200 MG Diagnostic Test (Pha) 1 strip Q6HR 07/17/24 18:00 07/29/24 18:07 1 STRIP Insulin Human Regular Q6HR SC 07/17/24 18:00 07/28/24 17:41 2 UNITS Dextrose 50 ml UD PRN IV 07/17/24 13:15 Sennosides 8.6 mg HS PO 07/18/24 22:00 07/28/24 22:04 8.6 MG Docusate Sodium 100 mg BID GT 07/19/24 22:00 07/29/24 09:25 100 MG Furosemide 40 mg BIDD IV 07/23/24 18:00 07/29/24 18:13 40 MG Enoxaparin Sodium 40 mg DAILY SC 07/24/24 10:00 07/29/24 09:24 40 MG Lactulose 30 ml DAILYPRN PRN PO 07/23/24 10:45 Hydralazine HCl 10 mg Q6HP PRN IV 07/24/24 11:00 07/24/24 14:05 10 MG Vancomycin HCl 0 ml @ 0 mls/hr UD IV 07/24/24 15:15 Enteral Nutritional Formula 240 ml QID PO 07/26/24 18:00 Enteral Nutritional Formula 1,000 ml 50ML/HR GT 07/26/24 15:30 Albuterol 2.5 mg Q8HR NEB 07/26/24 22:00 07/29/24 14:35 2.5 MG Vancomycin HCl 200 ml @ 200 mls/hr Q15H IV 07/29/24 13:00 07/29/24 12:40 200 MLS/HR Acetaminophen 650 mg Q6HP PRN PO 07/29/24 13:15 07/29/24 14:21 650 MG objective Gen.: Patient lying in bed in no apparent distress. On supplemental oxygen. Head: Normocephalic, atraumatic. Eyes: EOMI/PERRLA. Ears: Normal hearing. Normal anatomy. Neck/trachea: Trachea midline, supple. Nose: Normal external anatomy. Mouth: Moist mucous membranes. Chest: Decreased air entry bilaterally. Coarse. Wheezing present. No rhonchi. Cardiovascular: Positive S1, positive S2. Regular rate and rhythm. Abdomen: Positive bowel sounds in all 4 quadrants. Soft, non-tender, non- distended. : Deferred. Rectal: Deferred. Skin: Warm, dry. Intact. Extremities: 2+ radial pulses bilaterally. No lower extremity edema. Neuro: Awake, alert, oriented x3. No gross motor or sensory deficits. Cranial nerves II through XII intact. Gait not assessed. laboratory and microbiology Laboratory Tests 07/29/24 03:10 Test 07/29/24 03:10 Range/Units Serum Glucose 126 H 74-106 mg/dL Assessment/Plan Impression: Acute hypoxic respiratory failure secondary to multifocal pneumonia and pulmonary edema Acute respiratory distress syndrome Multifocal pneumonia likely Gram-negative Pulmonary edema Leukopenia Septic shock Influenza type a Atrial fibrillation with RVR Chronic congestive heart failure Status post AICD CAD status post PTCA Insulin-dependent diabetes mellitus Acute kidney injury Events: Remains on supplemental O2 at 4 LPM NC. Taper O2 as tolerated Head of bed elevation Aspiration precautions Continue antibiotics, vancomycin Mucomyst 20%/bronchodilators + CPT for increased ET tube secretions. EZPAP CXR demonstrates multifocal right lung opacities. No pneumothorax. Amiodarone PO for AFib Digoxin PO. NGT for tube feeds Failed swallow eval. Bowel regimen Protonix for GI prophylaxis. Pulmonary toileting NTS PRN. IV fluid hydration at 125 ml/hr. PT. Diurese w/ Lasix as tolerated Monitor renal function Monitor electrolytes, supplement as necessary K, mag supplementation Patient is stable for downgrade from the pulmonary standpoint. Out of bed to chair. S/p therapeutic bronchoscopy on 07/22 - please see procedure note for details. Labs and imaging reviewed. Rest of plan as noted below. Plan: s/p extubation on 07/25/24 On supplemental O2 at 4 LPM NC. Titrate to keep O2 sats above 92%. Off sedation Pressors as necessary for hemodynamic support - Currently off pressors Titrate to keep MAP above 65 mmHg/SBP above 90 mmHg. Stress dose steroids Received dose of albumin. Continue antibiotics. F/u cultures. Send sputum, blood cultures and urine cultures Monitor renal function due to acute kidney injury. Creatinine trending down Monitor electrolytes. Supplement as necessary. Supplemented potassium and magnesium stat. On IV fluids, lactic acid trending down. Accu-Cheks, ISS. GI/DVT prophylaxis. Prognosis: Poor given multiple comorbidities. Rest of plan per hospitalist and other consultants. Thank you JOSH Hatfield for allowing me to participate in this patient's care. Further recommendations will depend on patient's clinical course. Please do not hesitate to contact me if you have any questions or concerns. This medical document was created using an electronic medical record system with [employer] system. Although this document has been carefully reviewed, there may still be some phonetic and typographical errors. These areas are purely typographical due to imperfections of the software programs, and do not reflect any compromise in the patient's medical care. Dietary Evaluation Review Comments: Advance to 2 gNa CCHO-60 diet when medically feasible. Pt's lipid pannel shows Cholesterol and LDL at lower mragin range, thus no restrictions on fat or cholesterol needed. Expected Outcomes/Goals: gradual weight loss, controlled DM, Plan discussed with: Patient, Other (ANGELO Cisneros) LINDSEY ROSALES MD Jul 29, 2024 20:56
[2024-07-30] VITALS (16 sets, daily range): BP systolic 98–108; BP diastolic 52–73; PULSE 71–78; RESP 18–22; TEMP 97.5–98.4; O2SAT 91–98
[2024-07-30 07:16] LABS: Chloride 103 mmol/L (98-107); Potassium 3.8 mmol/L (3.5-5.1); Sodium 140 mmol/L (136-145)
[2024-07-30 07:17] LABS: Anion Gap 8 (5-15); Carbon Dioxide 29 mmol/L (20-31)
[2024-07-30 07:18] LABS: Calcium 8.9 mg/dL (8.7-10.4)
[2024-07-30 07:22] LABS: Glucose 79 mg/dL (74-106)
[2024-07-30 07:23] LABS: BUN/Creatinine Ratio 17.3 (10.0-20.0); Blood Urea Nitrogen 13 mg/dL (9-23); Magnesium 2.1 mg/dL (1.6-2.6)
--- NOTE | 2024-07-30 11:15 | DVHPN2 ---
Subjective Alert oriented Voice is stronger Reviewed: Care Plan Changes from previous H/P or p: Changes Eyes: No Pain, No Vision change, No Conjunctivae inflammation, No Eyelid inflammation, No Other, No Redness ENT: No Ear pain, No Ear discharge, No Nose pain, No Nose discharge, No Nose congestion, No Mouth pain, No Mouth swelling, No Throat pain, No Throat swelling, No Other Cardiovascular: No Chest Pain, No Palpitations, No Orthopnea, No Paroxysmal Noc. Dyspnea, No Edema, No Lt Headedness, No Other Respiratory: No Cough, No Dry, No Shortness of breath, No SOB with excertion, No Wheezing, No Hemoptysis, No Pleuritic Pain, No Sputum, No Other Gastrointestinal: No Nausea, No Vomiting, No Abdominal Pain, No Diarrhea, No Constipation, No Melena, No Hematochezia, No Other Genitourinary: No Dysuria, No Frequency, No Incontinence, No Hematuria, No Retention, No Other Musculoskeletal: No other, No neck pain, No shoulder pain, No arm pain, No back pain, No hand pain, No leg pain, No foot pain Skin: No Rash, No Lesions, No Jaundice, No Bruising, No Other Objective Vitals Vital Signs Date Time Temp Pulse Resp B/P (MAP) Pulse Ox O2 Delivery O2 Flow Rate FiO2 07/30/24 09:00 97.7 73 18 98/57 (71) 93 97.7 07/30/24 08:00 Nasal Cannula* 4 36 Intake/Output Intake and Output 07/30/24 07:00 Intake Total 530 ml Output Total 2530 ml Balance -2000 ml Intake Oral 130 ml IV Total 400 ml Output Urine Total 2530 ml General Appearance: Alert, Oriented X3, Cooperative, No acute distress Lungs: Other Cardiovascular: Regular rate, Normal S1, Normal S2, No murmurs Abdomen: Normal bowel sounds, Soft, No tenderness Extremities: Other Neuro: Other Medications Current Medications Medications Dose Ordered Sig/Maurice Route Start Time Stop Time Status Last Admin Dose Admin Levothyroxine Sodium 200 mcg QAM PO 07/12/24 07:00 07/30/24 06:14 200 MCG Pantoprazole Sodium 40 mg DAILY IV 07/13/24 10:00 07/29/24 09:24 40 MG Vancomycin HCl 200 ml @ 200 mls/hr Q1H IV 07/12/24 13:00 07/12/24 14:59 Cancel Insulin Glargine 10 units DAILY@1000 SC 07/14/24 10:00 07/29/24 09:25 10 UNITS Digoxin 125 mcg MWF IV 07/16/24 10:00 07/27/24 09:48 125 MCG Sodium Chloride 10 ml QSHIFT@10,22 IV 07/14/24 22:00 07/29/24 23:12 10 ML Dextrose 50 ml UD IV 07/15/24 15:00 Cancel Amiodarone HCl 200 mg Q12HR GT 07/17/24 22:00 07/29/24 23:12 200 MG Diagnostic Test (Pha) 1 strip Q6HR 07/17/24 18:00 07/30/24 06:12 1 STRIP Insulin Human Regular Q6HR SC 07/17/24 18:00 07/28/24 17:41 2 UNITS Dextrose 50 ml UD PRN IV 07/17/24 13:15 Sennosides 8.6 mg HS PO 07/18/24 22:00 07/29/24 23:13 8.6 MG Docusate Sodium 100 mg BID GT 07/19/24 22:00 07/29/24 22:09 100 MG Furosemide 40 mg BIDD IV 07/23/24 18:00 07/30/24 06:12 40 MG Enoxaparin Sodium 40 mg DAILY SC 07/24/24 10:00 07/29/24 09:24 40 MG Lactulose 30 ml DAILYPRN PRN PO 07/23/24 10:45 Hydralazine HCl 10 mg Q6HP PRN IV 07/24/24 11:00 07/24/24 14:05 10 MG Vancomycin HCl 0 ml @ 0 mls/hr UD IV 07/24/24 15:15 Enteral Nutritional Formula 240 ml QID PO 07/26/24 18:00 07/30/24 06:15 240 ML Enteral Nutritional Formula 1,000 ml 50ML/HR GT 07/26/24 15:30 Albuterol 2.5 mg Q8HR NEB 07/26/24 22:00 07/29/24 21:34 2.5 MG Vancomycin HCl 200 ml @ 200 mls/hr Q15H IV 07/29/24 13:00 07/30/24 06:08 200 MLS/HR Acetaminophen 650 mg Q6HP PRN PO 07/29/24 13:15 07/29/24 14:21 650 MG Laboratory Results Laboratory Tests 07/29/24 03:10 07/30/24 05:27 Chemistry Test 07/30/24 05:27 Calcium Level 8.9 mg/dL (8.7-10.4) Magnesium Level 2.1 mg/dL (1.6-2.6) Urinalysis Test 07/11/24 15:12 Urine Color Yellow (Yellow) Urine Clarity Clear (Clear) Urine pH 5.5 (5.0-9.0) Urine Specific [place] 1.027 (1.001-1.035) Urine Protein 1+ (Negative) H Urine Ketones 2+ (Negative) H Urine Blood Negative /uL (Negative) Urine Nitrite Negative (Negative) Urine Bilirubin Negative (Negative) Urine Urobilinogen Normal mg/dL (Negative) Urine Leukocyte Esterase Negative /uL (Negative) Urine RBC 1 /hpf (0 - 3) Urine WBC 3 /hpf (0 - 3) Urine Squamous Epithelial Cells Few /hpf (<5) Urine Bacteria None seen /hpf (None Seen) Urine Glucose 4+ mg/dL (Normal) H Microbiology Microbiology Date/Time Source Procedure Growth Status 07/22/24 00:00 Sputum Gram Stain - Final Complete 07/22/24 00:00 Respiratory Culture - Final Staphylococcus aureus Presumptive Ct albicans Complete 07/15/24 12:00 Lung - Final Resulted 07/15/24 12:00 Lung - Final Resulted 07/15/24 12:00 Lung - Preliminary Resulted 07/15/24 12:00 Lung - Preliminary Resulted 07/15/24 12:00 Lung - Final See Separate Report... Resulted 07/15/24 12:00 Drainage Viral Culture - Final Complete 07/12/24 10:47 Voided Urine Urine Culture - Final Complete 07/11/24 21:08 Blood Blood Culture - Final NO GROWTH AFTER 5 DAYS OF INCUBATION. Complete Assessment/Plan Assessment/Plan Acute hypoxic respiratory failure Multi-focal pneumonia, due to MRSA Influenza A Sepsis, improved Atrial fibrillation Acute on chronic CHF, EF 25% CAD Hypothyroidism DM2 Thrombocytopenia due to sepsis, improved PLAN: 07/23/2024: Sedation: Versed, Propofol, Fent GI prophylaxis: Protonix DVT prophylaxis: Add Lovenox PNA: Vancomycin AFIB: Amio, Dig, Sepsis: Improved CHF: Lasix 40 mg IV daily, increase to bid DM2: Lantus 07/24/2024: CPAP trial in progress Dr. Rivera is trying to extubate the patient hopefully next 1-2 days Continue the current management Off vasopressors Discussed with the daughter at the bedside yesterday afternoon Questions answered Full code 07/25/2024: CPAP in progress today for possible extubation today Off vasopressors Off sedation Continue vancomycin IV Lasix 40 mg IV twice a day Digoxin IV 3 times a week Amiodarone 07/26/2024: Continue IV Lasix Continue NPO Replace potassium magnesium IV Continue IV vancomycin Physical therapy Continue feeding through the NG tube 07/27/2024: Downgrade to the MIGUEL Swallow eval Replace potassium and magnesium as needed Continue IV vancomycin Continue physical therapy Continue feeding through the NG tube 07/28/2024: Downgrade to tele Did not pass a swallow eval Continue feeding through the NG tube Continue physical therapy Continue IV vancomycin Replace potassium 07/29/2024: Downgrade to tele DC the Nghia PETERSON the sitter Generalized weakness: Continue physical therapy Out of bed as tolerated Hypokalemia: Replace potassium p.o. Continue IV vancomycin P.o. amiodarone Levothyroxine 07/30/2024: Continue physical therapy Out of bed as tolerated Swallow eval today Start diet if he passes the swallow test Continue IV vancomycin Amiodarone and digoxin Discontinue Lovenox and start Eliquis since thrombocytopenia has resolved Lasix 40 mg twice a day IV Plan discussed with: Patient My Orders Orders - MERLYN NARAYAN MD Procedure Category Date Status Time Acetaminophen Tablet PHA 07/29/24 In Process (Tylenol Tablet) 13:15 Pt Request For Service PT 07/29/24 Logged 22:02 Date of Service: Jul 30, 2024 Billing Provider: MERLYN NARAYAN MD Common Visit Codes: [id number] INP/OBS CARE(HIGH) MERLYN NARAYAN MD Jul 30, 2024 11:15
[2024-07-30] MEDS: MORPHINE SULFATE INJ 2 MG/ml SYRG IV PRN (18:54)
--- NOTE | 2024-07-30 21:24 | DVHPN2 ---
Progress Note - Dictate Date Seen: Jul 30, 2024 Medical Necessity Reason Pt with a Central, PICC or Fol: Yes The following are medically ne: Central Line, Michel Catheter Reason for michel catheter: Strict I&O Subjective Patient seen and examined at bedside. Remains on supplemental oxygen Overnight events reviewed. vital signs Vital Sign Date Time Temp Pulse Resp B/P (MAP) Pulse Ox O2 Delivery O2 Flow Rate FiO2 07/30/24 19:24 77 18 107/59 07/30/24 17:00 97.9 96 97.9 07/30/24 13:57 Nasal Cannula* 4 36 Total Intake and Output 07/29/24 07/29/24 07/30/24 15:00 23:00 07:00 Intake Total 200 ml 330 ml Output Total 1550 ml 980 ml Balance 200 ml -1550 ml -650 ml medications Current Medications Medications Dose Ordered Sig/Maurice Route Start Time Stop Time Status Last Admin Dose Admin Levothyroxine Sodium 200 mcg QAM PO 07/12/24 07:00 07/30/24 06:14 200 MCG Pantoprazole Sodium 40 mg DAILY IV 07/13/24 10:00 07/30/24 11:39 40 MG Vancomycin HCl 200 ml @ 200 mls/hr Q1H IV 07/12/24 13:00 07/12/24 14:59 Cancel Insulin Glargine 10 units DAILY@1000 SC 07/14/24 10:00 07/30/24 11:43 10 UNITS Digoxin 125 mcg MWF IV 07/16/24 10:00 07/30/24 11:40 125 MCG Sodium Chloride 10 ml QSHIFT@10,22 IV 07/14/24 22:00 07/30/24 11:40 10 ML Dextrose 50 ml UD IV 07/15/24 15:00 Cancel Amiodarone HCl 200 mg Q12HR GT 07/17/24 22:00 07/30/24 11:40 200 MG Diagnostic Test (Pha) 1 strip Q6HR 07/17/24 18:00 07/30/24 18:55 1 STRIP Insulin Human Regular Q6HR SC 07/17/24 18:00 07/28/24 17:41 2 UNITS Dextrose 50 ml UD PRN IV 07/17/24 13:15 Sennosides 8.6 mg HS PO 07/18/24 22:00 07/29/24 23:13 8.6 MG Docusate Sodium 100 mg BID GT 07/19/24 22:00 07/30/24 11:39 100 MG Furosemide 40 mg BIDD IV 07/23/24 18:00 07/30/24 18:53 40 MG Lactulose 30 ml DAILYPRN PRN PO 07/23/24 10:45 Hydralazine HCl 10 mg Q6HP PRN IV 07/24/24 11:00 07/24/24 14:05 10 MG Vancomycin HCl 0 ml @ 0 mls/hr UD IV 07/24/24 15:15 Enteral Nutritional Formula 240 ml QID PO 07/26/24 18:00 07/30/24 06:15 240 ML Enteral Nutritional Formula 1,000 ml 50ML/HR GT 07/26/24 15:30 Albuterol 2.5 mg Q8HR NEB 07/26/24 22:00 07/30/24 13:57 2.5 MG Vancomycin HCl 200 ml @ 200 mls/hr Q15H IV 07/29/24 13:00 07/30/24 19:03 200 MLS/HR Acetaminophen 650 mg Q6HP PRN PO 07/29/24 13:15 07/29/24 14:21 650 MG Apixaban 5 mg BID PO 07/30/24 22:00 Morphine Sulfate 1 mg Q4HP PRN IV 07/30/24 16:30 07/30/24 18:54 1 MG objective Gen.: Patient lying in bed in no apparent distress. On supplemental oxygen. Head: Normocephalic, atraumatic. Eyes: EOMI/PERRLA. Ears: Normal hearing. Normal anatomy. Neck/trachea: Trachea midline, supple. Nose: Normal external anatomy. Mouth: Moist mucous membranes. Chest: Decreased air entry bilaterally. Coarse. Wheezing present. No rhonchi. Cardiovascular: Positive S1, positive S2. Regular rate and rhythm. Abdomen: Positive bowel sounds in all 4 quadrants. Soft, non-tender, non- distended. : Deferred. Rectal: Deferred. Skin: Warm, dry. Intact. Extremities: 2+ radial pulses bilaterally. No lower extremity edema. Neuro: Awake, alert, oriented x3. No gross motor or sensory deficits. Cranial nerves II through XII intact. Gait not assessed. laboratory and microbiology Laboratory Tests 07/30/24 18:14 07/30/24 05:27 07/29/24 03:10 Test 07/30/24 05:27 Range/Units Serum Glucose 79 74-106 mg/dL Assessment/Plan Impression: Acute hypoxic respiratory failure secondary to multifocal pneumonia and pulmonary edema Acute respiratory distress syndrome Multifocal pneumonia likely Gram-negative Pulmonary edema Leukopenia Septic shock Influenza type a Atrial fibrillation with RVR Chronic congestive heart failure Status post AICD CAD status post PTCA Insulin-dependent diabetes mellitus Acute kidney injury Events: Remains on supplemental O2 at 4 LPM NC. Taper O2 as tolerated Swallow evaluation in the AM. Head of bed elevation Aspiration precautions Continue antibiotics, vancomycin Mucomyst 20%/bronchodilators + CPT to aid w/ clearance of secretions. EZPAP Amiodarone PO for AFib Digoxin PO. Tube feeds for nutritional support Bowel regimen Protonix for GI prophylaxis. Pulmonary toileting NTS PRN. IV fluid hydration at 125 ml/hr. PT. Diurese w/ Lasix as tolerated Monitor renal function Monitor electrolytes, supplement as necessary Nephrology recs appreciated. S/p therapeutic bronchoscopy on 07/22 - please see procedure note for details. Labs and imaging reviewed. Rest of plan as noted below. Plan: s/p extubation on 07/25/24 On supplemental O2 at 4 LPM NC. Titrate to keep O2 sats above 92%. Off sedation Pressors as necessary for hemodynamic support - Currently off pressors Titrate to keep MAP above 65 mmHg/SBP above 90 mmHg. Stress dose steroids Received dose of albumin. Continue antibiotics. F/u cultures. Send sputum, blood cultures and urine cultures Monitor renal function due to acute kidney injury. Creatinine trending down Monitor electrolytes. Supplement as necessary. Supplemented potassium and magnesium stat. On IV fluids, lactic acid trending down. Accu-Cheks, ISS. GI/DVT prophylaxis. Prognosis: Poor given multiple comorbidities. Rest of plan per hospitalist and other consultants. Thank you JOSH Hatfield for allowing me to participate in this patient's care. Further recommendations will depend on patient's clinical course. Please do not hesitate to contact me if you have any questions or concerns. This medical document was created using an electronic medical record system with [employer] system. Although this document has been carefully reviewed, there may still be some phonetic and typographical errors. These areas are purely typographical due to imperfections of the software programs, and do not reflect any compromise in the patient's medical care. Dietary Evaluation Review Comments: Advance to 2 gNa CCHO-60 diet when medically feasible. Pt's lipid pannel shows Cholesterol and LDL at lower mragin range, thus no restrictions on fat or cholesterol needed. Expected Outcomes/Goals: gradual weight loss, controlled DM, Plan discussed with: Patient, Other (ANGELO Patel/Jyotsna) LINDSEY ROSALES MD Jul 30, 2024 21:24
[2024-07-30] MEDS: APIXABAN 5 MG TAB PO SCH (21:37)
[2024-07-30] MEDS: Glucerna 1.2 Cal 1Liter BOTTLE GT SCH (22:34)
[2024-07-31] VITALS (15 sets, daily range): BP systolic 97–108; BP diastolic 55–65; PULSE 63–84; RESP 16–20; TEMP 97.3–98.1; O2SAT 90–97
[2024-07-31 05:31] LABS: Basophils # (auto) 0 10 ^3/uL (0-0.2); Basophils % (auto) 0.9 % (0.0-2.0); Eosinophils # (auto) 0.1 10 ^3/uL (0-0.8); Eosinophils % (auto) 2.1 % (0.0-7.0); Hematocrit 27.1 % (41.0-53.0); Lymphocytes # (auto) 1.1 10 ^3/uL (0.4-5.4); Lymphocytes % (auto) 21.6 % (10.0-50.0); Mean Corpuscular Hemoglobin 30.6 pg (28.0-32.0); Mean Corpuscular Hgb Conc. 33.4 g/dL (32.0-36.0); Mean Corpuscular Volume 91.5 fL (80.0-100.0); Monocytes # (auto) 0.4 10 ^3/uL (0-1.3); Monocytes % (auto) 8.7 % (0.0-12.0); Neutrophils # (auto) 3.4 10 ^3/uL (1.6-8.6); Neutrophils % (auto) 66.7 % (37.0-80.0); Platelet Count (auto) 330 10^3/uL (140-450); Red Blood Cells 2.96 10^6/uL (4.5-5.90); Red Cell Distribution Width 14.8 % (11.8-14.3); White Blood Cell 5.1 10^3/uL (4.4-10.8)
[2024-07-31 06:00] LABS: Alanine Aminotransferase 14 U/L (7-40); Albumin 2.7 g/dL (3.2-4.8); Alkaline Phosphatase 65 U/L (46-116); Anion Gap 6 (5-15); Aspartate Aminotransferase 25 U/L (13-40); BUN/Creatinine Ratio 22.2 (10.0-20.0); Blood Urea Nitrogen 18 mg/dL (9-23); Carbon Dioxide 31 mmol/L (20-31); Chloride 101 mmol/L (98-107); Glucose 111 mg/dL (74-106); Magnesium 1.8 mg/dL (1.6-2.6); Potassium 3.6 mmol/L (3.5-5.1); Sodium 138 mmol/L (136-145)
[2024-07-31 06:01] LABS: Bilirubin, Total 0.6 mg/dL (0.2-1.0); Total Protein 6.3 g/dL (5.7-8.2)
--- NOTE | 2024-07-31 10:51 | DVHPN2 ---
Subjective Alert oriented Voice is stronger The swallow eval is not done yet Reviewed: Care Plan Changes from previous H/P or p: Changes Eyes: No Pain, No Vision change, No Conjunctivae inflammation, No Eyelid inflammation, No Other, No Redness ENT: No Ear pain, No Ear discharge, No Nose pain, No Nose discharge, No Nose congestion, No Mouth pain, No Mouth swelling, No Throat pain, No Throat swelling, No Other Cardiovascular: No Chest Pain, No Palpitations, No Orthopnea, No Paroxysmal Noc. Dyspnea, No Edema, No Lt Headedness, No Other Respiratory: No Cough, No Dry, No Shortness of breath, No SOB with excertion, No Wheezing, No Hemoptysis, No Pleuritic Pain, No Sputum, No Other Gastrointestinal: No Nausea, No Vomiting, No Abdominal Pain, No Diarrhea, No Constipation, No Melena, No Hematochezia, No Other Genitourinary: No Dysuria, No Frequency, No Incontinence, No Hematuria, No Retention, No Other Musculoskeletal: No other, No neck pain, No shoulder pain, No arm pain, No back pain, No hand pain, No leg pain, No foot pain Skin: No Rash, No Lesions, No Jaundice, No Bruising, No Other Objective Vitals Vital Signs Date Time Temp Pulse Resp B/P (MAP) Pulse Ox O2 Delivery O2 Flow Rate FiO2 07/31/24 09:00 97.8 63 18 99/57 (71) 90 97.8 07/31/24 06:39 Nasal Cannula 4.0 07/31/24 06:39 36 Intake/Output Intake and Output 07/31/24 07:00 Intake Total 260 ml Output Total 950 ml Balance -690 ml Intake Oral 0 ml IV Total 20 ml Tube Feeding 240 ml Output Urine Total 950 ml # Voids 1 General Appearance: Alert, Oriented X3, Cooperative, No acute distress Lungs: Other Cardiovascular: Regular rate, Normal S1, Normal S2, No murmurs Abdomen: Normal bowel sounds, Soft, No tenderness Extremities: Other Neuro: Other Medications Current Medications Medications Dose Ordered Sig/Maurice Route Start Time Stop Time Status Last Admin Dose Admin Levothyroxine Sodium 200 mcg QAM PO 07/12/24 07:00 07/31/24 06:28 200 MCG Pantoprazole Sodium 40 mg DAILY IV 07/13/24 10:00 07/30/24 11:39 40 MG Vancomycin HCl 200 ml @ 200 mls/hr Q1H IV 07/12/24 13:00 07/12/24 14:59 Cancel Insulin Glargine 10 units DAILY@1000 SC 07/14/24 10:00 07/30/24 11:43 10 UNITS Digoxin 125 mcg MWF IV 07/16/24 10:00 07/30/24 11:40 125 MCG Sodium Chloride 10 ml QSHIFT@10,22 IV 07/14/24 22:00 07/30/24 21:37 10 ML Dextrose 50 ml UD IV 07/15/24 15:00 Cancel Amiodarone HCl 200 mg Q12HR GT 07/17/24 22:00 07/30/24 21:37 200 MG Diagnostic Test (Pha) 1 strip Q6HR 07/17/24 18:00 07/31/24 06:42 1 STRIP Insulin Human Regular Q6HR SC 07/17/24 18:00 07/28/24 17:41 2 UNITS Dextrose 50 ml UD PRN IV 07/17/24 13:15 Sennosides 8.6 mg HS PO 07/18/24 22:00 07/30/24 21:37 8.6 MG Docusate Sodium 100 mg BID GT 07/19/24 22:00 07/30/24 21:37 100 MG Furosemide 40 mg BIDD IV 07/23/24 18:00 07/30/24 18:53 40 MG Lactulose 30 ml DAILYPRN PRN PO 07/23/24 10:45 Hydralazine HCl 10 mg Q6HP PRN IV 07/24/24 11:00 07/24/24 14:05 10 MG Vancomycin HCl 0 ml @ 0 mls/hr UD IV 07/24/24 15:15 Enteral Nutritional Formula 240 ml QID PO 07/26/24 18:00 07/30/24 06:15 240 ML Enteral Nutritional Formula 1,000 ml 50ML/HR GT 07/26/24 15:30 07/30/24 22:34 1,000 ML Albuterol 2.5 mg Q8HR NEB 07/26/24 22:00 07/31/24 06:39 2.5 MG Acetaminophen 650 mg Q6HP PRN PO 07/29/24 13:15 07/31/24 08:38 650 MG Apixaban 5 mg BID PO 07/30/24 22:00 07/30/24 21:37 5 MG Morphine Sulfate 1 mg Q4HP PRN IV 07/30/24 16:30 07/30/24 18:54 1 MG Vancomycin HCl 200 ml @ 200 mls/hr Q16H IV 07/31/24 11:00 Laboratory Results Laboratory Tests 07/31/24 05:01 Chemistry Test 07/31/24 05:01 Albumin 2.7 g/dL (3.2-4.8) L Calcium Level 9.0 mg/dL (8.7-10.4) Magnesium Level 1.8 mg/dL (1.6-2.6) Total Protein 6.3 g/dL (5.7-8.2) LFT Test 07/31/24 05:01 Alanine Aminotransferase (ALT) 14 U/L (7-40) Alkaline Phosphatase 65 U/L (46-116) Aspartate Amino Transferase (AST) 25 U/L (13-40) Total Bilirubin 0.6 mg/dL (0.2-1.0) Urinalysis Test 07/11/24 15:12 Urine Color Yellow (Yellow) Urine Clarity Clear (Clear) Urine pH 5.5 (5.0-9.0) Urine Specific [place] 1.027 (1.001-1.035) Urine Protein 1+ (Negative) H Urine Ketones 2+ (Negative) H Urine Blood Negative /uL (Negative) Urine Nitrite Negative (Negative) Urine Bilirubin Negative (Negative) Urine Urobilinogen Normal mg/dL (Negative) Urine Leukocyte Esterase Negative /uL (Negative) Urine RBC 1 /hpf (0 - 3) Urine WBC 3 /hpf (0 - 3) Urine Squamous Epithelial Cells Few /hpf (<5) Urine Bacteria None seen /hpf (None Seen) Urine Glucose 4+ mg/dL (Normal) H Microbiology Microbiology Date/Time Source Procedure Growth Status 07/22/24 00:00 Sputum Gram Stain - Final Complete 07/22/24 00:00 Respiratory Culture - Final Staphylococcus aureus Presumptive Ct albicans Complete 07/15/24 12:00 Lung - Final Resulted 07/15/24 12:00 Lung - Final Resulted 07/15/24 12:00 Lung - Preliminary Resulted 07/15/24 12:00 Lung - Preliminary Resulted 07/15/24 12:00 Lung - Final See Separate Report... Resulted 07/15/24 12:00 Drainage Viral Culture - Final Complete 07/12/24 10:47 Voided Urine Urine Culture - Final Complete 07/11/24 21:08 Blood Blood Culture - Final NO GROWTH AFTER 5 DAYS OF INCUBATION. Complete Assessment/Plan Assessment/Plan Acute hypoxic respiratory failure Multi-focal pneumonia, due to MRSA Influenza A Sepsis, improved Atrial fibrillation Acute on chronic CHF, EF 25% CAD Hypothyroidism DM2 Thrombocytopenia due to sepsis, improved PLAN: 07/23/2024: Sedation: Versed, Propofol, Fent GI prophylaxis: Protonix DVT prophylaxis: Add Lovenox PNA: Vancomycin AFIB: Amio, Dig, Sepsis: Improved CHF: Lasix 40 mg IV daily, increase to bid DM2: Lantus 07/24/2024: CPAP trial in progress Dr. Rivera is trying to extubate the patient hopefully next 1-2 days Continue the current management Off vasopressors Discussed with the daughter at the bedside yesterday afternoon Questions answered Full code 07/25/2024: CPAP in progress today for possible extubation today Off vasopressors Off sedation Continue vancomycin IV Lasix 40 mg IV twice a day Digoxin IV 3 times a week Amiodarone 07/26/2024: Continue IV Lasix Continue NPO Replace potassium magnesium IV Continue IV vancomycin Physical therapy Continue feeding through the NG tube 07/27/2024: Downgrade to the MIGUEL Swallow eval Replace potassium and magnesium as needed Continue IV vancomycin Continue physical therapy Continue feeding through the NG tube 07/28/2024: Downgrade to tele Did not pass a swallow eval Continue feeding through the NG tube Continue physical therapy Continue IV vancomycin Replace potassium 07/29/2024: Downgrade to tele Bhavani Day Generalized weakness: Continue physical therapy Out of bed as tolerated Hypokalemia: Replace potassium p.o. Continue IV vancomycin P.o. amiodarone Levothyroxine 07/30/2024: Continue physical therapy Out of bed as tolerated Swallow eval today Start diet if he passes the swallow test Continue IV vancomycin Amiodarone and digoxin Discontinue Lovenox and start Eliquis since thrombocytopenia has resolved Lasix 40 mg twice a day IV 07/31/2024: Continue current management Swallow eval today then started diet Continue physical therapy Discharge planning once he has started eating possibly to SNF Plan discussed with: Patient My Orders Orders - MERLYN NARAYAN MD Procedure Category Date Status Time Apixaban (Eliquis) PHA 07/30/24 In Process 22:00 Morphine Sulfate PHA 07/30/24 In Process Injection 16:30 Vancomycin 1gm/200ml PHA 07/31/24 In Process Premix 11:00 Vancomycin,Trough [facility] 08/01/24 Verified 18:00 Vancomycin Per ALTAGRACIA 08/01/24 In Process Pharmacy Protoc 19:00 * Swallow Request ST 07/31/24 Transmitted 09:40 Date of Service: Jul 31, 2024 Billing Provider: MERLYN NARAYAN MD Common Visit Codes: [id number] INP/OBS CARE(HIGH) MERLYN NARAYAN MD Jul 31, 2024 10:50
[2024-07-31] MEDS: VANCOMYCIN 1GM/250ML KIT 200 ML IV SCH (11:42)
--- NOTE | 2024-07-31 19:22 | DVHPN2 ---
Progress Note - Dictate Date Seen: Jul 31, 2024 Medical Necessity Reason Pt with a Central, PICC or Fol: Yes The following are medically ne: Central Line Subjective Patient seen and examined at bedside. Remains on supplemental oxygen Overnight events reviewed. vital signs Vital Sign Date Time Temp Pulse Resp B/P (MAP) Pulse Ox O2 Delivery O2 Flow Rate FiO2 07/31/24 19:10 108/63 07/31/24 17:00 97.3 80 18 95 97.3 07/31/24 13:59 Nasal Cannula 4.0 07/31/24 13:59 36 Total Intake and Output 07/30/24 07/30/24 07/31/24 15:00 23:00 07:00 Intake Total 20 ml 240 ml Output Total 600 ml 350 ml Balance -580 ml -110 ml medications Current Medications Medications Dose Ordered Sig/Maurice Route Start Time Stop Time Status Last Admin Dose Admin Levothyroxine Sodium 200 mcg QAM PO 07/12/24 07:00 07/31/24 06:28 200 MCG Pantoprazole Sodium 40 mg DAILY IV 07/13/24 10:00 07/31/24 11:41 40 MG Vancomycin HCl 200 ml @ 200 mls/hr Q1H IV 07/12/24 13:00 07/12/24 14:59 Cancel Insulin Glargine 10 units DAILY@1000 SC 07/14/24 10:00 07/31/24 12:04 10 UNITS Digoxin 125 mcg MWF IV 07/16/24 10:00 07/30/24 11:40 125 MCG Sodium Chloride 10 ml QSHIFT@10,22 IV 07/14/24 22:00 07/31/24 10:00 10 ML Dextrose 50 ml UD IV 07/15/24 15:00 Cancel Amiodarone HCl 200 mg Q12HR GT 07/17/24 22:00 07/31/24 11:42 200 MG Diagnostic Test (Pha) 1 strip Q6HR 07/17/24 18:00 07/31/24 18:00 1 STRIP Insulin Human Regular Q6HR SC 07/17/24 18:00 07/31/24 19:10 2 UNITS Dextrose 50 ml UD PRN IV 07/17/24 13:15 Sennosides 8.6 mg HS PO 07/18/24 22:00 07/30/24 21:37 8.6 MG Docusate Sodium 100 mg BID GT 07/19/24 22:00 07/31/24 11:41 100 MG Furosemide 40 mg BIDD IV 07/23/24 18:00 07/31/24 19:10 40 MG Lactulose 30 ml DAILYPRN PRN PO 07/23/24 10:45 Hydralazine HCl 10 mg Q6HP PRN IV 07/24/24 11:00 07/24/24 14:05 10 MG Vancomycin HCl 0 ml @ 0 mls/hr UD IV 07/24/24 15:15 Enteral Nutritional Formula 240 ml QID PO 07/26/24 18:00 07/30/24 06:15 240 ML Enteral Nutritional Formula 1,000 ml 50ML/HR GT 07/26/24 15:30 07/30/24 22:34 1,000 ML Albuterol 2.5 mg Q8HR NEB 07/26/24 22:00 07/31/24 13:59 2.5 MG Acetaminophen 650 mg Q6HP PRN PO 07/29/24 13:15 07/31/24 08:38 650 MG Apixaban 5 mg BID PO 07/30/24 22:00 07/31/24 11:42 5 MG Morphine Sulfate 1 mg Q4HP PRN IV 07/30/24 16:30 07/31/24 11:43 1 MG Vancomycin HCl 200 ml @ 200 mls/hr Q16H IV 07/31/24 11:00 07/31/24 11:42 200 MLS/HR objective Gen.: Patient lying in bed in no apparent distress. On supplemental oxygen. Head: Normocephalic, atraumatic. Eyes: EOMI/PERRLA. Ears: Normal hearing. Normal anatomy. Neck/trachea: Trachea midline, supple. Nose: Normal external anatomy. Mouth: Moist mucous membranes. Chest: Decreased air entry bilaterally. Coarse. Wheezing present. No rhonchi. Cardiovascular: Positive S1, positive S2. Regular rate and rhythm. Abdomen: Positive bowel sounds in all 4 quadrants. Soft, non-tender, non- distended. : Deferred. Rectal: Deferred. Skin: Warm, dry. Intact. Extremities: 2+ radial pulses bilaterally. No lower extremity edema. Neuro: Awake, alert, oriented x3. No gross motor or sensory deficits. Cranial nerves II through XII intact. Gait not assessed. laboratory and microbiology Laboratory Tests 07/31/24 05:01 Test 07/31/24 05:01 Range/Units Serum Glucose 111 H 74-106 mg/dL Assessment/Plan Impression: Acute hypoxic respiratory failure secondary to multifocal pneumonia and pulmonary edema Acute respiratory distress syndrome Multifocal pneumonia likely Gram-negative Pulmonary edema Leukopenia Septic shock Influenza type a Atrial fibrillation with RVR Chronic congestive heart failure Status post AICD CAD status post PTCA Insulin-dependent diabetes mellitus Acute kidney injury Events: Remains on supplemental O2 at 4 LPM NC. Taper O2 as tolerated Passed swallow evaluation. Diet is puree w/ thickened nectar Head of bed elevation Aspiration precautions Continue antibiotics, vancomycin Mucomyst 20%/bronchodilators + CPT to aid w/ clearance of secretions. EZPAP Amiodarone PO for AFib Tube feeds for nutritional support Bowel regimen Protonix for GI prophylaxis. Pulmonary toileting NTS PRN. IV fluid hydration at 125 ml/hr. PT. Patient is out of bed to chair. He passed bowel movement. Diurese w/ Lasix as tolerated Monitor renal function Monitor electrolytes, supplement as necessary Nephrology recs appreciated. S/p therapeutic bronchoscopy on 07/22 - please see procedure note for details. Labs and imaging reviewed. Rest of plan as noted below. Plan: s/p extubation on 07/25/24 On supplemental O2 at 4 LPM NC. Titrate to keep O2 sats above 92%. Off sedation Pressors as necessary for hemodynamic support - Currently off pressors Titrate to keep MAP above 65 mmHg/SBP above 90 mmHg. Stress dose steroids Received dose of albumin. Continue antibiotics. F/u cultures. Send sputum, blood cultures and urine cultures Monitor renal function due to acute kidney injury. Creatinine trending down Monitor electrolytes. Supplement as necessary. Supplemented potassium and magnesium stat. On IV fluids, lactic acid trending down. Accu-Cheks, ISS. GI/DVT prophylaxis. Prognosis: Poor given multiple comorbidities. Rest of plan per hospitalist and other consultants. Thank you JOSH Hatfield for allowing me to participate in this patient's care. Further recommendations will depend on patient's clinical course. Please do not hesitate to contact me if you have any questions or concerns. This medical document was created using an electronic medical record system with [employer] system. Although this document has been carefully reviewed, there may still be some phonetic and typographical errors. These areas are purely typographical due to imperfections of the software programs, and do not reflect any compromise in the patient's medical care. Dietary Evaluation Review Comments: Advance to 2 gNa CCHO-60 diet when medically feasible. Pt's lipid pannel shows Cholesterol and LDL at lower mragin range, thus no restrictions on fat or cholesterol needed. Expected Outcomes/Goals: gradual weight loss, controlled DM, Plan discussed with: Patient, Other (ANGELO Patel) LINDSEY ROSALES MD Jul 31, 2024 19:22
[2024-08-01] VITALS (15 sets, daily range): BP systolic 91–112; BP diastolic 49–72; PULSE 72–88; RESP 16–22; TEMP 97.7–98.3; O2SAT 93–99
--- NOTE | 2024-08-01 14:15 | MEDREC ---
[facility] Intervention Section I [facility] Intervention: Review courses of therapy (22 DAYS ON VANCOMYCIN LEUKOCYTOSIS RESOLVED - PLEASE CONSIDER D/C ANTIBIOTIC ) VIOLET CHILDRESS PHARMACIST Aug 01, 2024 14:15
--- NOTE | 2024-08-01 14:53 | DVHPN2 ---
Subjective Better Reviewed: Care Plan Changes from previous H/P or p: Changes Eyes: No Pain, No Vision change, No Conjunctivae inflammation, No Eyelid inflammation, No Other, No Redness ENT: No Ear pain, No Ear discharge, No Nose pain, No Nose discharge, No Nose congestion, No Mouth pain, No Mouth swelling, No Throat pain, No Throat swelling, No Other Cardiovascular: No Chest Pain, No Palpitations, No Orthopnea, No Paroxysmal Noc. Dyspnea, No Edema, No Lt Headedness, No Other Respiratory: No Cough, No Dry, No Shortness of breath, No SOB with excertion, No Wheezing, No Hemoptysis, No Pleuritic Pain, No Sputum, No Other Gastrointestinal: No Nausea, No Vomiting, No Abdominal Pain, No Diarrhea, No Constipation, No Melena, No Hematochezia, No Other Genitourinary: No Dysuria, No Frequency, No Incontinence, No Hematuria, No Retention, No Other Musculoskeletal: No other, No neck pain, No shoulder pain, No arm pain, No back pain, No hand pain, No leg pain, No foot pain Skin: No Rash, No Lesions, No Jaundice, No Bruising, No Other Objective Vitals Vital Signs Date Time Temp Pulse Resp B/P (MAP) Pulse Ox O2 Delivery O2 Flow Rate FiO2 08/01/24 13:40 84 18 95 08/01/24 13:34 Nasal Cannula 5.0 08/01/24 13:34 40 08/01/24 13:20 100/63 08/01/24 13:00 98.1 98.1 Intake/Output Intake and Output 08/01/24 07:00 Intake Total 510 ml Output Total 1800 ml Balance -1290 ml Intake Oral 60 ml IV Total 450 ml Output Urine Total 1800 ml General Appearance: Alert, Oriented X3, Cooperative, No acute distress Lungs: Other Cardiovascular: Regular rate, Normal S1, Normal S2, No murmurs Abdomen: Normal bowel sounds, Soft, No tenderness Extremities: Other Neuro: Other Medications Current Medications Medications Dose Ordered Sig/Maurice Route Start Time Stop Time Status Last Admin Dose Admin Levothyroxine Sodium 200 mcg QAM PO 07/12/24 07:00 08/01/24 06:13 200 MCG Pantoprazole Sodium 40 mg DAILY IV 07/13/24 10:00 08/01/24 11:41 40 MG Vancomycin HCl 200 ml @ 200 mls/hr Q1H IV 07/12/24 13:00 07/12/24 14:59 Cancel Insulin Glargine 10 units DAILY@1000 SC 07/14/24 10:00 08/01/24 11:57 10 UNITS Digoxin 125 mcg MWF IV 07/16/24 10:00 08/01/24 11:42 125 MCG Sodium Chloride 10 ml QSHIFT@10,22 IV 07/14/24 22:00 08/01/24 11:42 10 ML Dextrose 50 ml UD IV 07/15/24 15:00 Cancel Amiodarone HCl 200 mg Q12HR GT 07/17/24 22:00 08/01/24 11:41 200 MG Diagnostic Test (Pha) 1 strip Q6HR 07/17/24 18:00 08/01/24 11:42 1 STRIP Insulin Human Regular Q6HR SC 07/17/24 18:00 07/31/24 23:45 2 UNITS Dextrose 50 ml UD PRN IV 07/17/24 13:15 Sennosides 8.6 mg HS PO 07/18/24 22:00 07/31/24 21:33 8.6 MG Docusate Sodium 100 mg BID GT 07/19/24 22:00 08/01/24 11:41 100 MG Furosemide 40 mg BIDD IV 07/23/24 18:00 08/01/24 06:13 40 MG Lactulose 30 ml DAILYPRN PRN PO 07/23/24 10:45 Hydralazine HCl 10 mg Q6HP PRN IV 07/24/24 11:00 07/24/24 14:05 10 MG Vancomycin HCl 0 ml @ 0 mls/hr UD IV 07/24/24 15:15 Enteral Nutritional Formula 240 ml QID PO 07/26/24 18:00 07/30/24 06:15 240 ML Enteral Nutritional Formula 1,000 ml 50ML/HR GT 07/26/24 15:30 07/30/24 22:34 1,000 ML Albuterol 2.5 mg Q8HR NEB 07/26/24 22:00 08/01/24 13:34 2.5 MG Acetaminophen 650 mg Q6HP PRN PO 07/29/24 13:15 08/01/24 12:56 650 MG Apixaban 5 mg BID PO 07/30/24 22:00 08/01/24 11:41 5 MG Morphine Sulfate 1 mg Q4HP PRN IV 07/30/24 16:30 07/31/24 20:14 1 MG Vancomycin HCl 200 ml @ 200 mls/hr Q16H IV 07/31/24 11:00 08/01/24 03:22 200 MLS/HR Laboratory Results Laboratory Tests 07/31/24 05:01 Urinalysis Test 07/11/24 15:12 Urine Color Yellow (Yellow) Urine Clarity Clear (Clear) Urine pH 5.5 (5.0-9.0) Urine Specific [place] 1.027 (1.001-1.035) Urine Protein 1+ (Negative) H Urine Ketones 2+ (Negative) H Urine Blood Negative /uL (Negative) Urine Nitrite Negative (Negative) Urine Bilirubin Negative (Negative) Urine Urobilinogen Normal mg/dL (Negative) Urine Leukocyte Esterase Negative /uL (Negative) Urine RBC 1 /hpf (0 - 3) Urine WBC 3 /hpf (0 - 3) Urine Squamous Epithelial Cells Few /hpf (<5) Urine Bacteria None seen /hpf (None Seen) Urine Glucose 4+ mg/dL (Normal) H Microbiology Microbiology Date/Time Source Procedure Growth Status 07/22/24 00:00 Sputum Gram Stain - Final Complete 07/22/24 00:00 Respiratory Culture - Final Staphylococcus aureus Presumptive Ct albicans Complete 07/15/24 12:00 Lung - Final Resulted 07/15/24 12:00 Lung - Final Resulted 07/15/24 12:00 Lung - Preliminary Resulted 07/15/24 12:00 Lung - Preliminary Resulted 07/15/24 12:00 Lung - Final See Separate Report... Resulted 07/15/24 12:00 Drainage Viral Culture - Final Complete 07/12/24 10:47 Voided Urine Urine Culture - Final Complete 07/11/24 21:08 Blood Blood Culture - Final NO GROWTH AFTER 5 DAYS OF INCUBATION. Complete Assessment/Plan Assessment/Plan Acute hypoxic respiratory failure Multi-focal pneumonia, due to MRSA Influenza A Sepsis, improved Atrial fibrillation Acute on chronic CHF, EF 25% CAD Hypothyroidism DM2 Thrombocytopenia due to sepsis, improved PLAN: 07/23/2024: Sedation: Versed, Propofol, Fent GI prophylaxis: Protonix DVT prophylaxis: Add Lovenox PNA: Vancomycin AFIB: Amio, Dig, Sepsis: Improved CHF: Lasix 40 mg IV daily, increase to bid DM2: Lantus 07/24/2024: CPAP trial in progress Dr. Rivera is trying to extubate the patient hopefully next 1-2 days Continue the current management Off vasopressors Discussed with the daughter at the bedside yesterday afternoon Questions answered Full code 07/25/2024: CPAP in progress today for possible extubation today Off vasopressors Off sedation Continue vancomycin IV Lasix 40 mg IV twice a day Digoxin IV 3 times a week Amiodarone 07/26/2024: Continue IV Lasix Continue NPO Replace potassium magnesium IV Continue IV vancomycin Physical therapy Continue feeding through the NG tube 07/27/2024: Downgrade to the MIGUEL Swallow eval Replace potassium and magnesium as needed Continue IV vancomycin Continue physical therapy Continue feeding through the NG tube 07/28/2024: Downgrade to tele Did not pass a swallow eval Continue feeding through the NG tube Continue physical therapy Continue IV vancomycin Replace potassium 07/29/2024: Downgrade to tele DC the Nghia PETERSON the sitter Generalized weakness: Continue physical therapy Out of bed as tolerated Hypokalemia: Replace potassium p.o. Continue IV vancomycin P.o. amiodarone Levothyroxine 07/30/2024: Continue physical therapy Out of bed as tolerated Swallow eval today Start diet if he passes the swallow test Continue IV vancomycin Amiodarone and digoxin Discontinue Lovenox and start Eliquis since thrombocytopenia has resolved Lasix 40 mg twice a day IV 07/31/2024: Continue current management Swallow eval today then started diet Continue physical therapy Discharge planning once he has started eating possibly to SNF 07/01/2024: Continue physical therapy Advance diet as tolerated Discontinue the NG tube IV Lasix no continue p.o. amiodarone Plan discussed with: Patient My Orders Orders - MERLYN NARAYAN MD Procedure Category Date Status Time Pureed DIET 07/31/24 Transmitted Dinner Date of Service: Aug 01, 2024 Billing Provider: MERLYN NARAYAN MD Common Visit Codes: [id number] INP/OBS CARE(HIGH) MERLYN NARAYAN MD Aug 01, 2024 14:53
[2024-08-01] MEDS: AMIODARONE HCL 200 MG TAB PO SCH (21:44)
[2024-08-01] MEDS: DOCUSATE SOD 100 MG CAP PO SCH (21:44)
--- NOTE | 2024-08-01 23:19 | DVHPN2 ---
Progress Note - Dictate Date Seen: Aug 01, 2024 Medical Necessity Reason Pt with a Central, PICC or Fol: Yes The following are medically ne: Central Line Subjective Patient seen and examined at bedside. Remains on supplemental oxygen Overnight events reviewed. vital signs Vital Sign Date Time Temp Pulse Resp B/P (MAP) Pulse Ox O2 Delivery O2 Flow Rate FiO2 08/01/24 21:51 88 20 97 08/01/24 21:39 Nasal Cannula 3.0 08/01/24 21:39 32 08/01/24 21:00 98.2 111/72 (85) 98.2 Total Intake and Output 07/31/24 07/31/24 08/01/24 15:00 23:00 07:00 Intake Total 200 ml 310 ml Output Total 900 ml 900 ml Balance -700 ml -590 ml medications Current Medications Medications Dose Ordered Sig/Maurice Route Start Time Stop Time Status Last Admin Dose Admin Levothyroxine Sodium 200 mcg QAM PO 07/12/24 07:00 08/01/24 06:13 200 MCG Pantoprazole Sodium 40 mg DAILY IV 07/13/24 10:00 08/01/24 11:41 40 MG Vancomycin HCl 200 ml @ 200 mls/hr Q1H IV 07/12/24 13:00 07/12/24 14:59 Cancel Insulin Glargine 10 units DAILY@1000 SC 07/14/24 10:00 08/01/24 11:57 10 UNITS Digoxin 125 mcg MWF IV 07/16/24 10:00 08/01/24 11:42 125 MCG Sodium Chloride 10 ml QSHIFT@10,22 IV 07/14/24 22:00 08/01/24 11:42 10 ML Dextrose 50 ml UD IV 07/15/24 15:00 Cancel Diagnostic Test (Pha) 1 strip Q6HR 07/17/24 18:00 08/01/24 18:13 1 STRIP Insulin Human Regular Q6HR SC 07/17/24 18:00 07/31/24 23:45 2 UNITS Dextrose 50 ml UD PRN IV 07/17/24 13:15 Sennosides 8.6 mg HS PO 07/18/24 22:00 08/01/24 21:44 8.6 MG Furosemide 40 mg BIDD IV 07/23/24 18:00 08/01/24 18:13 40 MG Lactulose 30 ml DAILYPRN PRN PO 07/23/24 10:45 Hydralazine HCl 10 mg Q6HP PRN IV 07/24/24 11:00 07/24/24 14:05 10 MG Vancomycin HCl 0 ml @ 0 mls/hr UD IV 07/24/24 15:15 Albuterol 2.5 mg Q8HR NEB 07/26/24 22:00 08/01/24 21:39 2.5 MG Acetaminophen 650 mg Q6HP PRN PO 07/29/24 13:15 08/01/24 12:56 650 MG Apixaban 5 mg BID PO 07/30/24 22:00 08/01/24 21:44 5 MG Morphine Sulfate 1 mg Q4HP PRN IV 07/30/24 16:30 07/31/24 20:14 1 MG Vancomycin HCl 200 ml @ 200 mls/hr Q16H IV 07/31/24 11:00 08/01/24 19:08 200 MLS/HR Amiodarone HCl 200 mg Q12HR PO 08/01/24 22:00 08/01/24 21:44 200 MG Docusate Sodium 100 mg BID PO 08/01/24 22:00 08/01/24 21:44 100 MG objective Gen.: Patient lying in bed in no apparent distress. On supplemental oxygen. Head: Normocephalic, atraumatic. Eyes: EOMI/PERRLA. Ears: Normal hearing. Normal anatomy. Neck/trachea: Trachea midline, supple. Nose: Normal external anatomy. Mouth: Moist mucous membranes. Chest: Decreased air entry bilaterally. Coarse. Wheezing present. No rhonchi. Cardiovascular: Positive S1, positive S2. Regular rate and rhythm. Abdomen: Positive bowel sounds in all 4 quadrants. Soft, non-tender, non- distended. : Deferred. Rectal: Deferred. Skin: Warm, dry. Intact. Extremities: 2+ radial pulses bilaterally. No lower extremity edema. Neuro: Awake, alert, oriented x3. No gross motor or sensory deficits. Cranial nerves II through XII intact. Gait not assessed. laboratory and microbiology Laboratory Tests 07/31/24 05:01 Test 07/31/24 05:01 Range/Units Serum Glucose 111 H 74-106 mg/dL Assessment/Plan Impression: Acute hypoxic respiratory failure secondary to multifocal pneumonia and pulmonary edema Acute respiratory distress syndrome Multifocal pneumonia likely Gram-negative Pulmonary edema Leukopenia Septic shock Influenza type a Atrial fibrillation with RVR Chronic congestive heart failure Status post AICD CAD status post PTCA Insulin-dependent diabetes mellitus Acute kidney injury Events: Remains on supplemental O2 at 3 LPM NC. Taper O2 as tolerated NG tube removed. Diet is puree. Head of bed elevation Aspiration precautions Continue antibiotics, vancomycin Mucomyst 20%/bronchodilators + CPT to aid w/ clearance of secretions. EZPAP Antitussive PRN cough. Incentive spirometry Amiodarone PO for AFib Tube feeds for nutritional support Bowel regimen Protonix for GI prophylaxis. Pulmonary toileting NTS PRN. IV fluid hydration at 125 ml/hr. Patient is out of bed to chair with PT. Diurese w/ Lasix as tolerated Monitor renal function Monitor electrolytes, supplement as necessary Disposition per hospitalist. S/p therapeutic bronchoscopy on 07/22 - please see procedure note for details. Labs and imaging reviewed. Rest of plan as noted below. Plan: s/p extubation on 07/25/24 On supplemental O2 at 3 LPM NC. Titrate to keep O2 sats above 92%. Off sedation Pressors as necessary for hemodynamic support - Currently off pressors Titrate to keep MAP above 65 mmHg/SBP above 90 mmHg. Stress dose steroids Received dose of albumin. Continue antibiotics. F/u cultures. Send sputum, blood cultures and urine cultures Monitor renal function due to acute kidney injury. Creatinine trending down Monitor electrolytes. Supplement as necessary. Supplemented potassium and magnesium stat. On IV fluids, lactic acid trending down. Accu-Cheks, ISS. GI/DVT prophylaxis. Prognosis: Poor given multiple comorbidities. Rest of plan per hospitalist and other consultants. Thank you JOSH Hatfield for allowing me to participate in this patient's care. Further recommendations will depend on patient's clinical course. Please do not hesitate to contact me if you have any questions or concerns. This medical document was created using an electronic medical record system with [employer] system. Although this document has been carefully reviewed, there may still be some phonetic and typographical errors. These areas are purely typographical due to imperfections of the software programs, and do not reflect any compromise in the patient's medical care. Dietary Evaluation Review Comments: Advance to 2 gNa CCHO-60 diet when medically feasible. Pt's lipid pannel shows Cholesterol and LDL at lower mragin range, thus no restrictions on fat or cholesterol needed. Expected Outcomes/Goals: gradual weight loss, controlled DM, Plan discussed with: Patient, Other (ANGELO Goyal/Amanda) LINDSEY ROSALES MD Aug 01, 2024 23:19
[2024-08-02] VITALS (10 sets, daily range): BP systolic 84–104; BP diastolic 53–65; PULSE 70–86; RESP 16–24; TEMP 98–98.7; O2SAT 91–100
--- NOTE | 2024-08-02 12:50 | DVHPN2 ---
Subjective Slightly better Doing better with physical therapy Eating more However his blood pressure is still low between 85-100 systolic Reviewed: Care Plan Changes from previous H/P or p: Changes Eyes: No Pain, No Vision change, No Conjunctivae inflammation, No Eyelid inflammation, No Other, No Redness ENT: No Ear pain, No Ear discharge, No Nose pain, No Nose discharge, No Nose congestion, No Mouth pain, No Mouth swelling, No Throat pain, No Throat swelling, No Other Cardiovascular: No Chest Pain, No Palpitations, No Orthopnea, No Paroxysmal Noc. Dyspnea, No Edema, No Lt Headedness, No Other Respiratory: No Cough, No Dry, No Shortness of breath, No SOB with excertion, No Wheezing, No Hemoptysis, No Pleuritic Pain, No Sputum, No Other Gastrointestinal: No Nausea, No Vomiting, No Abdominal Pain, No Diarrhea, No Constipation, No Melena, No Hematochezia, No Other Genitourinary: No Dysuria, No Frequency, No Incontinence, No Hematuria, No Retention, No Other Musculoskeletal: No other, No neck pain, No shoulder pain, No arm pain, No back pain, No hand pain, No leg pain, No foot pain Skin: No Rash, No Lesions, No Jaundice, No Bruising, No Other Objective Vitals Vital Signs Date Time Temp Pulse Resp B/P (MAP) Pulse Ox O2 Delivery O2 Flow Rate FiO2 08/02/24 12:35 98.0 75 17 97/61 (73) 97 98.0 08/02/24 08:08 Nasal Cannula 3.0 08/02/24 08:08 32 Intake/Output Intake and Output 08/02/24 07:00 Intake Total 940 ml Output Total 1325 ml Balance -385 ml Intake Oral 740 ml IV Total 200 ml Output Urine Total 1325 ml General Appearance: Alert, Oriented X3, Cooperative, No acute distress Lungs: Other Cardiovascular: Regular rate, Normal S1, Normal S2, No murmurs Abdomen: Normal bowel sounds, Soft, No tenderness Extremities: Other Neuro: Other Medications Current Medications Medications Dose Ordered Sig/Maurice Route Start Time Stop Time Status Last Admin Dose Admin Levothyroxine Sodium 200 mcg QAM PO 07/12/24 07:00 08/02/24 06:48 200 MCG Pantoprazole Sodium 40 mg DAILY IV 07/13/24 10:00 08/02/24 09:20 40 MG Vancomycin HCl 200 ml @ 200 mls/hr Q1H IV 07/12/24 13:00 07/12/24 14:59 Cancel Insulin Glargine 10 units DAILY@1000 SC 07/14/24 10:00 08/01/24 11:57 10 UNITS Digoxin 125 mcg MWF IV 07/16/24 10:00 08/01/24 11:42 125 MCG Sodium Chloride 10 ml QSHIFT@10,22 IV 07/14/24 22:00 08/02/24 09:21 10 ML Dextrose 50 ml UD IV 07/15/24 15:00 Cancel Diagnostic Test (Pha) 1 strip Q6HR 07/17/24 18:00 08/02/24 10:35 1 STRIP Insulin Human Regular Q6HR SC 07/17/24 18:00 07/31/24 23:45 2 UNITS Dextrose 50 ml UD PRN IV 07/17/24 13:15 Sennosides 8.6 mg HS PO 07/18/24 22:00 08/01/24 21:44 8.6 MG Furosemide 40 mg BIDD IV 07/23/24 18:00 08/02/24 05:52 40 MG Lactulose 30 ml DAILYPRN PRN PO 07/23/24 10:45 Hydralazine HCl 10 mg Q6HP PRN IV 07/24/24 11:00 07/24/24 14:05 10 MG Vancomycin HCl 0 ml @ 0 mls/hr UD IV 07/24/24 15:15 Albuterol 2.5 mg Q8HR NEB 07/26/24 22:00 08/02/24 08:08 2.5 MG Acetaminophen 650 mg Q6HP PRN PO 07/29/24 13:15 08/01/24 12:56 650 MG Apixaban 5 mg BID PO 07/30/24 22:00 08/02/24 09:21 5 MG Morphine Sulfate 1 mg Q4HP PRN IV 07/30/24 16:30 07/31/24 20:14 1 MG Vancomycin HCl 200 ml @ 200 mls/hr Q16H IV 07/31/24 11:00 08/02/24 11:42 200 MLS/HR Amiodarone HCl 200 mg Q12HR PO 08/01/24 22:00 08/01/24 21:44 200 MG Docusate Sodium 100 mg BID PO 08/01/24 22:00 08/02/24 09:21 100 MG Laboratory Results Laboratory Tests 07/31/24 05:01 Urinalysis Test 07/11/24 15:12 Urine Color Yellow (Yellow) Urine Clarity Clear (Clear) Urine pH 5.5 (5.0-9.0) Urine Specific [place] 1.027 (1.001-1.035) Urine Protein 1+ (Negative) H Urine Ketones 2+ (Negative) H Urine Blood Negative /uL (Negative) Urine Nitrite Negative (Negative) Urine Bilirubin Negative (Negative) Urine Urobilinogen Normal mg/dL (Negative) Urine Leukocyte Esterase Negative /uL (Negative) Urine RBC 1 /hpf (0 - 3) Urine WBC 3 /hpf (0 - 3) Urine Squamous Epithelial Cells Few /hpf (<5) Urine Bacteria None seen /hpf (None Seen) Urine Glucose 4+ mg/dL (Normal) H Microbiology Microbiology Date/Time Source Procedure Growth Status 07/22/24 00:00 Sputum Gram Stain - Final Complete 07/22/24 00:00 Respiratory Culture - Final Staphylococcus aureus Presumptive Ct albicans Complete 07/15/24 12:00 Lung - Final Resulted 07/15/24 12:00 Lung - Final Resulted 07/15/24 12:00 Lung - Preliminary Resulted 07/15/24 12:00 Lung - Preliminary Resulted 07/15/24 12:00 Lung - Final See Separate Report... Resulted 07/15/24 12:00 Drainage Viral Culture - Final Complete 07/12/24 10:47 Voided Urine Urine Culture - Final Complete 07/11/24 21:08 Blood Blood Culture - Final NO GROWTH AFTER 5 DAYS OF INCUBATION. Complete Assessment/Plan Assessment/Plan Acute hypoxic respiratory failure Multi-focal pneumonia, due to MRSA Influenza A Sepsis, improved Atrial fibrillation Acute on chronic CHF, EF 25% CAD Hypothyroidism DM2 Thrombocytopenia due to sepsis, improved PLAN: 07/23/2024: Sedation: Versed, Propofol, Fent GI prophylaxis: Protonix DVT prophylaxis: Add Lovenox PNA: Vancomycin AFIB: Amio, Dig, Sepsis: Improved CHF: Lasix 40 mg IV daily, increase to bid DM2: Lantus 07/24/2024: CPAP trial in progress Dr. Rivera is trying to extubate the patient hopefully next 1-2 days Continue the current management Off vasopressors Discussed with the daughter at the bedside yesterday afternoon Questions answered Full code 07/25/2024: CPAP in progress today for possible extubation today Off vasopressors Off sedation Continue vancomycin IV Lasix 40 mg IV twice a day Digoxin IV 3 times a week Amiodarone 07/26/2024: Continue IV Lasix Continue NPO Replace potassium magnesium IV Continue IV vancomycin Physical therapy Continue feeding through the NG tube 07/27/2024: Downgrade to the MIGUEL Swallow eval Replace potassium and magnesium as needed Continue IV vancomycin Continue physical therapy Continue feeding through the NG tube 07/28/2024: Downgrade to tele Did not pass a swallow eval Continue feeding through the NG tube Continue physical therapy Continue IV vancomycin Replace potassium 07/29/2024: Downgrade to tele DC the Nghia PETERSON the sitter Generalized weakness: Continue physical therapy Out of bed as tolerated Hypokalemia: Replace potassium p.o. Continue IV vancomycin P.o. amiodarone Levothyroxine 07/30/2024: Continue physical therapy Out of bed as tolerated Swallow eval today Start diet if he passes the swallow test Continue IV vancomycin Amiodarone and digoxin Discontinue Lovenox and start Eliquis since thrombocytopenia has resolved Lasix 40 mg twice a day IV 07/31/2024: Continue current management Swallow eval today then started diet Continue physical therapy Discharge planning once he has started eating possibly to SNF 08/01/2024: Continue physical therapy Advance diet as tolerated Discontinue the NG tube IV Lasix continue p.o. amiodarone 08/02/2024: Continue IV vancomycin Rate controlled with amiodarone and digoxin Eliquis See the IV Lasix, changed to p.o. once a day 20 mg daily Plan discussed with: Patient My Orders Orders - MERLYN NARAYAN MD Procedure Category Date Status Time Amiodarone Tablet PHA 08/01/24 In Process (Cordarone Tablet) 22:00 Docusate Sodium PHA 08/01/24 In Process Capsule (Colace 22:00 Pt Request For Service PT 08/02/24 Logged 10:33 Vancomycin Per ALTAGRACIA 08/04/24 In Process Pharmacy Protoc 11:00 Vancomycin,Trough LAB 08/04/24 Verified 10:00 Creatinine LAB 08/04/24 Verified 10:00 Date of Service: Aug 02, 2024 Billing Provider: MERLYN NARAYAN MD Common Visit Codes: [id number] INP/OBS CARE(HIGH) MERLYN NARAYAN MD Aug 02, 2024 12:50
[2024-08-02] MEDS ORDERED: ONDANSETRON HCL 4 MG/2 ML VIAL IV PRN (16:00)
--- NOTE | 2024-08-02 20:31 | DVHPN2 ---
Progress Note - Dictate Date Seen: Aug 02, 2024 Medical Necessity Reason Pt with a Central, PICC or Fol: No The following are medically ne: Central Line Subjective Patient seen and examined at bedside. Remains on supplemental oxygen Overnight events reviewed. vital signs Vital Sign Date Time Temp Pulse Resp B/P (MAP) Pulse Ox O2 Delivery O2 Flow Rate FiO2 08/02/24 16:33 98.2 78 16 97/61 (73) 93 98.2 08/02/24 08:08 Nasal Cannula 3.0 08/02/24 08:08 32 Total Intake and Output 08/01/24 08/01/24 08/02/24 15:00 23:00 07:00 Intake Total 690 ml 250 ml Output Total 575 ml 750 ml Balance 115 ml -500 ml medications Current Medications Medications Dose Ordered Sig/Maurice Route Start Time Stop Time Status Last Admin Dose Admin Levothyroxine Sodium 200 mcg QAM PO 07/12/24 07:00 08/02/24 06:48 200 MCG Pantoprazole Sodium 40 mg DAILY IV 07/13/24 10:00 08/02/24 09:20 40 MG Vancomycin HCl 200 ml @ 200 mls/hr Q1H IV 07/12/24 13:00 07/12/24 14:59 Cancel Insulin Glargine 10 units DAILY@1000 SC 07/14/24 10:00 08/01/24 11:57 10 UNITS Digoxin 125 mcg MWF IV 07/16/24 10:00 08/01/24 11:42 125 MCG Sodium Chloride 10 ml QSHIFT@10,22 IV 07/14/24 22:00 08/02/24 09:21 10 ML Dextrose 50 ml UD IV 07/15/24 15:00 Cancel Diagnostic Test (Pha) 1 strip Q6HR 07/17/24 18:00 08/02/24 18:05 1 STRIP Insulin Human Regular Q6HR SC 07/17/24 18:00 08/02/24 18:06 2 UNITS Dextrose 50 ml UD PRN IV 07/17/24 13:15 Sennosides 8.6 mg HS PO 07/18/24 22:00 08/01/24 21:44 8.6 MG Lactulose 30 ml DAILYPRN PRN PO 07/23/24 10:45 Hydralazine HCl 10 mg Q6HP PRN IV 07/24/24 11:00 07/24/24 14:05 10 MG Vancomycin HCl 0 ml @ 0 mls/hr UD IV 07/24/24 15:15 Albuterol 2.5 mg Q8HR NEB 07/26/24 22:00 08/02/24 08:08 2.5 MG Acetaminophen 650 mg Q6HP PRN PO 07/29/24 13:15 08/01/24 12:56 650 MG Apixaban 5 mg BID PO 07/30/24 22:00 08/02/24 09:21 5 MG Morphine Sulfate 1 mg Q4HP PRN IV 07/30/24 16:30 07/31/24 20:14 1 MG Vancomycin HCl 200 ml @ 200 mls/hr Q16H IV 07/31/24 11:00 08/02/24 11:42 200 MLS/HR Amiodarone HCl 200 mg Q12HR PO 08/01/24 22:00 08/01/24 21:44 200 MG Docusate Sodium 100 mg BID PO 08/01/24 22:00 08/02/24 09:21 100 MG Furosemide 20 mg DAILY PO 08/03/24 10:00 Ondansetron HCl 4 mg Q4HPRN PRN IV 08/02/24 16:00 objective Gen.: Patient lying in bed in no apparent distress. On supplemental oxygen. Head: Normocephalic, atraumatic. Eyes: EOMI/PERRLA. Ears: Normal hearing. Normal anatomy. Neck/trachea: Trachea midline, supple. Nose: Normal external anatomy. Mouth: Moist mucous membranes. Chest: Decreased air entry bilaterally. Coarse. Wheezing present. No rhonchi. Cardiovascular: Positive S1, positive S2. Regular rate and rhythm. Abdomen: Positive bowel sounds in all 4 quadrants. Soft, non-tender, non- distended. : Deferred. Rectal: Deferred. Skin: Warm, dry. Intact. Extremities: 2+ radial pulses bilaterally. No lower extremity edema. Neuro: Awake, alert, oriented x3. No gross motor or sensory deficits. Cranial nerves II through XII intact. Gait not assessed. laboratory and microbiology Laboratory Tests 07/31/24 05:01 Test 07/31/24 05:01 Range/Units Serum Glucose 111 H 74-106 mg/dL Assessment/Plan Impression: Acute hypoxic respiratory failure secondary to multifocal pneumonia and pulmonary edema Acute respiratory distress syndrome Multifocal pneumonia likely Gram-negative Pulmonary edema Leukopenia Septic shock Influenza type a Atrial fibrillation with RVR Chronic congestive heart failure Status post AICD CAD status post PTCA Insulin-dependent diabetes mellitus Acute kidney injury Events: Remains on supplemental O2 at 3 LPM NC. Taper O2 as tolerated Head of bed elevation Aspiration precautions Antiemetics PRN for nausea. Continue antibiotics, vancomycin Mucomyst 20%/bronchodilators + CPT to aid w/ clearance of secretions. EZPAP Antitussive PRN cough. Incentive spirometry Amiodarone PO for AFib Tube feeds for nutritional support Bowel regimen Protonix for GI prophylaxis. Pulmonary toileting NTS PRN. IV fluid hydration at 125 ml/hr. Patient is out of bed to chair with PT. Diurese w/ Lasix as tolerated Monitor renal function Monitor electrolytes, supplement as necessary Disposition per hospitalist. S/p therapeutic bronchoscopy on 07/22 - please see procedure note for details. Labs and imaging reviewed. Rest of plan as noted below. Plan: s/p extubation on 07/25/24 On supplemental O2 at 3 LPM NC. Titrate to keep O2 sats above 92%. Off sedation Pressors as necessary for hemodynamic support - Remains off, hemodynamically stable Titrate to keep MAP above 65 mmHg/SBP above 90 mmHg. Stress dose steroids Received dose of albumin. Continue antibiotics. F/u cultures. Send sputum, blood cultures and urine cultures Monitor renal function due to acute kidney injury. Creatinine trending down Monitor electrolytes. Supplement as necessary. Supplemented potassium and magnesium stat. On IV fluids, lactic acid trending down. Accu-Cheks, ISS PRN. GI/DVT prophylaxis. Prognosis: Poor given multiple comorbidities. Rest of plan per hospitalist and other consultants. Thank you JOSH Hatfeild for allowing me to participate in this patient's care. Further recommendations will depend on patient's clinical course. Please do not hesitate to contact me if you have any questions or concerns. This medical document was created using an electronic medical record system with [employer] system. Although this document has been carefully reviewed, there may still be some phonetic and typographical errors. These areas are purely typographical due to imperfections of the software programs, and do not reflect any compromise in the patient's medical care. Dietary Evaluation Review Comments: Advance to 2 gNa CCHO-60 diet when medically feasible. Pt's lipid pannel shows Cholesterol and LDL at lower mragin range, thus no restrictions on fat or cholesterol needed. Expected Outcomes/Goals: gradual weight loss, controlled DM, Plan discussed with: Patient, Other (ANGELO Basilio) LINDSEY ROSALES MD Aug 02, 2024 20:31
[2024-08-03] VITALS (14 sets, daily range): BP systolic 87–113; BP diastolic 48–65; PULSE 67–81; RESP 8–20; TEMP 98–98.7; O2SAT 93–100
[2024-08-03 05:26] LABS: Basophils # (auto) 0 10 ^3/uL (0-0.2); Basophils % (auto) 0.8 % (0.0-2.0); Eosinophils # (auto) 0.2 10 ^3/uL (0-0.8); Eosinophils % (auto) 2.7 % (0.0-7.0); Hematocrit 25.4 % (41.0-53.0); Hemoglobin 8.9 g/dL (13.5-17.5); Lymphocytes # (auto) 1.3 10 ^3/uL (0.4-5.4); Lymphocytes % (auto) 20.2 % (10.0-50.0); Mean Corpuscular Hemoglobin 31.9 pg (28.0-32.0); Mean Corpuscular Hgb Conc. 35.2 g/dL (32.0-36.0); Mean Corpuscular Volume 90.6 fL (80.0-100.0); Monocytes # (auto) 0.5 10 ^3/uL (0-1.3); Monocytes % (auto) 7.5 % (0.0-12.0); Neutrophils # (auto) 4.3 10 ^3/uL (1.6-8.6); Neutrophils % (auto) 68.8 % (37.0-80.0); Platelet Count (auto) 366 10^3/uL (140-450); Red Blood Cells 2.81 10^6/uL (4.5-5.90); Red Cell Distribution Width 15.3 % (11.8-14.3); White Blood Cell 6.3 10^3/uL (4.4-10.8)
[2024-08-03 05:35] LABS: Chloride 100 mmol/L (98-107); Sodium 137 mmol/L (136-145)
[2024-08-03 05:36] LABS: Anion Gap 10 (5-15); Carbon Dioxide 27 mmol/L (20-31)
[2024-08-03 05:37] LABS: Calcium 8.8 mg/dL (8.7-10.4)
[2024-08-03 05:41] LABS: BUN/Creatinine Ratio 21.9 (10.0-20.0); Blood Urea Nitrogen 16 mg/dL (9-23); Glucose 94 mg/dL (74-106)
[2024-08-03 05:42] LABS: Magnesium 1.6 mg/dL (1.6-2.6)
[2024-08-03 05:56] LABS: Potassium 3.5 mmol/L (3.5-5.1)
[2024-08-03] MEDS: FUROSEMIDE 20 MG TAB PO SCH (10:00)
--- NOTE | 2024-08-03 12:14 | DVHPN2 ---
Reviewed: Care Plan Eyes: No Pain, No Vision change, No Conjunctivae inflammation, No Eyelid inflammation, No Other, No Redness ENT: No Ear pain, No Ear discharge, No Nose pain, No Nose discharge, No Nose congestion, No Mouth pain, No Mouth swelling, No Throat pain, No Throat swelling, No Other Cardiovascular: No Chest Pain, No Palpitations, No Orthopnea, No Paroxysmal Noc. Dyspnea, No Edema, No Lt Headedness, No Other Respiratory: No Cough, No Dry, No Shortness of breath, No SOB with excertion, No Wheezing, No Hemoptysis, No Pleuritic Pain, No Sputum, No Other Gastrointestinal: No Nausea, No Vomiting, No Abdominal Pain, No Diarrhea, No Constipation, No Melena, No Hematochezia, No Other Genitourinary: No Dysuria, No Frequency, No Incontinence, No Hematuria, No Retention, No Other Musculoskeletal: No other, No neck pain, No shoulder pain, No arm pain, No back pain, No hand pain, No leg pain, No foot pain Skin: No Rash, No Lesions, No Jaundice, No Bruising, No Other Objective Vitals Vital Signs Date Time Temp Pulse Resp B/P (MAP) Pulse Ox O2 Delivery O2 Flow Rate FiO2 08/03/24 10:00 94/60 08/03/24 10:00 71 08/03/24 09:07 98.1 8 99 98.1 08/03/24 08:30 Nasal Cannula* 3 32 Intake/Output Intake and Output 08/03/24 07:00 Intake Total 770 ml Output Total 825 ml Balance -55 ml Intake Oral 770 ml Output Urine Total 825 ml General Appearance: Alert, Oriented X3, Cooperative, No acute distress Lungs: Other Cardiovascular: Regular rate, Normal S1, Normal S2, No murmurs Abdomen: Normal bowel sounds, Soft, No tenderness Extremities: Other Neuro: Other Medications Current Medications Medications Dose Ordered Sig/Maurice Route Start Time Stop Time Status Last Admin Dose Admin Levothyroxine Sodium 200 mcg QAM PO 07/12/24 07:00 08/03/24 06:24 200 MCG Pantoprazole Sodium 40 mg DAILY IV 07/13/24 10:00 08/03/24 10:03 40 MG Vancomycin HCl 200 ml @ 200 mls/hr Q1H IV 07/12/24 13:00 07/12/24 14:59 Cancel Insulin Glargine 10 units DAILY@1000 SC 07/14/24 10:00 08/01/24 11:57 10 UNITS Digoxin 125 mcg MWF IV 07/16/24 10:00 08/01/24 11:42 125 MCG Sodium Chloride 10 ml QSHIFT@10,22 IV 07/14/24 22:00 08/03/24 10:03 10 ML Dextrose 50 ml UD IV 07/15/24 15:00 Cancel Diagnostic Test (Pha) 1 strip Q6HR 07/17/24 18:00 08/03/24 10:34 1 STRIP Insulin Human Regular Q6HR SC 07/17/24 18:00 08/02/24 18:06 2 UNITS Dextrose 50 ml UD PRN IV 07/17/24 13:15 Sennosides 8.6 mg HS PO 07/18/24 22:00 08/02/24 22:00 8.6 MG Lactulose 30 ml DAILYPRN PRN PO 07/23/24 10:45 Hydralazine HCl 10 mg Q6HP PRN IV 07/24/24 11:00 07/24/24 14:05 10 MG Vancomycin HCl 0 ml @ 0 mls/hr UD IV 07/24/24 15:15 Albuterol 2.5 mg Q8HR NEB 07/26/24 22:00 08/03/24 08:30 2.5 MG Acetaminophen 650 mg Q6HP PRN PO 07/29/24 13:15 08/01/24 12:56 650 MG Apixaban 5 mg BID PO 07/30/24 22:00 08/03/24 10:03 5 MG Morphine Sulfate 1 mg Q4HP PRN IV 07/30/24 16:30 07/31/24 20:14 1 MG Vancomycin HCl 200 ml @ 200 mls/hr Q16H IV 07/31/24 11:00 08/03/24 03:09 200 MLS/HR Amiodarone HCl 200 mg Q12HR PO 08/01/24 22:00 08/02/24 22:00 200 MG Docusate Sodium 100 mg BID PO 08/01/24 22:00 08/03/24 10:03 100 MG Furosemide 20 mg DAILY PO 08/03/24 10:00 Ondansetron HCl 4 mg Q4HPRN PRN IV 08/02/24 16:00 Laboratory Results Laboratory Tests 08/03/24 05:00 Chemistry Test 08/03/24 05:00 Calcium Level 8.8 mg/dL (8.7-10.4) Magnesium Level 1.6 mg/dL (1.6-2.6) Urinalysis Test 07/11/24 15:12 Urine Color Yellow (Yellow) Urine Clarity Clear (Clear) Urine pH 5.5 (5.0-9.0) Urine Specific [place] 1.027 (1.001-1.035) Urine Protein 1+ (Negative) H Urine Ketones 2+ (Negative) H Urine Blood Negative /uL (Negative) Urine Nitrite Negative (Negative) Urine Bilirubin Negative (Negative) Urine Urobilinogen Normal mg/dL (Negative) Urine Leukocyte Esterase Negative /uL (Negative) Urine RBC 1 /hpf (0 - 3) Urine WBC 3 /hpf (0 - 3) Urine Squamous Epithelial Cells Few /hpf (<5) Urine Bacteria None seen /hpf (None Seen) Urine Glucose 4+ mg/dL (Normal) H Microbiology Microbiology Date/Time Source Procedure Growth Status 07/22/24 00:00 Sputum Gram Stain - Final Complete 07/22/24 00:00 Respiratory Culture - Final Staphylococcus aureus Presumptive Ct albicans Complete 07/15/24 12:00 Lung - Final Resulted 07/15/24 12:00 Lung - Final Resulted 07/15/24 12:00 Lung - Preliminary Resulted 07/15/24 12:00 Lung - Preliminary Resulted 07/15/24 12:00 Lung - Final See Separate Report... Resulted 07/15/24 12:00 Drainage Viral Culture - Final Complete 07/12/24 10:47 Voided Urine Urine Culture - Final Complete 07/11/24 21:08 Blood Blood Culture - Final NO GROWTH AFTER 5 DAYS OF INCUBATION. Complete LATOYA UMANZOR MD Aug 03, 2024 12:14
--- NOTE | 2024-08-03 22:53 | DVHPN2 ---
Progress Note - Dictate Date Seen: Aug 03, 2024 Medical Necessity Reason Pt with a Central, PICC or Fol: No The following are medically ne: Central Line Subjective Patient seen and examined at bedside. Remains on supplemental oxygen Overnight events reviewed. vital signs Vital Sign Date Time Temp Pulse Resp B/P (MAP) Pulse Ox O2 Delivery O2 Flow Rate FiO2 08/03/24 22:31 94 Nasal Cannula 2.0 08/03/24 22:31 28 08/03/24 22:30 72 18 08/03/24 21:00 98.4 93/48 (63) 98.4 Total Intake and Output 08/02/24 08/02/24 08/03/24 15:00 23:00 07:00 Intake Total 570 ml 200 ml Output Total 300 ml 325 ml 200 ml Balance -300 ml 245 ml 0 ml medications Current Medications Medications Dose Ordered Sig/Maurice Route Start Time Stop Time Status Last Admin Dose Admin Levothyroxine Sodium 200 mcg QAM PO 07/12/24 07:00 08/03/24 06:24 200 MCG Pantoprazole Sodium 40 mg DAILY IV 07/13/24 10:00 08/03/24 10:03 40 MG Vancomycin HCl 200 ml @ 200 mls/hr Q1H IV 07/12/24 13:00 07/12/24 14:59 Cancel Insulin Glargine 10 units DAILY@1000 SC 07/14/24 10:00 08/01/24 11:57 10 UNITS Digoxin 125 mcg MWF IV 07/16/24 10:00 08/01/24 11:42 125 MCG Sodium Chloride 10 ml QSHIFT@10,22 IV 07/14/24 22:00 08/03/24 21:11 10 ML Dextrose 50 ml UD IV 07/15/24 15:00 Cancel Diagnostic Test (Pha) 1 strip Q6HR 07/17/24 18:00 08/03/24 18:11 1 STRIP Insulin Human Regular Q6HR SC 07/17/24 18:00 08/02/24 18:06 2 UNITS Dextrose 50 ml UD PRN IV 07/17/24 13:15 Sennosides 8.6 mg HS PO 07/18/24 22:00 08/03/24 21:15 8.6 MG Lactulose 30 ml DAILYPRN PRN PO 07/23/24 10:45 Hydralazine HCl 10 mg Q6HP PRN IV 07/24/24 11:00 07/24/24 14:05 10 MG Vancomycin HCl 0 ml @ 0 mls/hr UD IV 07/24/24 15:15 Albuterol 2.5 mg Q8HR NEB 07/26/24 22:00 08/03/24 22:29 2.5 MG Acetaminophen 650 mg Q6HP PRN PO 07/29/24 13:15 08/01/24 12:56 650 MG Apixaban 5 mg BID PO 07/30/24 22:00 08/03/24 21:15 5 MG Morphine Sulfate 1 mg Q4HP PRN IV 07/30/24 16:30 07/31/24 20:14 1 MG Vancomycin HCl 200 ml @ 200 mls/hr Q16H IV 07/31/24 11:00 08/03/24 20:03 200 MLS/HR Amiodarone HCl 200 mg Q12HR PO 08/01/24 22:00 08/03/24 21:15 200 MG Docusate Sodium 100 mg BID PO 08/01/24 22:00 08/03/24 21:15 100 MG Furosemide 20 mg DAILY PO 08/03/24 10:00 Ondansetron HCl 4 mg Q4HPRN PRN IV 08/02/24 16:00 objective Gen.: Patient lying in bed in no apparent distress. On supplemental oxygen. Head: Normocephalic, atraumatic. Eyes: EOMI/PERRLA. Ears: Normal hearing. Normal anatomy. Neck/trachea: Trachea midline, supple. Nose: Normal external anatomy. Mouth: Moist mucous membranes. Chest: Decreased air entry bilaterally. Coarse. Wheezing present. No rhonchi. Cardiovascular: Positive S1, positive S2. Regular rate and rhythm. Abdomen: Positive bowel sounds in all 4 quadrants. Soft, non-tender, non- distended. : Deferred. Rectal: Deferred. Skin: Warm, dry. Intact. Extremities: 2+ radial pulses bilaterally. No lower extremity edema. Neuro: Awake, alert, oriented x3. No gross motor or sensory deficits. Cranial nerves II through XII intact. Gait not assessed. laboratory and microbiology Laboratory Tests 08/03/24 05:00 Test 08/03/24 05:00 Range/Units Serum Glucose 94 74-106 mg/dL Assessment/Plan Impression: Acute hypoxic respiratory failure secondary to multifocal pneumonia and pulmonary edema Acute respiratory distress syndrome Multifocal pneumonia likely Gram-negative Pulmonary edema Leukopenia Septic shock Influenza type a Atrial fibrillation with RVR Chronic congestive heart failure Status post AICD CAD status post PTCA Insulin-dependent diabetes mellitus Acute kidney injury Events: Remains on supplemental O2 at 3 LPM NC. Taper O2 as tolerated Head of bed elevation Aspiration precautions Antiemetics PRN for nausea. Complete antibiotic course Mucomyst 20%/bronchodilators + CPT to aid w/ clearance of secretions. EZPAP Antitussive PRN cough. Incentive spirometry Amiodarone PO for AFib Tube feeds for nutritional support Bowel regimen Protonix for GI prophylaxis. Pulmonary toileting NTS PRN. IV fluid hydration at 125 ml/hr. Patient is out of bed to chair with PT. Lasix on hold - decreased blood pressure. Monitor renal function Monitor electrolytes, supplement as necessary Disposition per hospitalist. S/p therapeutic bronchoscopy on 07/22 - please see procedure note for details. Labs and imaging reviewed. Rest of plan as noted below. Plan: s/p extubation on 07/25/24 On supplemental O2 at 3 LPM NC. Titrate to keep O2 sats above 92%. Off sedation Pressors as necessary for hemodynamic support - Remains off, hemodynamically stable Titrate to keep MAP above 65 mmHg/SBP above 90 mmHg. Stress dose steroids Received dose of albumin. Continue antibiotics. F/u cultures. Send sputum, blood cultures and urine cultures Monitor renal function due to acute kidney injury. Creatinine trending down Monitor electrolytes. Supplement as necessary. Supplemented potassium and magnesium stat. On IV fluids, lactic acid trending down. Accu-Cheks, ISS PRN. GI/DVT prophylaxis. Prognosis: Poor given multiple comorbidities. Rest of plan per hospitalist and other consultants. Thank you JOSH Hatfield for allowing me to participate in this patient's care. Further recommendations will depend on patient's clinical course. Please do not hesitate to contact me if you have any questions or concerns. This medical document was created using an electronic medical record system with [employer] system. Although this document has been carefully reviewed, there may still be some phonetic and typographical errors. These areas are purely typographical due to imperfections of the software programs, and do not reflect any compromise in the patient's medical care. Dietary Evaluation Review Comments: Advance to 2 gNa CCHO-60 diet when medically feasible. Pt's lipid pannel shows Cholesterol and LDL at lower mragin range, thus no restrictions on fat or cholesterol needed. Expected Outcomes/Goals: gradual weight loss, controlled DM, Plan discussed with: Patient, Other (ANGELO Gaytan) LINDSEY ROSALES MD Aug 03, 2024 22:53
[2024-08-04] VITALS (14 sets, daily range): BP systolic 91–127; BP diastolic 53–68; PULSE 60–84; RESP 16–18; TEMP 91.8–98.4; O2SAT 91–100
[2024-08-04] MEDS: VANCOMYCIN HCL 1000 MG VL ONE (07:09)
--- NOTE | 2024-08-04 13:54 | DVHPN2 ---
Reviewed: Care Plan Eyes: No Pain, No Vision change, No Conjunctivae inflammation, No Eyelid inflammation, No Other, No Redness ENT: No Ear pain, No Ear discharge, No Nose pain, No Nose discharge, No Nose congestion, No Mouth pain, No Mouth swelling, No Throat pain, No Throat swelling, No Other Cardiovascular: No Chest Pain, No Palpitations, No Orthopnea, No Paroxysmal Noc. Dyspnea, No Edema, No Lt Headedness, No Other Respiratory: No Cough, No Dry, No Shortness of breath, No SOB with excertion, No Wheezing, No Hemoptysis, No Pleuritic Pain, No Sputum, No Other Gastrointestinal: No Nausea, No Vomiting, No Abdominal Pain, No Diarrhea, No Constipation, No Melena, No Hematochezia, No Other Genitourinary: No Dysuria, No Frequency, No Incontinence, No Hematuria, No Retention, No Other Musculoskeletal: No other, No neck pain, No shoulder pain, No arm pain, No back pain, No hand pain, No leg pain, No foot pain Skin: No Rash, No Lesions, No Jaundice, No Bruising, No Other Objective Vitals Vital Signs Date Time Temp Pulse Resp B/P (MAP) Pulse Ox O2 Delivery O2 Flow Rate FiO2 08/04/24 13:30 82 18 100 08/04/24 13:21 Nasal Cannula 2.0 08/04/24 13:21 28 08/04/24 13:00 97.8 127/63 (84) 97.8 Intake/Output Intake and Output 08/04/24 07:00 Intake Total 900 ml Output Total 825 ml Balance 75 ml Intake Oral 700 ml IV Total 200 ml Output Urine Total 825 ml General Appearance: Alert, Oriented X3, Cooperative, No acute distress Lungs: Other Cardiovascular: Regular rate, Normal S1, Normal S2, No murmurs Abdomen: Normal bowel sounds, Soft, No tenderness Extremities: Other Neuro: Other Medications Current Medications Medications Dose Ordered Sig/Maurice Route Start Time Stop Time Status Last Admin Dose Admin Levothyroxine Sodium 200 mcg QAM PO 07/12/24 07:00 08/04/24 06:21 200 MCG Pantoprazole Sodium 40 mg DAILY IV 07/13/24 10:00 08/04/24 10:45 40 MG Vancomycin HCl 200 ml @ 200 mls/hr Q1H IV 07/12/24 13:00 07/12/24 14:59 Cancel Insulin Glargine 10 units DAILY@1000 SC 07/14/24 10:00 08/04/24 13:41 10 UNITS Digoxin 125 mcg MWF IV 07/16/24 10:00 08/01/24 11:42 125 MCG Sodium Chloride 10 ml QSHIFT@10,22 IV 07/14/24 22:00 08/04/24 10:45 10 ML Dextrose 50 ml UD IV 07/15/24 15:00 Cancel Diagnostic Test (Pha) 1 strip Q6HR 07/17/24 18:00 08/04/24 13:42 1 STRIP Insulin Human Regular Q6HR SC 07/17/24 18:00 08/04/24 13:41 2 UNITS Dextrose 50 ml UD PRN IV 07/17/24 13:15 Sennosides 8.6 mg HS PO 07/18/24 22:00 08/03/24 21:15 8.6 MG Lactulose 30 ml DAILYPRN PRN PO 07/23/24 10:45 Hydralazine HCl 10 mg Q6HP PRN IV 07/24/24 11:00 07/24/24 14:05 10 MG Vancomycin HCl 0 ml @ 0 mls/hr UD IV 07/24/24 15:15 Albuterol 2.5 mg Q8HR NEB 07/26/24 22:00 08/04/24 13:20 2.5 MG Acetaminophen 650 mg Q6HP PRN PO 07/29/24 13:15 08/04/24 05:30 650 MG Apixaban 5 mg BID PO 07/30/24 22:00 08/04/24 10:46 5 MG Morphine Sulfate 1 mg Q4HP PRN IV 07/30/24 16:30 07/31/24 20:14 1 MG Vancomycin HCl 200 ml @ 200 mls/hr Q16H IV 07/31/24 11:00 08/04/24 13:42 200 MLS/HR Amiodarone HCl 200 mg Q12HR PO 08/01/24 22:00 08/04/24 10:46 200 MG Docusate Sodium 100 mg BID PO 08/01/24 22:00 08/04/24 10:46 100 MG Furosemide 20 mg DAILY PO 08/03/24 10:00 08/04/24 10:46 20 MG Ondansetron HCl 4 mg Q4HPRN PRN IV 08/02/24 16:00 Laboratory Results Laboratory Tests 08/03/24 05:00 08/04/24 10:20 Urinalysis Test 07/11/24 15:12 Urine Color Yellow (Yellow) Urine Clarity Clear (Clear) Urine pH 5.5 (5.0-9.0) Urine Specific [place] 1.027 (1.001-1.035) Urine Protein 1+ (Negative) H Urine Ketones 2+ (Negative) H Urine Blood Negative /uL (Negative) Urine Nitrite Negative (Negative) Urine Bilirubin Negative (Negative) Urine Urobilinogen Normal mg/dL (Negative) Urine Leukocyte Esterase Negative /uL (Negative) Urine RBC 1 /hpf (0 - 3) Urine WBC 3 /hpf (0 - 3) Urine Squamous Epithelial Cells Few /hpf (<5) Urine Bacteria None seen /hpf (None Seen) Urine Glucose 4+ mg/dL (Normal) H Microbiology Microbiology Date/Time Source Procedure Growth Status 07/22/24 00:00 Sputum Gram Stain - Final Complete 07/22/24 00:00 Respiratory Culture - Final Staphylococcus aureus Presumptive Ct albicans Complete 07/15/24 12:00 Lung - Final Resulted 07/15/24 12:00 Lung - Final Resulted 07/15/24 12:00 Lung - Preliminary Resulted 07/15/24 12:00 Lung - Preliminary Resulted 07/15/24 12:00 Lung - Final See Separate Report... Resulted 07/15/24 12:00 Drainage Viral Culture - Final Complete 07/12/24 10:47 Voided Urine Urine Culture - Final Complete 07/11/24 21:08 Blood Blood Culture - Final NO GROWTH AFTER 5 DAYS OF INCUBATION. Complete LATOYA UMANZOR MD Aug 04, 2024 13:54
--- NOTE | 2024-08-04 23:40 | DVHPN2 ---
Progress Note - Dictate Date Seen: Aug 04, 2024 Medical Necessity Reason Pt with a Central, PICC or Fol: No The following are medically ne: Central Line Subjective Patient seen and examined at bedside. Remains on supplemental oxygen Overnight events reviewed. vital signs Vital Sign Date Time Temp Pulse Resp B/P (MAP) Pulse Ox O2 Delivery O2 Flow Rate FiO2 08/04/24 21:40 92 Nasal Cannula* 2 28 08/04/24 21:40 76 18 08/04/24 21:00 91.8 105/62 (76) 91.8 Total Intake and Output 08/03/24 08/03/24 08/04/24 15:00 23:00 07:00 Intake Total 800 ml 100 ml Output Total 500 ml 325 ml Balance 300 ml -225 ml medications Current Medications Medications Dose Ordered Sig/Maurice Route Start Time Stop Time Status Last Admin Dose Admin Levothyroxine Sodium 200 mcg QAM PO 07/12/24 07:00 08/04/24 06:21 200 MCG Pantoprazole Sodium 40 mg DAILY IV 07/13/24 10:00 08/04/24 10:45 40 MG Vancomycin HCl 200 ml @ 200 mls/hr Q1H IV 07/12/24 13:00 07/12/24 14:59 Cancel Insulin Glargine 10 units DAILY@1000 SC 07/14/24 10:00 08/04/24 13:41 10 UNITS Digoxin 125 mcg MWF IV 07/16/24 10:00 08/01/24 11:42 125 MCG Sodium Chloride 10 ml QSHIFT@10,22 IV 07/14/24 22:00 08/04/24 21:26 10 ML Dextrose 50 ml UD IV 07/15/24 15:00 Cancel Diagnostic Test (Pha) 1 strip Q6HR 07/17/24 18:00 08/04/24 23:33 1 STRIP Insulin Human Regular Q6HR SC 07/17/24 18:00 08/04/24 18:51 2 UNITS Dextrose 50 ml UD PRN IV 07/17/24 13:15 Sennosides 8.6 mg HS PO 07/18/24 22:00 08/04/24 21:18 8.6 MG Lactulose 30 ml DAILYPRN PRN PO 07/23/24 10:45 Hydralazine HCl 10 mg Q6HP PRN IV 07/24/24 11:00 07/24/24 14:05 10 MG Vancomycin HCl 0 ml @ 0 mls/hr UD IV 07/24/24 15:15 Albuterol 2.5 mg Q8HR NEB 07/26/24 22:00 08/04/24 21:40 2.5 MG Acetaminophen 650 mg Q6HP PRN PO 07/29/24 13:15 08/04/24 05:30 650 MG Apixaban 5 mg BID PO 07/30/24 22:00 08/04/24 21:18 5 MG Morphine Sulfate 1 mg Q4HP PRN IV 07/30/24 16:30 07/31/24 20:14 1 MG Vancomycin HCl 200 ml @ 200 mls/hr Q16H IV 07/31/24 11:00 08/04/24 13:42 200 MLS/HR Amiodarone HCl 200 mg Q12HR PO 08/01/24 22:00 08/04/24 21:22 200 MG Docusate Sodium 100 mg BID PO 08/01/24 22:00 08/04/24 21:18 100 MG Furosemide 20 mg DAILY PO 08/03/24 10:00 08/04/24 10:46 20 MG Ondansetron HCl 4 mg Q4HPRN PRN IV 08/02/24 16:00 objective Gen.: Patient lying in bed in no apparent distress. On supplemental oxygen. Head: Normocephalic, atraumatic. Eyes: EOMI/PERRLA. Ears: Normal hearing. Normal anatomy. Neck/trachea: Trachea midline, supple. Nose: Normal external anatomy. Mouth: Moist mucous membranes. Chest: Decreased air entry bilaterally. Coarse. Wheezing present. No rhonchi. Cardiovascular: Positive S1, positive S2. Regular rate and rhythm. Abdomen: Positive bowel sounds in all 4 quadrants. Soft, non-tender, non- distended. : Deferred. Rectal: Deferred. Skin: Warm, dry. Intact. Extremities: 2+ radial pulses bilaterally. No lower extremity edema. Neuro: Awake, alert, oriented x3. No gross motor or sensory deficits. Cranial nerves II through XII intact. Gait not assessed. laboratory and microbiology Laboratory Tests 08/04/24 10:20 08/03/24 05:00 Test 08/03/24 05:00 Range/Units Serum Glucose 94 74-106 mg/dL Assessment/Plan Impression: Acute hypoxic respiratory failure secondary to multifocal pneumonia and pulmonary edema Acute respiratory distress syndrome Multifocal pneumonia likely Gram-negative Pulmonary edema Leukopenia Septic shock Influenza type a Atrial fibrillation with RVR Chronic congestive heart failure Status post AICD CAD status post PTCA Insulin-dependent diabetes mellitus Acute kidney injury Events: Remains on supplemental O2 at 2 LPM NC. Taper O2 as tolerated Head of bed elevation Aspiration precautions Antiemetics PRN for nausea. Complete antibiotic course Mucomyst 20%/bronchodilators + CPT to aid w/ clearance of secretions. EZPAP Antitussive PRN cough. Incentive spirometry Amiodarone PO for AFib Tube feeds for nutritional support Bowel regimen Protonix for GI prophylaxis. Pulmonary toileting NTS PRN. IV fluid hydration at 125 ml/hr. Patient is out of bed to chair with PT. Diurese w/ Lasix as tolerated Monitor renal function Monitor electrolytes, supplement as necessary Disposition per hospitalist. S/p therapeutic bronchoscopy on 07/22 - please see procedure note for details. Labs and imaging reviewed. Rest of plan as noted below. Plan: s/p extubation on 07/25/24 On supplemental O2 Titrate to keep O2 sats above 92%. Off sedation Pressors as necessary for hemodynamic support - Remains off, hemodynamically stable Titrate to keep MAP above 65 mmHg/SBP above 90 mmHg. Stress dose steroids Received dose of albumin. Continue antibiotics. F/u cultures. Send sputum, blood cultures and urine cultures Monitor renal function due to acute kidney injury. Creatinine trending down Monitor electrolytes. Supplement as necessary. Supplemented potassium and magnesium stat. On IV fluids, lactic acid trending down. Accu-Cheks, ISS PRN. GI/DVT prophylaxis. Prognosis: Poor given multiple comorbidities. Rest of plan per hospitalist and other consultants. Thank you JOSH Hatfield for allowing me to participate in this patient's care. Further recommendations will depend on patient's clinical course. Please do not hesitate to contact me if you have any questions or concerns. This medical document was created using an electronic medical record system with [employer] system. Although this document has been carefully reviewed, there may still be some phonetic and typographical errors. These areas are purely typographical due to imperfections of the software programs, and do not reflect any compromise in the patient's medical care. Dietary Evaluation Review Comments: Advance to 2 gNa CCHO-60 diet when medically feasible. Pt's lipid pannel shows Cholesterol and LDL at lower mragin range, thus no restrictions on fat or cholesterol needed. Expected Outcomes/Goals: gradual weight loss, controlled DM, Plan discussed with: Patient, Other (ANGELO Edwards) LINDSEY ROSALES MD Aug 04, 2024 23:40
[2024-08-05] VITALS (10 sets, daily range): BP systolic 94–105; BP diastolic 51–68; PULSE 62–77; RESP 14–23; TEMP 97.1–98.2; O2SAT 90–98
[2024-08-05 05:40] LABS: Basophils # (auto) 0 10 ^3/uL (0-0.2); Basophils % (auto) 0.6 % (0.0-2.0); Eosinophils # (auto) 0.2 10 ^3/uL (0-0.8); Eosinophils % (auto) 3.1 % (0.0-7.0); Hematocrit 24.3 % (41.0-53.0); Hemoglobin 8.3 g/dL (13.5-17.5); Lymphocytes # (auto) 1.3 10 ^3/uL (0.4-5.4); Lymphocytes % (auto) 20.9 % (10.0-50.0); Mean Corpuscular Hemoglobin 30.9 pg (28.0-32.0); Mean Corpuscular Hgb Conc. 34.1 g/dL (32.0-36.0); Mean Corpuscular Volume 90.5 fL (80.0-100.0); Monocytes # (auto) 0.6 10 ^3/uL (0-1.3); Neutrophils # (auto) 4.3 10 ^3/uL (1.6-8.6); Neutrophils % (auto) 66.4 % (37.0-80.0); Platelet Count (auto) 413 10^3/uL (140-450); Red Blood Cells 2.69 10^6/uL (4.5-5.90); Red Cell Distribution Width 15.4 % (11.8-14.3); White Blood Cell 6.4 10^3/uL (4.4-10.8)
--- NOTE | 2024-08-05 08:25 | DVHPN2 ---
Reviewed: Care Plan Eyes: No Pain, No Vision change, No Conjunctivae inflammation, No Eyelid inflammation, No Other, No Redness ENT: No Ear pain, No Ear discharge, No Nose pain, No Nose discharge, No Nose congestion, No Mouth pain, No Mouth swelling, No Throat pain, No Throat swelling, No Other Cardiovascular: No Chest Pain, No Palpitations, No Orthopnea, No Paroxysmal Noc. Dyspnea, No Edema, No Lt Headedness, No Other Respiratory: No Cough, No Dry, No Shortness of breath, No SOB with excertion, No Wheezing, No Hemoptysis, No Pleuritic Pain, No Sputum, No Other Gastrointestinal: No Nausea, No Vomiting, No Abdominal Pain, No Diarrhea, No Constipation, No Melena, No Hematochezia, No Other Genitourinary: No Dysuria, No Frequency, No Incontinence, No Hematuria, No Retention, No Other Musculoskeletal: No other, No neck pain, No shoulder pain, No arm pain, No back pain, No hand pain, No leg pain, No foot pain Skin: No Rash, No Lesions, No Jaundice, No Bruising, No Other Objective Vitals Vital Signs Date Time Temp Pulse Resp B/P (MAP) Pulse Ox O2 Delivery O2 Flow Rate FiO2 08/05/24 05:00 98.1 67 17 104/51 (68) 97 98.1 08/04/24 21:40 Nasal Cannula* 2 28 Intake/Output Intake and Output 08/05/24 07:00 Intake Total 900 ml Output Total 1370 ml Balance -470 ml Intake Oral 700 ml IV Total 200 ml Output Urine Total 1370 ml General Appearance: Alert, Oriented X3, Cooperative, No acute distress Lungs: Other Cardiovascular: Regular rate, Normal S1, Normal S2, No murmurs Abdomen: Normal bowel sounds, Soft, No tenderness Extremities: Other Neuro: Other Medications Current Medications Medications Dose Ordered Sig/Maurice Route Start Time Stop Time Status Last Admin Dose Admin Levothyroxine Sodium 200 mcg QAM PO 07/12/24 07:00 08/05/24 05:43 200 MCG Pantoprazole Sodium 40 mg DAILY IV 07/13/24 10:00 08/04/24 10:45 40 MG Vancomycin HCl 200 ml @ 200 mls/hr Q1H IV 07/12/24 13:00 07/12/24 14:59 Cancel Insulin Glargine 10 units DAILY@1000 SC 07/14/24 10:00 08/04/24 13:41 10 UNITS Digoxin 125 mcg MWF IV 07/16/24 10:00 08/01/24 11:42 125 MCG Sodium Chloride 10 ml QSHIFT@10,22 IV 07/14/24 22:00 08/04/24 21:26 10 ML Dextrose 50 ml UD IV 07/15/24 15:00 Cancel Diagnostic Test (Pha) 1 strip Q6HR 07/17/24 18:00 08/05/24 05:10 1 STRIP Insulin Human Regular Q6HR SC 07/17/24 18:00 08/04/24 18:51 2 UNITS Dextrose 50 ml UD PRN IV 07/17/24 13:15 Sennosides 8.6 mg HS PO 07/18/24 22:00 08/04/24 21:18 8.6 MG Lactulose 30 ml DAILYPRN PRN PO 07/23/24 10:45 Hydralazine HCl 10 mg Q6HP PRN IV 07/24/24 11:00 07/24/24 14:05 10 MG Vancomycin HCl 0 ml @ 0 mls/hr UD IV 07/24/24 15:15 Albuterol 2.5 mg Q8HR NEB 07/26/24 22:00 08/04/24 21:40 2.5 MG Acetaminophen 650 mg Q6HP PRN PO 07/29/24 13:15 08/04/24 05:30 650 MG Apixaban 5 mg BID PO 07/30/24 22:00 08/04/24 21:18 5 MG Morphine Sulfate 1 mg Q4HP PRN IV 07/30/24 16:30 07/31/24 20:14 1 MG Vancomycin HCl 200 ml @ 200 mls/hr Q16H IV 07/31/24 11:00 08/05/24 02:55 200 MLS/HR Amiodarone HCl 200 mg Q12HR PO 08/01/24 22:00 08/04/24 21:22 200 MG Docusate Sodium 100 mg BID PO 08/01/24 22:00 08/04/24 21:18 100 MG Furosemide 20 mg DAILY PO 08/03/24 10:00 08/04/24 10:46 20 MG Ondansetron HCl 4 mg Q4HPRN PRN IV 08/02/24 16:00 Laboratory Results Laboratory Tests 08/03/24 05:00 08/05/24 05:10 Urinalysis Test 07/11/24 15:12 Urine Color Yellow (Yellow) Urine Clarity Clear (Clear) Urine pH 5.5 (5.0-9.0) Urine Specific [place] 1.027 (1.001-1.035) Urine Protein 1+ (Negative) H Urine Ketones 2+ (Negative) H Urine Blood Negative /uL (Negative) Urine Nitrite Negative (Negative) Urine Bilirubin Negative (Negative) Urine Urobilinogen Normal mg/dL (Negative) Urine Leukocyte Esterase Negative /uL (Negative) Urine RBC 1 /hpf (0 - 3) Urine WBC 3 /hpf (0 - 3) Urine Squamous Epithelial Cells Few /hpf (<5) Urine Bacteria None seen /hpf (None Seen) Urine Glucose 4+ mg/dL (Normal) H Microbiology Microbiology Date/Time Source Procedure Growth Status 07/22/24 00:00 Sputum Gram Stain - Final Complete 07/22/24 00:00 Respiratory Culture - Final Staphylococcus aureus Presumptive Ct albicans Complete 07/15/24 12:00 Lung - Final Resulted 07/15/24 12:00 Lung - Final Resulted 07/15/24 12:00 Lung - Preliminary Resulted 07/15/24 12:00 Lung - Preliminary Resulted 07/15/24 12:00 Lung - Final See Separate Report... Resulted 07/15/24 12:00 Drainage Viral Culture - Final Complete 07/12/24 10:47 Voided Urine Urine Culture - Final Complete 07/11/24 21:08 Blood Blood Culture - Final NO GROWTH AFTER 5 DAYS OF INCUBATION. Complete LATOYA UMANZOR MD Aug 05, 2024 08:25
--- NOTE | 2024-08-05 11:20 | ECG ---
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
--- NOTE | 2024-08-05 11:22 | ECG ---
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
--- NOTE | 2024-08-05 11:22 | ECG ---
[facility] Test Date: 2024-07-13 Test Time: 21:32:16 Pat Name: SAAD SHANNON Department: Room: 0233T A Gender: M Adult Manager: BEATRIZ : 1955 Requested By: KIKE ARMENTA Order Number: [id number] Reading MD: Quintin Zapata Measurements Intervals [place] Rate: 98 P: 82 MO: 150 QRS: 21 QRSD: 114 T: 92 QT: 336 QTc: 428 Interpretive Statements Sinus rhythm with premature supraventricular complexes Low voltage QRS Inferior infarct , age undetermined Electronically Signed On 08-06-2024 9:06:48 PST by Quintin Zapata Please click the below link to view image of tracing.
--- NOTE | 2024-08-05 23:27 | DVHPN2 ---
Progress Note - Dictate Date Seen: Aug 05, 2024 Medical Necessity Reason Pt with a Central, PICC or Fol: No The following are medically ne: Central Line Subjective Patient seen and examined at bedside. Remains on supplemental oxygen Overnight events reviewed. vital signs Vital Sign Date Time Temp Pulse Resp B/P (MAP) Pulse Ox O2 Delivery O2 Flow Rate FiO2 08/05/24 22:35 95 Nasal Cannula* 3 32 08/05/24 21:00 97.7 73 20 94/66 (75) 97.7 Total Intake and Output 08/04/24 08/04/24 08/05/24 15:00 23:00 07:00 Intake Total 200 ml 400 ml 300 ml Output Total 650 ml 720 ml Balance 200 ml -250 ml -420 ml medications Current Medications Medications Dose Ordered Sig/Maurice Route Start Time Stop Time Status Last Admin Dose Admin Levothyroxine Sodium 200 mcg QAM PO 07/12/24 07:00 08/05/24 05:43 200 MCG Pantoprazole Sodium 40 mg DAILY IV 07/13/24 10:00 08/05/24 11:13 40 MG Vancomycin HCl 200 ml @ 200 mls/hr Q1H IV 07/12/24 13:00 07/12/24 14:59 Cancel Insulin Glargine 10 units DAILY@1000 SC 07/14/24 10:00 08/05/24 13:08 10 UNITS Digoxin 125 mcg MWF IV 07/16/24 10:00 08/01/24 11:42 125 MCG Sodium Chloride 10 ml QSHIFT@10,22 IV 07/14/24 22:00 08/05/24 22:26 10 ML Dextrose 50 ml UD IV 07/15/24 15:00 Cancel Diagnostic Test (Pha) 1 strip Q6HR 07/17/24 18:00 08/05/24 18:29 1 STRIP Insulin Human Regular Q6HR SC 07/17/24 18:00 08/05/24 13:08 2 UNITS Dextrose 50 ml UD PRN IV 07/17/24 13:15 Sennosides 8.6 mg HS PO 07/18/24 22:00 08/05/24 22:16 8.6 MG Lactulose 30 ml DAILYPRN PRN PO 07/23/24 10:45 Hydralazine HCl 10 mg Q6HP PRN IV 07/24/24 11:00 07/24/24 14:05 10 MG Vancomycin HCl 0 ml @ 0 mls/hr UD IV 07/24/24 15:15 Albuterol 2.5 mg Q8HR NEB 07/26/24 22:00 08/04/24 21:40 2.5 MG Acetaminophen 650 mg Q6HP PRN PO 07/29/24 13:15 08/05/24 18:10 650 MG Apixaban 5 mg BID PO 07/30/24 22:00 08/05/24 22:16 5 MG Morphine Sulfate 1 mg Q4HP PRN IV 07/30/24 16:30 07/31/24 20:14 1 MG Vancomycin HCl 200 ml @ 200 mls/hr Q16H IV 07/31/24 11:00 08/05/24 19:41 200 MLS/HR Amiodarone HCl 200 mg Q12HR PO 08/01/24 22:00 08/05/24 22:17 200 MG Docusate Sodium 100 mg BID PO 08/01/24 22:00 08/05/24 22:16 100 MG Furosemide 20 mg DAILY PO 08/03/24 10:00 08/05/24 11:14 20 MG Ondansetron HCl 4 mg Q4HPRN PRN IV 08/02/24 16:00 objective Gen.: Patient lying in bed in no apparent distress. On supplemental oxygen. Head: Normocephalic, atraumatic. Eyes: EOMI/PERRLA. Ears: Normal hearing. Normal anatomy. Neck/trachea: Trachea midline, supple. Nose: Normal external anatomy. Mouth: Moist mucous membranes. Chest: Decreased air entry bilaterally. Coarse. Wheezing present. No rhonchi. Cardiovascular: Positive S1, positive S2. Regular rate and rhythm. Abdomen: Positive bowel sounds in all 4 quadrants. Soft, non-tender, non- distended. : Deferred. Rectal: Deferred. Skin: Warm, dry. Intact. Extremities: 2+ radial pulses bilaterally. No lower extremity edema. Neuro: Awake, alert, oriented x3. No gross motor or sensory deficits. Cranial nerves II through XII intact. Gait not assessed. laboratory and microbiology Laboratory Tests 08/05/24 05:10 08/03/24 05:00 Test 08/03/24 05:00 Range/Units Serum Glucose 94 74-106 mg/dL Assessment/Plan Impression: Acute hypoxic respiratory failure secondary to multifocal pneumonia and pulmonary edema Acute respiratory distress syndrome Multifocal pneumonia likely Gram-negative Pulmonary edema Leukopenia Septic shock Influenza type a Atrial fibrillation with RVR Chronic congestive heart failure Status post AICD CAD status post PTCA Insulin-dependent diabetes mellitus Acute kidney injury Events: Remains on supplemental O2 at 2 LPM NC. Taper O2 as tolerated Head of bed elevation Aspiration precautions Complete antibiotic course Continue bronchodilators Antitussive PRN cough. Incentive spirometry Amiodarone PO for AFib Tube feeds for nutritional support Continue bowel regimen. Protonix for GI prophylaxis. Continue Eliquis. Pulmonary toileting NTS PRN. IV fluid hydration at 125 ml/hr. Diurese w/ Lasix as tolerated Monitor renal function Monitor electrolytes, supplement as necessary Disposition per hospitalist. S/p therapeutic bronchoscopy on 07/22 - please see procedure note for details. Labs and imaging reviewed. Rest of plan as noted below. Plan: s/p extubation on 07/25/24 On supplemental O2 Titrate to keep O2 sats above 92%. Off sedation Pressors as necessary for hemodynamic support - Remains off, hemodynamically stable Titrate to keep MAP above 65 mmHg/SBP above 90 mmHg. Stress dose steroids Received dose of albumin. Continue antibiotics. F/u cultures. Send sputum, blood cultures and urine cultures Monitor renal function due to acute kidney injury. Creatinine trending down Monitor electrolytes. Supplement as necessary. Supplemented potassium and magnesium stat. On IV fluids, lactic acid trending down. Accu-Cheks, ISS PRN. GI/DVT prophylaxis. Prognosis: Poor given multiple comorbidities. Rest of plan per hospitalist and other consultants. Thank you JOSH Hatfield for allowing me to participate in this patient's care. Further recommendations will depend on patient's clinical course. Please do not hesitate to contact me if you have any questions or concerns. This medical document was created using an electronic medical record system with [employer] dictation system. Although this document has been carefully reviewed, there may still be some phonetic and typographical errors. These areas are purely typographical due to imperfections of the software programs, and do not reflect any compromise in the patient's medical care. Dietary Evaluation Review Comments: Advance to 2 gNa CCHO-60 diet when medically feasible. Pt's lipid pannel shows Cholesterol and LDL at lower mragin range, thus no restrictions on fat or cholesterol needed. Expected Outcomes/Goals: gradual weight loss, controlled DM, Plan discussed with: Patient, Other (RN) LINDSEY ROSALES MD Aug 05, 2024 23:27
[2024-08-06] VITALS (13 sets, daily range): BP systolic 82–110; BP diastolic 51–67; PULSE 69–82; RESP 17–20; TEMP 97.4–98.4; O2SAT 90–98
[2024-08-06] MEDS ORDERED: VANCOMYCIN 1GM/250ML KIT 200 ML IV SCH (13:30)
[2024-08-06] MEDS: VANCOMYCIN 1GM/250ML KIT 200 ML IV SCH (13:41)
--- NOTE | 2024-08-06 14:30 | DVHPN2 ---
Subjective He is getting better Eating better Working with physical therapy He is still weak He will need a walker and home health at home upon discharge Reviewed: Care Plan Changes from previous H/P or p: Changes Eyes: No Pain, No Vision change, No Conjunctivae inflammation, No Eyelid inflammation, No Other, No Redness ENT: No Ear pain, No Ear discharge, No Nose pain, No Nose discharge, No Nose congestion, No Mouth pain, No Mouth swelling, No Throat pain, No Throat swelling, No Other Cardiovascular: No Chest Pain, No Palpitations, No Orthopnea, No Paroxysmal Noc. Dyspnea, No Edema, No Lt Headedness, No Other Respiratory: No Cough, No Dry, No Shortness of breath, No SOB with excertion, No Wheezing, No Hemoptysis, No Pleuritic Pain, No Sputum, No Other Gastrointestinal: No Nausea, No Vomiting, No Abdominal Pain, No Diarrhea, No Constipation, No Melena, No Hematochezia, No Other Genitourinary: No Dysuria, No Frequency, No Incontinence, No Hematuria, No Retention, No Other Musculoskeletal: No other, No neck pain, No shoulder pain, No arm pain, No back pain, No hand pain, No leg pain, No foot pain Skin: No Rash, No Lesions, No Jaundice, No Bruising, No Other Objective Vitals Vital Signs Date Time Temp Pulse Resp B/P (MAP) Pulse Ox O2 Delivery O2 Flow Rate FiO2 08/06/24 13:26 74 20 95 08/06/24 13:20 Room Air* 0 21 08/06/24 13:05 103/65 08/06/24 12:55 98.1 98.1 Intake/Output Intake and Output 08/06/24 07:00 Intake Total 870 ml Output Total 450 ml Balance 420 ml Intake Oral 670 ml IV Total 200 ml Output Urine Total 450 ml General Appearance: Alert, Oriented X3, Cooperative, No acute distress Lungs: Other Cardiovascular: Regular rate, Normal S1, Normal S2, No murmurs Abdomen: Normal bowel sounds, Soft, No tenderness Extremities: Other Neuro: Other Medications Current Medications Medications Dose Ordered Sig/Maurice Route Start Time Stop Time Status Last Admin Dose Admin Levothyroxine Sodium 200 mcg QAM PO 07/12/24 07:00 08/06/24 06:38 200 MCG Pantoprazole Sodium 40 mg DAILY IV 07/13/24 10:00 08/05/24 11:13 40 MG Vancomycin HCl 200 ml @ 200 mls/hr Q1H IV 07/12/24 13:00 07/12/24 14:59 Cancel Insulin Glargine 10 units DAILY@1000 SC 07/14/24 10:00 08/06/24 10:00 10 UNITS Digoxin 125 mcg MWF IV 07/16/24 10:00 08/01/24 11:42 125 MCG Sodium Chloride 10 ml QSHIFT@10,22 IV 07/14/24 22:00 08/06/24 13:06 10 ML Dextrose 50 ml UD IV 07/15/24 15:00 Cancel Diagnostic Test (Pha) 1 strip Q6HR 07/17/24 18:00 08/06/24 12:00 1 STRIP Insulin Human Regular Q6HR SC 07/17/24 18:00 08/06/24 12:00 3 UNITS Dextrose 50 ml UD PRN IV 07/17/24 13:15 Sennosides 8.6 mg HS PO 07/18/24 22:00 08/05/24 22:16 8.6 MG Lactulose 30 ml DAILYPRN PRN PO 07/23/24 10:45 Hydralazine HCl 10 mg Q6HP PRN IV 07/24/24 11:00 07/24/24 14:05 10 MG Vancomycin HCl 0 ml @ 0 mls/hr UD IV 07/24/24 15:15 Albuterol 2.5 mg Q8HR NEB 07/26/24 22:00 08/06/24 13:20 2.5 MG Acetaminophen 650 mg Q6HP PRN PO 07/29/24 13:15 08/05/24 18:10 650 MG Apixaban 5 mg BID PO 07/30/24 22:00 08/06/24 13:06 5 MG Morphine Sulfate 1 mg Q4HP PRN IV 07/30/24 16:30 07/31/24 20:14 1 MG Amiodarone HCl 200 mg Q12HR PO 08/01/24 22:00 08/06/24 13:11 200 MG Docusate Sodium 100 mg BID PO 08/01/24 22:00 08/06/24 13:06 100 MG Furosemide 20 mg DAILY PO 08/03/24 10:00 08/06/24 13:05 20 MG Ondansetron HCl 4 mg Q4HPRN PRN IV 08/02/24 16:00 Vancomycin HCl 200 ml @ 200 mls/hr Q16H IV 08/06/24 13:30 08/06/24 13:41 200 MLS/HR Laboratory Results Laboratory Tests 08/03/24 05:00 08/05/24 05:10 Urinalysis Test 07/11/24 15:12 Urine Color Yellow (Yellow) Urine Clarity Clear (Clear) Urine pH 5.5 (5.0-9.0) Urine Specific [place] 1.027 (1.001-1.035) Urine Protein 1+ (Negative) H Urine Ketones 2+ (Negative) H Urine Blood Negative /uL (Negative) Urine Nitrite Negative (Negative) Urine Bilirubin Negative (Negative) Urine Urobilinogen Normal mg/dL (Negative) Urine Leukocyte Esterase Negative /uL (Negative) Urine RBC 1 /hpf (0 - 3) Urine WBC 3 /hpf (0 - 3) Urine Squamous Epithelial Cells Few /hpf (<5) Urine Bacteria None seen /hpf (None Seen) Urine Glucose 4+ mg/dL (Normal) H Microbiology Microbiology Date/Time Source Procedure Growth Status 07/22/24 00:00 Sputum Gram Stain - Final Complete 07/22/24 00:00 Respiratory Culture - Final Staphylococcus aureus Presumptive Ct albicans Complete 07/15/24 12:00 Lung - Final Resulted 07/15/24 12:00 Lung - Final Resulted 07/15/24 12:00 Lung - Preliminary Resulted 07/15/24 12:00 Lung - Preliminary Resulted 07/15/24 12:00 Lung - Final See Separate Report... Resulted 07/15/24 12:00 Drainage Viral Culture - Final Complete 07/12/24 10:47 Voided Urine Urine Culture - Final Complete 07/11/24 21:08 Blood Blood Culture - Final NO GROWTH AFTER 5 DAYS OF INCUBATION. Complete Assessment/Plan Assessment/Plan Acute hypoxic respiratory failure Multi-focal pneumonia, due to MRSA Influenza A Sepsis, improved Atrial fibrillation Acute on chronic CHF, EF 25% CAD Hypothyroidism DM2 Thrombocytopenia due to sepsis, improved PLAN: 07/23/2024: Sedation: Versed, Propofol, Fent GI prophylaxis: Protonix DVT prophylaxis: Add Lovenox PNA: Vancomycin AFIB: Amio, Dig, Sepsis: Improved CHF: Lasix 40 mg IV daily, increase to bid DM2: Lantus 07/24/2024: CPAP trial in progress Dr. Rivera is trying to extubate the patient hopefully next 1-2 days Continue the current management Off vasopressors Discussed with the daughter at the bedside yesterday afternoon Questions answered Full code 07/25/2024: CPAP in progress today for possible extubation today Off vasopressors Off sedation Continue vancomycin IV Lasix 40 mg IV twice a day Digoxin IV 3 times a week Amiodarone 07/26/2024: Continue IV Lasix Continue NPO Replace potassium magnesium IV Continue IV vancomycin Physical therapy Continue feeding through the NG tube 07/27/2024: Downgrade to the MIGUEL Swallow eval Replace potassium and magnesium as needed Continue IV vancomycin Continue physical therapy Continue feeding through the NG tube 07/28/2024: Downgrade to tele Did not pass a swallow eval Continue feeding through the NG tube Continue physical therapy Continue IV vancomycin Replace potassium 07/29/2024: Downgrade to tele DC the [place]ghia DC the sitter Generalized weakness: Continue physical therapy Out of bed as tolerated Hypokalemia: Replace potassium p.o. Continue IV vancomycin P.o. amiodarone Levothyroxine 07/30/2024: Continue physical therapy Out of bed as tolerated Swallow eval today Start diet if he passes the swallow test Continue IV vancomycin Amiodarone and digoxin Discontinue Lovenox and start Eliquis since thrombocytopenia has resolved Lasix 40 mg twice a day IV 07/31/2024: Continue current management Swallow eval today then started diet Continue physical therapy Discharge planning once he has started eating possibly to SNF 08/01/2024: Continue physical therapy Advance diet as tolerated Discontinue the NG tube IV Lasix continue p.o. amiodarone 08/02/2024: Continue IV vancomycin Rate controlled with amiodarone and digoxin Eliquis See the IV Lasix, changed to p.o. once a day 20 mg daily 08/06/2024: Discontinue vancomycin, start Bactrim p.o. Tapered down the oxygen and DC if not needed Continue physical therapy Out of bed as tolerated If still hypoxic, then we will arrange home O2 Continue Lasix 20 mg p.o. daily Amiodarone and Eliquis Discharge planning Plan discussed with: Patient My Orders Orders - MERLYN NARAYAN MD Procedure Category Date Status Time Vancomycin 1gm/200ml PHA 08/06/24 In Process [facility] 13:30 Basic Metabolic Panel LAB 08/07/24 Verified 04:30 Vancomycin Per ALTAGRACIA 08/06/24 In Process [facility] 13:00 Date of Service: Aug 06, 2024 Billing Provider: MERLYN NARAYAN MD Common Visit Codes: [id number] INP/OBS CARE(HIGH) MERLYN NARAYAN MD Aug 06, 2024 14:30
--- NOTE | 2024-08-06 21:48 | DVHPN2 ---
Progress Note - Dictate Date Seen: Aug 06, 2024 Medical Necessity Reason Pt with a Central, PICC or Fol: No The following are medically ne: Central Line Subjective Patient seen and examined at bedside. Breathing on room air. Overnight events reviewed. vital signs Vital Sign Date Time Temp Pulse Resp B/P (MAP) Pulse Ox O2 Delivery O2 Flow Rate FiO2 08/06/24 20:00 82 19 92 Room Air* 0 N/A Nasal Cannula* 08/06/24 17:00 98.4 82/54 (63) 98.4 Total Intake and Output 08/05/24 08/05/24 08/06/24 15:00 23:00 07:00 Intake Total 670 ml 200 ml Output Total 200 ml 250 ml Balance 470 ml -50 ml medications Current Medications Medications Dose Ordered Sig/Maurice Route Start Time Stop Time Status Last Admin Dose Admin Levothyroxine Sodium 200 mcg QAM PO 07/12/24 07:00 08/06/24 06:38 200 MCG Pantoprazole Sodium 40 mg DAILY IV 07/13/24 10:00 08/06/24 18:05 40 MG Vancomycin HCl 200 ml @ 200 mls/hr Q1H IV 07/12/24 13:00 07/12/24 14:59 Cancel Insulin Glargine 10 units DAILY@1000 SC 07/14/24 10:00 08/06/24 10:00 10 UNITS Digoxin 125 mcg MWF IV 07/16/24 10:00 08/01/24 11:42 125 MCG Sodium Chloride 10 ml QSHIFT@10,22 IV 07/14/24 22:00 08/06/24 13:06 10 ML Dextrose 50 ml UD IV 07/15/24 15:00 Cancel Diagnostic Test (Pha) 1 strip Q6HR 07/17/24 18:00 08/06/24 17:55 1 STRIP Insulin Human Regular Q6HR SC 07/17/24 18:00 08/06/24 12:00 3 UNITS Dextrose 50 ml UD PRN IV 07/17/24 13:15 Sennosides 8.6 mg HS PO 07/18/24 22:00 08/05/24 22:16 8.6 MG Lactulose 30 ml DAILYPRN PRN PO 07/23/24 10:45 Hydralazine HCl 10 mg Q6HP PRN IV 07/24/24 11:00 07/24/24 14:05 10 MG Albuterol 2.5 mg Q8HR NEB 07/26/24 22:00 08/06/24 13:20 2.5 MG Acetaminophen 650 mg Q6HP PRN PO 07/29/24 13:15 08/06/24 18:06 650 MG Apixaban 5 mg BID PO 07/30/24 22:00 08/06/24 13:06 5 MG Morphine Sulfate 1 mg Q4HP PRN IV 07/30/24 16:30 07/31/24 20:14 1 MG Amiodarone HCl 200 mg Q12HR PO 08/01/24 22:00 08/06/24 13:11 200 MG Docusate Sodium 100 mg BID PO 08/01/24 22:00 08/06/24 13:06 100 MG Furosemide 20 mg DAILY PO 08/03/24 10:00 08/06/24 13:05 20 MG Ondansetron HCl 4 mg Q4HPRN PRN IV 08/02/24 16:00 Trimethoprim/ Sulfamethoxazole 1 tab Q12HR PO 08/06/24 22:00 objective Gen.: Patient lying in bed in no apparent distress. On room air. Head: Normocephalic, atraumatic. Eyes: EOMI/PERRLA. Ears: Normal hearing. Normal anatomy. Neck/trachea: Trachea midline, supple. Nose: Normal external anatomy. Mouth: Moist mucous membranes. Chest: Decreased air entry bilaterally. Coarse. Wheezing present. No rhonchi. Cardiovascular: Positive S1, positive S2. Regular rate and rhythm. Abdomen: Positive bowel sounds in all 4 quadrants. Soft, non-tender, non- distended. : Deferred. Rectal: Deferred. Skin: Warm, dry. Intact. Extremities: 2+ radial pulses bilaterally. No lower extremity edema. Neuro: Awake, alert, oriented x3. No gross motor or sensory deficits. Cranial nerves II through XII intact. Gait not assessed. laboratory and microbiology Laboratory Tests 08/05/24 05:10 08/03/24 05:00 Test 08/03/24 05:00 Range/Units Serum Glucose 94 74-106 mg/dL Assessment/Plan Impression: Acute hypoxic respiratory failure secondary to multifocal pneumonia and pulmonary edema Acute respiratory distress syndrome Multifocal pneumonia likely Gram-negative Pulmonary edema Leukopenia Septic shock Influenza type a Atrial fibrillation with RVR Chronic congestive heart failure Status post AICD CAD status post PTCA Insulin-dependent diabetes mellitus Acute kidney injury Events: Breathing on room air No respiratory distress. Monitor O2 requirements Head of bed elevation Aspiration precautions Continue antibiotics -vancomycin Continue bronchodilators Antitussive PRN cough. Incentive spirometry Amiodarone PO for AFib Tube feeds for nutritional support Continue bowel regimen. Protonix for GI prophylaxis. Continue Eliquis. Physical therapy Accu-Cheks for glycemic monitoring. Pulmonary toileting NTS PRN. IV fluid hydration at 125 ml/hr. Diurese w/ Lasix as tolerated Monitor renal function Monitor electrolytes, supplement as necessary Maintain euvolemia Disposition per hospitalist. S/p therapeutic bronchoscopy on 07/22 - please see procedure note for details. Labs and imaging reviewed. Rest of plan as noted below. Plan: s/p extubation on 07/25/24 Supplemental O2 PRN Titrate to keep O2 sats above 92%. Off sedation Pressors as necessary for hemodynamic support - Remains off, hemodynamically stable Titrate to keep MAP above 65 mmHg/SBP above 90 mmHg. Stress dose steroids Received dose of albumin. Continue antibiotics. F/u cultures. Send sputum, blood cultures and urine cultures Monitor renal function due to acute kidney injury. Creatinine trending down Monitor electrolytes. Supplement as necessary. Supplemented potassium and magnesium stat. On IV fluids, lactic acid trending down. Accu-Cheks, ISS PRN. GI/DVT prophylaxis. Prognosis: Poor given multiple comorbidities. Rest of plan per hospitalist and other consultants. Thank you JOSH Hatfield for allowing me to participate in this patient's care. Further recommendations will depend on patient's clinical course. Please do not hesitate to contact me if you have any questions or concerns. This medical document was created using an electronic medical record system with [employer] dictation system. Although this document has been carefully reviewed, there may still be some phonetic and typographical errors. These areas are purely typographical due to imperfections of the software programs, and do not reflect any compromise in the patient's medical care. Dietary Evaluation Review Comments: Advance to 2 gNa CCHO-60 diet when medically feasible. Pt's lipid pannel shows Cholesterol and LDL at lower mragin range, thus no restrictions on fat or cholesterol needed. Expected Outcomes/Goals: gradual weight loss, controlled DM, Plan discussed with: Patient, Other (RN LINDSEY Hughes MD Aug 06, 2024 21:48
[2024-08-06] MEDS: SULFAMETHOX W/TRIMETH(800/160MG) DS TAB PO SCH (21:54)
[2024-08-07] VITALS (15 sets, daily range): BP systolic 86–110; BP diastolic 54–66; PULSE 70–85; RESP 16–20; TEMP 97.4–98.5; O2SAT 90–100
[2024-08-07 06:14] LABS: Chloride 104 mmol/L (98-107); Potassium 3.7 mmol/L (3.5-5.1); Sodium 139 mmol/L (136-145)
[2024-08-07 06:15] LABS: Anion Gap 10 (5-15); Carbon Dioxide 25 mmol/L (20-31)
[2024-08-07 06:16] LABS: Calcium 8.7 mg/dL (8.7-10.4)
[2024-08-07 06:20] LABS: BUN/Creatinine Ratio 19.7 (10.0-20.0); Blood Urea Nitrogen 14 mg/dL (9-23); Glucose 69 mg/dL (74-106)
--- NOTE | 2024-08-07 13:59 | DVHPN2 ---
Subjective No new complaints He is getting a little stronger every day His voice is better also every day Reviewed: Care Plan Changes from previous H/P or p: Changes Eyes: No Pain, No Vision change, No Conjunctivae inflammation, No Eyelid inflammation, No Other, No Redness ENT: No Ear pain, No Ear discharge, No Nose pain, No Nose discharge, No Nose congestion, No Mouth pain, No Mouth swelling, No Throat pain, No Throat swelling, No Other Cardiovascular: No Chest Pain, No Palpitations, No Orthopnea, No Paroxysmal Noc. Dyspnea, No Edema, No Lt Headedness, No Other Respiratory: No Cough, No Dry, No Shortness of breath, No SOB with excertion, No Wheezing, No Hemoptysis, No Pleuritic Pain, No Sputum, No Other Gastrointestinal: No Nausea, No Vomiting, No Abdominal Pain, No Diarrhea, No Constipation, No Melena, No Hematochezia, No Other Genitourinary: No Dysuria, No Frequency, No Incontinence, No Hematuria, No Retention, No Other Musculoskeletal: No other, No neck pain, No shoulder pain, No arm pain, No back pain, No hand pain, No leg pain, No foot pain Skin: No Rash, No Lesions, No Jaundice, No Bruising, No Other Objective Vitals Vital Signs Date Time Temp Pulse Resp B/P (MAP) Pulse Ox O2 Delivery O2 Flow Rate FiO2 08/07/24 12:55 98.0 76 17 110/62 (78) 92 98.0 08/07/24 07:34 Room Air* 0 21 Intake/Output Intake and Output 08/07/24 07:00 Intake Total 945 ml Output Total 450 ml Balance 495 ml Intake Oral 945 ml Output Urine Total 450 ml General Appearance: Alert, Oriented X3, Cooperative, No acute distress Lungs: Other Cardiovascular: Regular rate, Normal S1, Normal S2, No murmurs Abdomen: Normal bowel sounds, Soft, No tenderness Extremities: Other Neuro: Other Medications Current Medications Medications Dose Ordered Sig/Maurice Route Start Time Stop Time Status Last Admin Dose Admin Levothyroxine Sodium 200 mcg QAM PO 07/12/24 07:00 08/07/24 06:13 200 MCG Pantoprazole Sodium 40 mg DAILY IV 07/13/24 10:00 08/07/24 10:13 40 MG Vancomycin HCl 200 ml @ 200 mls/hr Q1H IV 07/12/24 13:00 11/7/24 14:59 Cancel Insulin Glargine 10 units DAILY@1000 SC 07/14/24 10:00 08/07/24 12:55 10 UNITS Digoxin 125 mcg MWF IV 07/16/24 10:00 08/01/24 11:42 125 MCG Sodium Chloride 10 ml QSHIFT@10,22 IV 07/14/24 22:00 08/07/24 10:00 10 ML Dextrose 50 ml UD IV 07/15/24 15:00 Cancel Diagnostic Test (Pha) 1 strip Q6HR 07/17/24 18:00 08/07/24 12:54 1 STRIP Insulin Human Regular Q6HR SC 07/17/24 18:00 08/07/24 12:55 2 UNITS Dextrose 50 ml UD PRN IV 07/17/24 13:15 Sennosides 8.6 mg HS PO 07/18/24 22:00 08/06/24 21:54 8.6 MG Lactulose 30 ml DAILYPRN PRN PO 07/23/24 10:45 Hydralazine HCl 10 mg Q6HP PRN IV 07/24/24 11:00 07/24/24 14:05 10 MG Albuterol 2.5 mg Q8HR NEB 07/26/24 22:00 08/07/24 07:34 2.5 MG Acetaminophen 650 mg Q6HP PRN PO 07/29/24 13:15 08/06/24 18:06 650 MG Apixaban 5 mg BID PO 07/30/24 22:00 08/07/24 10:13 5 MG Morphine Sulfate 1 mg Q4HP PRN IV 07/30/24 16:30 07/31/24 20:14 1 MG Amiodarone HCl 200 mg Q12HR PO 08/01/24 22:00 08/07/24 10:13 200 MG Docusate Sodium 100 mg BID PO 08/01/24 22:00 08/07/24 10:13 100 MG Furosemide 20 mg DAILY PO 08/03/24 10:00 08/07/24 10:14 20 MG Ondansetron HCl 4 mg Q4HPRN PRN IV 08/02/24 16:00 Trimethoprim/ Sulfamethoxazole 1 tab Q12HR PO 08/06/24 22:00 08/07/24 10:13 1 TAB Laboratory Results Laboratory Tests 08/05/24 05:10 08/07/24 05:01 Chemistry Test 08/07/24 05:01 Calcium Level 8.7 mg/dL (8.7-10.4) Urinalysis Test 07/11/24 15:12 Urine Color Yellow (Yellow) Urine Clarity Clear (Clear) Urine pH 5.5 (5.0-9.0) Urine Specific [place] 1.027 (1.001-1.035) Urine Protein 1+ (Negative) H Urine Ketones 2+ (Negative) H Urine Blood Negative /uL (Negative) Urine Nitrite Negative (Negative) Urine Bilirubin Negative (Negative) Urine Urobilinogen Normal mg/dL (Negative) Urine Leukocyte Esterase Negative /uL (Negative) Urine RBC 1 /hpf (0 - 3) Urine WBC 3 /hpf (0 - 3) Urine Squamous Epithelial Cells Few /hpf (<5) Urine Bacteria None seen /hpf (None Seen) Urine Glucose 4+ mg/dL (Normal) H Microbiology Microbiology Date/Time Source Procedure Growth Status 07/22/24 00:00 Sputum Gram Stain - Final Complete 07/22/24 00:00 Respiratory Culture - Final Staphylococcus aureus Presumptive Ct albicans Complete 07/15/24 12:00 Lung - Final Resulted 07/15/24 12:00 Lung - Final Resulted 07/15/24 12:00 Lung - Preliminary Resulted 07/15/24 12:00 Lung - Preliminary Resulted 07/15/24 12:00 Lung - Final See Separate Report... Resulted 07/15/24 12:00 Drainage Viral Culture - Final Complete 07/12/24 10:47 Voided Urine Urine Culture - Final Complete 07/11/24 21:08 Blood Blood Culture - Final NO GROWTH AFTER 5 DAYS OF INCUBATION. Complete Assessment/Plan Assessment/Plan Acute hypoxic respiratory failure Multi-focal pneumonia, due to MRSA Influenza A Sepsis, improved Atrial fibrillation Acute on chronic CHF, EF 25% CAD Hypothyroidism DM2 Thrombocytopenia due to sepsis, improved PLAN: 07/23/2024: Sedation: Versed, Propofol, Fent GI prophylaxis: Protonix DVT prophylaxis: Add Lovenox PNA: Vancomycin AFIB: Amio, Dig, Sepsis: Improved CHF: Lasix 40 mg IV daily, increase to bid DM2: Lantus 07/24/2024: CPAP trial in progress Dr. Rivera is trying to extubate the patient hopefully next 1-2 days Continue the current management Off vasopressors Discussed with the daughter at the bedside yesterday afternoon Questions answered Full code 07/25/2024: CPAP in progress today for possible extubation today Off vasopressors Off sedation Continue vancomycin IV Lasix 40 mg IV twice a day Digoxin IV 3 times a week Amiodarone 07/26/2024: Continue IV Lasix Continue NPO Replace potassium magnesium IV Continue IV vancomycin Physical therapy Continue feeding through the NG tube 07/27/2024: Downgrade to the MIGUEL Swallow eval Replace potassium and magnesium as needed Continue IV vancomycin Continue physical therapy Continue feeding through the NG tube 07/28/2024: Downgrade to tele Did not pass a swallow eval Continue feeding through the NG tube Continue physical therapy Continue IV vancomycin Replace potassium 07/29/2024: Downgrade to tele DC the [facility] the sitter Generalized weakness: Continue physical therapy Out of bed as tolerated Hypokalemia: Replace potassium p.o. Continue IV vancomycin P.o. amiodarone Levothyroxine 07/30/2024: Continue physical therapy Out of bed as tolerated Swallow eval today Start diet if he passes the swallow test Continue IV vancomycin Amiodarone and digoxin Discontinue Lovenox and start Eliquis since thrombocytopenia has resolved Lasix 40 mg twice a day IV 07/31/2024: Continue current management Swallow eval today then started diet Continue physical therapy Discharge planning once he has started eating possibly to SNF 08/01/2024: Continue physical therapy Advance diet as tolerated Discontinue the NG tube IV Lasix continue p.o. amiodarone 08/02/2024: Continue IV vancomycin Rate controlled with amiodarone and digoxin Eliquis See the IV Lasix, changed to p.o. once a day 20 mg daily 08/06/2024: Discontinue vancomycin, start Bactrim p.o. Tapered down the oxygen and DC if not needed Continue physical therapy Out of bed as tolerated If still hypoxic, then we will arrange home O2 Continue Lasix 20 mg p.o. daily Amiodarone and Eliquis Discharge planning 08/07/24: Continue physical therapy Start incentive spirometry Out of bed as tolerated Continue Lasix 20 mg daily Continue amiodarone and Eliquis Discharge planning in 1-2 days once the DME is and home health is arranged Plan discussed with: Patient My Orders Orders - MERLYN NARAYAN MD Procedure Category Date Status Time Discontinue Tele ALTAGRACIA 08/06/24 In Process 14:25 Sulfamethoxazole PHA 08/06/24 In Process W/Trimeth Tab (Bactrim 22:00 * Instructor Knitting CONS 08/06/24 Transmitted Consult Date of Service: Aug 07, 2024 Billing Provider: MERLYN NARAYAN MD Common Visit Codes: [id number] INP/OBS CARE(HIGH) MERLYN NARAYAN MD Aug 07, 2024 13:59
--- NOTE | 2024-08-07 19:22 | DVHPN2 ---
Progress Note - Dictate Date Seen: Aug 07, 2024 Medical Necessity Reason Pt with a Central, PICC or Fol: No The following are medically ne: Central Line Subjective Patient seen and examined at bedside. Breathing on room air. Overnight events reviewed. vital signs Vital Sign Date Time Temp Pulse Resp B/P (MAP) Pulse Ox O2 Delivery O2 Flow Rate FiO2 08/07/24 17:00 97.7 76 18 86/65 (72) 93 97.7 08/07/24 14:00 Room Air* 0 21 Total Intake and Output 08/06/24 08/06/24 08/07/24 15:00 23:00 07:00 Intake Total 545 ml 400 ml Output Total 200 ml 250 ml Balance 345 ml 150 ml medications Current Medications Medications Dose Ordered Sig/Maurice Route Start Time Stop Time Status Last Admin Dose Admin Levothyroxine Sodium 200 mcg QAM PO 07/12/24 07:00 08/07/24 06:13 200 MCG Pantoprazole Sodium 40 mg DAILY IV 07/13/24 10:00 08/07/24 10:13 40 MG Vancomycin HCl 200 ml @ 200 mls/hr Q1H IV 07/12/24 13:00 07/12/24 14:59 Cancel Insulin Glargine 10 units DAILY@1000 SC 07/14/24 10:00 08/07/24 12:55 10 UNITS Digoxin 125 mcg MWF IV 07/16/24 10:00 08/01/24 11:42 125 MCG Sodium Chloride 10 ml QSHIFT@10,22 IV 07/14/24 22:00 08/07/24 10:00 10 ML Dextrose 50 ml UD IV 07/15/24 15:00 Cancel Diagnostic Test (Pha) 1 strip Q6HR 07/17/24 18:00 08/07/24 18:00 1 STRIP Insulin Human Regular Q6HR SC 07/17/24 18:00 08/07/24 12:55 2 UNITS Dextrose 50 ml UD PRN IV 07/17/24 13:15 Sennosides 8.6 mg HS PO 07/18/24 22:00 08/06/24 21:54 8.6 MG Lactulose 30 ml DAILYPRN PRN PO 07/23/24 10:45 Hydralazine HCl 10 mg Q6HP PRN IV 07/24/24 11:00 07/24/24 14:05 10 MG Albuterol 2.5 mg Q8HR NEB 07/26/24 22:00 08/07/24 14:00 2.5 MG Acetaminophen 650 mg Q6HP PRN PO 07/29/24 13:15 08/06/24 18:06 650 MG Apixaban 5 mg BID PO 07/30/24 22:00 08/07/24 10:13 5 MG Morphine Sulfate 1 mg Q4HP PRN IV 07/30/24 16:30 07/31/24 20:14 1 MG Amiodarone HCl 200 mg Q12HR PO 08/01/24 22:00 08/07/24 10:13 200 MG Docusate Sodium 100 mg BID PO 08/01/24 22:00 08/07/24 10:13 100 MG Furosemide 20 mg DAILY PO 08/03/24 10:00 08/07/24 10:14 20 MG Ondansetron HCl 4 mg Q4HPRN PRN IV 08/02/24 16:00 Trimethoprim/ Sulfamethoxazole 1 tab Q12HR PO 08/06/24 22:00 08/07/24 10:13 1 TAB objective Gen.: Patient lying in bed in no apparent distress. On room air. Head: Normocephalic, atraumatic. Eyes: EOMI/PERRLA. Ears: Normal hearing. Normal anatomy. Neck/trachea: Trachea midline, supple. Nose: Normal external anatomy. Mouth: Moist mucous membranes. Chest: Decreased air entry bilaterally. Coarse. Wheezing present. No rhonchi. Cardiovascular: Positive S1, positive S2. Regular rate and rhythm. Abdomen: Positive bowel sounds in all 4 quadrants. Soft, non-tender, non- distended. : Deferred. Rectal: Deferred. Skin: Warm, dry. Intact. Extremities: 2+ radial pulses bilaterally. No lower extremity edema. Neuro: Awake, alert, oriented x3. No gross motor or sensory deficits. Cranial nerves II through XII intact. Gait not assessed. laboratory and microbiology Laboratory Tests 08/07/24 05:01 08/05/24 05:10 Test 08/07/24 05:01 Range/Units Serum Glucose 69 L 74-106 mg/dL Assessment/Plan Impression: Acute hypoxic respiratory failure secondary to multifocal pneumonia and pulmonary edema Acute respiratory distress syndrome Multifocal pneumonia likely Gram-negative Pulmonary edema Leukopenia Septic shock Influenza type a Atrial fibrillation with RVR Chronic congestive heart failure Status post AICD CAD status post PTCA Insulin-dependent diabetes mellitus Acute kidney injury Events: Breathing on room air No respiratory distress. Monitor O2 requirements Head of bed elevation Aspiration precautions Continue bronchodilators/Mucomyst Continue antibiotics - Bactrim per ID. Antitussive PRN cough. Incentive spirometry Amiodarone PO for AFib Tube feeds for nutritional support Continue bowel regimen. Protonix for GI prophylaxis. Continue Eliquis. Physical therapy Pulmonary toileting NTS PRN. IV fluid hydration at 125 ml/hr. Diurese w/ Lasix as tolerated Monitor renal function Monitor electrolytes, supplement as necessary Maintain euvolemia Patient is stable for discharge from the pulmonary standpoint. Disposition per hospitalist. S/p therapeutic bronchoscopy on 07/22 - please see procedure note for details. Labs and imaging reviewed. Rest of plan as noted below. Plan: s/p extubation on 07/25/24 Supplemental O2 PRN Titrate to keep O2 sats above 92%. Off sedation Pressors as necessary for hemodynamic support - Remains off, hemodynamically stable Titrate to keep MAP above 65 mmHg/SBP above 90 mmHg. Stress dose steroids Received dose of albumin. Continue antibiotics. F/u cultures. Send sputum, blood cultures and urine cultures Monitor renal function due to acute kidney injury. Creatinine trending down Monitor electrolytes. Supplement as necessary. Supplemented potassium and magnesium stat. On IV fluids, lactic acid trending down. Accu-Cheks, ISS PRN. GI/DVT prophylaxis. Prognosis: Poor given multiple comorbidities. Rest of plan per hospitalist and other consultants. Thank you JOSH Hatfield for allowing me to participate in this patient's care. Further recommendations will depend on patient's clinical course. Please do not hesitate to contact me if you have any questions or concerns. This medical document was created using an electronic medical record system with [employer] dictation system. Although this document has been carefully reviewed, there may still be some phonetic and typographical errors. These areas are purely typographical due to imperfections of the software programs, and do not reflect any compromise in the patient's medical care. Dietary Evaluation Review Comments: Advance to 2 gNa CCHO-60 diet when medically feasible. Pt's lipid pannel shows Cholesterol and LDL at lower mragin range, thus no restrictions on fat or cholesterol needed. Expected Outcomes/Goals: gradual weight loss, controlled DM, Plan discussed with: Patient, Other (RN Sixto) LINDSEY ROSALES MD Aug 07, 2024 19:22
[2024-08-08] VITALS (12 sets, daily range): BP systolic 88–106; BP diastolic 50–89; PULSE 60–82; RESP 16–20; TEMP 97.4–98.8; O2SAT 90–100
--- NOTE | 2024-08-08 14:41 | DVHPN2 ---
Subjective No new complaints He is getting a little stronger every day His voice is better also every day Waiting on home health and walker orders Reviewed: Care Plan Changes from previous H/P or p: Changes Eyes: No Pain, No Vision change, No Conjunctivae inflammation, No Eyelid inflammation, No Other, No Redness ENT: No Ear pain, No Ear discharge, No Nose pain, No Nose discharge, No Nose congestion, No Mouth pain, No Mouth swelling, No Throat pain, No Throat swelling, No Other Cardiovascular: No Chest Pain, No Palpitations, No Orthopnea, No Paroxysmal Noc. Dyspnea, No Edema, No Lt Headedness, No Other Respiratory: No Cough, No Dry, No Shortness of breath, No SOB with excertion, No Wheezing, No Hemoptysis, No Pleuritic Pain, No Sputum, No Other Gastrointestinal: No Nausea, No Vomiting, No Abdominal Pain, No Diarrhea, No Constipation, No Melena, No Hematochezia, No Other Genitourinary: No Dysuria, No Frequency, No Incontinence, No Hematuria, No Retention, No Other Musculoskeletal: No other, No neck pain, No shoulder pain, No arm pain, No back pain, No hand pain, No leg pain, No foot pain Skin: No Rash, No Lesions, No Jaundice, No Bruising, No Other Objective Vitals Vital Signs Date Time Temp Pulse Resp B/P (MAP) Pulse Ox O2 Delivery O2 Flow Rate FiO2 08/08/24 10:17 95/59 08/08/24 10:17 73 08/08/24 09:00 97.4 16 90 97.4 08/08/24 07:06 Nasal Cannula 2.0 08/08/24 07:06 28 Intake/Output Intake and Output 08/08/24 07:00 Intake Total 550 ml Output Total 400 ml Balance 150 ml Intake Oral 550 ml Output Urine Total 400 ml General Appearance: Alert, Oriented X3, Cooperative, No acute distress Lungs: Other Cardiovascular: Regular rate, Normal S1, Normal S2, No murmurs Abdomen: Normal bowel sounds, Soft, No tenderness Extremities: Other Neuro: Other Medications Current Medications Medications Dose Ordered Sig/Maurice Route Start Time Stop Time Status Last Admin Dose Admin Levothyroxine Sodium 200 mcg QAM PO 07/12/24 07:00 08/08/24 06:07 200 MCG Vancomycin HCl 200 ml @ 200 mls/hr Q1H IV 07/12/24 13:00 07/12/24 14:59 Cancel Insulin Glargine 10 units DAILY@1000 SC 07/14/24 10:00 08/08/24 11:59 10 UNITS Sodium Chloride 10 ml QSHIFT@ IV 07/14/24 22:00 08/08/24 10:19 10 ML Dextrose 50 ml UD IV 07/15/24 15:00 Cancel Diagnostic Test (Pha) 1 strip Q6HR 07/17/24 18:00 08/08/24 11:58 1 STRIP Insulin Human Regular Q6HR SC 07/17/24 18:00 08/08/24 11:59 2 UNITS Dextrose 50 ml UD PRN IV 07/17/24 13:15 Sennosides 8.6 mg HS PO 07/18/24 22:00 08/07/24 22:37 8.6 MG Lactulose 30 ml DAILYPRN PRN PO 07/23/24 10:45 Hydralazine HCl 10 mg Q6HP PRN IV 07/24/24 11:00 07/24/24 14:05 10 MG Albuterol 2.5 mg Q8HR NEB 07/26/24 22:00 08/08/24 07:06 2.5 MG Acetaminophen 650 mg Q6HP PRN PO 07/29/24 13:15 08/06/24 18:06 650 MG Apixaban 5 mg BID PO 07/30/24 22:00 08/08/24 10:18 5 MG Amiodarone HCl 200 mg Q12HR PO 08/01/24 22:00 08/08/24 10:16 200 MG Docusate Sodium 100 mg BID PO 08/01/24 22:00 08/08/24 10:18 100 MG Furosemide 20 mg DAILY PO 08/03/24 10:00 08/08/24 10:17 20 MG Ondansetron HCl 4 mg Q4HPRN PRN IV 08/02/24 16:00 Trimethoprim/ Sulfamethoxazole 1 tab Q12HR PO 08/06/24 22:00 08/08/24 10:16 1 TAB Pantoprazole Sodium 40 mg DAILY@0600 PO 08/09/24 06:00 Digoxin 0.125 mg MWF PO 08/10/24 10:00 Laboratory Results Laboratory Tests 08/05/24 05:10 08/07/24 05:01 Urinalysis Test 07/11/24 15:12 Urine Color Yellow (Yellow) Urine Clarity Clear (Clear) Urine pH 5.5 (5.0-9.0) Urine Specific [place] 1.027 (1.001-1.035) Urine Protein 1+ (Negative) H Urine Ketones 2+ (Negative) H Urine Blood Negative /uL (Negative) Urine Nitrite Negative (Negative) Urine Bilirubin Negative (Negative) Urine Urobilinogen Normal mg/dL (Negative) Urine Leukocyte Esterase Negative /uL (Negative) Urine RBC 1 /hpf (0 - 3) Urine WBC 3 /hpf (0 - 3) Urine Squamous Epithelial Cells Few /hpf (<5) Urine Bacteria None seen /hpf (None Seen) Urine Glucose 4+ mg/dL (Normal) H Microbiology Microbiology Date/Time Source Procedure Growth Status 07/22/24 00:00 Sputum Gram Stain - Final Complete 07/22/24 00:00 Respiratory Culture - Final Staphylococcus aureus Presumptive Ct albicans Complete 07/15/24 12:00 Lung - Final Resulted 07/15/24 12:00 Lung - Final Resulted 07/15/24 12:00 Lung - Preliminary Resulted 07/15/24 12:00 Lung - Preliminary Resulted 07/15/24 12:00 Lung - Final See Separate Report... Resulted 07/15/24 12:00 Drainage Viral Culture - Final Complete 07/12/24 10:47 Voided Urine Urine Culture - Final Complete 07/11/24 21:08 Blood Blood Culture - Final NO GROWTH AFTER 5 DAYS OF INCUBATION. Complete Assessment/Plan Assessment/Plan Acute hypoxic respiratory failure Multi-focal pneumonia, due to MRSA Influenza A Sepsis, improved Atrial fibrillation Acute on chronic CHF, EF 25% CAD Hypothyroidism DM2 Thrombocytopenia due to sepsis, improved PLAN: 07/23/2024: Sedation: Versed, Propofol, Fent GI prophylaxis: Protonix DVT prophylaxis: Add Lovenox PNA: Vancomycin AFIB: Amio, Dig, Sepsis: Improved CHF: Lasix 40 mg IV daily, increase to bid DM2: Lantus 07/24/2024: CPAP trial in progress Dr. Rivera is trying to extubate the patient hopefully next 1-2 days Continue the current management Off vasopressors Discussed with the daughter at the bedside yesterday afternoon Questions answered Full code 07/25/2024: CPAP in progress today for possible extubation today Off vasopressors Off sedation Continue vancomycin IV Lasix 40 mg IV twice a day Digoxin IV 3 times a week Amiodarone 07/26/2024: Continue IV Lasix Continue NPO Replace potassium magnesium IV Continue IV vancomycin Physical therapy Continue feeding through the NG tube 07/27/2024: Downgrade to the MIGUEL Swallow eval Replace potassium and magnesium as needed Continue IV vancomycin Continue physical therapy Continue feeding through the NG tube 07/28/2024: Downgrade to tele Did not pass a swallow eval Continue feeding through the NG tube Continue physical therapy Continue IV vancomycin Replace potassium 07/29/2024: Downgrade to tele DC the [facility] the sitter Generalized weakness: Continue physical therapy Out of bed as tolerated Hypokalemia: Replace potassium p.o. Continue IV vancomycin P.o. amiodarone Levothyroxine 07/30/2024: Continue physical therapy Out of bed as tolerated Swallow eval today Start diet if he passes the swallow test Continue IV vancomycin Amiodarone and digoxin Discontinue Lovenox and start Eliquis since thrombocytopenia has resolved Lasix 40 mg twice a day IV 07/31/2024: Continue current management Swallow eval today then started diet Continue physical therapy Discharge planning once he has started eating possibly to SNF 08/01/2024: Continue physical therapy Advance diet as tolerated Discontinue the NG tube IV Lasix continue p.o. amiodarone 08/02/2024: Continue IV vancomycin Rate controlled with amiodarone and digoxin Eliquis See the IV Lasix, changed to p.o. once a day 20 mg daily 08/06/2024: Discontinue vancomycin, start Bactrim p.o. Tapered down the oxygen and DC if not needed Continue physical therapy Out of bed as tolerated If still hypoxic, then we will arrange home O2 Continue Lasix 20 mg p.o. daily Amiodarone and Eliquis Discharge planning 08/07/24: Continue physical therapy Start incentive spirometry Out of bed as tolerated Continue Lasix 20 mg daily Continue amiodarone and Eliquis Discharge planning in 1-2 days once the DME is and home health is arranged 08/08/24: Continue the current plan DC plan for tomorrow with home health DC Tele Plan discussed with: Patient, Daughter My Orders Orders - MERLYN NARAYAN MD Procedure Category Date Status Time Pantoprazole Tablet PHA 08/09/24 In Process (Protonix Tablet) 06:00 Digoxin Tablet PHA 08/10/24 In Process (Lanoxin Tablet) 10:00 Date of Service: Aug 08, 2024 Billing Provider: MERLYN NARAYAN MD Common Visit Codes: [id number] INP/OBS CARE(HIGH) MERLYN NARAYAN MD Aug 08, 2024 14:41
--- NOTE | 2024-08-08 21:02 | DVHPN2 ---
Progress Note - Dictate Date Seen: Aug 08, 2024 Medical Necessity Reason Pt with a Central, PICC or Fol: No The following are medically ne: Central Line Subjective Patient seen and examined at bedside. Breathing on room air. Overnight events reviewed. vital signs Vital Sign Date Time Temp Pulse Resp B/P (MAP) Pulse Ox O2 Delivery O2 Flow Rate FiO2 08/08/24 20:00 90 Room Air* 0 N/A Nasal Cannula* 08/08/24 16:55 97.4 60 17 101/58 (72) 97.4 Total Intake and Output 08/07/24 08/07/24 08/08/24 15:00 23:00 07:00 Intake Total 425 ml 125 ml Output Total 200 ml 200 ml Balance 225 ml -75 ml medications Current Medications Medications Dose Ordered Sig/Maurice Route Start Time Stop Time Status Last Admin Dose Admin Levothyroxine Sodium 200 mcg QAM PO 07/12/24 07:00 08/08/24 06:07 200 MCG Vancomycin HCl 200 ml @ 200 mls/hr Q1H IV 07/12/24 13:00 07/12/24 14:59 Cancel Insulin Glargine 10 units DAILY@1000 SC 07/14/24 10:00 08/08/24 11:59 10 UNITS Sodium Chloride 10 ml QSHIFT@,22 IV 07/14/24 22:00 08/08/24 10:19 10 ML Dextrose 50 ml UD IV 07/15/24 15:00 Cancel Diagnostic Test (Pha) 1 strip Q6HR 07/17/24 18:00 08/08/24 18:00 1 STRIP Insulin Human Regular Q6HR SC 07/17/24 18:00 08/08/24 11:59 2 UNITS Dextrose 50 ml UD PRN IV 07/17/24 13:15 Sennosides 8.6 mg HS PO 07/18/24 22:00 08/07/24 22:37 8.6 MG Lactulose 30 ml DAILYPRN PRN PO 07/23/24 10:45 Hydralazine HCl 10 mg Q6HP PRN IV 07/24/24 11:00 07/24/24 14:05 10 MG Albuterol 2.5 mg Q8HR NEB 07/26/24 22:00 08/08/24 07:06 2.5 MG Acetaminophen 650 mg Q6HP PRN PO 07/29/24 13:15 08/08/24 15:39 650 MG Apixaban 5 mg BID PO 07/30/24 22:00 08/08/24 10:18 5 MG Amiodarone HCl 200 mg Q12HR PO 08/01/24 22:00 08/08/24 10:16 200 MG Docusate Sodium 100 mg BID PO 08/01/24 22:00 08/08/24 10:18 100 MG Furosemide 20 mg DAILY PO 08/03/24 10:00 08/08/24 10:17 20 MG Ondansetron HCl 4 mg Q4HPRN PRN IV 08/02/24 16:00 Trimethoprim/ Sulfamethoxazole 1 tab Q12HR PO 08/06/24 22:00 08/08/24 10:16 1 TAB Pantoprazole Sodium 40 mg DAILY@0600 PO 08/09/24 06:00 Digoxin 0.125 mg MWF PO 08/10/24 10:00 objective Gen.: Patient lying in bed in no apparent distress. On room air. Head: Normocephalic, atraumatic. Eyes: EOMI/PERRLA. Ears: Normal hearing. Normal anatomy. Neck/trachea: Trachea midline, supple. Nose: Normal external anatomy. Mouth: Moist mucous membranes. Chest: Decreased air entry bilaterally. Coarse. Wheezing present. No rhonchi. Cardiovascular: Positive S1, positive S2. Regular rate and rhythm. Abdomen: Positive bowel sounds in all 4 quadrants. Soft, non-tender, non- distended. : Deferred. Rectal: Deferred. Skin: Warm, dry. Intact. Extremities: 2+ radial pulses bilaterally. No lower extremity edema. Neuro: Awake, alert, oriented x3. No gross motor or sensory deficits. Cranial nerves II through XII intact. Gait not assessed. laboratory and microbiology Laboratory Tests 08/07/24 05:01 08/05/24 05:10 Test 08/07/24 05:01 Range/Units Serum Glucose 69 L 74-106 mg/dL Assessment/Plan Impression: Acute hypoxic respiratory failure secondary to multifocal pneumonia and pulmonary edema Acute respiratory distress syndrome Multifocal pneumonia likely Gram-negative Pulmonary edema Leukopenia Septic shock Influenza type a Atrial fibrillation with RVR Chronic congestive heart failure Status post AICD CAD status post PTCA Insulin-dependent diabetes mellitus Acute kidney injury Events: Breathing on room air Requires 2 LPM NC with exertion Monitor O2 requirements Head of bed elevation Aspiration precautions Continue bronchodilators Continue antibiotics - Bactrim PO. Antitussive PRN cough. Incentive spirometry Amiodarone PO for AFib Tube feeds for nutritional support Continue bowel regimen. Protonix for GI prophylaxis. Continue Eliquis. Physical therapy Pulmonary toileting NTS PRN. IV fluid hydration at 125 ml/hr. Diurese w/ Lasix as tolerated Monitor renal function Monitor electrolytes, supplement as necessary Maintain euvolemia Patient is stable for discharge from the pulmonary standpoint. Disposition per hospitalist. S/p therapeutic bronchoscopy on 07/22 - please see procedure note for details. Labs and imaging reviewed. Rest of plan as noted below. Plan: s/p extubation on 07/25/24 Supplemental O2 PRN Titrate to keep O2 sats above 92%. Requires 2 LPM NC with exertion Off sedation Pressors as necessary for hemodynamic support - Remains off, hemodynamically stable Titrate to keep MAP above 65 mmHg/SBP above 90 mmHg. Stress dose steroids Received dose of albumin. Continue antibiotics. F/u cultures. Send sputum, blood cultures and urine cultures Monitor renal function due to acute kidney injury. Creatinine trending down Monitor electrolytes. Supplement as necessary. Supplemented potassium and magnesium stat. On IV fluids, lactic acid trending down. Accu-Cheks, ISS PRN. GI/DVT prophylaxis. Prognosis: Poor given multiple comorbidities. Rest of plan per hospitalist and other consultants. Thank you JOSH Hatfield for allowing me to participate in this patient's care. Further recommendations will depend on patient's clinical course. Please do not hesitate to contact me if you have any questions or concerns. This medical document was created using an electronic medical record system with [employer] dictation system. Although this document has been carefully reviewed, there may still be some phonetic and typographical errors. These areas are purely typographical due to imperfections of the software programs, and do not reflect any compromise in the patient's medical care. Dietary Evaluation Review Comments: Advance to 2 gNa CCHO-60 diet when medically feasible. Pt's lipid pannel shows Cholesterol and LDL at lower mragin range, thus no restrictions on fat or cholesterol needed. Expected Outcomes/Goals: gradual weight loss, controlled DM, Plan discussed with: Patient, Other (ANGELO Henson) LINDSEY ROSALES MD Aug 08, 2024 21:02
[2024-08-09] VITALS (13 sets, daily range): BP systolic 97–109; BP diastolic 61–67; PULSE 65–85; RESP 18–21; TEMP 97.7–98.7; O2SAT 92–99
[2024-08-09] MEDS: PANTOPRAZOLE 40 MG TAB PO SCH (05:06)
[2024-08-09] MEDS: LACTULOSE 20Gm/30ML SOLN PO PRN (09:08)
[2024-08-09] MEDS ORDERED: FURO20TA4 PO (10:34)
[2024-08-09] MEDS ORDERED: AMIO200T13 PO (10:34)
[2024-08-09] MEDS ORDERED: BACDST PO (10:40)
[2024-08-09] MEDS ORDERED: DOCU-94 PO (11:27)
--- NOTE | 2024-08-09 14:26 | DVHDS2 ---
Discharge Summary Date of Admission Jul 11, 2024 at 17:58 Date of Discharge: Aug 09, 2024 Labs/Diagnostic Data: Laboratory Results Test 08/09/24 11:09 08/07/24 05:01 08/05/24 05:10 08/03/24 05:00 POC Glucose 146 mg/dl (70-106) Sodium Level 139 mmol/L (136-145) Potassium Level 3.7 mmol/L (3.5-5.1) Chloride Level 104 mmol/L (98-107) Carbon Dioxide Level 25 mmol/L (20-31) Anion Gap 10 (5-15) Blood Urea Nitrogen 14 mg/dL (9-23) Creatinine 0.71 mg/dL (0.700-1.30) Glomerular Filtration Rate Calc 101 mL/min (>90) BUN/Creatinine Ratio 19.7 (10.0-20.0) Serum Glucose 69 mg/dL (74-106) Calcium Level 8.7 mg/dL (8.7-10.4) Vancomycin Level Trough 18.6 ug/mL (5-10) White Blood Count 6.4 10^3/uL (4.4-10.8) Red Blood Count 2.69 10^6/uL (4.5-5.90) Hemoglobin 8.3 g/dL (13.5-17.5) Hematocrit 24.3 % (41.0-53.0) Mean Corpuscular Volume 90.5 fL (80.0-100.0) Mean Corpuscular Hemoglobin 30.9 pg (28.0-32.0) Mean Corpuscular Hemoglobin Concent 34.1 g/dL (32.0-36.0) Red Cell Distribution Width 15.4 % (11.8-14.3) Platelet Count 413 10^3/uL (140-450) Mean Platelet Volume 8.0 fL (6.9-10.8) Neutrophils (%) (Auto) 66.4 % (37.0-80.0) Lymphocytes (%) (Auto) 20.9 % (10.0-50.0) Monocytes (%) (Auto) 9.0 % (0.0-12.0) Eosinophils (%) (Auto) 3.1 % (0.0-7.0) Basophils (%) (Auto) 0.6 % (0.0-2.0) Neutrophils # (Auto) 4.3 10 ^3/uL (1.6-8.6) Lymphocytes # (Auto) 1.3 10 ^3/uL (0.4-5.4) Monocytes # (Auto) 0.6 10 ^3/uL (0-1.3) Eosinophils # (Auto) 0.2 10 ^3/uL (0-0.8) Basophils # (Auto) 0 10 ^3/uL (0-0.2) Nucleated Red Blood Cells 0.0 % Digoxin Level 0.27 ng/mL (0.8-2) Magnesium Level 1.6 mg/dL (1.6-2.6) Test 07/31/24 05:01 07/26/24 03:17 07/25/24 13:29 07/25/24 06:48 Total Bilirubin 0.6 mg/dL (0.2-1.0) Aspartate Amino Transferase (AST) 25 U/L (13-40) Alanine Aminotransferase (ALT) 14 U/L (7-40) Alkaline Phosphatase 65 U/L (46-116) Total Protein 6.3 g/dL (5.7-8.2) Albumin 2.7 g/dL (3.2-4.8) Phosphorus Level 3.6 mg/dL (2.4-5.1) Blood Gas Specimen Type Arterial Blood Gas Sample Site Left radial Blood Gas Patient Temperature 37.0 Arterial Blood Date Drawn [id number] Arterial Blood pH 7.469 (7.350-7.450) Arterial Blood Partial Pressure CO2 41.7 mmHg (35.0-48.0) Arterial Blood Partial Pressure O2 125.4 mmHg (83.0-108.0) Arterial Blood HCO3 29.6 mmol/L (21.0-28.0) Arterial Blood Oxygen Saturation 98.1 % (94.0-98.0) Arterial Blood Base Excess 5.4 mmol/L (-2.0-3.0) Arterial Blood Oxyhemoglobin 97.5 % (94.0-98.0) Arterial Blood Carboxyhemoglobin 0.3 % (0.5-1.5) Arterial Blood Methemoglobin 0.3 % (0.0-1.5) Frank Test Modified Blood Gas Total Hemoglobin 11.80 g/dL (13.5-17.5) Blood Gas Modality Vent - cpap Blood Gas Spontaneous Rate 14 FiO2 % 40.0 Blood Gas Spontaneous Tidal Volume 448 Blood Gas Inspiratory Pressure 13.0 Blood Gas Pressure Support 8 Blood Gas PEEP or CPAP 5.0 Bl Gas Inspiratory/Expiratory Ratio 1:1.9 Specimen Drawn By bailey bledsoe Blood Gas Set Respiration Rate 18.0 Blood Gas Liter Flow 70.00 Blood Gas Tidal Volume 450.0 Test 07/24/24 15:00 07/19/24 14:45 07/18/24 03:25 07/17/24 12:45 Blood Gas Critical Value Read Back Yes Blood Gas Notified Whom Blood Gas Notified Time [id number] Blood Gas Notified By haley xie, [employer] machine operator Miscellaneous Referred Test (Rm Tmp Sent to [facility] Platelet Estimate Decreased Triglycerides Level 91 mg/dL (< 150) SARS-CoV-2 Antigen (Rapid) Negative (NEGATIVE) Test 07/16/24 01:21 07/15/24 03:10 07/13/24 11:13 07/13/24 07:49 B-Type Natriuretic Peptide 1056.77 pg/mL (0-100) Differential Total Cells Counted 100.0 (100) Neutrophils % (Manual) 76 (37.0-80.0) Band Neutrophils % (Manual) 7 Lymphocytes % (Manual) 6 (10.0-50.0) Monocytes % (Manual) 11 (0-12) Eosinophils % (Manual) 0 (0-7) Basophils % (Manual) 0 (0.0-2.0) Metamyelocytes % (manual) 0 Myelocytes % (Manual) 0 Promyelocytes % (Manual) 0 Blast Cells % (Manual) 0 Reactive Lymphocytes 0 Large Platelets Few Lactic Acid Level 6.3 mmol/L (0.4-2.0) Venous Blood pH 7.107 (7.320-7.430) Venous Blood pCO2 at Patient Temp 57.7 mmHg (38.0-54.0) Venous Blood pO2 at Patient Temp 36.7 mmHg (23.0-48.0) Venous Blood HCO3 17.8 mmol/L (22.0-29.0) Venous Bld O2 Saturation (Measured) 64.3 % (60.0-85.0) Venous Blood Base Excess -12.3 mmol/L (-2.0-3.0) Venous Blood Total Hemoglobin 15.2 g/dL (13.5-17.5) Venous Blood Oxyhemoglobin 63.7 % (0.0-79.0) Venous Blood Carboxyhemoglobin 0.6 % (0.5-1.5) Venous Blood Methemoglobin 0.3 % (0.0-1.5) Test 07/12/24 16:17 07/12/24 03:39 07/11/24 15:40 07/11/24 15:12 HIV (1&2) Antibody Negative (Negative) Blood Gas EPAP 8 Blood Gas IPAP 16 Cholesterol Level 84 mg/dL (< 200) LDL Cholesterol 31 mg/dL (< 100) HDL Cholesterol 42 mg/dL (40-59) Thyroid Stimulating Hormone (TSH) 1.78 uIU/mL (0.55-4.78) Urine Color Yellow (Yellow) Urine Clarity Clear (Clear) Urine pH 5.5 (5.0-9.0) Urine Specific [place] 1.027 (1.001-1.035) Urine Protein 1+ (Negative) Urine Ketones 2+ (Negative) Urine Blood Negative /uL (Negative) Urine Nitrite Negative (Negative) Urine Bilirubin Negative (Negative) Urine Urobilinogen Normal mg/dL (Negative) Urine Leukocyte Esterase Negative /uL (Negative) Urine RBC 1 /hpf (0 - 3) Urine WBC 3 /hpf (0 - 3) Urine Squamous Epithelial Cells Few /hpf (<5) Urine Bacteria None seen /hpf (None Seen) Urine Glucose 4+ mg/dL (Normal) Urine Opiates Screen Neg (NEGATIVE) Urine Fentanyl Screen Neg (NEGATIVE) Urine Barbiturates Screen Neg (NEGATIVE) Urine Phencyclidine Screen Neg (NEGATIVE) Urine Amphetamines Screen Neg (NEGATIVE) Urine Benzodiazepines Screen Neg (NEGATIVE) Urine Cocaine Screen Neg (NEGATIVE) Urine Cannabinoids Screen Neg (NEGATIVE) Test 07/11/24 14:44 07/11/24 12:33 07/11/24 11:58 D-Dimer, Quantitative 4.34 mg/L FEU (0.0-0.49) Troponin I High Sensitivity 16 ng/L (</=54) Influenza Type A Antigen Positive (Negative) Influenza Type B Antigen Negative (Negative) Giant Platelets Few Prothrombin Time 11.4 sec (9.3-11.8) Prothrombin Time INR 1.08 (0.9-1.15) Activated Partial Thromboplast Time 34.3 SEC (24.5-34.5) Hemoglobin A1c 7.5 % A1C (<5.7) Ammonia < 10 umol/L (11-32) Lipase 17 U/L (12-53) Beta-Hydroxybutyric Acid 0.874 mmol/L (< 0.4) Other Laboratory Tests 08/07/24 05:01 08/05/24 05:10 Brief Hx & Hospital Course: Final diagnoses: Acute hypoxic respiratory failure Multi-focal pneumonia, due to MRSA Influenza A Sepsis, improved Atrial fibrillation Acute on chronic CHF, EF 25% CAD Hypothyroidism DM2 Thrombocytopenia due to sepsis, improved Patient is a 68-year-old male with a history of heart failure and coronary artery disease and diabetes came with multifocal pneumonia and acute respiratory failure requiring mechanical ventilation and intubation He was treated in the ICU aggressively with broad-spectrum antibiotics consisting of vancomycin because he grew MRSA in the sputum He required extensive treatment with mechanical ventilation and close monitoring and potassium and magnesium supplements He was given IV Lasix His atrial fibrillation was controlled with digoxin and amiodarone Eventually he was extubated but he remained very weak After extubation also he could not swallow and he continued to have copious amounts of phlegm He was continued on vancomycin He was downgraded to the telemetry floor and physical therapy was started Eventually he was able to swallow and therefore he was started on a diet Physical therapy kept seeing the patient and he improved slowly His medications were switched to p.o. once he was able to sustained p.o. intake Currently he is on room air, he is doing well with physical therapy His speech and voice strength is better He will be discharged home to continue Bactrim DS twice a day for 5 more days to finish the treatment for the pneumonia with MRSA Home health was ordered A walker was ordered for him also Follow up with his primary care physician as soon as possible Continue the home medications which include Eliquis and Entresto and Aldactone Add Lasix 20 mg daily and amiodarone 200 mg daily and Colace Follow up with the primary care physician as soon as possible His daughter was updated over the phone Condition at Discharge: Stable Final Diagnosis/Problems List Acute hypoxic respiratory failure Multi-focal pneumonia, due to MRSA Influenza A Sepsis, improved Atrial fibrillation Acute on chronic CHF, EF 25% CAD Hypothyroidism DM2 Thrombocytopenia due to sepsis, improved Discharge Disposition: Home with Health Services SNF Discharge Will this Physician continue t: No Discharge Instruct/Medications Diet: Consistent carbohydrate, Cardiac 2g Na,low cholest Activity: No Restrictions, As Tolerated Medications: Same home meds Add: LAsix 20 mg qd and amiodarone 200 mg qd Discharge Statement: "Patient was advised to return to the ER or call 911 if any headaches, dizziness, shortness of breath, chest pain, abdominal pain, bleeding, fevers, or worsening of medical condition. Patient was counseled about treatment plan, medications, possible side effects, patientverbalized understanding. All questions were answered to the best of my ability. This discharge took greater then 30 minutes in planning, reviewing documentation, counseling the patient, and discussing with other team members." ASSESSMENT ASSESSMENT Assessment Acute hypoxic respiratory failure Multi-focal pneumonia, due to MRSA Influenza A Sepsis, improved Atrial fibrillation Acute on chronic CHF, EF 25% CAD Hypothyroidism DM2 Thrombocytopenia due to sepsis, improved Date of Service: Aug 09, 2024 Billing Provider: MERLYN NARAYAN MD Common Visit Codes: 25073-YFZ/OBS DISCH DAY >30min MERLYN NARAYAN MD Aug 09, 2024 14:26
--- NOTE | 2024-08-09 23:09 | DVHPN2 ---
Progress Note - Dictate Date Seen: Aug 09, 2024 Medical Necessity Reason Pt with a Central, PICC or Fol: No The following are medically ne: Central Line Subjective Patient seen and examined at bedside. Breathing on room air. Overnight events reviewed. vital signs Vital Sign Date Time Temp Pulse Resp B/P (MAP) Pulse Ox O2 Delivery O2 Flow Rate FiO2 08/09/24 17:55 80 18 99 08/09/24 17:48 Room Air 0.0 08/09/24 17:48 21 08/09/24 17:00 97.9 107/65 (79) 97.9 Total Intake and Output 08/08/24 08/08/24 08/09/24 15:00 23:00 07:00 Intake Total 500 ml 420 ml Output Total 175 ml 300 ml Balance 325 ml 120 ml medications Current Medications Medications Dose Ordered Sig/Maurice Route Start Time Stop Time Status Last Admin Dose Admin Vancomycin HCl 200 ml @ 200 mls/hr Q1H IV 07/12/24 13:00 07/12/24 14:59 Cancel Dextrose 50 ml UD IV 07/15/24 15:00 Cancel objective Gen.: Patient lying in bed in no apparent distress. On room air. Head: Normocephalic, atraumatic. Eyes: EOMI/PERRLA. Ears: Normal hearing. Normal anatomy. Neck/trachea: Trachea midline, supple. Nose: Normal external anatomy. Mouth: Moist mucous membranes. Chest: Decreased air entry bilaterally. Coarse. Wheezing present. No rhonchi. Cardiovascular: Positive S1, positive S2. Regular rate and rhythm. Abdomen: Positive bowel sounds in all 4 quadrants. Soft, non-tender, non- distended. : Deferred. Rectal: Deferred. Skin: Warm, dry. Intact. Extremities: 2+ radial pulses bilaterally. No lower extremity edema. Neuro: Awake, alert, oriented x3. No gross motor or sensory deficits. Cranial nerves II through XII intact. Gait not assessed. laboratory and microbiology Laboratory Tests 08/07/24 05:01 08/05/24 05:10 Test 08/07/24 05:01 Range/Units Serum Glucose 69 L 74-106 mg/dL Assessment/Plan Impression: Acute hypoxic respiratory failure secondary to multifocal pneumonia and pulmonary edema Acute respiratory distress syndrome Multifocal pneumonia likely Gram-negative Pulmonary edema Leukopenia Septic shock Influenza type a Atrial fibrillation with RVR Chronic congestive heart failure Status post AICD CAD status post PTCA Insulin-dependent diabetes mellitus Acute kidney injury Events: Breathing on room air Requires 2 LPM NC with exertion Monitor O2 requirements Head of bed elevation Aspiration precautions Continue bronchodilators Continue antibiotics - Bactrim PO. Antitussive PRN cough. Incentive spirometry Amiodarone PO for AFib Tube feeds for nutritional support Continue bowel regimen. Protonix for GI prophylaxis. Continue Eliquis. Physical therapy Pulmonary toileting NTS PRN. IV fluid hydration at 125 ml/hr. Diurese w/ Lasix as tolerated Monitor renal function Monitor electrolytes, supplement as necessary Maintain euvolemia Awaiting discharge Patient is stable for discharge from the pulmonary standpoint. Disposition per hospitalist. S/p therapeutic bronchoscopy on 07/22 - please see procedure note for details. Labs and imaging reviewed. Rest of plan as noted below. Plan: s/p extubation on 07/25/24 Supplemental O2 PRN Titrate to keep O2 sats above 92%. Requires 2 LPM NC with exertion Off sedation Pressors as necessary for hemodynamic support - Remains off, hemodynamically stable Titrate to keep MAP above 65 mmHg/SBP above 90 mmHg. Stress dose steroids Received dose of albumin. Continue antibiotics. F/u cultures. Send sputum, blood cultures and urine cultures Monitor renal function due to acute kidney injury. Creatinine trending down Monitor electrolytes. Supplement as necessary. Supplemented potassium and magnesium stat. On IV fluids, lactic acid trending down. Accu-Cheks, ISS PRN. GI/DVT prophylaxis. Prognosis: Poor given multiple comorbidities. Rest of plan per hospitalist and other consultants. Thank you JOSH Hatfield for allowing me to participate in this patient's care. Further recommendations will depend on patient's clinical course. Please do not hesitate to contact me if you have any questions or concerns. This medical document was created using an electronic medical record system with [employer] dictation system. Although this document has been carefully reviewed, there may still be some phonetic and typographical errors. These areas are purely typographical due to imperfections of the software programs, and do not reflect any compromise in the patient's medical care. Dietary Evaluation Review Comments: Advance to 2 gNa CCHO-60 diet when medically feasible. Pt's lipid pannel shows Cholesterol and LDL at lower mragin range, thus no restrictions on fat or cholesterol needed. Expected Outcomes/Goals: gradual weight loss, controlled DM, Plan discussed with: Patient, Other (RN Sixto) LINDSEY ROSALES MD Aug 09, 2024 23:09
[2024-08-10] MEDS ORDERED: DIGOXIN 0.125 MG TAB PO SCH (10:00)
== END 2024-08-09 18:30 | disposition home health service (06) | DRG 870 ==
LOC: ER 11:24 → EDBD 11:24 → TELE 17:58 → ICU WEST 20:17 → TELE-EAST 07-29 16:41 → EAST 08-09 02:18
PROVIDERS: ADMIT Internal Medicine Pulmonary Disease; ATTEND Internal Medicine Geriatric Medicine
PROC: 5A09357 Assistance with Respiratory Ventilation, Less than 24 Consecutive Hours, Continuous Positive Airway Pressure (ICD-10-PCS; 2024-07-11)
PROC: 5A1955Z Respiratory Ventilation, Greater than 96 Consecutive Hours (ICD-10-PCS; principal; 2024-07-12)
PROC: 0BH17EZ Insertion of Endotracheal Airway into Trachea, Via Natural or Artificial Opening (ICD-10-PCS; 2024-07-12)
PROC: 0B968ZZ Drainage of Right Lower Lobe Bronchus, Via Natural or Artificial Opening Endoscopic (ICD-10-PCS; 2024-07-12)
PROC: 02HV33Z Insertion of Infusion Device into Superior Vena Cava, Percutaneous Approach (ICD-10-PCS; 2024-07-14)
PROC: B548ZZA Ultrasonography of Superior Vena Cava, Guidance (ICD-10-PCS; 2024-07-14)
PROC: 0B9D8ZX Drainage of Right Middle Lung Lobe, Via Natural or Artificial Opening Endoscopic, Diagnostic (ICD-10-PCS; 2024-07-15)
PROC: 0B9B8ZZ Drainage of Left Lower Lobe Bronchus, Via Natural or Artificial Opening Endoscopic (ICD-10-PCS; 2024-07-19)
PROC: 0B968ZZ Drainage of Right Lower Lobe Bronchus, Via Natural or Artificial Opening Endoscopic (ICD-10-PCS; 2024-07-19)
PROC: 0B9D8ZX Drainage of Right Middle Lung Lobe, Via Natural or Artificial Opening Endoscopic, Diagnostic (ICD-10-PCS; 2024-07-22)
PROC: 5A0935A Assistance with Respiratory Ventilation, Less than 24 Consecutive Hours, High Flow/Velocity Cannula (ICD-10-PCS; 2024-07-25)
DX: A41.02 Sepsis due to Methicillin resistant Staphylococcus aureus (principal); R65.21 Severe sepsis with septic shock; N17.0 Acute kidney failure with tubular necrosis; J10.08 Influenza due to other identified influenza virus with other specified pneumonia; J80 Acute respiratory distress syndrome; J15.212 Pneumonia due to Methicillin resistant Staphylococcus aureus; I50.43 Acute on chronic combined systolic (congestive) and diastolic (congestive) heart failure; D68.69 Other thrombophilia; E87.20 Acidosis, unspecified; I48.21 Permanent atrial fibrillation; I47.19 Other supraventricular tachycardia; Z99.11 Dependence on respirator [ventilator] status; E87.4 Mixed disorder of acid-base balance; Z20.822 Contact with and (suspected) exposure to COVID-19; D70.9 Neutropenia, unspecified; E03.9 Hypothyroidism, unspecified; E11.65 Type 2 diabetes mellitus with hyperglycemia; E66.9 Obesity, unspecified; E83.42 Hypomagnesemia; E86.0 Dehydration; E87.6 Hypokalemia; I11.0 Hypertensive heart disease with heart failure; I25.10 Atherosclerotic heart disease of native coronary artery without angina pectoris; I48.0 Paroxysmal atrial fibrillation; D64.9 Anemia, unspecified; D69.59 Other secondary thrombocytopenia; E78.5 Hyperlipidemia, unspecified; K59.00 Constipation, unspecified; Z79.01 Long term (current) use of anticoagulants; Z79.4 Long term (current) use of insulin; Z95.810 Presence of automatic (implantable) cardiac defibrillator; Z98.61 Coronary angioplasty status; Z68.27 Body mass index [BMI] 27.0-27.9, adult
CPT/HCPCS: 31500; 36415; 36569; 36600; 71045; 74018; 76604; 76937; 80048; 80053; 80061; 80162; 80202; 80307; 81001; 82010; 82140; 82565; 82805; 82962; 83036; 83605; 83690; 83735; 83880; 84100; 84132; 84443; 84478; 84484; 85007; 85025; 85027; 85379; 85610; 85730; 86703; 86850; 86900; 86901; 87040; 87070; 87077; 87081; 87086; 87186; 87205; 87426; 87804; 92507; 92610; 93005; 93306; 93970; 94002; 94003; 94640; 94660; 94667; 94668; 96365; 96375; 97110; 97116; 97163; 97530; 99291; G0378; G9035; J0153; J1815; J2185; J2250; J2470; J2543; J2704; J3480; J7060; P9047